=== PATIENT | female | born 1950 | race Caucasian/White ===

== ENCOUNTER 2021-01-10 10:20 | Inpatient (IN) | payer MEDICARE ==
[~2021-01-10] VITALS: Ht 160.2 cm; Wt 65.0 kg
[2021-01-10] MEDS ORDERED: DEXA6TAB PO (11:20)
[2021-01-10] MEDS ORDERED: ATOR40TA70 PO (11:20)
[2021-01-10] MEDS ORDERED: MELATONIN 3 MG TABLET PO PRN (12:15)
[2021-01-10] MEDS ORDERED: DOCUSATE SODIUM 100 MG (COLACE) CAP PO PRN (12:15)
[2021-01-10] MEDS ORDERED: BISACODYL 10 MG SUPP (DULCOLAX) PR PRN (12:15)
[2021-01-10] MEDS ORDERED: LACTULOSE SYRUP 10GM/15ML (ENULOSE) 30ML UDC PO PRN (12:15)
[2021-01-10] MEDS ORDERED: FLEET ENEMA ADULT 1 EA BTL PR PRN (12:15)
[2021-01-10] MEDS ORDERED: CALCIUM CARBONATE 500 MG (TUMS) TAB.CHEW PO PRN (12:15)
[2021-01-10] MEDS ORDERED: diphenhydrAMINE 25 MG TAB (BENADRYL) PO PRN (12:15)
[2021-01-10] MEDS ORDERED: guaiFENesin/CODEINE (ROBITUSSIN AC) 10ML UDC PO PRN (12:15)
[2021-01-10] MEDS ORDERED: ALPRAZolam 0.25 MG (XANAX) TAB PO PRN (12:15)
[2021-01-10] MEDS ORDERED: LOPERAMIDE 2 MG (IMODIUM) TABLET PO PRN (12:15)
[2021-01-10] MEDS ORDERED: ONDANSETRON 4 MG (ZOFRAN) ORAL DISSOLVE TAB PO PRN (12:15)
[2021-01-10 12:50] VITALS: BP 114/62
--- NOTE | 2021-01-10 13:45 | Occupational Therapy Eval ---
OT Evaluation-General/PLF Medical Diagnosis Admission Date Jan 10, 2021 Medical Diagnosis: Post COVID PNA Onset Date: Dec 30, 2020 Therapy Diagnosis Therapy Diagnosis: debility, decreased ADL status, weakness Referral Physician: Lois Referral Reason: Evaluation/Treatment Medical History Additional Medical History dysrhythmia, HTN, heart disease Current History Diagnosed with COVID-19 12/30/20. Recent falls after diagnosis with subarachnoid bleed. Transferred to [facility] 01/10/21 for continued medication management and skilled therapies. Social History Home: Single Level Current Living Status: Spouse Entry Into Home: Ramp ADL-Prior Level of Function SCALE: Activities may be completed with or without assistive devices. 2-Dpxjjazwss-rqescyu completes the activity by him/herself with no assistance from a helper. 5-Set-up or Clean-up Assistance-helper sets up or cleans up; patient completes activity. [place] assists only prior to or following the activity. 4-Supervision or Touching Assistance-helper provides verbal cues and/or touching/steadying and/or contact guard assistance as patient completes activity. Assistance may be provided throughout the activity or intermittently. 3-Partial/Moderate Assistance-helper does LESS THAN HALF the effort. [place] lifts, holds or supports trunk or limbs, but provides less than half the effort. 2-Substantial/Maximal Assistance-helper does MORE THAN HALF the effort. [place] lifts or holds trunk or limbs and provides more than half the effort. 8-Kkbmalbjk-fxcbdh does ALL the effort. Patient does none of the effort to complete the activity. Or, the assistance of 2 or more helpers is required for the patient to complete the activity. If activity was not attempted, code reason: 7-Patient Refused. 9-Not Applicable-not attempted and the patient did not perform the activity before the current illness, exacerbation or injury. 10-Not Attempted due to Environmental Limitations-(lack of equipment, weather restraints, etc.). 88-Not Attempted due to Medical Conditions or Safety Concerns. ADL PLOF Comments Pt IND with I/ADLs at PLOF and functional mobility, no AD/AE Self Care: Independent Functional Cognition: Independent DME/Equipment: Tub/Shower Drive Self: Yes OT Current Status Subjective Pt arrived on unit via w/c van transport. Pt agreeable to OT tx but states very fatigued requesting to rest. Mental Status/Objective Patient Orientation: Person, Place, Situation Attachments: Oxygen (5L) Current Glasses/Contacts: Yes Upper Extremity ROM decreased, BUE shoulder flexion to approx 115 degrees. Upper Extremity Sensation WFL, pt denies tingling/numbness Upper Extremity Strength grossly 3/5 BUES ADL-Treatment Eating (QC): 7 Oral Hygiene (QC): 7 Shower/Bathe Self (QC): 7 Upper Body Dressing (QC): 7 Lower Body Dressing (QC): 7 On/Off Footwear (QC): 7 Toileting Hygiene (QC): 7 Other Treatments [id number]: Pt arrived via w/c van transport. Pt transferred from transport chair to /, Min A sit to stand, then CGA transfer to w/. Pt taken to her room. OT educated pt on purpose and benefit of OT, she verbalized understanding. Pt provided information about home set up and PLOF, and participated in UE screen. Pt requests to go to bed as she is super fatigued. O2 saturation in low 90%'s at rest on 5L. Sit to stand from w/, min A, then CGA transfer to EOB, skilled verbal cues for UE placement with transfers. Pt sat on EOB, transferred supine with CGA. Pt's O2 saturation at 85% on 5L, after a couple minutes remained at 85%. Pt instructed to complete pursed lip breathing but she indicated difficulty. OT turned O2 to 6L, pt recovered to 92% within 15 seconds. OT turned O2 back to 5L, pt remained in low 90%'s. Post tx, pt laying in bed, call light in reach and all needs met. OT will attempt tx again later. [id number]: OT/PT cotreat due to skill of 2 clinicians required which a rehab rn could not perform in order to coordinate UE/LEs, decrease fall risk, and due to pt's limitations in strength, activity tolerance and mobility. OT focused on UE placement, cues for sequencing and safety, PT focused on LE placement, transfers, mobility, dynamic standing balance. Pt with PT at start of tx at EOB. Pt used FWW to perform functional mobility towards door of her room, pt fatigued quickly requesting to sit and rest. O2 saturation at 87% on 6L on portable O2 tank. Pt propelled w/c to ARU common area, performed functional transfers in/out of car simulation, and performed functional mobility again with FWW, pt fatigued quickly again, requesting to rest after a short distance. Pt taken into therapy gym. In order to increase activity tolerance, and dynamic standing balance, pt stood and hit balloon back and forth with OT as PT assisted with balance, pt completed x3 trials total, once using BUE, one trial using RUE only, and one trial LUE only. Please refer to PT note for QC scores associated with mobility and transfers and distance performed. Post tx, pt in w/c with PT for continued tx. Education OT Patient Education: Correct positioning, Energy conservation, Exercise program, Modified ADL techniques, Progress toward Goal/Update tx plan, Purpose of tx/functional activities, Rehab process Teaching Recipient: Patient Teaching Methods: Discussion Response to Teaching: Verbalize Understanding OT Short Term Goals Short Term Goals Time Frame: Jan 24, 2021 Shower/bathe self: 4 Lower body dressin Putting on/taking off footwear: 4 OT Head Of Visual Merchandising Goals Assisted Goals Time Frame: Feb 09, 2021 Eating (QC): 6 Oral Hygiene (QC): 6 Toileting Hygiene (QC): 6 Shower/Bathe Self (QC): 6 Upper Body Dressing (QC): 6 Lower Body Dressing (QC): 6 On/Off Footwear (QC): 6 1=Demonstrate adherence to instructed precautions during ADL tasks. 2=Patient will verbalize/demonstrate understanding of assistive devices/mod ifications for ADL. 3=Patient will improve strength/tolerance for activity to enable patient to perform ADL's. OT Education/Plan Problem List/Assessment Assessment: Decreased Activ Tolerance, Decreased UE Strength, Impaired Bed Mobility, Impaired Coordination, Impaired Funct Balance, Impaired I ADL's, Impaired Self-Care Skills, Restricted Funct UE ROM Discharge Recommendations Plan/Recommendations: Continue POC Equpiment Recommendations-D/C: Extended Bath Bench Treatment Plan/Plan of Care Patient would benefit from OT for education, treatment and training to promote independence in ADL's, mobility, safety and/or upper extremity function for ADL's. Plan of Care: ADL Retraining, Functional Mobility, Group Exercise/Act as Ind, UE Funct Exercise/Act Treatment Duration: Feb 09, 2021 Frequency: Modified Program (IRF) Estimated Hrs Per Day: 1 hour per day Rehab Potential: Fair Due to a COVID-19 viral infection, the patient has deficits that warrant inpatient Acute Rehab. The patient will clearly benefit from intensive PT and OT, however, due to patient's observed endurance and therapy considerations, she may not be able to tolerate the full 3 hours of scheduled therapy. Therefore, she will be scheduled for as much therapy as she can tolerate with intentional rest breaks, shortened sessions, including providing therapy across 6 to 7 days. As the patient tolerates, the intensity, frequency, and duration of her therapy program will be increased. Time/GCodes Start Time: 13:05 ([id number]) Stop Time: 15:30 ([id number]) Total Time Billed (hr/min): 65 Billed Treatment Time 6382-2128 OT tx 1, EVM (10'), FA (15') 0410-3037 OT/PT cotreat 1, FA 3 (40') KRYS PERALTA OT Jan 10, 2021 13:45
--- NOTE | 2021-01-10 14:22 | PM&R Post Admission Assessment ---
PM&R Date of Visit: Jan 10, 2021 Time of Visit: 18:00 History of Present Illness Chief complaint: COVID-19 disability with subarachnoid hemorrhage conservative management per neurosurgery History of present illness: This is a 70-year-old white female who had just moved from [place] to the area to be closer to her daughter who lives in [place] who became symptomatic with illness diagnosed with COVID-19 and had a near syncopal episode at home on 12/30/2020 admitted due to COVID-19 pneumonia diagnosis and subarachnoid hemorrhage noted on imaging scan. Neurosurgery evaluated her and found her to be stable and no evidence of surgery required. Antiplatelet and anticoagulation will be held for the full 3 weeks. Pulmonology will be consulted. D-dimer was needed to be elevated. Chest x-ray reviewed. Patient is very weak and will require slow therapy schedule. She desats with any exertion. She has been for 53 years. 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 She did have significant problem with hypotension so home blood pressure medications will be held. Discharge summary from [facility]: Discharge Diagnoses and Relevant Hospital Course: Active Hospital Problems Diagnosis 2019 novel coronavirus disease (COVID-19) Acute respiratory failure with hypoxia Hypokalemia Metabolic acidosis, normal anion gap (NAG) SAH (subarachnoid hemorrhage) Resolved Hospital Problems No resolved problems to display. Delmy Urbina a 70 y.o.femalewho was admitted to [facility] on 01/07/2021nd found to have a principle diagnosis of severe COVID 19 pneumonia and acute hypoxic respiratory failure. The patient was initially admitted for complaint of dizziness and weakness with near-syncopal episodes. She had been diagnosed with COVID 19 On 12/30/20 and was isolating at home with her who also had COVID. CT head revealed a small subarachnoid hemorrhage in the sulcus of the right frontal lobe without mass- effect or midline shift. Neurosurgery saw the patient and recommended conservative management without intervention and to avoid antiplatelet agents for 3 weeks. On arrival, she had a small oxygen requirement of 2 L in order to maintain saturations in the low 90s. She was started on dexamethasone and remdesivir. Blood pressures were found to be low and some of her home antihypertensives were held. Orthostatic hypotension was treated with IV fluid boluses with improvement of the orthostatic blood pressure but the patient remained dizzy on standing. Physical therapy recommended rehab for her and ultimately she agreed to go to rehab after long discussion between her and her daughter. Her antih ypertensives were stopped at discharge due to her low blood pressures and orthostasis. START taking these medications dexAMETHasone6 mg Tablet Commonly known as: DECADRON Take 1 Tablet (6 mg) by mouth daily for 7 days. Signed by: Dr. Bret Suarez, DO Quantity: 7 Tablet Refills: 0 CONTINUE taking these medications w [id number] mg tablet Commonly known as: LIPITOR Take 40 mg by mouth daily. Refills: 0 STOP taking these medications mg Tablet, Chewable Commonly known as: ROBIN CHEWABLE [id number] mg tablet Commonly known as: APRESOLINE [id number] mg tablet Commonly known as: LEVAQUIN oabvzweifs00 mg Tablet, Rapid Dissolve Commonly known as: CLARITIN RediTabs japbhlzo537 mg tablet Commonly known as: COZAAR metoprolol oulzuami84 mg tablet Commonly known as: LOPRESSOR Past Cvmmuwp-Gzdajk-Olwzvm Hx Past Med/Social Hx: Reviewed Nursing Past Med/Soc Hx, Reviewed and Corrections made Patient Social History Marrital Status: Employed/Student: retired Alcohol Use: Denies Use Smoking Status: Never a Smoker Past Medical History Cardiac: High Cholesterol, Hypertension Neurological: 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) Self Care: Independent Functional Cognition: Independent Drive Self: Yes PM&R Allergy/Meds/Data Review Allergies Coded Allergies: No Known Drug Allergies (Unverified , 01/10/21) Home Medications Scheduled Atorvastatin Calcium (Atorvastatin Calcium), 40 MG PO DAILY, (Reported) Dexamethasone (Dexamethasone), 6 MG PO DAILY, (Reported) Current Medications Current Medications Reviewed Review of Systems Constitutional: see HPI, dizziness, malaise, weakness EENTM: no symptoms reported Respiratory: dyspnea on exertion Cardiovascular: no symptoms reported Gastrointestinal: no symptoms reported Musculoskeletal: no symptoms reported Skin: no symptoms reported Psychiatric/Neurological: Depressed All Other Systems Reviewed Negative Unless Noted: Yes Physical Exam Physical Exam Vital Signs Vital Signs - First Documented 01/10/21 12:50 Temp 38.7 Pulse 86 Resp 20 B/P (MAP) 114/62 (79) Pulse Ox 91 O2 Delivery Nasal Cannula O2 Flow Rate 3.00 Capillary Refill : Height, Weight, BMI Height: '" Weight: lbs. oz. kg; 25.32 BMI Method: General Appearance: No Apparent Distress, WD/WN, Chronically ill, Other (Fatigued) Eyes: Bilateral Eye Normal Inspection, Bilateral Eye PERRL HEENT: PERRL/EOMI, Normal ENT Inspection, Pharynx Normal Neck: Full Range of Motion, Normal Inspection, Non Tender, Supple, Carotid Bruit Respiratory: Chest Non Tender, Lungs Clear, No Accessory Muscle Use, No Respiratory Distress, Decreased Breath Sounds Cardiovascular: Regular Rate, Rhythm, No Edema, No Gallop, No JVD, No Murmur, Normal Peripheral Pulses Gastrointestinal: Normal Bowel Sounds, No Organomegaly, No Pulsatile Mass, Non Tender, Soft Back: Normal Inspection, No CVA Tenderness, No Vertebral Tenderness Extremity: Normal Capillary Refill, Normal Inspection, Normal Range of Motion, Non Tender, No Calf Tenderness, No Pedal Edema Neurologic/Psychiatric: Alert, Oriented x3, 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-XII Norm as Tested, Abnormal Gait, Depressed Affect, Motor Weakness (Generalized weakness 3/5 all extremities) Skin: Normal Color, Warm/Dry Lymphatic: No Adenopathy PM&R Medical Assessment & Plan REHAB/MEDICAL ASSESSMENT AND PLAN: REHAB IMPAIRMENT GROUP: COVID-19 pneumonia with subarachnoid hemorrhage ETIOLOGIC DIAGNOSIS: COVID-19 pneumonia with subarachnoid hemorrhage The comorbidities that impact the patients function and/or functional outcome by: Severe COVID-19 compromise with desaturation, subarachnoid hemorrhage causing overall generalized weakness REHAB PLAN: The patient is being admitted to our comprehensive inpatient rehabilitation facility and can tolerate the intensity of service consisting of at least: 180 minutes of therapy a day, 5 out of 7 days a week Rehab treatment will consist of: PT and OT will focus on increasing ambulatory skills with the use of assistive devices in addition to increasing independence in ADLs in order to return back home with The patient/family has a good understanding of our discharge process and will benefit from an interdisciplinary inpatient rehabilitation program. The patient has potential to make improvement and is in need of at least two of the following multidisciplinary therapies including but not limited to physical, occupational, speech, and prosthetics and orthotics. Additionally the patient will need services from respiratory, nutritional services, wound care, psychology, etc. (Customize this to each patient). Given the patients complex condition and risk of further medical complications, rehabilitation services cannot be safely or effectively provided at a lower level of care such as a assisted facility. BARRIERS TO DISCHARGE: Severe weakness and desaturation with activity ESTIMATED LOS: 14 days DISPOSITION: Home RELEVANT CHANGES SINCE PREADMISSION SCREENING: I have compared the patients medical and functional status at the time of the preadmission screening and there are: No changes PROGNOSIS: Good REHABILITATION GOALS: 1. PT and OT will focus on increasing ambulatory skills with the use of assistive devices in addition to increasing independence in ADLs in order to return back home with All the above goals were reviewed with the patient and he/she is in agreement. By signing this document, I acknowledge that I have personally performed a full physical examination on this patient within 24 hours of admission to this inpatient rehabilitation facility and have determined the patient to be able to tolerate the above course of treatment at an intensive level for a reasonable period of time. I will be completing a detailed individualized Plan of Care for this patient by day #4 of the patients stay based upon the Preadmission Screen, the Post-Admission Evaluation, and the therapy evaluations. Admission Dx/Comorbidities: (1) Post-COVID syndrome ICD Codes: B94.8 - Sequelae of other specified infectious and parasitic diseases (2) Subarachnoid hemorrhage ICD Codes: I60.9 - Nontraumatic subarachnoid hemorrhage, unspecified (3) Hypoxemia ICD Codes: R09.02 - Hypoxemia (4) Hypercapnia ICD Codes: R06.89 - Other abnormalities of breathing (5) Elevated d-dimer ICD Codes: R79.89 - Other specified abnormal findings of blood chemistry (6) Hypertension ICD Codes: I10 - Essential (primary) hypertension (7) Orthostasis ICD Codes: I95.1 - Orthostatic hypotension (8) Hypercholesterolemia ICD Codes: E78.00 - Pure hypercholesterolemia, unspecified Assessment/Plan Assessment and Plan Assess & Plan/Chief Complaint Assessment: Post Covid syndrome Subarachnoid hemorrhage Hypoxemia requiring supplemental oxygen Orthostasis History of hypertension outpatient Hyperlipidemia Hypercapnia on ABG Plan: Aggressive rehab Oxygen supplementation Pulmonary consult Hold antiplatelets anticoagulation for full 3 weeks due to subarachnoid hemorrhage per neurosurgery recommendations can restart 01/21/2021 SARITHA APODACA DO Jan 10, 2021 14:22
--- NOTE | 2021-01-10 14:41 | Diagnostic Imaging Report ---
Indication: Dyspnea Frontal chest obtained at 0228 p.m. There is no prior study for comparison. Heart is mildly enlarged. There is no pneumothorax or pleural fluid. There is extensive infiltrate throughout the right midlung, suspicious for pneumonia. Left lung is clear. IMPRESSION: Cardiomegaly. Extensive right-sided infiltrates suspicious for pneumonia. Dictated by: Dictated on workstation # [id number]
[2021-01-10 14:46] LABS: BASOPHILS % (AUTO) 0 % (0-10); EOSINOPHILS % (AUTO) 0 % (0-10); HEMATOCRIT 37 % (35-52); HEMOGLOBIN 12.3 g/dL (11.5-16.0); LYMPHOCYTES # (AUTO) 0.5 10^3/uL (1.0-4.0); LYMPHOCYTES % (AUTO) 8 % (12-44); MEAN CORPUSCULAR HEMOGLOBIN 30 pg (25-34); MEAN CORPUSCULAR HGB CONC 34 g/dL (32-36); MEAN CORPUSCULAR VOLUME 88 fL (80-99); MEAN PLATELET VOLUME 10.5 fL (9.0-12.2); MONOCYTES # (AUTO) 0.4 10^3/uL (0.0-1.0); MONOCYTES % (AUTO) 6 % (0-12); NEUTROPHILS # (AUTO) 5.5 10^3/uL (1.8-7.8); NEUTROPHILS % (AUTO) 84 % (42-75); PLATELET COUNT 189 10^3/uL (130-400); WHITE BLOOD COUNT 6.6 10^3/uL (4.3-11.0)
[2021-01-10 15:09] LABS: ALBUMIN 3.2 GM/DL (3.2-4.5); BILIRUBIN,TOTAL 0.9 MG/DL (0.1-1.0); CALCIUM 8.4 MG/DL (8.5-10.1); CREATININE SERUM 0.79 MG/DL (0.60-1.30); POTASSIUM 3.7 MMOL/L (3.6-5.0); TOTAL PROTEIN 6.1 GM/DL (6.4-8.2)
--- NOTE | 2021-01-10 15:43 | Physical Therapy Evaluation ---
PT Evaluation-General Medical Diagnosis Admission Date Jan 10, 2021 at 13:05 Medical Diagnosis: Post COVID PNA Onset Date: Dec 30, 2020 Therapy Diagnosis Therapy Diagnosis: impaired mobility, strength, endurance Precautions Precautions/Isolations: Fall Prevention, Standard Precautions Referral Physician: Nazia Abreu DO Reason for Referral: Evaluation/Treatment Medical History Pertinent Medical History: HTN Additional Medical History Diagnosed with COVID-19 12/30/20. Recent falls after diagnosis with subarachnoid bleed. Transferred to [facility] 01/10/21 for continued medication management and skilled therapies. Reviewed History: Yes Social History Home: Single Level Current Living Status: Spouse Entry Into Home: Ramp Prior Prior Level of Function SCALE: Activities may be completed with or without assistive devices. 5-Wbmmdhatiq-gpdcvmu completes the activity by him/herself with no assistance from a helper. 5-Set-up or Clean-up Assistance-helper sets up or cleans up; patient completes activity. [place] assists only prior to or following the activity. 4-Supervision or Touching Assistance-helper provides verbal cues and/or touching/steadying and/or contact guard assistance as patient completes activity. Assistance may be provided throughout the activity or intermittently. 3-Partial/Moderate Assistance-helper does LESS THAN HALF the effort. [place] lifts, holds or supports trunk or limbs, but provides less than half the effort. 2-Substantial/Maximal Assistance-helper does MORE THAN HALF the effort. [place] lifts or holds trunk or limbs and provides more than half the effort. 6-Tzhbtoyky-wokuux does ALL the effort. Patient does none of the effort to complete the activity. Or, the assistance of 2 or more helpers is required for the patient to complete the activity. If activity was not attempted, code reason: 7-Patient Refused. 9-Not Applicable-not attempted and the patient did not perform the activity before the current illness, exacerbation or injury. 10-Not Attempted due to Environmental Limitations-(lack of equipment, weather restraints, etc.). 88-Not Attempted due to Medical Conditions or Safety Concerns. Bed Mobility: 6 Transfers (B,C,W/C): 6 Gait: 6 Stairs: 6 Indoor Mobility (Ambulation): Independent Stairs: Independent PT Evaluation-Current Subjective Patient in bed pre tx, agrees to PT, has no complaints of pain but states she is very tired. Pt/Family Goals to be independent at home Objective Patient Orientation: Person, Place, Situation ROM/Strength ROM Lower Extremities WNL Strength Lower Extremities LLE (hip flexion 4/5, knee flexion 4-/5, knee extension 4/5, dorsiflexion 3-/5), RLE (hip flexion 4/5, knee flexion 4-/5, knee extension 4/5, dorsiflexion 5/5) Sensory Hearing: Functional Sensation Right Lower Extremit: Intact Sensation Left Lower Extremity: Intact Transfers Roll Left & Right (QC): 6 Sit to Lying (QC): 6 Lying to Sitting/Side of Bed(Q: 6 Sit to Stand (QC): 4 Chair/Aiu-uv-Cldmf Xfer(QC): 4 Toilet Transfer (QC): 4 Car Transfer (QC): 4 Patient performs bed mobility and supine <-> sit with independence, sit <-> stand and transfers with CGA, car transfer CGA. Occasional cues for safety and hand placement. Gait Does the Patient Walk?: Yes Mode of Locomotion: Walk Anticipated Mode of Locomotion: Walk Walk 10 feet (QC): 4 Walk 50 ft with 2 Turns(QC): 88 Walk 150 ft (QC): 88 Walking 10ft/uneven surface-QC: 88 Distance: 10'x2 Gait Assistive Device: FWW Comments/Gait Description Patient can ambulate 10' with a rolling walker with CGA. She ambulates very slowly, steps are only a few inches at a time. Wheelchair Training Does the Pt Use a Wheelchair?: Yes Distance: 50' Wheel 50 ft with 2 turns (QC): 3 Wheel 150 ft (QC): 88 Type of Wheelchair: Manual Stairs 1 Step (curb) (QC): 88 4 Steps (QC): 88 12 Steps (QC): 88 Balance Sitting Static: Normal Sitting Dynamic: Normal Standing Static: Good Standing Dynamic: Good Picking up an Object (QC): 88 Treatment PT performed bed mobility and transfers, ambulation, WC mobility, standing and positioning during balloon balance activity, OT performed balloon balance activity, UE positioning and safety during activity. Assessment/Needs Patient in bed post tx with nurse call, phone, tray, all needs met. Patient has impaired mobility, strength, endurance. Patient's O2 drops to about 87% with activity and on 5L of O2. Rehab Potential: Fair PT Short Term Goals Short Term Goals Time Frame: Jan 17, 2021 Roll Left & Right: 6 Sit to lyin Lying to sitting on side of be: 6 Sit to stand: 4 Chair/zlq-pp-nnmyj transfer: 4 Walk 10 feet: 4 Walk 50 feet with two turns: 4 PT Intermediate Goals Ed Transporter Goals PT Ed Transporter Goals Time Frame: Jan 31, 2021 Roll Left & Right (QC): 6 Sit to Lying (QC): 6 Lying-Sitting on Side/Bed(QC): 6 Sit to Stand (QC): 6 Chair/Bvl-hc-Xjfcd Xfer(QC): 6 Toilet Transfer (QC): 6 Car Transfer (QC): 6 Does the Patient Walk: Yes Walk 10 feet (QC): 5 Walk 50ft with 2 Turns (QC): 5 Walk 150 ft (QC): 5 Walking 10ft on Uneven Surface: 5 1 Step (curb) (QC): 4 4 Steps (QC): 4 12 Steps (QC): 88 Picking up an Object (QC): 4 Wheel 50 feet with 2 turns (QC: 9 Wheel 150 feet: 9 PT Plan Problem List Problem List: Activity Tolerance, Functional Strength, Safety, Balance, Gait, Transfer, Bed Mobility, ROM Treatment/Plan Treatment Plan: Continue Plan of Care Treatment Plan: Bed Mobility, Education, Functional Activity Jo Ann, Functional Strength, Group Therapy, Gait, Safety, Therapeutic Exercise, Transfers Treatment Duration: Jan 31, 2021 Frequency: Modified Program (IRF) Estimated Hrs Per Day: 1 hour per day Patient and/or Family Agrees t: Yes Due to a COVID-19 viral infection, the patient has deficits that warrant inpatient Acute Rehab. The patient will clearly benefit from intensive PT and OT, however, due to patient's observed endurance and therapy considerations, she may not be able to tolerate the full 3 hours of scheduled therapy. Therefore, she will be scheduled for as much therapy as she can tolerate with intentional rest breaks, shortened sessions, including providing therapy across 6 to 7 days. As the patient tolerates, the intensity, frequency, and duration of her therapy program will be increased. Safety Risks/Education Patient Education: Gait Training, Transfer Techniques, Correct Positioning, Safety Issues Teaching Recipient: Patient Teaching Methods: Demonstration, Discussion Response to Teaching: Reinforcement Needed Discharge Recommendations Plan Patient will perform bed mobility and transfer training, balance and endurance training, functional strengthening, stair training, gait training, and education, to improve functional mobility and independence at home. Therapy Discharge Recommendati: Home & Family, Post Acute PT Time/GCodes Time In: 1440 Time Out: 1540 Total Billed Treatment Time: 60 Total Billed Treatment 1 visit EVM 10' FA 50' PT eval from [id number], co-treat from [id number], PT from [id number] NARAYAN ORDOÑEZ PT Jan 10, 2021 15:43
[2021-01-10 17:23] LABS: ABG BASE EXCESS 0.9 MMOL/L (-2.5-2.5); ABG OXYGEN SATURATION 87 % (94-100); ABG PCO2 31 MMHG (35-45); ABG PO2 53 MMHG (79-93); ABG TCO2 24.8 MMOL/L (21.0-31.0)
[2021-01-10 17:26] LABS: ALLENS TEST POS; INSPIRED O2 5L; PATIENT TEMP 98.1; VENTILATOR NO
[2021-01-10] MEDS: polyethylene glycoL POWDER 17 GM (MIRALAX) PACK PO SCH (19:31)
[2021-01-10 20:03] VITALS: BP 128/74
[2021-01-10] MEDS: DOCUSATE SODIUM 100 MG (COLACE) CAP PO SCH (20:38)
[2021-01-10] MEDS: SENNA W/DOCUSATE (SENOKOT S) TABLET PO SCH (20:38)
[2021-01-11 05:59] LABS: BASOPHILS % (AUTO) 0 % (0-10); EOSINOPHILS % (AUTO) 0 % (0-10); HEMATOCRIT 33 % (35-52); LYMPHOCYTES # (AUTO) 0.9 10^3/uL (1.0-4.0); LYMPHOCYTES % (AUTO) 17 % (12-44); MEAN CORPUSCULAR HEMOGLOBIN 29 pg (25-34); MEAN CORPUSCULAR HGB CONC 33 g/dL (32-36); MEAN CORPUSCULAR VOLUME 88 fL (80-99); MEAN PLATELET VOLUME 10.9 fL (9.0-12.2); MONOCYTES # (AUTO) 0.4 10^3/uL (0.0-1.0); MONOCYTES % (AUTO) 7 % (0-12); NEUTROPHILS # (AUTO) 3.7 10^3/uL (1.8-7.8); NEUTROPHILS % (AUTO) 74 % (42-75); PLATELET COUNT 183 10^3/uL (130-400)
[2021-01-11 06:06] LABS: POTASSIUM 3.7 MMOL/L (3.6-5.0)
[2021-01-11 06:07] LABS: CALCIUM 8.2 MG/DL (8.5-10.1)
[2021-01-11 06:08] LABS: TOTAL PROTEIN 5.7 GM/DL (6.4-8.2)
[2021-01-11 06:10] LABS: BILIRUBIN,TOTAL 0.8 MG/DL (0.1-1.0)
[2021-01-11 06:12] LABS: CREATININE SERUM 0.71 MG/DL (0.60-1.30)
[2021-01-11 07:58] VITALS: BP 149/71
[2021-01-11] MEDS ORDERED: dexAMETHasone 6 MG TAB (DECADRON) PO SCH (09:00)
[2021-01-11] MEDS ORDERED: APIXABAN 5 MG (ELIQUIS) TABLET PO SCH (09:00)
--- NOTE | 2021-01-11 09:02 | Physical Therapy Daily Note ---
PT Daily Note-Current Subjective Pt laying Supine in bed upon arrival. Pt agrees to PT. Pain Location: No Pain Reported Mental Status Patient Orientation: Person, Place, Time, Situation Attachments: Oxygen (5L) Transfers SCALE: Activities may be completed with or without assistive devices. 9-Frshtumrmj-prkincw completes the activity by him/herself with no assistance from a helper. 5-Set-up or Clean-up Assistance-helper sets up or cleans up; patient completes activity. [place] assists only prior to or following the activity. 4-Supervision or Touching Assistance-helper provides verbal cues and/or touching/steadying and/or contact guard assistance as patient completes activity. Assistance may be provided throughout the activity or intermittently. 3-Partial/Moderate Assistance-helper does LESS THAN HALF the effort. [place] lifts, holds or supports trunk or limbs, but provides less than half the effort. 2-Substantial/Maximal Assistance-helper does MORE THAN HALF the effort. [place] lifts or holds trunk or limbs and provides more than half the effort. 8-Vcubpebqz-wgason does ALL the effort. Patient does none of the effort to complete the activity. Or, the assistance of 2 or more helpers is required for the patient to complete the activity. If activity was not attempted, code reason: 7-Patient Refused. 9-Not Applicable-not attempted and the patient did not perform the activity before the current illness, exacerbation or injury. 10-Not Attempted due to Environmental Limitations-(lack of equipment, weather restraints, etc.). 88-Not Attempted due to Medical Conditions or Safety Concerns. Sit to Stand (QC): 5 Toilet Transfer (QC): 5 Weight Bearing Full Weight Bearing Full Weight Bearing Gait Training Does the Patient Walk?: Yes Distance: 15' Walk 10 feet (QC): 4 Gait Persons Needed: 1 Gait Assistive Device: FWW Treatments TF Supine to EOB at A then SPT to BSC. Pt amb. to BR to wash hands and takes RB. Pt asks to brush teeth, stands to do so then RB at [facility]. Pt reports feeling dizzy/lightheaded and rests in [facility] until feeling better for TF. O2 monitored, fluctuated a lot (started at 87%, increased to 95%, dropped in 70s then back up in 90s then down to 49% before increasing to 94%. Pt SPT to EOB then lays. All needs met, call light in hand at end of tx. Assessment Current Status: Poor Progress Pt fatigues very easily. Pt is able to complete tasks with less difficulty although fatigues quickly. PT Short Term Goals Short Term Goals Time Frame: Jan 17, 2021 Roll Left & Right: 6 Sit to lyin Lying to sitting on side of be: 6 Sit to stand: 4 Chair/bhq-wh-arfvf transfer: 4 Walk 10 feet: 4 Walk 50 feet with two turns: 4 PT Skilled Nursing Goals Structural Steel Worker Goals PT Structural Steel Worker Goals Time Frame: Jan 31, 2021 Roll Left & Right (QC): 6 Sit to Lying (QC): 6 Lying-Sitting on Side/Bed(QC): 6 Sit to Stand (QC): 6 Chair/Wrk-qg-Qpgbh Xfer(QC): 6 Toilet Transfer (QC): 6 Car Transfer (QC): 6 Does the Patient Walk: Yes Walk 10 feet (QC): 5 Walk 50ft with 2 Turns (QC): 5 Walk 150 ft (QC): 5 Walking 10ft on Uneven Surface: 5 1 Step (curb) (QC): 4 4 Steps (QC): 4 12 Steps (QC): 88 Picking up an Object (QC): 4 Wheel 50 feet with 2 turns (QC: 9 Wheel 150 feet: 9 PT Plan Problem List Problem List: Activity Tolerance, Functional Strength Treatment/Plan Treatment Plan: Continue Plan of Care Treatment Plan: Bed Mobility, Education, Functional Activity Jo Ann, Functional Strength, Group Therapy, Gait, Safety, Therapeutic Exercise, Transfers Treatment Duration: Jan 31, 2021 Frequency: Modified Program (IRF) Estimated Hrs Per Day: 1 hour per day Patient and/or Family Agrees t: Yes Safety Risks/Education Patient Education: Gait Training, Correct Positioning Teaching Recipient: Patient Teaching Methods: Discussion Response to Teaching: Verbalize Understanding Time/GCodes Time In: 800 Time Out: 900 Total Billed Treatment Time: 60 Total Billed Treatment 1, FA x2 (25m), GT (15m) & EX (20m) MEG WAITE PUMP INSTALLER Jan 11, 2021 09:02
[2021-01-11] MEDS: polyethylene glycoL POWDER 17 GM (MIRALAX) PACK PO SCH (09:26)
[2021-01-11] MEDS: SENNA W/DOCUSATE (SENOKOT S) TABLET PO SCH (09:26)
[2021-01-11] MEDS: DOCUSATE SODIUM 100 MG (COLACE) CAP PO SCH (09:26)
--- NOTE | 2021-01-11 10:43 | Pulmonary Consultation ---
History of Present Illness History of Present Illness Date Seen by Provider: Jan 11, 2021 Time Seen by Provider: 10:00 Date of Admission Patient acknowledged, consented, and participated in this virtual visit which was conducted using real time audio/video. Thank you for asking us to see this patient for weakness, respiratory insufficiency and distress following Covid pna diagnosed 12/30/20 and complicated by small SAH.. HPC: Recent events: [place]. PMH: HL HTN SH: smoking history: never FH: Non-contributory. ROS: as in HPI. PE: VSS O2 sat 88% on 5LPM NC. HEENT: No obvious masses, adenopathy or JVD. Chest: clear to auscultation but quite diminished via electronic stethoscope. Occasional cough. CV: RRR S1 S2 No murmur or added sounds. Abd: Non-tender. Bowel sounds Y. : Unremarkable. Shepherd N. Uses commode. STUDENT COUNSELLOR/psychiatric: Alert and oriented, grossly intact. No obvious focal findings. Extremities: No edema. Capillary refill < 3 seconds. Skin: unremarkable. Results: Elevated . Decreased Hb 11, Alb 3.0. ABG 01/10: 7.5/31/53 on 3 LPM. CXR 01/10 w extensive R sided infiltrates. No previous Xrays available for comparison. A/P: Respiratory insufficiency/distress: Cont O2 via NC and may increase to 6 or 7 LPM. Available chart/ vitals / labs / images reviewed. Video assessment done using teleICU camera, rest of exam as per RN. Monitor for increasing oxygenation needs and/or need for ICU transfer. Critical Care: critically ill patient. Eliquis and BP meds held. Discussed with RN and Dr. Lois SIMS. Asked RN to reach out to eICU if any questions or concerns later. Time spent with patient/coordination of care with other health professionals (mins): 43 History of Present Illness See free text Allergies and Home Medications Allergies Coded Allergies: No Known Drug Allergies (Unverified , 01/10/21) Home Medications Atorvastatin Calcium 40 Mg Tablet, 40 MG PO DAILY, (Reported) Dexamethasone 6 Mg Tablet, 6 MG PO DAILY, (Reported) DISCHARGE ORDERS SAY TO GIVE DAILY FOR 7 DAYS Past Medical/Social/Family Hx Patient Social History Marrital Status: Employed/Student: retired Tobacco Use?: No Smoking Status: Never a Smoker Alcohol Use?: No Pt stated abuse/neglect: No Immunizations Up To Date Influenza Vaccine Up-to-Date: No; Not Current Current Status Advance Directives: No Communicates: Verbally Primary Language: Tanzanian Preferred Spoken Language: Tanzanian Is interpretation needed?: No Implanted or Applied Medical D: None Review of Systems Constitutional: see HPI (see free text), chills Skin: lumps All Other Systems Reviewed Negative Unless Noted: Yes Sepsis Event Evaluation Height, Weight, BMI Height: '" Weight: lbs. oz. kg; 25.32 BMI Method: Exam Exam Patient acknowledged, consented, and participated in this virtual visit which was conducted using real time audio/video Vital Signs Date Time Temp Pulse Resp B/P (MAP) Pulse Ox O2 Delivery O2 Flow Rate FiO2 01/11/21 09:23 90 Nasal Cannula 5.00 01/11/21 07:58 36.2 59 28 149/71 (97) 91 Nasal Cannula 5.00 01/10/21 20:30 90 Nasal Cannula 5.00 01/10/21 20:03 37.9 75 16 128/74 (92) 90 Nasal Cannula 5.00 01/10/21 15:16 Nasal Cannula 5.00 01/10/21 12:50 38.7 86 20 114/62 (79) 91 Nasal Cannula 3.00 Height & Weight Height: '" Weight: lbs. oz. kg; 25.32 BMI Method: General Appearance: No Apparent Distress, WD/WN, Chronically ill, Other (Fatigued) HEENT: PERRL/EOMI, Normal ENT Inspection, Pharynx Normal Neck: Full Range of Motion, Normal Inspection, Non Tender, Supple, Carotid Bruit Respiratory: Chest Non Tender, Lungs Clear, No Accessory Muscle Use, No Respiratory Distress, Decreased Breath Sounds Cardiovascular: Regular Rate, Rhythm, No Edema, No Gallop, No JVD, No Murmur, Normal Peripheral Pulses Peripheral Pulses: 1+ Dorsalis Pedis (R) (see free text), 1+ Left Dors-Pedis (L) Extremity: Normal Capillary Refill, Normal Inspection, Normal Range of Motion, Non Tender, No Calf Tenderness, No Pedal Edema Neurologic/Psychiatric: Alert, Oriented x3, dry cleaner helper II-XII Norm as Tested, Abnormal Gait, Depressed Affect, Motor Weakness (Generalized weakness 3/5 all extremities) Skin: Normal Color, Warm/Dry Lymphatic: No Adenopathy Results Lab Laboratory Tests 01/10/21 14:37 01/11/21 05:40 Assessment/Plan Assessment/Plan See free text Time spent on discussion(mins): 10 RAFA CHAN MD Jan 11, 2021 10:43
--- NOTE | 2021-01-11 11:55 | Discharge Summary ---
Diagnosis/Chief Complaint Date of Admission Jan 10, 2021 at 13:05 Date of Discharge Discharge Diagnosis Acute on chronic hypoxic respiratory failure from COVID-19 01/09/2021 Acute decompensation requiring ICU transfer Elevated D-dimer Discharge Summary Discharge Physical Examination Allergies: Coded Allergies: No Known Drug Allergies (Unverified , 01/10/21) Vitals & I&Os Vital Signs Date Time Temp Pulse Resp B/P (MAP) Pulse Ox O2 Delivery O2 Flow Rate FiO2 01/11/21 09:23 90 Nasal Cannula 5.00 01/11/21 07:58 36.2 59 28 149/71 (97) General Appearance: Other (Dyspneic and fatigued) Respiratory: Other (Diminished breath sounds) Hospital Course Was the Problem List Reviewed?: Yes Hospital course: Patient had a brief hospital course she was admitted from [facility] after diagnosed with COVID-19 pneumonia on 12/30/2020 after she was seen for a fall at home suffered a laceration on her left side of her forehead. She is found to have a subarachnoid hemorrhage. Neurosurgery evaluated her did not have a surgical requirement. All anticoagulation antiplatelet agents will be held until 01/21/2021. She had significant decompensation during exertion with therapy with elevated D-dimer and significant hypoxemia with hypercapnia she was found to be in need of ICU care so she is transferred up there after pulmonary consult agreed with the plan. Labs (last 24 hrs) Laboratory Tests 01/10/21 14:37: White Blood Count 6.6, Red Blood Count 4.13, Hemoglobin 12.3, Hematocrit 37, Mean Corpuscular Volume 88, Mean Corpuscular Hemoglobin 30, Mean Corpuscular Hemoglobin Concent 34, Red Cell Distribution Width 14.2, Platelet Count 189, Mean Platelet Volume 10.5, Immature Granulocyte % (Auto) 1, Neutrophils (%) (Auto) 84H, Lymphocytes (%) (Auto) 8L, Monocytes (%) (Auto) 6, Eosinophils (%) (Auto) 0, Basophils (%) (Auto) 0, Neutrophils # (Auto) 5.5, Lymphocytes # (Auto) 0.5L, Monocytes # (Auto) 0.4, Eosinophils # (Auto) 0.0, Basophils # (Auto) 0.0, Immature Granulocyte # (Auto) 0.1, D-Dimer 8.29H, Sodium Level 141, Potassium Level 3.7, Chloride Level 106, Carbon Dioxide Level 23, Anion Gap 12, Blood Urea Nitrogen 16, Creatinine 0.79, Estimat Glomerular Filtration Rate 72, BUN/Creatinine Ratio 20, Glucose Level 109H, Calcium Level 8.4L, Corrected Calcium 9.0, Total Bilirubin 0.9, Aspartate Amino Transf (AST/SGOT) 54H, Alanine Aminotransferase (ALT/SGPT) 50, Alkaline Phosphatase 55, Total Protein 6.1L, Albumin 3.2, Procalcitonin 0.03 01/10/21 17:10: Blood Gas Puncture Site LFT RAD, Blood Gas Patient Temperature 98.1, Arterial Blood pH 7.50H, Arterial Blood Partial Pressure CO2 31L, Arterial Blood Partial Pressure O2 53L, Arterial Blood HCO3 24, Arterial Blood Total CO2 24.8, Arterial Blood Oxygen Saturation 87L, Arterial Blood Base Excess 0.9, Dino Test POS, Bl ood Gas Ventilator Setting NO, Blood Gas Inspired Oxygen 5L 01/11/21 05:40: White Blood Count 5.0, Red Blood Count 3.76L, Hemoglobin 11.0L, Hematocrit 33L, Mean Corpuscular Volume 88, Mean Corpuscular Hemoglobin 29, Mean Corpuscular Hemoglobin Concent 33, Red Cell Distribution Width 14.2, Platelet Count 183, Mean Platelet Volume 10.9, Immature Granulocyte % (Auto) 1, Neutrophils (%) (Auto) 74, Lymphocytes (%) (Auto) 17, Monocytes (%) (Auto) 7, Eosinophils (%) (Auto) 0, Basophils (%) (Auto) 0, Neutrophils # (Auto) 3.7, Lymphocytes # (Auto) 0.9L, Monocytes # (Auto) 0.4, Eosinophils # (Auto) 0.0, Basophils # (Auto) 0.0, Immature Granulocyte # (Auto) 0.1, Sodium Level 140, Potassium Level 3.7, Chloride Level 108H, Carbon Dioxide Level 23, Anion Gap 9, Blood Urea Nitrogen 16, Creatinine 0.71, Estimat Glomerular Filtration Rate 81, BUN/Creatinine Ratio 23, Glucose Level 140H, Calcium Level 8.2L, Corrected Calcium 9.0, Total Bilirubin 0.8, Aspartate Amino Transf (AST/SGOT) 42H, Alanine Aminotransferase (ALT/SGPT) 41, Alkaline Phosphatase 53, Total Protein 5.7L, Albumin 3.0L Pending Labs Laboratory Tests 01/10/21 14:37: White Blood Count 6.6, Red Blood Count 4.13, Hemoglobin 12.3, Hematocrit 37, Mean Corpuscular Volume 88, Mean Corpuscular Hemoglobin 30, Mean Corpuscular Hemoglobin Concent 34, Red Cell Distribution Width 14.2, Platelet Count 189, Mean Platelet Volume 10.5, Immature Granulocyte % (Auto) 1, Neutrophils (%) (Auto) 84, Lymphocytes (%) (Auto) 8, Monocytes (%) (Auto) 6, Eosinophils (%) (Auto) 0, Basophils (%) (Auto) 0, Neutrophils # (Auto) 5.5, Lymphocytes # (Auto) 0.5, Monocytes # (Auto) 0.4, Eosinophils # (Auto) 0.0, Basophils # (Auto) 0.0, Immature Granulocyte # (Auto) 0.1, D-Dimer 8.29, Sodium Level 141, Potassium Level 3.7, Chloride Level 106, Carbon Dioxide Level 23, Anion Gap 12, Blood Urea Nitrogen 16, Creatinine 0.79, Estimat Glomerular Filtration Rate 72, B UN/Creatinine Ratio 20, Glucose Level 109, Calcium Level 8.4, Corrected Calcium 9.0, Total Bilirubin 0.9, Aspartate Amino Transf (AST/SGOT) 54, Alanine Aminotransferase (ALT/SGPT) 50, Alkaline Phosphatase 55, Total Protein 6.1, Albumin 3.2, Procalcitonin 0.03 01/10/21 17:10: Blood Gas Puncture Site LFT RAD, Blood Gas Patient Temperature 98.1, Arterial Blood pH 7.50, Arterial Blood Partial Pressure CO2 31, Arterial Blood Partial Pressure O2 53, Arterial Blood HCO3 24, Arterial Blood Total CO2 24.8, Arterial Blood Oxygen Saturation 87, Arterial Blood Base Excess 0.9, Dino Test POS, Blood Gas Ventilator Setting NO, Blood Gas Inspired Oxygen 5L 01/11/21 05:40: White Blood Count 5.0, Red Blood Count 3.76, Hemoglobin 11.0, Hematocrit 33, Mean Corpuscular Volume 88, Mean Corpuscular Hemoglobin 29, Mean Corpuscular Hemoglobin Concent 33, Red Cell Distribution Width 14.2, Platelet Count 183, Mean Platelet Volume 10.9, Immature Granulocyte % (Auto) 1, Neutrophils (%) (Auto) 74, Lymphocytes (%) (Auto) 17, Monocytes (%) (Auto) 7, Eosinophils (%) (Auto) 0, Basophils (%) (Auto) 0, Neutrophils # (Auto) 3.7, Lymphocytes # (Auto) 0.9, Monocytes # (Auto) 0.4, Eosinophils # (Auto) 0.0, Basophils # (Auto) 0.0, Immature Granulocyte # (Auto) 0.1, Sodium Level 140, Potassium Level 3.7, Chloride Level 108, Carbon Dioxide Level 23, Anion Gap 9, Blood Urea Nitrogen 16, Creatinine 0.71, Estimat Glomerular Filtration Rate 81, BUN/Creatinine Ratio 23, Glucose Level 140, Calcium Level 8.2, Corrected Calcium 9.0, Total Bilirubin 0.8, Aspartate Amino Transf (AST/SGOT) 42, Alanine Aminotransferase (ALT/SGPT) 41, Alkaline Phosphatase 53, Total Protein 5.7, Albumin 3.0 Discharge Home Medications: Active Scripts Active Reported Atorvastatin Calcium 40 Mg Tablet 40 Mg PO DAILY Dexamethasone 6 Mg Tablet 6 Mg PO DAILY 7 Days DISCHARGE ORDERS SAY TO GIVE DAILY FOR 7 DAYS Instructions to patient/family Please see electronic discharge instructions given to patient. Diagnosis/Problems Diagnosis/Problems (1) Post-COVID syndrome (2) Subarachnoid hemorrhage (3) Hypoxemia (4) Hypercapnia (5) Elevated d-dimer (6) Hypertension (7) Orthostasis (8) Hypercholesterolemia SARITHA APODACA DO Jan 11, 2021 11:55
--- NOTE | 2021-01-12 09:14 | Therapy Team Discharge Summary ---
Therapy Discharge Summary Discharge Recommendations Date of Discharge Jan 11, 2021 at 11:40 Occupational Therapy Pt admitted to ARU with post COVID PNA and debility. At PLOF, pt was independent with all ADLs and functional mobility without AD/AE. Pt transferred to ICU day after arrival due to increased medical complexity. No QC scores were obtained due to pt's short stay. She did not meet any goals due to short stay and only being seen for initial evaluation. Discharge from OT. Decreased Activ Tolerance, Decreased UE Strength, Impaired Bed Mobility, Impaired Coordination, Impaired Funct Balance, Impaired I ADL's, Impaired Self- Care Skills, Restricted Funct UE ROM PT Correction Goals Correction Goals PT Correction Goals Time Frame: Jan 31, 2021 Roll Left to Right (QC): 6 Sit to Lying (QC): 6 Lying-Sitting on Side/Bed(QC): 6 Sit to Stand (QC): 6 Chair/Xpg-wp-Coppl Xfer(QC): 6 Car Transfer (QC): 6 Does the Patient Walk: Yes Walk 10 feet (QC): 5 Walk 10ft-Uneven Surface(QC): 5 Walk 50ft with 2 Turns (QC): 5 Walk 150 ft (QC): 5 Wheel 50 feet with 2 turns (QC: 9 1 Step (curb) (QC): 4 4 Steps (QC): 4 12 Steps (QC): 88 Picking up an Object (QC): 4 OT Field Machinist Goals Field Machinist Goals Time Frame: Feb 09, 2021 Eating (QC): 6 (not met) Oral Hygiene (QC): 6 (not met) Shower/Bathe Self (QC): 6 (not met) Upper Body Dressing (QC): 6 (not met) Lower Body Dressing (QC): 6 (not met) On/Off Footwear (QC): 6 (not met) Toileting Hygiene (QC): 6 (not met) Toilet/Commode Transfer (QC): 6 (not met) 1=Demonstrate adherence to instructed precautions during ADL tasks. 2=Patient will verbalize/demonstrate understanding of assistive devices/modifications for ADL. 3=Patient will improve strength/tolerance for activity to enable patient to perform ADL's. KRYS PERALTA OT Jan 12, 2021 09:14
--- NOTE | 2021-01-15 15:37 | Therapy Team Discharge Summary ---
Therapy Discharge Summary Discharge Recommendations Date of Discharge Jan 11, 2021 at 11:40 Physical Therapy Patient came to rehab with Post COVID PNA. Upon evaluation patient performed bed mobility and supine <-> sit with independence, sit <-> stand and transfers with CGA, car transfer CGA, ambulated 10' with a rolling walker with CGA, and propelled a manual WC 50' with min/mod assist. Patient has been performing bed mobility and transfer training, balance and endurance training, gait training, and education. Patient was only on rehab for a couple of days before having to go to ICU due to medical issues. No last measurements were obtained. Patient will be discharged from PT at this time. Occupational Therapy Decreased Activ Tolerance, Decreased UE Strength, Impaired Bed Mobility, Impaired Coordination, Impaired Funct Balance, Impaired I ADL's, Impaired Self- Care Skills, Restricted Funct UE ROM PT After School Caregiver Goals After School Caregiver Goals PT Senior Living Goals Time Frame: Jan 31, 2021 Roll Left to Right (QC): 6 Sit to Lying (QC): 6 Lying-Sitting on Side/Bed(QC): 6 Sit to Stand (QC): 6 Chair/[id number] Xfer(QC): 6 Car Transfer (QC): 6 Does the Patient Walk: Yes Walk 10 feet (QC): 5 Walk 10ft-Uneven Surface(QC): 5 Walk 50ft with 2 Turns (QC): 5 Walk 150 ft (QC): 5 Wheel 50 feet with 2 turns (QC: 9 1 Step (curb) (QC): 4 4 Steps (QC): 4 12 Steps (QC): 88 Picking up an Object (QC): 4 OT Senior Living Goals After School Caregiver Goals Time Frame: Feb 09, 2021 Eating (QC): 6 (not met) Oral Hygiene (QC): 6 (not met) Shower/Bathe Self (QC): 6 (not met) Upper Body Dressing (QC): 6 (not met) Lower Body Dressing (QC): 6 (not met) On/Off Footwear (QC): 6 (not met) Toileting Hygiene (QC): 6 (not met) Toilet/Commode Transfer (QC): 6 (not met) 1=Demonstrate adherence to instructed precautions during ADL tasks. 2=Patient will verbalize/demonstrate understanding of assistive devices/modifications for ADL. 3=Patient will improve strength/tolerance for activity to enable patient to perform ADL's. NARAYAN ORDOÑEZ PT Jan 15, 2021 15:37
== END 2021-01-11 11:40 | disposition home or self-care (01) | DRG 56 ==
PROVIDERS: ADMIT Internal Medicine; ATTEND Internal Medicine
DX: I69.098 Other sequelae following nontraumatic subarachnoid hemorrhage (principal); J96.21 Acute and chronic respiratory failure with hypoxia; J96.22 Acute and chronic respiratory failure with hypercapnia; R53.1 Weakness; B94.8 Sequelae of other specified infectious and parasitic diseases; Z87.01 Personal history of pneumonia (recurrent); Z99.81 Dependence on supplemental oxygen; E78.00 Pure hypercholesterolemia, unspecified; E78.5 Hyperlipidemia, unspecified; I10 Essential (primary) hypertension; I95.1 Orthostatic hypotension
CPT/HCPCS: 36415; 36600; 71045; 80053; 82805; 84145; 85025; 85379

== ENCOUNTER 2021-01-11 11:22 | Inpatient (IN) | payer MEDICARE ==
[~2021-01-11] VITALS: Ht 160 cm; Wt 67.4 kg
[~2021-01-11 11:22] MED LIST: ATOR40TA70 PO; DEXA6TAB PO
[2021-01-11] MEDS ORDERED: HOLD METFORMIN - RECEIVED CONTRAST 20 ML VIAL IV SCH (12:00)
[2021-01-11] MEDS ORDERED: NS 100 ML (IVPB) BAG IV ONE (12:00)
[2021-01-11] MEDS ORDERED: IOHEXOL 350 MG/ML 100 ML (OMNIPAQUE 350) VIAL IV ONE (12:00)
[2021-01-11] MEDS ORDERED: CATHETER FLUSH 10 ML SYR IV PRN (12:00)
--- NOTE | 2021-01-11 12:10 | History & Physical ---
FRAN SINGLETON MED STUDENT 01/11/21 1210: History of Present Illness History of Present Illness Reason for visit/HPI Delmy Chavez is a 70 year old female who was transferred to the ICU today after becoming increasingly hypoxic in the rehab unit with increasing oxygen requirements. PMH is significant for HTN, HLP, and recent COVID-19 PNA. She was recently admitted to [facility] in [place], [place] with a diagnosis of severe Covid-19 PNA with acute hypoxic respiratory failure. She had initially been diagnosed on 12-30-20. Immediately after diagnosis she had been isolating at her home along with her who tested positive for covid-19 as well. At home she became increasingly dizzy and lighheaded with multiple near syncopal episodes and a syncopal episode. A CT head was done at [facility] which showed a small subarachnoid hemorrhage in the sulcus of the right frontal lobe without mass effect or midline shift. Neurosurgery evaluated the patient and recommended conservative management only. She can resume anticoagulation on 01-21-21 per neurosurgery. While at [facility] she had orthostatic hypotension and she received several fluid boluses and her home antihypertensives were held, this resulted in improvement of her symptoms. Ultimately it was decided to discontinue her home antihypertensives on discharge due to continued ort hostasis. She presented to [facility] rehab unit on 01-10-21 for inpatient rehab. Late yesterday she began having increasing oxygen requirements requiring as much as 10L/min at one point. EICU was consulted and due to her worsening respiratory status and desaturations with repositioning she was transferred to ICU for further care. Due to hypoxemia on ABG, elevated d dimer, and increased work of breathing, a CTA chest will be obtained along with venous doppler of BLE. We will repeat her d dimer, cbc, chem panel, abg, procalcitonin, and get a lactic. She has been transitioned to vapotherm at 30L and 90% and tolerating that well thus far. Consult cardiology for near syncope and orthostasis. EKG, echo, BNP will be ordered as well. Currently she denies fevers, chills, headache, blurry vision, nausea, vomiting, leg pain/swelling, and abdominal pain. She reports having midsternal chest pain that is sharp and non-radiating that worsens with deep breathing. She denies hemoptysis. She reports mild SOB that worsens with exertion. She also endorses some orthopnea. Date of Admission Jan 11, 2021 at 11:30 Date Seen by a Provider: Jan 11, 2021 Time Seen by a Provider: 12:04 I consulted on this patient on 01/11/21 Attending Physician Nazia Apodaca DO Admitting Physician Consult Allergies and Home Medications Allergies Coded Allergies: No Known Drug Allergies (Unverified , 01/10/21) Patient Home Medication List Atorvastatin Calcium (Atorvastatin Calcium) 40 Mg Tablet, 40 MG PO DAILY, (Reported) Entered as Reported by: JAYLA HAWKINS on 01/10/21 112 Last Action: Reviewed Dexamethasone (Dexamethasone) 6 Mg Tablet, 6 MG PO DAILY, (Reported) Entered as Reported by: JAYLA HAWKINS on 01/10/211119 Last Action: Reviewed Past Pigddbc-Iydayw-Xcebfw Hx Patient Social History Marrital Status: Employed/Student: retired Tobacco Use?: No Smoking Status: Never a Smoker Smokeless Tobacco Frequency: Never a User Use of E-Cig and/or Vaping dev: No Use of E-Cig and/or Vaping Wilmer: Never a User Substance use?: No Alcohol Use?: Yes Alcohol type: Hard Liquor Alcohol Frequency: Once in a while Pt feels they are or have been: No Immunizations Up To Date Tetanus Booster (TDap): Unknown Hepatitis A: No Hepatitis B: No Seasonal Allergies Seasonal Allergies: No Current Status status: No status: No Advance Directives: No Communicates: Verbally Primary Language: Albanian Preferred Spoken Language: Albanian Is interpretation needed?: No Implanted or Applied Medical D: None Past Medical History Surgeries: Appendectomy, Hysterectomy (Total) Pneumonia (Post COVID PNA, Diagnosed 12-30-20) Currently Using CPAP: No Currently Using BIPAP: No High Cholesterol, Hypertension 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 Does not radiate. Sharp in quality. ); No edema, No Hx of Intervention, No palpitations; syncope (Reports several recent syncopal episodes prior to admission) Gastrointestinal: no symptoms reported; No abdominal pain, No constipation, No diarrhea, No dysphagia, No nausea, No vomiting Genitourinary: no symptoms reported; No dysuria, No frequency, No hematuria, No hesitancy : No Musculoskeletal: no symptoms reported; No back pain, No joint pain Skin: no symptoms reported; No change in color, No change in hair/nails, No dryness, No lesions, No rash Psychiatric/Neurological: No Symptoms Reported; Denies Anxiety, Denies Depressed, Denies Headache, Denies Numbness, Denies Paresthesia, Denies Seizure, Denies Tingling, Denies Tremors All Other Systems Reviewed Negative Unless Noted: Yes Physical Exam Vital Signs Vital Signs - First Documented 01/11/21 01/11/21 01/11/21 11:40 12:00 12:06 Pulse 70 Resp 67 B/P (MAP) 121/77 Pulse Ox 93 O2 Delivery Vapotherm Capillary Refill : Height, Weight, BMI Height: '" Weight: lbs. oz. kg; 24.41 BMI Method: General Appearance: Mild Distress Eyes: Bilateral Eye Normal Inspection, Bilateral Eye PERRL, Bilateral Eye EOMI HEENT: PERRL/EOMI, Pharynx Normal, Moist Mucous Membranes, Other (Left perioribital skin superficial laceration healing. Well approximated and scabbed over. No erythema or drainage. 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 -empiric abx -Mild airspace opacity in the peripheral left lung. 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 Recent SAH -conservative management per neurosurgery -may restart anticoagulation on 01-21-21 -continue to monitor neurologic status -notify physician for acute changes H/O recent syncopal episodes -cardiology consulted -EKG, Echo, BNP, Elevated D Dimer -d dimer 8.29 on 01-10 -repeat d dimer now -venous doppler bilat lower extremities -CTA chest today Orthostasis -IVF's -perform orthostatic vitals -fall precautions HTN -hold home antihypertensives given orthostasis HLP -resume home dose lipitor Admission Diagnosis Hypoxia Admission Status: Inpatient Order (span 2 midnights) Reason for Inpatient Admission: Hypoxia requiring oxygen NAZIA APODACA DO 01/12/21 1206: Allergies and Home Medications Allergies Coded Allergies: No Known Drug Allergies (Unverified , 01/10/21) Patient Home Medication List Home Medication List Reviewed: Yes Atorvastatin Calcium (Atorvastatin Calcium) 40 Mg Tablet, 40 MG PO DAILY, (Reported) Entered as Reported by: JAYLA HAWKINS on 01/10/21 112 Last Action: Reviewed Dexamethasone (Dexamethasone) 6 Mg Tablet, 6 MG PO DAILY, (Reported) Entered as Reported by: JAYLA HAWKINS on 01/10/210 Last Action: Reviewed Past Nkhaule-Gbndgn-Vmycyv Hx Patient Social History Marrital Status: Employed/Student: retired Smoking Status: Never a Smoker Smokeless Tobacco Frequency: Never a User Use of E-Cig and/or Vaping dev: No Use of E-Cig and/or Vaping Wilmer: Never a User Substance use?: No Pt feels they are or have been: No Past Medical History Surgeries: Appendectomy, Hysterectomy (Total) Currently Using CPAP: No Currently Using BIPAP: No High Cholesterol, Hypertension Stroke (SAH 12/30/20) Review of Systems Constitutional: see HPI EENTM: no symptoms reported Respiratory: no symptoms reported, dyspnea on exertion, short of breath Gastrointestinal: no symptoms reported Musculoskeletal: no symptoms reported Skin: no symptoms reported Psychiatric/Neurological: No Symptoms Reported All Other Systems Reviewed Negative Unless Noted: Yes Physical Exam General Appearance: WD/WN, Anxious, Chronically ill, Mild Distress Eyes: Bilateral Eye Normal Inspection, Bilateral Eye PERRL, Bilateral Eye EOMI HEENT: PERRL/EOMI, Normal ENT Inspection, Pharynx Normal Neck: Full Range of Motion, Normal Inspection, Non Tender, Supple, Carotid Bruit Respiratory: Chest Non Tender, Lungs Clear, Normal Breath Sounds, No Respiratory Distress, Accessory Muscle Use, Crackles, Decreased Breath Sounds, Wheezing Cardiovascular: Regular Rate, Rhythm, No Edema, No Gallop, No JVD, No Murmur, Normal Peripheral Pulses, Tachycardia Gastrointestinal: Normal Bowel Sounds, No Organomegaly, No Pulsatile Mass, Non Tender, Soft Back: Normal Inspection, No CVA Tenderness, No Vertebral Tenderness Extremity: Normal Capillary Refill, Normal Inspection, Normal Range of Motion, Non Tender, No Calf Tenderness, No Pedal Edema Neurologic/Psychiatric: Alert, Oriented x3, No Motor/Sensory Deficits, Normal Mood/Affect, Motor Weakness (Generalized weakness ) Skin: Normal Color, Warm/Dry Lymphatic: No Adenopathy Assessment/Plan Assessment and Plan Assessment: Acute on chronic hypoxic respiratory failure due to COVID-19 pneumonia 12/30/2020 Acute pulmonary embolism Acute DVT Subarachnoid hemorrhage no anticoagulation or antiplatelet agents allowed to start until 01/21/2021 per neurosurgery at [facility] Hypertension Hyperlipidemia History of orthostasis Severe debility Plan: Maintain ICU Pulmonary critical care appreciated IVC filter placement with Dr. POTTER Admission Diagnosis Admission Status: Inpatient Order (span 2 midnights) Reason for Inpatient Admission: Respiratory failure Supervisory-Addendum Brief Verification & Attestation Participated in pt care: history, MDM, physical Personally performed: exam, history, MDM, supervision of care Care discussed with: Medical Student Procedures: n/a Results interpretation: Verified all documentation Verification and Attestation of Medical Student E/M Service A medical student performed and documented this service in my presence. I reviewed and verified all information documented by the medical student and made modifications to such information, when appropriate. I personally performed the physical exam and medical decision making. Nazia Apodaca, Jan 12, 2021,12:06 FRAN SINGLETON MED STUDENT Jan 11, 2021 12:10 NAZIA APODACA DO Jan 12, 2021 12:06
--- NOTE | 2021-01-11 12:37 | Diagnostic Imaging Report ---
HISTORY: Covid pneumonia. COMPARISON: 01/10/2021 TECHNIQUE: Frontal view of the chest. FINDINGS: There is dense airspace consolidation along the peripheral right lung which has increased since the prior exam. Mild airspace opacity is seen in the peripheral left lung upper lobe. The cardiac silhouette is mildly prominent but stable in size. There is aortic atherosclerosis. No pleural effusion or pneumothorax is seen. There is a chronic right rotator cuff injury. IMPRESSION: 1. Dense consolidation throughout the lateral half of the right lung, increased since the prior exam. 2. Mild airspace opacity in the peripheral left lung. Dictated by: Dictated on workstation # [id number]
[2021-01-11 12:53] LABS: ABG BASE EXCESS 1.3 MMOL/L (-2.5-2.5); ABG OXYGEN SATURATION 99 % (94-100); ABG PCO2 33 MMHG (35-45); ABG PH 7.48 (7.37-7.43); ABG PO2 128 MMHG (79-93); ABG TCO2 25.5 MMOL/L (21.0-31.0)
[2021-01-11 12:55] LABS: INSPIRED O2 90% 35L
--- NOTE | 2021-01-11 13:03 | Consultation-Cardiology ---
HPI-Cardiology Cardiology Consultation Date of Consultation 01/11/21 Date of Admission Time Seen by Provider: 12:58 Indication: Acute respiratory failure HPI 70-year-old lady with history of hypertension, hyperlipidemia, suffered from COVID-19 pneumonia, had multiple syncopal episodes and she was hospitalized at [facility]. Recovered from Covid, continue to have underlying shortness of breath and she was transferred for physical therapy. Today patient was noted to have worsening shortness of breath requiring higher amount of oxygen, had orthostatic dizziness and lightheadedness and near syncope, no full syncope was reported today. Patient was transferred to the ICU and she was started on Vapotherm. Home Medications & Allergies Allergies: Coded Allergies: No Known Drug Allergies (Unverified , 01/10/21) Home Medication List Reviewed: Yes KMZ-Mzngkb-Mvlkqn Hx Patient Social History Marital Status: Employed/Student: retired Smoking Status: Never a Smoker Have you traveled recently?: No Alcohol Use?: Yes Past Medical History Discussed below Family Medical History Family Medical Hx Noncontributory Review of Systems-General Review of Systems Constitutional: see HPI; No chills, No diaphoresis; dizziness; No fever; malaise, weakness EENTM: see HPI; No hearing loss, No blurred vision, No double vision, No eye pain Respiratory: see HPI; No cough; dyspnea on exertion; No hemoptysis; orthopnea; No phlegm; short of breath; No stridor, No wheezing Cardiovascular: see HPI, chest pain (Substernal chest pain present x 4-5 days, worse with deep breathing. Does not radiate. Sharp in quality. ); No edema, No Hx of Intervention, No palpitations; syncope (Reports several recent syncopal episodes prior to admission) Gastrointestinal: no symptoms reported, see HPI; No abdominal pain, No constipation, No diarrhea, No dysphagia, No nausea, No vomiting Genitourinary: no symptoms reported, see HPI; No dysuria, No frequency, No hematuria, No hesitancy : No Musculoskeletal: no symptoms reported, see HPI; No back pain, No joint pain Skin: no symptoms reported, see HPI; No change in color, No change in hair/nails, No dryness, No lesions, No rash Psychiatric/Neurological: No Symptoms Reported; Denies Anxiety, Denies Depressed, Denies Headache, Denies Numbness, Denies Paresthesia, Denies Seizure, Denies Tingling, Denies Tremors All Other Systems Reviewed Negative Unless Noted: Yes Reviewed Test Results Reviewed Test Results Lab Laboratory Tests Test 01/11/21 12:46 Range/Units Blood Gas Puncture Site RT RAD Blood Gas Patient Temperature 37.0 Arterial Blood pH 7.48 H 7.37-7.43 Arterial Blood Partial Pressure CO2 33 L 35-45 MMHG Arterial Blood Partial Pressure O2 128 H 79-93 MMHG Arterial Blood HCO3 25 23-27 MMOL/L Arterial Blood Total CO2 25.5 21.0-31.0 MMOL/L Arterial Blood Oxygen Saturation 99 94-100 % Arterial Blood Base Excess 1.3 -2.5-2.5 MMOL/L Dino Test NA Blood Gas Ventilator Setting NA Blood Gas Inspired Oxygen 90% 35L Physical Exam Physical Exam Vital Signs Vital Signs - First Documented 01/11/21 01/11/21 01/11/21 11:40 12:00 12:06 Pulse 70 Resp 67 B/P (MAP) 121/77 Pulse Ox 93 O2 Delivery Vapotherm Capillary Refill : Height, Weight, BMI Height: '" Weight: lbs. oz. kg; 24.41 BMI Method: General Appearance: Mild Distress Eyes: Bilateral Eye Normal Inspection, Bilateral Eye PERRL, Bilateral Eye EOMI HEENT: PERRL/EOMI, Pharynx Normal, Moist Mucous Membranes, Other (Left perioribital skin superficial laceration healing. Well approximated and scabbed over. No erythema or drainage. ) Neck: Full Range of Motion, Non Tender, Supple Respiratory: No Accessory Muscle Use, No Respiratory Distress, Crackles, Decreased Breath Sounds; No Rhonci, No Stridor; Wheezing Cardiovascular: Regular Rate, Rhythm, No Edema, No Murmur, Normal Peripheral Pulses Gastrointestinal: Normal Bowel Sounds, Non Tender, Soft; No Distended, No Guarding, No Rebound, No Tenderness Rectal: Deferred Back: Normal Inspection, No CVA Tenderness, No Vertebral Tenderness Extremity: Normal Capillary Refill, Non Tender, No Calf Tenderness, No Pedal Edema Neurologic/Psychiatric: Alert, Oriented x3, md do resident urgent care II-XII Norm as Tested Skin: Warm/Dry, Ecchymosis (Left perioribtial/cheek area bruised from recent fall) Lymphatic: No Adenopathy A/P-Cardiology Admission Diagnosis Acute respiratory failure COVID-19 pneumonia Near-syncope Hyperlipidemia Assessment/Plan Acute respiratory failure, post COVID-19 pneumonia, recovered from COVID-19 still having worsening shortness of breath requiring increasing oxygen, she was transferred to ICU and started on Vapotherm. Managed by critical care team. Orthostatic hypotension, multiple near syncopal episode, had to reported syncope, subarachnoid hemorrhage secondary to head trauma from syncope. Monitor blood pressure, starting IV fluid. Subarachnoid hemorrhage, unable to tolerate any type of anticoagulation at this point. Continue with conservative management History of hyperlipidemia, maintained on statin as an outpatient CHARISSE LOWRY MD Jan 11, 2021 13:03
[2021-01-11 13:11] LABS: BASOPHILS % (AUTO) 0 % (0-10); EOSINOPHILS % (AUTO) 0 % (0-10); HEMATOCRIT 35 % (35-52); HEMOGLOBIN 11.9 g/dL (11.5-16.0); LYMPHOCYTES # (AUTO) 0.6 10^3/uL (1.0-4.0); LYMPHOCYTES % (AUTO) 8 % (12-44); MEAN CORPUSCULAR HEMOGLOBIN 30 pg (25-34); MEAN CORPUSCULAR HGB CONC 34 g/dL (32-36); MEAN CORPUSCULAR VOLUME 87 fL (80-99); MEAN PLATELET VOLUME 10.8 fL (9.0-12.2); MONOCYTES # (AUTO) 0.4 10^3/uL (0.0-1.0); MONOCYTES % (AUTO) 5 % (0-12); NEUTROPHILS # (AUTO) 6.5 10^3/uL (1.8-7.8); NEUTROPHILS % (AUTO) 87 % (42-75); PLATELET COUNT 182 10^3/uL (130-400); WHITE BLOOD COUNT 7.5 10^3/uL (4.3-11.0)
[2021-01-11 13:27] LABS: LYMPHOCYTES % (MANUAL) 5 %; MONOCYTES % (MANUAL) 6 %; NEUTROPHILS % (MANUAL) 89 %
[2021-01-11 13:28] LABS: BURR CELLS MODERATE
--- NOTE | 2021-01-11 13:28 | Progress Note ---
FRAN SINGLETON MED STUDENT 01/11/21 1328: Focused Exam Lactate Level 01/11/21 13:00: Lactic Acid Level 1.26 Lactic Acid Level Laboratory Tests Test 01/11/21 13:00 Lactic Acid Level 1.26 MMOL/L (0.50-2.00) Objective Exam Last Set of Vital Signs Vital Signs Date Time Temp Pulse Resp B/P (MAP) Pulse Ox O2 Delivery O2 Flow Rate FiO2 01/11/21 12:06 93 Vapotherm 01/11/21 12:00 67 67 121/77 Capillary Refill : Results Lab Laboratory Tests 01/11/21 12:46: Blood Gas Puncture Site RT RAD, Blood Gas Patient Temperature 37.0, Arterial Blood pH 7.48H, Arterial Blood Partial Pressure CO2 33L, Arterial Blood Partial Pressure O2 128H, Arterial Blood HCO3 25, Arterial Blood Total CO2 25.5, Arterial Blood Oxygen Saturation 99, Arterial Blood Base Excess 1.3, Dino Test NA, Blood Gas Ventilator Setting NA, Blood Gas Inspired Oxygen 90% 35L 01/11/21 12:55: White Blood Count 7.5, Red Blood Count 4.01, Hemoglobin 11.9, Hematocrit 35, Mean Corpuscular Volume 87, Mean Corpuscular Hemoglobin 30, Mean Corpuscular Hemoglobin Concent 34, Red Cell Distribution Width 13.9, Platelet Count 182, Mean Platelet Volume 10.8, Immature Granulocyte % (Auto) 1, Neutrophils (%) (Auto) 87H, Lymphocytes (%) (Auto) 8L, Monocytes (%) (Auto) 5, Eosinophils (%) (Auto) 0, Basophils (%) (Auto) 0, Neutrophils # (Auto) 6.5, Lymphocytes # (Auto) 0.6L, Monocytes # (Auto) 0.4, Eosinophils # (Auto) 0.0, Basophils # (Auto) 0.0, Immature Granulocyte # (Auto) 0.1, Neutrophils % (Manual) 89, Lymphocytes % (Manual) 5, Monocytes % (Manual) 6, Aníbal Cells MODERATE 01/11/21 13:00: Lactic Acid Level 1.26 Clinical Quality Measures Admission Status Admission Dx Acute hypoxic respiratory failure -vapotherm, wean as tolerated -titrate to keep sat's >90% -MAT protocol -IS Q2hr WA -stat abg now -blood cultures x 2 -stat CBC, CMP, BNP, procal, lactic acid Pneumonia -01-11 Cxray Dense consolidation throughout the lateral half of the right lung, increased since the prior exam. -empiric abx -Mild airspace opacity in the peripheral left lung. 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 Recent SAH -conservative management per neurosurgery -may restart anticoagulation on 01-21-21 -continue to monitor neurologic status -notify physician for acute changes H/O recent syncopal episodes -cardiology consulted -EKG, Echo, BNP, Elevated D Dimer -d dimer 8.29 on 01-10 -repeat d dimer now -venous doppler bilat lower extremities -CTA chest today Orthostasis -IVF's -perform orthostatic vitals -fall precautions HTN -hold home antihypertensives given orthostasis HLP -resume home dose lipitor NAZIA APODACA DO 01/12/21 1212: Subjective Date Seen by a Provider: Jan 11, 2021 Time Seen by a Provider: 12:00 Subjective/Events-last exam Patient is tired IVC filter placement today by Dr Carpenter No pain 5L/min O2 currently PE on CT angiogram DVT LE Decrease IVF to prevent overload Review of Systems General: Fatigue, Malaise Pulmonary: Dyspnea Objective Exam General: Alert, Oriented X3, Cooperative, No Acute Distress Lungs: Clear to Auscultation, Normal Air Movement, Other (diminished) Heart: Regular Rate Psych/Mental Status: Mental Status NL, Mood NL Assessment/Plan Assessment/Plan Assess & Plan/Chief Complaint Assessment: Acute on chronic hypoxic respiratory failure due to COVID-19 pneumonia 12/30/2020 Acute pulmonary embolism Acute DVT Subarachnoid hemorrhage no anticoagulation or antiplatelet agents allowed to start until 01/21/2021 per neurosurgery at [facility] Hypertension Hyperlipidemia History of orthostasis Severe debility Plan: Maintain ICU Pulmonary critical care appreciated IVC filter placement with Dr. CARPENTER 01/12/21: IVC filter placement since no OAC allowed until 01/21/21 Supervisory-Addendum Brief Verification & Attestation Participated in pt care: history, MDM, physical Personally performed: exam, history, MDM, supervision of care Care discussed with: Medical Student Procedures: n/a Results interpretation: Verified all documentation Verification and Attestation of Medical Student E/M Service A medical student performed and documented this service in my presence. I reviewed and verified all information documented by the medical student and made modifications to such information, when appropriate. I personally performed the physical exam and medical decision making. Nazia Apodaca, Jan 12, 2021,13:53 FRAN SINGLETON MED STUDENT Jan 11, 2021 13:28 NAZIA APODACA DO Jan 12, 2021 12:12
[2021-01-11 13:31] LABS: ALBUMIN 3.2 GM/DL (3.2-4.5); BILIRUBIN,TOTAL 1.2 MG/DL (0.1-1.0); CALCIUM 8.8 MG/DL (8.5-10.1); CREATININE SERUM 0.76 MG/DL (0.60-1.30); POTASSIUM 3.6 MMOL/L (3.6-5.0); TOTAL PROTEIN 6.1 GM/DL (6.4-8.2)
--- NOTE | 2021-01-11 13:55 | Diagnostic Imaging Report ---
EXAMINATION: CT angiography of the chest. TECHNIQUE: Contrast enhanced thin section helical images were obtained through the chest with intravenous contrast timed for the optimal opacification of the arterial structures per CTA protocol. Post-processing, reconstructions and interpretation of angiographic images of the vessels was performed. 3D MIP reconstructions were performed and reviewed. All CT scans use one or more of the following dose optimizing techniques: automated exposure control, MA and/or KvP adjustment based on a patient size and exam type, or iterative reconstruction. HISTORY: Short of breath, COVID 19 COMPARISON: None available. FINDINGS: There is pulmonary embolism in the apicoposterior segment left upper lobe in the anterior basilar segment of the right lower lobe. There are moderate areas of groundglass consolidation both lungs consistent with history of COVID 19 pneumonia. No pleural effusion. No pneumothorax. No suspicious nodules. There is no axillary or supraclavicular lymphadenopathy. There is no mediastinal lymphadenopathy. There is a moderate hiatal hernia. Heart size is normal. There are mild coronary artery calcifications. No pericardial effusion. Aorta is normal in caliber. Limited views of the upper abdomen are unremarkable. There are no suspicious osseus lesions. IMPRESSION: 1. Segmental pulmonary emboli in the left upper lobe and right lower lobe. 2. Mild consolidations both lungs consistent with COVID 19 pneumonia. Called to [place] at 1:52 p.m. by cvb. Dictated by: Dictated on workstation # [id number]
--- NOTE | 2021-01-11 14:23 | Tele-ICU Progress Note ---
Progress Note Patient is on 75% 30 L O2 . AAO . rr20 , hemodynamically stable CT reviewed - PE segmental As per RN - prelim results for LE US + for DVT Acute resp failure - PE in addition to R>L infiltrates ( post COVID ) - cont o2 support THromboembolic dz - with DVT and PE , post covid - off AC due to recent SAH- ( vs hemorragic CVA ? ) will need neuro Sx opinion - needs IVC filter -- with no central embolism and hemodynamic stability- no indications for thrombectomy Discussed with Dr Abreu, who will contact IR in regrds of US interpretation and IVC filter , and will try to obtain neuro sx opinion Discussed with RN to reach out if any questions or concerns Focused Exam Lactate Level 01/11/21 13:00: Lactic Acid Level 1.26 Height, Weight, BMI Height: '" Weight: lbs. oz. kg; 24.41 BMI Method: Lactic Acid Level Laboratory Tests Test 01/11/21 13:00 Lactic Acid Level 1.26 MMOL/L (0.50-2.00) DONNA MCCRACKEN MD Jan 11, 2021 14:23
[2021-01-11 14:31] LABS: ABG BASE EXCESS 0.6 MMOL/L (-2.5-2.5); ABG OXYGEN SATURATION 94 % (94-100); ABG PCO2 31 MMHG (35-45); ABG PH 7.49 (7.37-7.43); ABG PO2 66 MMHG (79-93); ABG TCO2 24.9 MMOL/L (21.0-31.0)
[2021-01-11 14:32] LABS: ALLENS TEST YES-POS; INSPIRED O2 30L/75%; PATIENT TEMP 36.2; VENTILATOR NO
--- NOTE | 2021-01-11 14:35 | Diagnostic Imaging Report ---
PROCEDURE: US Venous Lower Ext Fredrick. TECHNIQUE: Multiple real-time grayscale images were obtained over the lower extremities in various projections, bilaterally. Additional duplex Doppler and color Doppler images were also obtained. INDICATION: Elevated D-dimer. FINDINGS: Examination shows normal augmentation, compression, and color Doppler flow in the superficial femoral and popliteal veins bilaterally. The peroneal vein and posterior tibial vein in the right calf show occlusion. The peroneal vein in the left calf shows some occlusion. IMPRESSION: There is bilateral calf thrombosis. No deep venous thrombosis is seen proximal to this. Dictated by: Dictated on workstation # [id number]
[2021-01-11 16:02] VITALS: BP 121/77
[2021-01-11] MEDS ORDERED: RT-ALBUTEROL SULF 2.5 MG/3 ML PRE-MIX VIAL INH PRN (16:15)
--- NOTE | 2021-01-11 17:03 | Progress Note-Pre Operative ---
Pre-Operative Progress Note H&P Reviewed The H&P was reviewed, patient examined and no changes noted. Date Seen by Provider: Jan 11, 2021 Time Seen by Provider: 17:00 Date H&P Reviewed: Jan 11, 2021 Time H&P Reviewed: 17:00 Pre-Operative Diagnosis: PE, DVT with recent subarachnoid hemorrhage PATRICK POTTER MD Jan 11, 2021 17:03
--- NOTE | 2021-01-11 17:35 | CONSULTATION REPORT ---
DATE OF SERVICE: 01/11/2021 ADMITTING PHYSICIAN: Dr. Abreu. HISTORY OF PRESENT ILLNESS: The patient is a 70-year-old female, who was transferred to the ICU from inpatient rehabilitation due to increasing hypoxia. The patient has a past medical history of hypertension and hyperlipidemia as well as a history of COVID-19. At home, when she contracted COVID, she became increasingly dizzy and had a syncopal episode and fell. This initial fall was around what she states is 12/30/2020. She did undergo CT scan of the head, which did show a small subarachnoid hemorrhage in the sulcus of the right frontal lobe without any midline shift. Neurosurgery was consulted and the recommendation was to proceed with conservative management. As she was requiring increased oxygen in shortness of breath, a CT scan was performed, which did show a pulmonary embolism. At this time, she is at high risk of developing further thromboembolic events due to her immobility and also due to her recent subarachnoid hemorrhage. She does have a contraindication to anticoagulation and the option to place an inferior vena cava filter to prevent a catastrophic event was given to the patient and the patient is full understanding of this and would like to proceed with placement of IVC filter. PAST MEDICAL HISTORY: Hypertension, hypercholesterolemia, and history of COVID-19. PAST SURGICAL HISTORY: Total hysterectomy. ALLERGIES: No known drug allergies. MEDICATIONS: Atorvastatin 40 mg daily and dexamethasone 6 mg daily. SOCIAL HISTORY: Negative smoke, mild social alcohol. FAMILY HISTORY: Son, myocardial infarction, age 39. REVIEW OF SYSTEMS: Well-nourished female currently in no acute distress. She is experiencing some shortness of breath at rest as well as upon exertion. No chest pain, palpitations or diaphoresis. No cough or sputum production. No hemoptysis. No nausea or vomiting, no diarrhea or constipation. No fever, chills, no recent inadvertent weight loss. All other review of systems negative. PHYSICAL EXAMINATION: VITAL SIGNS: Blood pressure 150/86, pulse 61, respirations 25, pulse ox 94% on 30 liters Vapotherm. CHEST: Few scattered rales bilaterally. HEART: Regular and no murmurs. EXTREMITIES: No lower extremity edema, negative Homans sign. HEENT: No scleral icterus. NECK: No cervical lymphadenopathy. ABDOMEN: Soft, nontender, and nondistended. SKIN: Warm, dry. LABORATORY DATA: WBC 7.5, hemoglobin 11.9, hematocrit 35, platelets 182, BUN 16, and creatinine 0.76. CTA of the chest did show segmental pulmonary emboli of the left upper lobe and right lower lobe. Bilateral lower extremity venous Doppler studies were also performed, which did show DVTs of bilateral calves; however, nothing proximal to this. ASSESSMENT AND PLAN: A 70-year-old female with bilateral calf deep vein thrombosis as well as symptomatic pulmonary embolism. She also had a recent subarachnoid hemorrhage and does have a contraindication to anticoagulation. She was offered a venogram as well as placement of inferior vena cava filter, which would theoretically decrease the risk of a catastrophic pulmonary embolism and she is in full understanding of the risks and benefits of the procedure and would like to proceed with placement of the IVC filter, which we will schedule. Job ID: [id number] DocumentID: [id number] Dictated Date: 01/11/2021 16:58:35 Guide Foreign Tour Date: 01/11/2021 17:34:20 Dictated By: PATRICK POTTER MD MTDD
--- NOTE | 2021-01-11 17:39 | Progress Note ---
MAME PEARL 01/11/21 1739: Progress Note Delmy Chavez is a 70F who was admitted to Inpatient Rehab at [facility] from [facility] [place] 01/10 for debility secondary to COVID pneumonia and Post COVID Syndrome. She reported COVID test positivity 12/30. She was admitted to OSH 01/07/2021 for hypoxic failure and recent onset syncope. CT of the head demonstrated SAH for which Neurosurgery was consulted. Per Neurosurgery, no intervention was indicated, and all anti-platelet and anti-coagulation were to be held until 01/21/2021. Her COVID 19 pneumonia was managed with decadron. She never required NIV nor intubation. She was also treated for orthostatic hypotension via IVF bolus. She was discharged 01/10 to [facility]. Upon admission, patient reported significant weakness. She continued to require 5L NC. On 01/11, patient was noted to desat to the 40's when standing or walking. Patient reported feeling nauseas and dizzy during this time. She subsequently required 10L NC. Given significant increase in oxygen demand, patient was subsequently transferred to ICU 01/11. Given high risk for DVT in the setting increased hypoxic failure, BLE US and CT chest was ordered. Additionally, full sepsis work up was ordered. Given acute history of syncope and orthostatic hypotension, cardiology was consulted. Cardiac enzymes, echo and ekg were ordered. SARITHA APODACA DO 01/12/21 1215: Supervisory-Addendum Brief Verification & Attestation Participated in pt care: history, MDM, physical Personally performed: exam, history, MDM, supervision of care Care discussed with: Medical Student Procedures: n/a Results interpretation: Verified all documentation Verification and Attestation of Medical Student E/M Service A medical student performed and documented this service in my presence. I reviewed and verified all information documented by the medical student and made modifications to such information, when appropriate. I personally performed the physical exam and medical decision making. Saritha Apodaca Jan 12, 2021,12:15 MAME PEARL Jan 11, 2021 17:39 SARITHA APODACA DO Jan 12, 2021 12:15
[2021-01-11] MEDS: RT-ALBUTEROL/IPRATROPIUM 3 ML (DUONEB) VIAL INH SCH ×2 (18:37→22:18)
[2021-01-11] MEDS: NS IV 1000 ML 1,000 ML IV SCH ×2 (19:30→21:17)
[2021-01-11 21:06] LABS: BILIRUBIN,URINE NEGATIVE (NEGATIVE); CLARITY,URINE CLEAR; COLOR,URINE YELLOW; GLUCOSE, URINE (UA) TRACE (NEGATIVE); KETONES,URINE NEGATIVE (NEGATIVE); LEUKOCYTE ESTERASE ,URINE NEGATIVE (NEGATIVE); NITRITE,URINE NEGATIVE (NEGATIVE); PH,URINE 7.5 (5-9); PROTEIN,URINE NEGATIVE (NEGATIVE)
[2021-01-11 21:17] LABS: BACTERIA,URINE TRACE /HPF; SQUAMOUS EPITHELIAL CELL,UR 0-2 /HPF
[2021-01-12] MEDS: RT-ALBUTEROL/IPRATROPIUM 3 ML (DUONEB) VIAL INH SCH ×5 (02:13→20:41)
[2021-01-12] MEDS: NS IV 1000 ML 1,000 ML IV SCH ×2 (04:01→13:24)
[2021-01-12 05:29] LABS: BASOPHILS % (AUTO) 0 % (0-10); EOSINOPHILS % (AUTO) 0 % (0-10); HEMATOCRIT 34 % (35-52); LYMPHOCYTES # (AUTO) 0.6 10^3/uL (1.0-4.0); LYMPHOCYTES % (AUTO) 10 % (12-44); MEAN CORPUSCULAR HEMOGLOBIN 29 pg (25-34); MEAN CORPUSCULAR HGB CONC 33 g/dL (32-36); MEAN CORPUSCULAR VOLUME 88 fL (80-99); MEAN PLATELET VOLUME 10.5 fL (9.0-12.2); MONOCYTES # (AUTO) 0.5 10^3/uL (0.0-1.0); MONOCYTES % (AUTO) 9 % (0-12); NEUTROPHILS # (AUTO) 4.6 10^3/uL (1.8-7.8); NEUTROPHILS % (AUTO) 80 % (42-75); PLATELET COUNT 165 10^3/uL (130-400); WHITE BLOOD COUNT 5.8 10^3/uL (4.3-11.0)
[2021-01-12 05:42] LABS: ALBUMIN 2.7 GM/DL (3.2-4.5); POTASSIUM 3.6 MMOL/L (3.6-5.0)
[2021-01-12 05:44] LABS: CALCIUM 7.8 MG/DL (8.5-10.1)
[2021-01-12 05:45] LABS: TOTAL PROTEIN 5.3 GM/DL (6.4-8.2)
[2021-01-12 05:47] LABS: BILIRUBIN,TOTAL 0.7 MG/DL (0.1-1.0)
[2021-01-12 05:48] LABS: CREATININE SERUM 0.69 MG/DL (0.60-1.30)
--- NOTE | 2021-01-12 08:23 | Progress Note ---
FRAN SINGLETON MED STUDENT 01/12/21 0823: Subjective Date Seen by a Provider: Jan 12, 2021 Time Seen by a Provider: 07:20 Subjective/Events-last exam Patient awake, alert and oriented x 4. Denies chest pain, SOB, fevers, hemoptysis, headache, nausea, vomiting, and palpitations. Reports sleeping failry well. NPO pending IVC filter placement today by Dr. Carpenter. Sat's 91% on 5L NC. Review of Systems General: No Chills, No Night Sweats, No Fatigue, No Malaise HEENT: No Head Aches, No Visual Changes Pulmonary: No Dyspnea; Cough Cardiovascular: No: Chest Pain, Palpitations Gastrointestinal: No: Nausea, Vomiting Genitourinary: No Dysuria, No Frequency; Other (gaitan) Musculoskeletal: No: neck pain, back pain Neurological: No: Weakness, Numbness, Change in speech, Confusion Focused Exam Lactate Level 01/11/21 13:00: Lactic Acid Level 1.26 Objective Exam Last Set of Vital Signs Vital Signs Date Time Temp Pulse Resp B/P (MAP) Pulse Ox O2 Delivery O2 Flow Rate FiO2 01/12/21 08:00 36.2 01/12/21 07:00 65 01/12/21 06:46 High Flow N/C 5.00 96 01/12/21 06:00 26 172/82 93 Capillary Refill : Less Than 3 Seconds I&O Intake and Output 01/12/21 00:00 Intake Total 340 ml Output Total 950 ml Balance -610 ml Intake Oral 340 ml Output Urine Total 950 ml Daily Weight Change No General: Alert, Oriented X3, Cooperative, No Acute Distress HEENT: Atraumatic, PERRLA, EOMI, Mucous Memb Moist/[place] Lungs: Clear to Auscultation Heart: Regular Rate, No Murmurs Abdomen: Normal Bowel Sounds, Soft, No Tenderness Extremities: No Clubbing, No Cyanosis, No Edema, Normal Pulses Skin: No Rashes, No Breakdown, No Significant Lesion Neuro: Normal Speech, Sensation Intact, Cranial Nerves 3-12 NL Psych/Mental Status: Mental Status NL, Mood NL Results Lab Laboratory Tests 01/11/21 12:46: Blood Gas Puncture Site RT RAD, Blood Gas Patient Temperature 37.0, Arterial Blood pH 7.48H, Arterial Blood Partial Pressure CO2 33L, Arterial Blood Partial Pressure O2 128H, Arterial Blood HCO3 25, Arterial Blood Total CO2 25.5, Arterial Blood Oxygen Saturation 99, Arterial Blood Base Excess 1.3, Dino Test NA, Blood Gas Ventilator Setting NA, Blood Gas Inspired Oxygen 90% 35L 01/11/21 12:55: White Blood Count 7.5, Red Blood Count 4.01, Hemoglobin 11.9, Hematocrit 35, Mean Corpuscular Volume 87, Mean Corpuscular Hemoglobin 30, Mean Corpuscular Hemoglobin Concent 34, Red Cell Distribution Width 13.9, Platelet Count 182, Mean Platelet Volume 10.8, Immature Granulocyte % (Auto) 1, Neutrophils (%) (Auto) 87H, Lymphocytes (%) (Auto) 8L, Monocytes (%) (Auto) 5, Eosinophils (%) (Auto) 0, Basophils (%) (Auto) 0, Neutrophils # (Auto) 6.5, Lymphocytes # (Auto) 0.6L, Monocytes # (Auto) 0.4, Eosinophils # (Auto) 0.0, Basophils # (Auto) 0.0, Immature Granulocyte # (Auto) 0.1, Neutrophils % (Manual) 89, Lymphocytes % (Manual) 5, Monocytes % (Manual) 6, [place] Cells MODERATE, D-Dimer >= 20.00H, Sodium Level 141, Potassium Level 3.6, Chloride Level 106, Carbon Dioxide Level 25, Anion Gap 10, Blood Urea Nitrogen 16, Creatinine 0.76, Estimat Glomerular Filtration Rate 75, BUN/Creatinine Ratio 21, Glucose Level 136H, Calcium Level 8.8, Corrected Calcium 9.4, Total Bilirubin 1.2H, Aspartate Amino Transf (AST/SGOT) 46H, Alanine Aminotransferase (ALT/SGPT) 41, Alkaline Phosphatase 57, Troponin I 0.066H, B-Type Natriuretic Peptide 122.7H, Total Protein 6.1L, Albumin 3.2, Procalcitonin 0.07 01/11/21 13:00: Lactic Acid Level 1.26 01/11/21 14:20: Blood Gas Puncture Site LT BRACH, Blood Gas Patient Temperature 36.2, Arterial Blood pH 7.49H, Arterial Blood Partial Pressure CO2 31L, Arterial Blood Partial Pressure O2 66L, Arterial Blood HCO3 24, Arterial Blood Total CO2 24.9, Arterial Blood Oxygen Saturation 94, Arterial Blood Base Excess 0.6, Dino Test YES-POS, Blood Gas Ventilator Setting NO, Blood Gas Inspired Oxygen 30L/75% 01/11/21 21:00: Urine Color YELLOW, Urine Clarity CLEAR, Urine pH 7.5, Urine Specific [place] 1.010L, Urine Protein NEGATIVE, Urine Glucose (UA) TRACEH, Urine Ketones NEGATIVE, Urine Nitrite NEGATIVE, Urine Bilirubin NEGATIVE, Urine Urobilinogen 1.0, Urine Leukocyte Esterase NEGATIVE, Urine RBC (Auto) NEGATIVE, Urine RBC NONE, Urine WBC NONE, Urine Squamous Epithelial Cells 0-2, Urine Crystals NONE, Urine Bacteria TRACE, Urine Casts NONE, Urine Mucus NEGATIVE, Urine Culture Indicated NO 01/12/21 05:05: White Blood Count 5.8, Red Blood Count 3.81, Hemoglobin 11.0L, Hematocrit 34L, Mean Corpuscular Volume 88, Mean Corpuscular Hemoglobin 29, Mean Corpuscular Hemoglobin Concent 33, Red Cell Distribution Width 13.9, Platelet Count 165, Mean Platelet Volume 10.5, Immature Granulocyte % (Auto) 1, Neutrophils (%) (Auto) 80H, Lymphocytes (%) (Auto) 10L, Monocytes (%) (Auto) 9, Eosinophils (%) (Auto) 0, Basophils (%) (Auto) 0, Neutrophils # (Auto) 4.6, Lymphocytes # (Auto) 0.6L, Monocytes # (Auto) 0.5, Eosinophils # (Auto) 0.0, Basophils # (Auto) 0.0, Immature Granulocyte # (Auto) 0.1, Sodium Level 140, Potassium Level 3.6, Chloride Level 110H, Carbon Dioxide Level 21, Anion Gap 9, Blood Urea Nitrogen 16, Creatinine 0.69, Estimat Glomerular Filtration Rate 84, BUN/Creatinine Ratio 23, Glucose Level 202H, Calcium Level 7.8L, Corrected Calcium 8.8, Total Bili hoffman 0.7, Aspartate Amino Transf (AST/SGOT) 33, Alanine Aminotransferase (ALT/SGPT) 36, Alkaline Phosphatase 52, Total Protein 5.3L, Albumin 2.7L Assessment/Plan Assessment/Plan Assess & Plan/Chief Complaint Acute hypoxic respiratory failure -NC 02 5l/min currently -titrate to keep sat's >90% -MAT protocol -IS Q2hr WA Pulmonary embolism -9-16 d dimer >20 -Segmental pulmonary emboli in the left upper lobe and right lower lobe. Mild consolidations both lungs consistent with COVID 19 pneumonia. -There is bilateral calf thrombosis. No deep venous thrombosis is seen proximal to this. -IVC filter placement via Dr. Carpenter planned for today -cannot go on anticoagulation until 01-21-21 Anemia -hgb 11.0, stable small drop -continue to monitor 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 Recent SAH -conservative management per neurosurgery -may restart anticoagulation on 01-21-21 -continue to monitor neurologic status -notify physician for acute changes H/O recent syncopal episodes -cardiology consulted Orthostasis -IVF's -continue to monitor BP's HTN -hold home antihypertensives given orthostasis HLP -resume home dose lipitor Clinical Quality Measures Admission Status Admission Dx Acute hypoxic respiratory failure -vapotherm, wean as tolerated -titrate to keep sat's >90% -MAT protocol -IS Q2hr WA -stat abg now -blood cultures x 2 -stat CBC, CMP, BNP, procal, lactic acid Pneumonia -01-11 Cxray Dense consolidation throughout the lateral half of the right lung, increased since the prior exam. -empiric abx -Mild airspace opacity in the peripheral left lung. 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 Recent SAH -conservative management per neurosurgery -may restart anticoagulation on 01-21-21 -continue to monitor neurologic status -notify physician for acute changes H/O recent syncopal episodes -cardiology consulted -EKG, Echo, BNP, Elevated D Dimer -d dimer 8.29 on 01-10 -repeat d dimer now -venous doppler bilat lower extremities -CTA chest today Orthostasis -IVF's -perform orthostatic vitals -fall precautions HTN -hold home antihypertensives given orthostasis HLP -resume home dose lipitor BEBETO KAPLAN MD 01/12/21 1434: Assessment/Plan Assessment/Plan Assess & Plan/Chief Complaint To get IVC filter due to previous Hx of SAH, Supervisory-Addendum Brief Verification & Attestation Participated in pt care: history, physical Personally performed: exam, history Care discussed with: Medical Student Procedures: n/a Results interpretation: Verified all documentation Findings discussed with medical student and RN NAZIA APODACA DO 01/13/21 0621: Subjective Subjective/Events-last exam Filter will be placed soon Patient complains of fatigue Monitor closely I was called last night with decreased oxygen levels eICU consult Review of Systems General: Fatigue Pulmonary: Dyspnea Objective Exam General: Alert, Oriented X3, Cooperative, No Acute Distress Lungs: Clear to Auscultation, Other (Diminished) Psych/Mental Status: Mental Status NL Assessment/Plan Assessment/Plan Assess & Plan/Chief Complaint Filter placed Monitor oxygen levels Supervisory-Addendum Brief Verification & Attestation Participated in pt care: history, MDM, physical Personally performed: exam, history, MDM, supervision of care Care discussed with: Medical Student Procedures: n/a Results interpretation: Verified all documentation Verification and Attestation of Medical Student E/M Service A medical student performed and documented this service in my presence. I reviewed and verified all information documented by the medical student and made modifications to such information, when appropriate. I personally performed the physical exam and medical decision making. Nazia Apodaca, Jan 13, 2021,06:21 FRAN SINGLETON MED STUDENT Jan 12, 2021 08:23 BEBETO KAPLAN MD Jan 12, 2021 14:34 NAZIA APODACA DO Jan 13, 2021 06:21
[2021-01-12 11:26] VITALS: BP 121/57
[2021-01-12] MEDS ORDERED: LIDOCAINE/EPI 1%-1:100,000 (XYLOCAINE) 20ML ONE (11:31)
[2021-01-12] MEDS ORDERED: HEParin (CENTRAL IV FLUSH) 500 UNIT/5 ML SYR ONE (11:31)
[2021-01-12] MEDS ORDERED: PROPOFOL INJECTION 50 ML IV ONE (11:42)
[2021-01-12] MEDS ORDERED: ceFAZolin INJECTION 1,000 MG ONE (11:50)
[2021-01-12] MEDS ORDERED: LACTATED RINGERS 1,000 ML IV PRN (12:00)
[2021-01-12] MEDS ORDERED: ceFAZolin INJECTION 1,000 MG in WATER (STERILE) FOR INJECTION 10 ML IV ONE (12:00)
[2021-01-12 12:24] VITALS: BP 116/69
--- NOTE | 2021-01-12 12:24 | Progress Note-Post Operative ---
Post-Operative Progess Note Surgeon (s)/Roving Sizer (s) Surgeon PATRICK POTTER MD Roving Sizer: none Pre-Operative Diagnosis PE, DVT with recent subarachnoid hemorrhage Post-Operative Diagnosis same Procedure & Operative Findings Date of Procedure 01/12/21 Procedure Performed/Findings venogram and IVC filter placement under flouroscopy. Anesthesia Type mac Estimated Blood Loss Estimated blood loss (mL): minimal Specimens/Packing Specimens Removed none PATRICK POTTER MD Jan 12, 2021 12:24
--- NOTE | 2021-01-12 12:29 | Anesthesia-General Post-Op ---
MAC Patient Condition Mental Status/LOC: Same as Preop Cardiovascular: Satisfactory Nausea/Vomiting: Absent Respiratory: Satisfactory Pain: Controlled Complications: Absent Post Op Complications Complications None Follow Up Care/Instructions Patient Instructions None needed. Anesthesiology Discharge Order Discharge Order Patient is doing well, no complaints, stable vital signs, no apparent adverse anesthesia problems. No complications reported per nursing. MEDARDO RODRIGES CRNA Jan 12, 2021 12:29
[2021-01-12 12:30] VITALS: BP 127/64
[2021-01-12] MEDS ORDERED: morphine INJ 10 MG/ML 1ML (SYR OR VIAL) IVP ONE (12:30)
[2021-01-12 12:40] VITALS: BP 134/64
--- NOTE | 2021-01-12 12:45 | Diagnostic Imaging Report ---
Indication: Fluoroscopic guidance. History of shortness of air. Comparison: None Total fluoroscopy time: 92 seconds Total number fluoroscopic images obtained: 1 Findings: Single intraoperative image intensifier view of the abdomen was obtained. Metallic Marium's are noted projecting over the left hemiabdomen. Indwelling IVC filter is also present. Please note, interpreting radiologist was not present during the procedure. Impression: 1. Fluoroscopic and provided intraoperatively as above. Dictated by: Dictated on workstation # [id number]
[2021-01-12 12:50] VITALS: BP 139/69
--- NOTE | 2021-01-12 14:29 | Cardiology Progress Note ---
Subjective Date Seen by Provider: Jan 12, 2021 Time Seen by Provider: 14:27 Subjective/Events-last exam Patient was seen at bedside, laying down comfortably, recovering from IVC filter placement. Breathing better Review of Systems General: No Chills, No Night Sweats; Fatigue, Malaise; No Appetite, No Other HEENT: No Head Aches, No Visual Changes, No Eye Pain, No Ear Pain, No Dysphasia, No Sinus Congestion, No Post Nasal Drip, No Sore Throat, No Other Pulmonary: Dyspnea; No Cough, No Pleuritic Chest Pain, No Other Cardiovascular: No: Chest Pain, Palpitations, Orthopnea, Paroxysmal Noc. Dyspnea, Edema, Lt Headedness, Other Focused Exam Lactate Level 01/11/21 13:00: Lactic Acid Level 1.26 Objective-Cardiology Exam Last Set of Vital Signs Vital Signs 01/12/21 01/12/21 01/12/21 01/12/21 11:26 12:50 13:30 13:45 Temp 36.4 Pulse 80 Resp 12 B/P (MAP) 155/77 Pulse Ox 93 O2 Delivery OxyMask O2 Flow Rate 6.00 FiO2 45 I&O Intake and Output 01/12/21 00:00 Intake Total 340 ml Output Total 950 ml Balance -610 ml Intake Oral 340 ml Output Urine Total 950 ml Daily Weight Change No General: Alert, Oriented X3, Cooperative, No Acute Distress HEENT: Atraumatic, PERRLA, EOMI, Mucous Memb Moist/[place] Lungs: Clear to Auscultation, Normal Air Movement, Other (diminished) Heart: Regular Rate Abdomen: Normal Bowel Sounds, Soft, No Tenderness Extremities: No Clubbing, No Cyanosis, Normal Pulses Skin: No Rashes, No Breakdown, No Significant Lesion Neuro: Normal Speech, Sensation Intact, Cranial Nerves 3-12 NL Psych/Mental Status: Mental Status NL, Mood NL Results Lab Laboratory Tests 01/12/21 05:05 A/P-Cardiology Admission Diagnosis Acute respiratory failure COVID-19 pneumonia Near-syncope Hyperlipidemia Assessment/Plan Status post acute respiratory failure, better at this time. COVID-19 pneumonia, patient recovered but still having underlying shortness of breath requiring oxygen. DVT, pulmonary embolism, had subarachnoid hemorrhage, cannot tolerate aggressive anticoagulation, underwent IVC filter placement. Orthostatic hypotension, multiple near syncopal episode, had to reported syncope, subarachnoid hemorrhage secondary to head trauma from syncope. Monitor blood pressure, starting IV fluid. Subarachnoid hemorrhage, unable to tolerate any type of anticoagulation at this point. Continue with conservative management History of hyperlipidemia, maintained on statin as an outpatient CHARISSE LOWRY MD Jan 12, 2021 14:29
--- NOTE | 2021-01-12 15:37 | OPERATIVE REPORT ---
DATE OF SERVICE: 01/12/2021 ATTENDING PRIMARY CARE PHYSICIAN: Dr. Abreu. PREOPERATIVE DIAGNOSES: Bilateral deep vein thrombosis, pulmonary embolism with recent subarachnoid hemorrhage. POSTOPERATIVE DIAGNOSES: Bilateral deep vein thrombosis, pulmonary embolism with recent subarachnoid hemorrhage. PROCEDURE: Venogram and placement of inferior vena cava filter under fluoroscopy. SURGEON: Patrick Potter MD ANESTHESIA: Monitored anesthesia care with local. ESTIMATED BLOOD LOSS: Minimal. FINDINGS: Takeoff of the renal veins at L1. A filter was placed in between L2 and L3. DISPOSITION: The patient tolerated the procedure well. INDICATIONS: The patient is a 70-year-old female who was transferred to the ICU from inpatient rehabilitation due to increasing hypoxia. The patient does have past medical history including hypertension, hyperlipidemia as well as history of COVID-19. At home, she became increasingly dizzy and on 12/30/2020, she states that she fell. She did undergo CT scan of the head, which did show a small subarachnoid hemorrhage of the sulcus of the right frontal lobe without any midline shift. Neurosurgery was consulted and the recommendation was to proceed with conservative management. She was requiring increased oxygen and a CT scan was performed, which did show pulmonary emboli. Bilateral DVTs of the calf region were also identified under duplex ultrasonography. The patient does have a contraindication to anticoagulation and the option for inferior vena caval filter placement was given and the patient is in full understanding of the risks and benefits of the procedure and would like to proceed with the placement of the filter. DESCRIPTION OF PROCEDURE: The patient was brought to the operating room, laid supine on the table. After adequate IV pain and sedative medications and monitored anesthesia care, the groin was prepped and draped in standard surgical fashion. We first proceeded with localization of the left inguinal region. Left femoral vein was cannulated; however, the guidewire could not be advanced under fluoroscopy and we decided to move to the right side. The area was anesthetized and the right femoral vein was cannulated withdrawing of venous blood and the guidewire was then inserted under fluoroscopy. A skin incision was made using 11 blade and the dilator and sheath were then introduced under fluoroscopy. We then proceeded with a venogram and 30 mL of Omnipaque were injected and the inferior vena cava diameter was approximately 13 mm and the takeoff of the renal veins at approximately the L1 level. The TrapEase vena caval filter was then placed under direct visualization in between L1 and L2. The sheath was then removed with visualization of good hemostasis and this was then covered with a Band-Aid. The patient tolerated the procedure well. The patient may resume previous activities as well as other therapies. Job ID: [id number] DocumentID: [id number] Dictated Date: 01/12/2021 12:23:33 Development Mechanic Date: 01/12/2021 15:36:31 Dictated By: PATRICK POTTER MD
--- NOTE | 2021-01-12 20:33 | Diagnostic Imaging Report ---
INDICATION: Hypoxia. EXAMINATION: AP view of the chest was obtained. COMPARISON: Study of one day earlier. FINDINGS: There is continued predominantly peripheral infiltrate in the right lung. Overall heart size is at the upper limits of normal. There is no pneumothorax or definite pleural fluid. IMPRESSION: Peripheral infiltrates in the right lung has not significantly changed compared to previous study. Dictated by: Dictated on workstation # [id number]
[2021-01-12 20:46] LABS: ABG BASE EXCESS 0.1 MMOL/L (-2.5-2.5); ABG OXYGEN SATURATION 95 % (94-100); ABG PCO2 27 MMHG (35-45); ABG PH 7.53 (7.37-7.43); ABG PO2 143 MMHG (79-93); ABG TCO2 23.4 MMOL/L (21.0-31.0); ALLENS TEST YES-POS; INSPIRED O2 NOT INDICATED; VENTILATOR NO
--- NOTE | 2021-01-12 21:36 | Progress Note ---
Subjective Date Seen by a Provider: Jan 12, 2021 Time Seen by a Provider: 10:00 Subjective/Events-last exam Patient reports fatigue Filter will be placed Monitor closely Patient denies any pain Check meds and labs Can start anticoagulation or antiplatelets until 01/21/2021 Review of Systems General: Fatigue Pulmonary: Dyspnea Focused Exam Lactate Level 01/11/21 13:00: Lactic Acid Level 1.26 Objective Exam Last Set of Vital Signs Vital Signs Date Time Temp Pulse Resp B/P (MAP) Pulse Ox O2 Delivery O2 Flow Rate FiO2 01/12/21 21:13 96 High Flow N/C 8.00 01/12/21 20:41 95 01/12/21 20:00 36.9 01/12/21 19:00 01/12/21 18:00 60 22 Capillary Refill : Less Than 3 Seconds I&O Intake and Output 01/12/21 00:00 Intake Total 340 ml Output Total 950 ml Balance -610 ml Intake Oral 340 ml Output Urine Total 950 ml Daily Weight Change No General: Alert, Oriented X3, Cooperative, No Acute Distress Lungs: Clear to Auscultation, Normal Air Movement, Other (Diminished) Psych/Mental Status: Mental Status NL, Mood NL Results Lab Laboratory Tests 01/12/21 05:05: White Blood Count 5.8, Red Blood Count 3.81, Hemoglobin 11.0L, Hematocrit 34L, Mean Corpuscular Volume 88, Mean Corpuscular Hemoglobin 29, Mean Corpuscular Hemoglobin Concent 33, Red Cell Distribution Width 13.9, Platelet Count 165, Mean Platelet Volume 10.5, Immature Granulocyte % (Auto) 1, Neutrophils (%) (Auto) 80H, Lymphocytes (%) (Auto) 10L, Monocytes (%) (Auto) 9, Eosinophils (%) (Auto) 0, Basophils (%) (Auto) 0, Neutrophils # (Auto) 4.6, Lymphocytes # (Auto) 0.6L, Monocytes # (Auto) 0.5, Eosinophils # (Auto) 0.0, Basophils # (Auto) 0.0, Immature Granulocyte # (Auto) 0.1, Sodium Level 140, Potassium Level 3.6, Chloride Level 110H, Carbon Dioxide Level 21, Anion Gap 9, Blood Urea Nitrogen 16, Creatinine 0.69, Estimat Glomerular Filtration Rate 84, BUN/Creatinine Ratio 23, Glucose Level 202H, Calcium Level 7.8L, Corrected Calcium 8.8, Total Bilirubin 0.7, Aspartate Amino Transf (AST/SGOT) 33, Alanine Aminotransferase (ALT/SGPT) 36, Alkaline Phosphatase 52, Total Protein 5.3L, Albumin 2.7L 01/12/21 20:29: Blood Gas Puncture Site LEFT RADIAL, Blood Gas Patient Temperature 37.0, Arterial Blood pH 7.53H, Arterial Blood Partial Pressure CO2 27L, Arterial Blood Partial Pressure O2 143H, Arterial Blood HCO3 23, Arterial Blood Total CO2 23.4, Arterial Blood Oxygen Saturation 95, Arterial Blood Base Excess 0.1, Dino Test YES-POS, Blood Gas Ventilator Setting NO, Blood Gas Inspired Oxygen NOT INDICATED Microbiology 01/11/21 Blood Culture - Preliminary, Resulted No growth Assessment/Plan Assessment/Plan Assess & Plan/Chief Complaint Assessment: Acute on chronic hypoxic respiratory failure due to COVID-19 pneumonia 12/30/2020 Acute pulmonary embolism Acute DVT Subarachnoid hemorrhage no anticoagulation or antiplatelet agents allowed to start until 01/21/2021 per neurosurgery at [facility] Hypertension Hyperlipidemia History of orthostasis Severe debility Plan: Maintain ICU Pulmonary critical care appreciated IVC filter placement with Dr. POTTER 01/12/21: IVC filter placement since no OAC allowed until 01/21/21 01/13/2021: Patient having variation of oxygenation Will remain in ICU Clinical Quality Measures Admission Status Admission Dx Assessment: Acute on chronic hypoxic respiratory failure due to COVID-19 pneumonia 12/30/2020 Acute pulmonary embolism Acute DVT Subarachnoid hemorrhage no anticoagulation or antiplatelet agents allowed to start until 01/21/2021 per neurosurgery at [facility] Hypertension Hyperlipidemia History of orthostasis Severe debility Plan: Maintain ICU Pulmonary critical care appreciated IVC filter placement with HEIDI CampoverdeI Jan 12, 2021 21:36
[2021-01-13] MEDS: NS IV 1000 ML 1,000 ML IV SCH ×2 (01:24→18:48)
[2021-01-13] MEDS: RT-ALBUTEROL/IPRATROPIUM 3 ML (DUONEB) VIAL INH SCH ×4 (02:30→20:56)
--- NOTE | 2021-01-13 06:50 | Diagnostic Imaging Report ---
INDICATION: Pneumonia, follow-up. Hypoxia. TECHNIQUE: Single view chest 6:34 AM. CORRELATION STUDY: 01/12/2021 FINDINGS: Mediastinal structures appearing generally stable. Bilateral pulmonary opacities, right greater than left, are again demonstrated. Overall findings stable to perhaps minimally improved. IMPRESSION: 1. Bilateral pulmonary opacities generally stable to perhaps minimally improved, right greater than left. Dictated by: Dictated on workstation # [id number]
[2021-01-13 07:57] LABS: BASOPHILS % (AUTO) 0 % (0-10); EOSINOPHILS % (AUTO) 0 % (0-10); HEMATOCRIT 35 % (35-52); HEMOGLOBIN 11.5 g/dL (11.5-16.0); LYMPHOCYTES # (AUTO) 0.7 10^3/uL (1.0-4.0); LYMPHOCYTES % (AUTO) 11 % (12-44); MEAN CORPUSCULAR HEMOGLOBIN 30 pg (25-34); MEAN CORPUSCULAR HGB CONC 33 g/dL (32-36); MEAN CORPUSCULAR VOLUME 90 fL (80-99); MEAN PLATELET VOLUME 10.3 fL (9.0-12.2); MONOCYTES # (AUTO) 0.4 10^3/uL (0.0-1.0); MONOCYTES % (AUTO) 6 % (0-12); NEUTROPHILS # (AUTO) 5.4 10^3/uL (1.8-7.8); NEUTROPHILS % (AUTO) 81 % (42-75); PLATELET COUNT 206 10^3/uL (130-400); WHITE BLOOD COUNT 6.6 10^3/uL (4.3-11.0)
[2021-01-13 08:12] LABS: POTASSIUM 3.4 MMOL/L (3.6-5.0)
[2021-01-13 08:13] LABS: CALCIUM 8.3 MG/DL (8.5-10.1)
[2021-01-13 08:14] LABS: TOTAL PROTEIN 5.9 GM/DL (6.4-8.2)
[2021-01-13 08:16] LABS: BILIRUBIN,TOTAL 0.8 MG/DL (0.1-1.0)
[2021-01-13 08:18] LABS: CREATININE SERUM 0.69 MG/DL (0.60-1.30)
--- NOTE | 2021-01-13 08:37 | Tele-ICU Progress Note ---
Progress Note video rounds completed 70 y/o with post covid PNA complications including SAH and DVT/PE Has IVC filter in place. Overall doing well Alll viatls normal LABS: essentially normal CXR today Mediastinal structures appearing generally stable. Bilateral pulmonary opacities, right greater than left, are again demonstrated. Overall findings stable to perhaps minimally improved. IMPRESSION: 1. Bilateral pulmonary opacities generally stable to perhaps minimally improved, right greater than left. PLan; hold anticoagulants with SAH IVC filter in place PNA stable On decadron Focused Exam Lactate Level 01/11/21 13:00: Lactic Acid Level 1.26 Height, Weight, BMI Height: '" Weight: lbs. oz. kg; 24.41 BMI Method: Laboratory Tests 01/13/21 07:44 BEBETO CARDENAS MD Jan 13, 2021 08:37
--- NOTE | 2021-01-13 08:45 | Cardiology Progress Note ---
Subjective Date Seen by Provider: Jan 13, 2021 Time Seen by Provider: 08:44 Subjective/Events-last exam Patient was seen at bedside, sitting comfortably, on 6 L nasal cannula. No chest pain Review of Systems General: No Chills, No Night Sweats, No Fatigue, No Malaise, No Appetite, No Other HEENT: No Head Aches, No Visual Changes, No Eye Pain, No Ear Pain, No Dyspha sharmila, No Sinus Congestion, No Post Nasal Drip, No Sore Throat, No Other Pulmonary: Dyspnea; No Cough, No Pleuritic Chest Pain, No Other Cardiovascular: No: Chest Pain, Palpitations, Orthopnea, Paroxysmal Noc. Dyspnea, Edema, Lt Headedness, Other Focused Exam Lactate Level 01/11/21 13:00: Lactic Acid Level 1.26 Objective-Cardiology Exam Last Set of Vital Signs Vital Signs 01/13/21 01/13/21 01/13/21 01/13/21 01/13/21 06:00 07:00 07:19 08:00 08:31 Temp 35.4 Pulse 45 Resp 15 B/P (MAP) 183/100 Pulse Ox 96 O2 Delivery High Flow N/C O2 Flow Rate 7.00 FiO2 93 I&O Intake and Output 01/13/21 00:00 Intake Total 3380 ml Output Total 2100 ml Balance 1280 ml Intake Oral 470 ml IV Total 2910 ml Output Urine Total 2100 ml General: Alert, Oriented X3, Cooperative, No Acute Distress HEENT: Atraumatic, PERRLA, EOMI, Mucous Memb Moist/[place]ck Lungs: Clear to Auscultation, Other (Diminished) Heart: Regular Rate, Normal S1, Normal S2 Abdomen: Normal Bowel Sounds, Soft, No Tenderness Extremities: No Clubbing, No Cyanosis, Normal Pulses Skin: No Rashes, No Breakdown, No Significant Lesion Neuro: Normal Speech, Sensation Intact, Cranial Nerves 3-12 NL Psych/Mental Status: Mental Status NL Results Lab Laboratory Tests 01/13/21 07:44 A/P-Cardiology Admission Diagnosis Acute respiratory failure COVID-19 pneumonia Near-syncope Hyperlipidemia Assessment/Plan Status post acute respiratory failure, back to 6 L nasal cannula, feeling better. COVID-19 pneumonia, patient recovered but still having underlying shortness of breath requiring oxygen. DVT, pulmonary embolism, had subarachnoid hemorrhage, cannot tolerate aggressive anticoagulation, underwent IVC filter placement. Orthostatic hypotension, multiple near syncopal episode, had to reported syn cope, subarachnoid hemorrhage secondary to head trauma from syncope. Monitor blood pressure Subarachnoid hemorrhage, unable to tolerate any type of anticoagulation at this point. Continue with conservative management History of hyperlipidemia, maintained on statin as an outpatient CHARISSE LOWRY MD Jan 13, 2021 08:45
--- NOTE | 2021-01-13 09:52 | Progress Note ---
Subjective Date Seen by a Provider: Jan 13, 2021 Time Seen by a Provider: 12:00 Subjective/Events-last exam Patient doing pretty well Fatigue Check meds and labs No bleeding problems Sore from IVC filter placement Desaturation occurs with any movement Shepherd catheter still in place Bowels are moving she just not eating Review of Systems General: Fatigue Pulmonary: Dyspnea Focused Exam Lactate Level 01/11/21 13:00: Lactic Acid Level 1.26 Objective Exam Last Set of Vital Signs Vital Signs Date Time Temp Pulse Resp B/P (MAP) Pulse Ox O2 Delivery O2 Flow Rate FiO2 01/13/21 09:00 84 111/68 92 High Flow N/C 7.00 01/13/21 08:31 35.4 01/13/21 08:00 21 01/13/21 07:19 93 Capillary Refill : Less Than 3 Seconds I&O Intake and Output0 01/13/21 00:00 Intake Total 3380 ml Output Total 2100 ml Balance 1280 ml Intake Oral 470 ml IV Total 2910 ml Output Urine Total 2100 ml General: Alert, Oriented X3, Cooperative, No Acute Distress Lungs: Clear to Auscultation, Normal Air Movement Psych/Mental Status: Mental Status NL, Mood NL Results Lab Laboratory Tests 01/12/21 20:29: Blood Gas Puncture Site LEFT RADIAL, Blood Gas Patient Temperature 37.0, Arterial Blood pH 7.53H, Arterial Blood Partial Pressure CO2 27L, Arterial Blood Partial Pressure O2 143H, Arterial Blood HCO3 23, Arterial Blood Total CO2 23.4, Arterial Blood Oxygen Saturation 95, Arterial Blood Base Excess 0.1, Dino Test YES-POS, Blood Gas Ventilator Setting NO, Blood Gas Inspired Oxygen NOT INDICATED 01/13/21 07:44: White Blood Count 6.6, Red Blood Count 3.86, Hemoglobin 11.5, Hematocrit 35, Mean Corpuscular Volume 90, Mean Corpuscular Hemoglobin 30, Mean Corpuscular Hemoglobin Concent 33, Red Cell Distribution Width 14.3, Platelet Count 206, Mean Platelet Volume 10.3, Immature Granulocyte % (Auto) 2, Neutrophils (%) (Auto) 81H, Lymphocytes (%) (Auto) 11L, Monocytes (%) (Auto) 6, Eosinophils (%) (Auto) 0, Basophils (%) (Auto) 0, Neutrophils # (Auto) 5.4, Lymphocytes # (Auto) 0.7L, Monocytes # (Auto) 0.4, Eosinophils # (Auto) 0.0, Basophils # (Auto) 0.0, Immature Granulocyte # (Auto) 0.1, Sodium Level 143, Potassium Level 3.4L, Chloride Level 110H, Carbon Dioxide Level 21, Anion Gap 12, Blood Urea Nitrogen 17, Creatinine 0.69, Estimat Glomerular Filtration Rate 84, BUN/Creatinine Ratio 25, Glucose Level 142H, Calcium Level 8.3L, Corrected Calcium 9.1, Total Bilirubin 0.8, Aspartate Amino Transf (AST/SGOT) 30, Alanine Aminotransferase (ALT/SGPT) 36, Alkaline Phosphatase 60, Total Protein 5.9L, Albumin 3.0L Microbiology 01/11/21 Blood Culture - Preliminary, Resulted No growth Assessment/Plan Assessment/Plan Assess & Plan/Chief Complaint Assessment: COVID-19 pneumonia Acute hypoxic respiratory failure Pulmonary embolism requiring filter placement postop day #[address] POTTER Subarachnoid bleed due to fall no anticoagulation or antiplatelets can be used until 01/21/2021 Hypertension Orthostatic syncope Plan: Supportive care High flow oxygen IVC filter management Clinical Quality Measures Admission Status Admission Dx Assessment: Acute on chronic hypoxic respiratory failure due to COVID-19 pneumonia 12/30/2020 Acute pulmonary embolism Acute DVT Subarachnoid hemorrhage no anticoagulation or antiplatelet agents allowed to start until 01/21/2021 per neurosurgery at [facility] Hypertension Hyperlipidemia History of orthostasis Severe debility Plan: Maintain ICU Pulmonary critical care appreciated IVC filter placement with SARITHA Campoverde DO Jan 13, 2021 09:52
[2021-01-13] MEDS ORDERED: KCL 10 MEQ TAB (MICRO K) PO ONE (10:00)
[2021-01-14] MEDS: RT-ALBUTEROL/IPRATROPIUM 3 ML (DUONEB) VIAL INH SCH ×4 (02:07→20:37)
[2021-01-14 06:21] LABS: BASOPHILS % (AUTO) 0 % (0-10); EOSINOPHILS % (AUTO) 0 % (0-10); HEMATOCRIT 33 % (35-52); HEMOGLOBIN 10.8 g/dL (11.5-16.0); LYMPHOCYTES # (AUTO) 0.8 10^3/uL (1.0-4.0); LYMPHOCYTES % (AUTO) 10 % (12-44); MEAN CORPUSCULAR HEMOGLOBIN 29 pg (25-34); MEAN CORPUSCULAR HGB CONC 33 g/dL (32-36); MEAN CORPUSCULAR VOLUME 90 fL (80-99); MONOCYTES # (AUTO) 0.6 10^3/uL (0.0-1.0); MONOCYTES % (AUTO) 8 % (0-12); NEUTROPHILS # (AUTO) 5.9 10^3/uL (1.8-7.8); NEUTROPHILS % (AUTO) 77 % (42-75); PLATELET COUNT 183 10^3/uL (130-400); WHITE BLOOD COUNT 7.7 10^3/uL (4.3-11.0)
[2021-01-14 06:29] LABS: ALBUMIN 2.9 GM/DL (3.2-4.5)
[2021-01-14 06:30] LABS: POTASSIUM 3.6 MMOL/L (3.6-5.0)
[2021-01-14 06:32] LABS: TOTAL PROTEIN 5.6 GM/DL (6.4-8.2)
[2021-01-14 06:34] LABS: BILIRUBIN,TOTAL 0.7 MG/DL (0.1-1.0)
[2021-01-14 06:35] LABS: PHOSPHORUS 2.7 MG/DL (2.3-4.7)
[2021-01-14 06:36] LABS: CREATININE SERUM 0.72 MG/DL (0.60-1.30)
[2021-01-14 06:39] LABS: MAGNESIUM 2.3 MG/DL (1.6-2.4)
[2021-01-14] MEDS: KCL 10 MEQ TAB (MICRO K) PO SCH (06:50)
--- NOTE | 2021-01-14 10:00 | Cardiology Progress Note ---
Subjective Date Seen by Provider: Jan 14, 2021 Time Seen by Provider: 09:59 Subjective/Events-last exam Patient was seen at bedside, laying down comfortably, on high flow oxygen. Having some tightness in her chest Review of Systems General: No Chills, No Night Sweats; Fatigue; No Malaise, No Appetite, No Other HEENT: No Head Aches, No Visual Changes, No Eye Pain, No Ear Pain, No Dysphasia, No Sinus Congestion, No Post Nasal Drip, No Sore Throat, No Other Pulmonary: Dyspnea; No Cough, No Pleuritic Chest Pain, No Other Cardiovascular: No: Chest Pain, Palpitations, Orthopnea, Paroxysmal Noc. Dyspnea, Edema, Lt Headedness, Other Focused Exam Lactate Level 01/11/21 13:00: Lactic Acid Level 1.26 Objective-Cardiology Exam Last Set of Vital Signs Vital Signs 01/14/21 01/14/21 01/14/21 01/14/21 08:24 09:00 09:13 09:47 Temp 36.0 Pulse 80 Resp 18 B/P (MAP) 111/69 Pulse Ox 95 O2 Delivery High Flow N/C O2 Flow Rate 14.00 FiO2 94 I&O Intake and Output 01/14/21 00:00 Intake Total 2120 ml Output Total 2675 ml Balance -555 ml Intake Oral 2120 ml Output Urine Total 2675 ml General: Alert, Oriented X3, Cooperative, No Acute Distress HEENT: Atraumatic, PERRLA, EOMI, Mucous Memb Moist/[place] Neck: Supple, No JVD Lungs: Clear to Auscultation, Normal Air Movement Heart: Regular Rate, Normal S1, Normal S2 Abdomen: Normal Bowel Sounds, Soft, No Tenderness Extremities: No Clubbing, No Cyanosis, Normal Pulses Skin: No Rashes, No Breakdown, No Significant Lesion Neuro: Normal Speech, Sensation Intact, Cranial Nerves 3-12 NL Psych/Mental Status: Mental Status NL, Mood NL Results Lab Laboratory Tests 01/14/21 06:05 A/P-Cardiology Admission Diagnosis Acute respiratory failure COVID-19 pneumonia Near-syncope Hyperlipidemia Assessment/Plan Status post acute respiratory failure, still on high flow oxygen requiring 10 L nasal cannula, feeling somewhat better, managed by primary care team COVID-19 pneumonia, patient recovered but still having underlying shortness of breath requiring oxygen. DVT, pulmonary embolism, had subarachnoid hemorrhage, cannot tolerate aggressive anticoagulation, underwent IVC filter placement. Orthostatic hypotension, multiple near syncopal episode, had to reported sy ncope, subarachnoid hemorrhage secondary to head trauma from syncope. Monitor blood pressure Subarachnoid hemorrhage, unable to tolerate any type of anticoagulation at this point. Continue with conservative management History of hyperlipidemia, maintained on statin as an outpatient CHARISSE LOWRY MD Jan 14, 2021 10:00
--- NOTE | 2021-01-14 10:06 | Tele-ICU Progress Note ---
Progress Note video rounds completed 70 y/o with post covid SAH and DVT/PE still hypoxic and receiving 14L up from 7 Otherwise sitting in chair eating breakfast. No labs this am yet. Continue O2 and PT No new issues today Focused Exam Lactate Level 01/11/21 13:00: Lactic Acid Level 1.26 Height, Weight, BMI Height: '" Weight: lbs. oz. kg; 24.41 BMI Method: BEBETO CARDENAS MD Jan 14, 2021 10:06
--- NOTE | 2021-01-14 12:57 | Progress Note ---
Subjective Date Seen by a Provider: Jan 14, 2021 Time Seen by a Provider: 12:45 Subjective/Events-last exam Patient doing better Requiring Vapotherm after exertion Still with Shepherd catheter due to hypoxia Check meds and labs IVC filter maintained Very weak Review of Systems General: Fatigue, Malaise Pulmonary: Dyspnea Focused Exam Lactate Level 01/11/21 13:00: Lactic Acid Level 1.26 Objective Exam Last Set of Vital Signs Vital Signs Date Time Temp Pulse Resp B/P (MAP) Pulse Ox O2 Delivery O2 Flow Rate FiO2 01/14/21 12:22 79 Vapotherm 30.00 75.00 01/14/21 12:00 64 19 01/14/21 11:00 152/84 01/14/21 09:13 94 01/14/21 08:24 36.0 Capillary Refill : Less Than 3 Seconds I&O Intake and Output 01/14/21 00:00 Intake Total 2120 ml Output Total 2675 ml Balance -555 ml Intake Oral 2120 ml Output Urine Total 2675 ml General: Alert, Oriented X3, Cooperative, No Acute Distress Lungs: Clear to Auscultation, Normal Air Movement Heart: Regular Rate Psych/Mental Status: Mental Status NL, Mood NL Results Lab Laboratory Tests 01/14/21 06:05: White Blood Count 7.7, Red Blood Count 3.67L, Hemoglobin 10.8L, Hematocrit 33L, Mean Corpuscular Volume 90, Mean Corpuscular Hemoglobin 29, Mean Corpuscular Hemoglobin Concent 33, Red Cell Distribution Width 14.3, Platelet Count 183, Mean Platelet Volume 10.0, Immature Granulocyte % (Auto) 5, Neutrophils (%) (Auto) 77H, Lymphocytes (%) (Auto) 10L, Monocytes (%) (Auto) 8, Eosinophils (%) (Auto) 0, Basophils (%) (Auto) 0, Neutrophils # (Auto) 5.9, Lymphocytes # (Auto) 0.8L, Monocytes # (Auto) 0.6, Eosinophils # (Auto) 0.0, Basophils # (Auto) 0.0, Immature Granulocyte # (Auto) 0.4H, Sodium Level 141, Potassium Level 3.6, Chloride Level 112H, Carbon Dioxide Level 19L, Anion Gap 10, Blood Urea Nitrogen 17, Creatinine 0.72, Estimat Glomerular Filtration Rate 80, BUN/Creatinine Ratio 24, Glucose Level 139H, Calcium Level 8.0L, Corrected Calcium 8.9, Phosphorus Level 2.7, Magnesium Level 2.3, Total Bilirubin 0.7, Aspartate Amino Transf (AST/SGOT) 25, Alanine Aminotransferase (ALT/SGPT) 35, Alkaline Phosphatase 56, Total Protein 5.6L, Albumin 2.9L Microbiology 01/11/21 Blood Culture - Preliminary, Resulted No growth Assessment/Plan Assessment/Plan Assess & Plan/Chief Complaint Assessment: COVID-19 pneumonia Acute hypoxic respiratory failure Pulmonary embolism requiring filter placement postop day #[address] POTTER Subarachnoid bleed due to fall no anticoagulation or antiplatelets can be used until 01/21/2021 Hypertension Orthostatic syncope Plan: Supportive care High flow oxygen IVC filter management 01/14/2021: Vapotherm for exertion Wean oxygen Clinical Quality Measures Admission Status Admission Dx Assessment: Acute on chronic hypoxic respiratory failure due to COVID-19 pneumonia 12/30/2020 Acute pulmonary embolism Acute DVT Subarachnoid hemorrhage no anticoagulation or antiplatelet agents allowed to start until 01/21/2021 per neurosurgery at [facility] Hypertension Hyperlipidemia History of orthostasis Severe debility Plan: Maintain ICU Pulmonary critical care appreciated IVC filter placement with SARITHA Campoverde DO Jan 14, 2021 12:57
[2021-01-14] MEDS: NS IV 1000 ML 1,000 ML IV SCH ×2 (17:26→18:37)
[2021-01-15] MEDS: RT-ALBUTEROL/IPRATROPIUM 3 ML (DUONEB) VIAL INH SCH ×2 (02:07→06:57)
[2021-01-15] MEDS: KCL 10 MEQ TAB (MICRO K) PO SCH (05:34)
[2021-01-15 05:35] LABS: BASOPHILS % (AUTO) 0 % (0-10); EOSINOPHILS % (AUTO) 0 % (0-10)
[2021-01-15 05:37] LABS: HEMATOCRIT 33 % (35-52); HEMOGLOBIN 10.7 g/dL (11.5-16.0); LYMPHOCYTES # (AUTO) 0.7 10^3/uL (1.0-4.0); LYMPHOCYTES % (AUTO) 9 % (12-44); MEAN CORPUSCULAR HEMOGLOBIN 30 pg (25-34); MEAN CORPUSCULAR HGB CONC 32 g/dL (32-36); MEAN CORPUSCULAR VOLUME 92 fL (80-99); MEAN PLATELET VOLUME 10.6 fL (9.0-12.2); MONOCYTES # (AUTO) 0.5 10^3/uL (0.0-1.0); MONOCYTES % (AUTO) 7 % (0-12); NEUTROPHILS # (AUTO) 5.9 10^3/uL (1.8-7.8); NEUTROPHILS % (AUTO) 80 % (42-75); PLATELET COUNT 131 10^3/uL (130-400); WHITE BLOOD COUNT 7.4 10^3/uL (4.3-11.0)
[2021-01-15 05:56] LABS: POTASSIUM 3.5 MMOL/L (3.6-5.0)
[2021-01-15 05:57] LABS: CALCIUM 8.2 MG/DL (8.5-10.1)
[2021-01-15 05:59] LABS: TOTAL PROTEIN 5.8 GM/DL (6.4-8.2)
[2021-01-15 06:00] LABS: BILIRUBIN,TOTAL 0.7 MG/DL (0.1-1.0)
[2021-01-15 06:02] LABS: CREATININE SERUM 0.74 MG/DL (0.60-1.30); PHOSPHORUS 3.1 MG/DL (2.3-4.7)
--- NOTE | 2021-01-15 06:58 | Progress Note ---
Subjective Date Seen by a Provider: Jan 15, 2021 Time Seen by a Provider: 11:00 Subjective/Events-last exam Pt doing okay Vapotherm at 25/65 Tachycardia of 130s earlier today Lactic acid of 2.93, unknown reason, there is no sepsis Procalcitonin is 0.02, no evidence of infection Urinary output decreased yesterday too Review of Systems General: Fatigue Pulmonary: Dyspnea Objective Exam Last Set of Vital Signs Vital Signs Date Time Temp Pulse Resp B/P (MAP) Pulse Ox O2 Delivery O2 Flow Rate FiO2 01/15/21 06:00 106 23 111/72 97 Vapotherm 25.00 65.00 01/15/21 04:29 65 01/15/21 04:00 36.6 Capillary Refill : Less Than 3 Seconds I&O Intake and Output 01/15/21 00:00 Intake Total 1870 ml Output Total 1120 ml Balance 750 ml Intake Oral 1870 ml Output Urine Total 1120 ml General: Alert, Oriented X3, Cooperative, No Acute Distress Lungs: Clear to Auscultation, Normal Air Movement Heart: Regular Rate Psych/Mental Status: Mental Status NL Results Lab Laboratory Tests 01/15/21 04:42: White Blood Count 7.4, Red Blood Count 3.61L, Hemoglobin 10.7L, Hematocrit 33L, Mean Corpuscular Volume 92, Mean Corpuscular Hemoglobin 30, Mean Corpuscular Hemoglobin Concent 32, Red Cell Distribution Width 14.5, Platelet Count 131, Mean Platelet Volume 10.6, Immature Granulocyte % (Auto) 4, Neutrophils (%) (Auto) 80H, Lymphocytes (%) (Auto) 9L, Monocytes (%) (Auto) 7, Eosinophils (%) (Auto) 0, Basophils (%) (Auto) 0, Neutrophils # (Auto) 5.9, Lymphocytes # (Auto) 0.7L, Monocytes # (Auto) 0.5, Eosinophils # (Auto) 0.0, Basophils # (Auto) 0.0, Immature Granulocyte # (Auto) 0.3H, Percent Immature Platelet Fraction 5.0, S odium Level 140, Potassium Level 3.5L, Chloride Level 111H, Carbon Dioxide Level 14L, Anion Gap 15H, Blood Urea Nitrogen 18, Creatinine 0.74, Estimat Glomerular Filtration Rate 77, BUN/Creatinine Ratio 24, Glucose Level 172H, Calcium Level 8.2L, Corrected Calcium 9.0, Phosphorus Level 3.1, Magnesium Level 2.0, Total Bilirubin 0.7, Aspartate Amino Transf (AST/SGOT) 23, Alanine Aminotransferase (ALT/SGPT) 34, Alkaline Phosphatase 56, Total Protein 5.8L, Albumin 3.0L 01/15/21 04:50: Microbiology 01/11/21 Blood Culture - Preliminary, Resulted No growth Assessment/Plan Assessment/Plan Assess & Plan/Chief Complaint Assessment: COVID-19 pneumonia Acute hypoxic respiratory failure Pulmonary embolism requiring filter placement postop day #[address] POTTER Subarachnoid bleed due to fall no anticoagulation or antiplatelets can be used until 01/21/2021 Hypertension Orthostatic syncope Plan: Supportive care High flow oxygen IVC filter management 01/14/2021: Vapotherm for exertion Wean oxygen 01/15/2021: Supportive care Gentle IV fluids Clinical Quality Measures Admission Status Admission Dx Assessment: Acute on chronic hypoxic respiratory failure due to COVID-19 pneumonia 12/30/2020 Acute pulmonary embolism Acute DVT Subarachnoid hemorrhage no anticoagulation or antiplatelet agents allowed to start until 01/21/2021 per neurosurgery at [facility] Hypertension Hyperlipidemia History of orthostasis Severe debility Plan: Maintain ICU Pulmonary critical care appreciated IVC filter placement with SARITHA Campoverde DO Jan 15, 2021 06:58
--- NOTE | 2021-01-15 07:31 | Diagnostic Imaging Report ---
INDICATION: Pneumonia. COMPARISON: 01/13/2021. FINDINGS: Single view of the chest demonstrates continued bilateral pulmonary infiltrates with volume loss in the right hemithorax. The heart is prominent without pulmonary edema. There is no pneumothorax. Osseous structures are stable. IMPRESSION: Unchanged aeration lungs. Dictated by: Dictated on workstation # [id number]
--- NOTE | 2021-01-15 08:52 | Cardiology Progress Note ---
Subjective Date Seen by Provider: Jan 15, 2021 Time Seen by Provider: 08:50 Subjective/Events-last exam Patient is sitting in a chair, tachycardic, on Vapotherm again. Review of Systems General: No Chills, No Night Sweats; Fatigue, Malaise; No Appetite, No Other HEENT: No Head Aches, No Visual Changes, No Eye Pain, No Ear Pain, No Dysphasia, No Sinus Congestion, No Post Nasal Drip, No Sore Throat, No Other Pulmonary: Dyspnea; No Cough, No Pleuritic Chest Pain, No Other Cardiovascular: No: Chest Pain, Palpitations, Orthopnea, Paroxysmal Noc. Dyspnea, Edema, Lt Headedness, Other Focused Exam Lactate Level 01/15/21 07:10: Lactic Acid Level 2.93*H Lactic Acid Level Laboratory Tests Test 01/15/21 07:10 Lactic Acid Level 2.93 MMOL/L (0.50-2.00) *H Objective-Cardiology Exam Last Set of Vital Signs Vital Signs 01/15/21 01/15/21 01/15/21 06:00 06:58 08:12 Temp 36.2 Pulse 106 Resp 23 B/P (MAP) 111/72 Pulse Ox 95 O2 Delivery Vapotherm O2 Flow Rate 25.00 FiO2 65 I&O Intake and Output 01/15/21 00:00 Intake Total 1870 ml Output Total 1120 ml Balance 750 ml Intake Oral 1870 ml Output Urine Total 1120 ml General: Alert, Oriented X3, Cooperative, No Acute Distress HEENT: Atraumatic, PERRLA, EOMI, Mucous Memb Moist/[place] Neck: Supple, No JVD Lungs: Clear to Auscultation, Normal Air Movement Heart: Normal S1, Normal S2, Other (Tachycardia) Abdomen: Normal Bowel Sounds, Soft, No Tenderness Extremities: No Clubbing, No Cyanosis, Normal Pulses Skin: No Rashes, No Breakdown, No Significant Lesion Neuro: Normal Speech, Sensation Intact, Cranial Nerves 3-12 NL Psych/Mental Status: Mental Status NL, Mood NL Results Lab Laboratory Tests 01/15/21 04:42 A/P-Cardiology Admission Diagnosis Acute respiratory failure COVID-19 pneumonia Near-syncope Hyperlipidemia Assessment/Plan Acute respiratory failure, was on Vapotherm, progressed to nasal cannula 10 L n ow is back on Vapotherm high flow oxygen. Sinus tachycardia and hypotension probably secondary to pulmonary embolism and severe hypoxemia. Unable to tolerate aggressive anticoagulation due to subara chnoid hemorrhage, I recommend discussing with the neurologist to evaluate the timing that we can start anticoagulation COVID-19 pneumonia, patient recovered but still having underlying shortness of breath requiring oxygen. DVT, pulmonary embolism, had subarachnoid hemorrhage, cannot tolerate aggressive anticoagulation, underwent IVC filter placement. Orthostatic hypotension, multiple near syncopal episode, had to reported syncope, subarachnoid hemorrhage secondary to head trauma from syncope. Monitor blood pressure Subarachnoid hemorrhage, unable to tolerate any type of anticoagulation at this point. Continue with conservative management History of hyperlipidemia, maintained on statin as an outpatient CHARISSE LOWRY MD Jan 15, 2021 08:51
--- NOTE | 2021-01-15 10:48 | Pulmonary Progress Note ---
FRAN SINGLETON MED STUDENT 01/15/21 1048: Subjective Date Seen by a Provider: Jan 15, 2021 Time Seen by a Provider: 07:00 Subjective/Events-last exam Patient awake in room alert and oriented x 4. Denies chest pain, SOB, nausea, headache, fevers, chills, palpitations, and abdominal pain. States slept fairly well overnight. Tolerating po intake well. Denies urinary or bowel complaints, though has gaitan catheter. Tachycardic per bedside monitor at 133 currently. Review of Systems General: No Chills, No Night Sweats HEENT: No Head Aches, No Visual Changes Pulmonary: No Dyspnea, No Cough Cardiovascular: No: Chest Pain, Palpitations, Edema Gastrointestinal: No: Nausea, Vomiting, Abdominal Pain Genitourinary: No Dysuria, No Frequency; Other (gaitan) Musculoskeletal: No: neck pain, back pain Neurological: No: Weakness, Numbness Sepsis Event Evaluation Height, Weight, BMI Height: '" Weight: lbs. oz. kg; 24.41 BMI Method: Focused Exam Lactate Level 01/15/21 07:10: Lactic Acid Level 2.93*H Lactic Acid Level Laboratory Tests Test 01/15/21 07:10 Lactic Acid Level 2.93 MMOL/L (0.50-2.00) *H Exam Exam Patient acknowledged, consented, and participated in this virtual visit which was conducted using real time audio/video Vital Signs Date Time Temp Pulse Resp B/P (MAP) Pulse Ox O2 Delivery O2 Flow Rate FiO2 01/15/21 08:12 36.2 01/15/21 08:00 95 Vapotherm 25.00 65 01/15/21 06:58 95 Vapotherm 25.00 65 01/15/21 06:38 103 01/15/21 06:00 106 23 111/72 97 Vapotherm 25.00 65.00 01/15/21 05:00 112 20 104/69 96 Vapotherm 25.00 65.00 01/15/21 04:29 91 Vapotherm 25.00 65 01/15/21 04:00 36.6 Vapotherm 25.00 65.00 01/15/21 04:00 105 23 113/69 98 Vapotherm 25.00 65.00 01/15/21 03:00 105 97/63 96 Vapotherm 25.00 65.00 01/15/21 02:07 90 Vapotherm 25.00 65 01/15/21 02:00 80 20 119/76 90 Vapotherm 25.00 65.00 01/15/21 01:00 80 21 122/76 96 Vapotherm 25.00 65.00 01/15/21 01:00 80 01/15/21 00:00 73 20 126/71 96 Vapotherm 25.00 65.00 01/14/21 23:22 92 Vapotherm 25.00 65 01/14/21 23:17 36.4 Vapotherm 25.00 65.00 01/14/21 23:00 83 26 120/77 Vapotherm 25.00 65.00 01/14/21 22:00 94 20 107/71 92 Vapotherm 25.00 65.00 01/14/21 21:00 75 17 115/75 92 Vapotherm 25.00 65.00 01/14/21 20:37 93 Vapotherm 25.00 65 01/14/21 20:09 90 Vapotherm 25.00 65 01/14/21 20:00 71 17 115/77 94 Vapotherm 25.00 65.00 01/14/21 19:52 36.0 01/14/21 19:00 66 19 144/86 98 Vapotherm 25.00 65.00 01/14/21 19:00 66 01/14/21 18:36 Vapotherm 25.00 65.00 01/14/21 18:00 67 21 142/82 97 Vapotherm 30.00 75.00 01/14/21 17:00 70 22 132/76 94 Vapotherm 30.00 75.00 01/14/21 16:00 93 Vapotherm 30.00 75 01/14/21 16:00 36.6 01/14/21 16:00 91 20 132/84 93 Vapotherm 30.00 75.00 01/14/21 15:05 95 Vapotherm 30.00 75 01/14/21 15:00 77 12 147/99 94 Vapotherm 30.00 75.00 01/14/21 14:00 56 16 151/93 97 Vapotherm 30.00 75.00 01/14/21 13:00 71 27 121/86 97 Vapotherm 30.00 75.00 01/14/21 12:59 62 01/14/21 12:22 79 Vapotherm 30.00 75.00 01/14/21 12:00 35.8 01/14/21 12:00 97 Vapotherm 30.00 75 01/14/21 12:00 64 19 97 High Flow N/C 14.00 01/14/21 11:00 67 20 152/84 96 High Flow N/C 14.00 I & O 01/15/21 07:00 Intake Total 1880 ml Output Total 1075 ml Balance 805 ml Height & Weight Height: '" Weight: lbs. oz. kg; 24.41 BMI Method: General Appearance: WD/WN, Chronically ill, Mild Distress HEENT: PERRL/EOMI, Moist Mucous Membranes Neck: Full Range of Motion, Normal Inspection, Non Tender, Supple Respiratory: Chest Non Tender, Lungs Clear, Normal Breath Sounds, No Accessory Muscle Use, No Respiratory Distress Cardiovascular: No Edema, No Murmur, Normal Peripheral Pulses, Tachycardia Capillary Refill: Less Than 3 Seconds Peripheral Pulses: 2+ Dorsalis Pedis (R), 2+ Left Dors-Pedis (L), 2+ Radial Pulses (R), 2+ Radial Pulses (L) Gastrointestinal: normal bowel sounds, non tender, soft; No distended, No guarding, No rebound, No tenderness Extremity: Normal Capillary Refill, Normal Inspection, No Calf Tenderness, No Pedal Edema Neurologic/Psychiatric: Alert, Oriented x3, No Motor/Sensory Deficits, Normal Mood/Affect, Motor Weakness (Generalized weakness ) Skin: Normal Color, Warm/Dry Lymphatic: No Adenopathy Results Lab Laboratory Tests 01/14/21 06:05 01/15/21 04:42 Assessment/Plan Assessment/Plan Acute hypoxic respiratory failure -requiring vapotherm at 25L and 65% currently -titrate to keep sat's >90% -MAT protocol -IS Q2hr WA Pulmonary embolism -01-11 d dimer >20 -Segmental pulmonary emboli in the left upper lobe and right lower lobe. Mild consolidations both lungs consistent with COVID 19 pneumonia. -There is bilateral calf thrombosis. No deep venous thrombosis is seen proximal to this. 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 I reviewed all information documented by the medical student . Medical student performed patients physical exam . Medical decision making was done during tele-rounds with this medical student and a bedside RN . Please see my notes for details /clarification. FRAN SINGLETON MED STUDENT Jan 15, 2021 10:48 DONNA MCCRACKEN MD Jan 16, 2021 13:00
--- NOTE | 2021-01-15 13:11 | Tele-ICU Progress Note ---
Subjective Date Seen by a Provider: Jan 15, 2021 Time Seen by a Provider: 13:11 Sepsis Event Evaluation Height, Weight, BMI Height: '" Weight: lbs. oz. kg; 24.41 BMI Method: Focused Exam Lactate Level 01/15/21 07:10: Lactic Acid Level 2.93*H 01/15/21 11:30: Lactic Acid Level 5.32*H Lactic Acid Level Laboratory Tests Test 01/15/21 11:30 Lactic Acid Level 5.32 MMOL/L (0.50-2.00) *H Exam Exam Patient acknowledged, consented, and participated in this virtual visit which was conducted using real time audio/video Vital Signs Date Time Temp Pulse Resp B/P (MAP) Pulse Ox O2 Delivery O2 Flow Rate FiO2 01/15/21 12:22 91 01/15/21 12:00 104 20 120/78 100 Vapotherm 25.00 65.00 01/15/21 12:00 95 Vapotherm 25.00 65 01/15/21 11:00 113 27 119/75 99 Vapotherm 25.00 65.00 01/15/21 10:00 112 21 116/72 99 Vapotherm 25.00 65.00 01/15/21 09:00 122 28 101/71 98 Vapotherm 25.00 65.00 01/15/21 08:12 36.2 01/15/21 08:00 95 Vapotherm 25.00 65 01/15/21 08:00 130 19 100/65 95 Vapotherm 25.00 65.00 01/15/21 07:00 115 21 107/69 93 Vapotherm 25.00 65.00 01/15/21 06:58 95 Vapotherm 25.00 65 01/15/21 06:38 103 01/15/21 06:00 106 23 111/72 97 Vapotherm 25.00 65.00 01/15/21 05:00 112 20 104/69 96 Vapotherm 25.00 65.00 01/15/21 04:29 91 Vapotherm 25.00 65 01/15/21 04:00 36.6 Vapotherm 25.00 65.00 01/15/21 04:00 105 23 113/69 98 Vapotherm 25.00 65.00 01/15/21 03:00 105 97/63 96 Vapotherm 25.00 65.00 01/15/21 02:07 90 Vapotherm 25.00 65 01/15/21 02:00 80 20 119/76 90 Vapotherm 25.00 65.00 01/15/21 01:00 80 21 122/76 96 Vapotherm 25.00 65.00 01/15/21 01:00 80 01/15/21 00:00 73 20 126/71 96 Vapotherm 25.00 65.00 01/14/21 23:22 92 Vapotherm 25.00 65 01/14/21 23:17 36.4 Vapotherm 25.00 65.00 01/14/21 23:00 83 26 120/77 Vapotherm 25.00 65.00 01/14/21 22:00 94 20 107/71 92 Vapotherm 25.00 65.00 01/14/21 21:00 75 17 115/75 92 Vapotherm 25.00 65.00 01/14/21 20:37 93 Vapotherm 25.00 65 01/14/21 20:09 90 Vapotherm 25.00 65 01/14/21 20:00 71 17 115/77 94 Vapotherm 25.00 65.00 01/14/21 19:52 36.0 01/14/21 19:00 66 19 144/86 98 Vapotherm 25.00 65.00 01/14/21 19:00 66 01/14/21 18:36 Vapotherm 25.00 65.00 01/14/21 18:00 67 21 142/82 97 Vapotherm 30.00 75.00 01/14/21 17:00 70 22 132/76 94 Vapotherm 30.00 75.00 01/14/21 16:00 93 Vapotherm 30.00 75 01/14/21 16:00 36.6 01/14/21 16:00 91 20 132/84 93 Vapotherm 30.00 75.00 01/14/21 15:05 95 Vapotherm 30.00 75 01/14/21 15:00 77 12 147/99 94 Vapotherm 30.00 75.00 01/14/21 14:00 56 16 151/93 97 Vapotherm 30.00 75.00 I & O 01/15/21 07:00 Intake Total 1880 ml Output Total 1075 ml Balance 805 ml Height & Weight Height: '" Weight: lbs. oz. kg; 24.41 BMI Method: General Appearance: WD/WN, Chronically ill, Mild Distress HEENT: PERRL/EOMI, Moist Mucous Membranes Neck: Full Range of Motion, Normal Inspection, Non Tender, Supple Respiratory: Chest Non Tender, Lungs Clear, Normal Breath Sounds, No Accessory Muscle Use, No Respiratory Distress Cardiovascular: No Edema, No Murmur, Normal Peripheral Pulses, Tachycardia Capillary Refill: Less Than 3 Seconds Peripheral Pulses: 2+ Dorsalis Pedis (R), 2+ Left Dors-Pedis (L), 2+ Radial Pulses (R), 2+ Radial Pulses (L) Gastrointestinal: normal bowel sounds, non tender, soft; No distended, No guarding, No rebound, No tenderness Extremity: Normal Capillary Refill, Normal Inspection, No Calf Tenderness, No Pedal Edema Neurologic/Psychiatric: Alert, Oriented x3, No Motor/Sensory Deficits, Normal Mood/Affect, Motor Weakness (Generalized weakness ) Skin: Normal Color, Warm/Dry Lymphatic: No Adenopathy Results Lab Laboratory Tests 01/14/21 06:05 01/15/21 04:42 Assessment/Plan Assessment/Plan Available chart/ vitals / labs / Images reviewed Video assessment done using teleICU camera, rest of exam as per RN Discussed with RN , EXAM PER RN Events overnight : Afebrile I/O = pos 700 Drips: Pressors: , hemodynamically stable Consultants: Hospital course: A/P Acute resp failure , post recent COVID + PE - Vapotherm 25L 65 % - R>L infiltrates ( post COVID ) - cont o2 support Tromboembolic dz - bilat PE and cald thrombosis ( 01/11 - s/p IVC filter - off AC due to recent SAH - ECHO ef 55% , RVSP 20 Orthostatic hypotension, multiple near syncopal episode - as per cardiology Rising lactic levek - as per Rn exam no clinical suspicios for ischemic bowel or limb ischemia, no hypotension of offending medications , will discuss with Dr Abreu if any clinical suspicios for infection Lines : (Central Line Necessity Reviewed) Shepherd: OG: Nutrition: Analgesia: Anxiety/ delirium VTE Prophylaxis: Stress Ulcer Prophylaxis: Glycemic Control: Plans in collaboration with bedside consultants and IM MDs. Discussed with RN to reach out if any questions or concerns A total of 35 minutes of critical care time was devoted to this patient today, required to treat and/or prevent further deterioration of critical care cond ition ( as above) . DONNA MCCRACKEN MD Jan 15, 2021 13:11
[2021-01-15] MEDS ORDERED: ALBUMIN 25% 25 GM/100 ML 100 ML IV ONE (13:45)
[2021-01-15] MEDS ORDERED: RT-ALBUTEROL/IPRATROPIUM 3 ML (DUONEB) VIAL INH PRN (13:45)
[2021-01-15] MEDS ORDERED: ALBUMIN 25% 25 GM/100 ML 100 ML IV PRN (15:00)
[2021-01-15] MEDS: NS IV 1000 ML 1,000 ML IV SCH (16:05)
[2021-01-16 05:22] LABS: BASOPHILS % (AUTO) 0 % (0-10); EOSINOPHILS % (AUTO) 0 % (0-10); HEMATOCRIT 30 % (35-52); HEMOGLOBIN 9.9 g/dL (11.5-16.0); LYMPHOCYTES # (AUTO) 0.8 10^3/uL (1.0-4.0); LYMPHOCYTES % (AUTO) 10 % (12-44); MEAN CORPUSCULAR HEMOGLOBIN 29 pg (25-34); MEAN CORPUSCULAR HGB CONC 33 g/dL (32-36); MEAN CORPUSCULAR VOLUME 90 fL (80-99); MONOCYTES # (AUTO) 0.4 10^3/uL (0.0-1.0); MONOCYTES % (AUTO) 6 % (0-12); NEUTROPHILS # (AUTO) 6.2 10^3/uL (1.8-7.8); NEUTROPHILS % (AUTO) 79 % (42-75); PLATELET COUNT 120 10^3/uL (130-400); WHITE BLOOD COUNT 7.8 10^3/uL (4.3-11.0)
[2021-01-16 05:34] LABS: CALCIUM 8.3 MG/DL (8.5-10.1)
[2021-01-16 05:35] LABS: TOTAL PROTEIN 5.6 GM/DL (6.4-8.2)
[2021-01-16 05:37] LABS: BILIRUBIN,TOTAL 0.8 MG/DL (0.1-1.0)
[2021-01-16 05:38] LABS: PHOSPHORUS 2.9 MG/DL (2.3-4.7)
[2021-01-16 05:39] LABS: CREATININE SERUM 0.7 MG/DL (0.60-1.30)
[2021-01-16 05:42] LABS: MAGNESIUM 2.2 MG/DL (1.6-2.4)
[2021-01-16] MEDS: KCL 10 MEQ TAB (MICRO K) PO SCH (05:54)
--- NOTE | 2021-01-16 06:35 | Tele-ICU Progress Note ---
Subjective Date Seen by a Provider: Jan 16, 2021 Time Seen by a Provider: 06:33 Subjective/Events-last exam as she was doing early mobilization, she stood up felt weak to her knees; ddi not hit the head/ no signs of seizures/ regained coherence Sepsis Event Evaluation Height, Weight, BMI Height: '" Weight: lbs. oz. kg; 24.41 BMI Method: Focused Exam Lactate Level 01/15/21 18:32: Lactic Acid Level 3.97*H 01/15/21 20:59: Lactic Acid Level 2.52*H 01/16/21 04:52: Lactic Acid Level 1.60 Lactic Acid Level Laboratory Tests Test 01/16/21 04:52 Lactic Acid Level 1.60 MMOL/L (0.50-2.00) Exam Exam Patient acknowledged, consented, and participated in this virtual visit which was conducted using real time audio/video Vital Signs Date Time Temp Pulse Resp B/P (MAP) Pulse Ox O2 Delivery O2 Flow Rate FiO2 01/16/21 06:00 65 18 112/70 89 Vapotherm 35.00 65.00 01/16/21 05:54 71/46 Vapotherm 35.00 65.00 01/16/21 05:00 72 17 121/70 90 Vapotherm 25.00 55.00 01/16/21 04:00 94 Vapotherm 25.00 55 01/16/21 04:00 52 15 160/83 98 Vapotherm 25.00 55.00 01/16/21 03:25 36.7 Vapotherm 25.00 55.00 01/16/21 02:00 81 22 122/84 94 Vapotherm 25.00 55.00 01/16/21 01:52 97 Vapotherm 25.00 55 01/16/21 01:00 54 22 146/90 97 Vapotherm 25.00 55.00 01/16/21 01:00 54 01/16/21 00:00 64 20 134/80 96 Vapotherm 25.00 55.00 01/15/21 23:42 93 Vapotherm 25.00 55 01/15/21 23:14 36.4 Vapotherm 25.00 55.00 01/15/21 23:00 71 21 136/90 96 Vapotherm 25.00 55.00 01/15/21 22:00 63 17 148/92 99 Vapotherm 25.00 55.00 01/15/21 21:10 88 13 95 Vapotherm 25.00 55.00 01/15/21 21:07 97 Vapotherm 25.00 65 01/15/21 21:00 91 15 125/81 92 Vapotherm 25.00 65.00 01/15/21 20:09 36.2 01/15/21 20:00 36.4 Vapotherm 25.00 65.00 01/15/21 20:00 94 Vapotherm 25.00 65 01/15/21 19:00 76 01/15/21 19:00 76 20 135/80 99 Vapotherm 25.00 65.00 01/15/21 18:00 74 19 133/79 100 Vapotherm 25.00 65.00 01/15/21 17:00 92 22 125/72 100 Vapotherm 25.00 65.00 01/15/21 16:00 99 23 115/70 99 Vapotherm 25.00 65.00 01/15/21 15:29 95 Vapotherm 25.00 65 01/15/21 15:00 104 11 125/86 100 Vapotherm 25.00 65.00 01/15/21 14:00 99 27 115/79 100 Vapotherm 25.00 65.00 01/15/21 13:00 94 27 129/80 100 Vapotherm 25.00 65.00 01/15/21 12:22 91 01/15/21 12:00 104 20 120/78 100 Vapotherm 25.00 65.00 01/15/21 12:00 95 Vapotherm 25.00 65 01/15/21 11:00 113 27 119/75 99 Vapotherm 25.00 65.00 01/15/21 10:00 112 21 116/72 99 Vapotherm 25.00 65.00 01/15/21 09:00 122 28 101/71 98 Vapotherm 25.00 65.00 01/15/21 08:12 36.2 01/15/21 08:00 95 Vapotherm 25.00 65 01/15/21 08:00 130 19 100/65 95 Vapotherm 25.00 65.00 01/15/21 07:00 115 21 107/69 93 Vapotherm 25.00 65.00 01/15/21 06:58 95 Vapotherm 25.00 65 01/15/21 06:38 103 I & O 01/16/21 07:00 Intake Total 2470 ml Output Total 2700 ml Balance -230 ml Height & Weight Height: '" Weight: lbs. oz. kg; 24.41 BMI Method: General Appearance: WD/WN, Chronically ill, Mild Distress HEENT: PERRL/EOMI, Moist Mucous Membranes Neck: Full Range of Motion, Normal Inspection, Non Tender, Supple Respiratory: Chest Non Tender, Lungs Clear, Normal Breath Sounds, No Accessory Muscle Use, No Respiratory Distress Cardiovascular: No Edema, No Murmur, Normal Peripheral Pulses, Tachycardia Capillary Refill: Less Than 3 Seconds Peripheral Pulses: 2+ Dorsalis Pedis (R), 2+ Left Dors-Pedis (L), 2+ Radial Pulses (R), 2+ Radial Pulses (L) Gastrointestinal: normal bowel sounds, non tender, soft; No distended, No guarding, No rebound, No tenderness Extremity: Normal Capillary Refill, Normal Inspection, No Calf Tenderness, No Pedal Edema Neurologic/Psychiatric: Alert, Oriented x3, No Motor/Sensory Deficits, Normal Mood/Affect, Motor Weakness (Generalized weakness ) Skin: Normal Color, Warm/Dry Lymphatic: No Adenopathy Results Lab Laboratory Tests 01/15/21 04:42 01/16/21 04:52 Assessment/Plan Assessment/Plan Hypotension very probable related to orthostatics -250cc fluid challenge -doubt seizure or cva/ continue to observe PANDA OROZCO MD Jan 16, 2021 06:35
[2021-01-16] MEDS ORDERED: NORMAL SALINE 250 ML ONE (06:37)
[2021-01-16] MEDS ORDERED: NS (IVPB) 250 ML IV ONE (06:45)
--- NOTE | 2021-01-16 08:25 | Pulmonary Progress Note ---
FRAN SINGLETON MED STUDENT 01/16/21 0825: Subjective Date Seen by a Provider: Jan 16, 2021 Time Seen by a Provider: 07:10 Subjective/Events-last exam Patient awake in room sitting in chair. Reports becoming dizzy this am and described a near syncopal episode when transferred from bed to chair. Reported feeling lightheaded for a few minutes and then it resolved. Denied palpitations, fluttering, and chest pain during episode. Denies other questions or complaints at this time. Review of Systems General: No Chills, No Night Sweats HEENT: No Head Aches, No Visual Changes Pulmonary: No Dyspnea, No Cough Cardiovascular: No: Chest Pain, Palpitations, Edema Gastrointestinal: No: Nausea, Vomiting Genitourinary: No Dysuria, No Frequency, No Hematuria; Other (gaitan) Musculoskeletal: No: neck pain, back pain Neurological: No: Weakness, Numbness, Change in speech, Confusion Sepsis Event Evaluation Height, Weight, BMI Height: '" Weight: lbs. oz. kg; 24.41 BMI Method: Focused Exam Lactate Level 01/15/21 18:32: Lactic Acid Level 3.97*H 01/15/21 20:59: Lactic Acid Level 2.52*H 01/16/21 04:52: Lactic Acid Level 1.60 Lactic Acid Level Laboratory Tests Test 01/16/21 04:52 Lactic Acid Level 1.60 MMOL/L (0.50-2.00) Exam Exam Patient acknowledged, consented, and participated in this virtual visit which was conducted using real time audio/video Vital Signs Date Time Temp Pulse Resp B/P (MAP) Pulse Ox O2 Delivery O2 Flow Rate FiO2 01/16/21 06:00 65 18 112/70 89 Vapotherm 35.00 65.00 01/16/21 05:54 71/46 Vapotherm 35.00 65.00 01/16/21 05:00 72 17 121/70 90 Vapotherm 25.00 55.00 01/16/21 04:00 94 Vapotherm 25.00 55 01/16/21 04:00 52 15 160/83 98 Vapotherm 25.00 55.00 01/16/21 03:25 36.7 Vapotherm 25.00 55.00 01/16/21 02:00 81 22 122/84 94 Vapotherm 25.00 55.00 01/16/21 01:52 97 Vapotherm 25.00 55 01/16/21 01:00 54 22 146/90 97 Vapotherm 25.00 55.00 01/16/21 01:00 54 01/16/21 00:00 64 20 134/80 96 Vapotherm 25.00 55.00 01/15/21 23:42 93 Vapotherm 25.00 55 01/15/21 23:14 36.4 Vapotherm 25.00 55.00 01/15/21 23:00 71 21 136/90 96 Vapotherm 25.00 55.00 01/15/21 22:00 63 17 148/92 99 Vapotherm 25.00 55.00 01/15/21 21:10 88 13 95 Vapotherm 25.00 55.00 01/15/21 21:07 97 Vapotherm 25.00 65 01/15/21 21:00 91 15 125/81 92 Vapotherm 25.00 65.00 01/15/21 20:09 36.2 01/15/21 20:00 36.4 Vapotherm 25.00 65.00 01/15/21 20:00 94 Vapotherm 25.00 65 01/15/21 19:00 76 01/15/21 19:00 76 20 135/80 99 Vapotherm 25.00 65.00 01/15/21 18:00 74 19 133/79 100 Vapotherm 25.00 65.00 01/15/21 17:00 92 22 125/72 100 Vapotherm 25.00 65.00 01/15/21 16:00 99 23 115/70 99 Vapotherm 25.00 65.00 01/15/21 15:29 95 Vapotherm 25.00 65 01/15/21 15:00 104 11 125/86 100 Vapotherm 25.00 65.00 01/15/21 14:00 99 27 115/79 100 Vapotherm 25.00 65.00 01/15/21 13:00 94 27 129/80 100 Vapotherm 25.00 65.00 01/15/21 12:22 91 01/15/21 12:00 104 20 120/78 100 Vapotherm 25.00 65.00 01/15/21 12:00 95 Vapotherm 25.00 65 01/15/21 11:00 113 27 119/75 99 Vapotherm 25.00 65.00 01/15/21 10:00 112 21 116/72 99 Vapotherm 25.00 65.00 01/15/21 09:00 122 28 101/71 98 Vapotherm 25.00 65.00 I & O 01/16/21 07:00 Intake Total 2470 ml Output Total 2700 ml Balance -230 ml Height & Weight Height: '" Weight: lbs. oz. kg; 24.41 BMI Method: General Appearance: No Apparent Distress, WD/WN, Chronically ill HEENT: PERRL/EOMI, Moist Mucous Membranes Neck: Full Range of Motion, Normal Inspection, Non Tender, Supple Respiratory: Chest Non Tender, No Accessory Muscle Use, No Respiratory Distress, Crackles (fine crackles worse right base than left); No Rhonci, No Stridor, No Wheezing Cardiovascular: Regular Rate, Rhythm, No Edema, No Murmur, Normal Peripheral Pulses Capillary Refill: Less Than 3 Seconds Peripheral Pulses: 2+ Dorsalis Pedis (R), 2+ Left Dors-Pedis (L), 2+ Radial Pu lses (R), 2+ Radial Pulses (L) Gastrointestinal: normal bowel sounds, non tender, soft; No distended, No guarding, No rebound, No tenderness Extremity: Normal Capillary Refill, Normal Inspection, No Calf Tenderness, No Pedal Edema Neurologic/Psychiatric: Alert, Oriented x3, No Motor/Sensory Deficits, Normal Mood/Affect, Motor Weakness (Generalized weakness ) Skin: Normal Color, Warm/Dry Lymphatic: No Adenopathy Results Lab Laboratory Tests 01/15/21 04:42 01/16/21 04:52 Assessment/Plan Assessment/Plan Acute hypoxic respiratory failure -requiring vapotherm at 25L and 55% -titrate to keep sat's >90% -MAT protocol -IS Q2hr WA -repeat cxray tomorrow Pulmonary embolism -01-11 d dimer >20 -Segmental pulmonary emboli in the left upper lobe and right lower lobe. Mild consolidations both lungs consistent with COVID 19 pneumonia. -There is bilateral calf thrombosis. No deep venous thrombosis is seen proximal to this. 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 I reviewed all information documented by the medical student . Medical student performed patients physical exam . Medical decision making was done during tele-rounds with this medical student and a bedside RN . Please see my notes for details /clarification. FRAN SINGLETON MED STUDENT Jan 16, 2021 08:25 DONNA MCCRACKEN MD Jan 16, 2021 12:59
--- NOTE | 2021-01-16 10:15 | Tele-ICU Progress Note ---
Subjective Date Seen by a Provider: Jan 16, 2021 Time Seen by a Provider: 10:15 Sepsis Event Evaluation Height, Weight, BMI Height: '" Weight: lbs. oz. kg; 24.41 BMI Method: Focused Exam Lactate Level 01/15/21 18:32: Lactic Acid Level 3.97*H 01/15/21 20:59: Lactic Acid Level 2.52*H 01/16/21 04:52: Lactic Acid Level 1.60 Exam Exam Patient acknowledged, consented, and participated in this virtual visit which was conducted using real time audio/video Vital Signs Date Time Temp Pulse Resp B/P (MAP) Pulse Ox O2 Delivery O2 Flow Rate FiO2 01/16/21 08:00 36.2 01/16/21 07:15 63 01/16/21 06:00 65 18 112/70 89 Vapotherm 35.00 65.00 01/16/21 05:54 71/46 Vapotherm 35.00 65.00 01/16/21 05:00 72 17 121/70 90 Vapotherm 25.00 55.00 01/16/21 04:00 94 Vapotherm 25.00 55 01/16/21 04:00 52 15 160/83 98 Vapotherm 25.00 55.00 01/16/21 03:25 36.7 Vapotherm 25.00 55.00 01/16/21 02:00 81 22 122/84 94 Vapotherm 25.00 55.00 01/16/21 01:52 97 Vapotherm 25.00 55 01/16/21 01:00 54 22 146/90 97 Vapotherm 25.00 55.00 01/16/21 01:00 54 01/16/21 00:00 64 20 134/80 96 Vapotherm 25.00 55.00 01/15/21 23:42 93 Vapotherm 25.00 55 01/15/21 23:14 36.4 Vapotherm 25.00 55.00 01/15/21 23:00 71 21 136/90 96 Vapotherm 25.00 55.00 01/15/21 22:00 63 17 148/92 99 Vapotherm 25.00 55.00 01/15/21 21:10 88 13 95 Vapotherm 25.00 55.00 01/15/21 21:07 97 Vapotherm 25.00 65 01/15/21 21:00 91 15 125/81 92 Vapotherm 25.00 65.00 01/15/21 20:09 36.2 01/15/21 20:00 36.4 Vapotherm 25.00 65.00 01/15/21 20:00 94 Vapotherm 25.00 65 01/15/21 19:00 76 01/15/21 19:00 76 20 135/80 99 Vapotherm 25.00 65.00 01/15/21 18:00 74 19 133/79 100 Vapotherm 25.00 65.00 01/15/21 17:00 92 22 125/72 100 Vapotherm 25.00 65.00 01/15/21 16:00 99 23 115/70 99 Vapotherm 25.00 65.00 01/15/21 15:29 95 Vapotherm 25.00 65 01/15/21 15:00 104 11 125/86 100 Vapotherm 25.00 65.00 01/15/21 14:00 99 27 115/79 100 Vapotherm 25.00 65.00 01/15/21 13:00 94 27 129/80 100 Vapotherm 25.00 65.00 01/15/21 12:22 91 01/15/21 12:00 104 20 120/78 100 Vapotherm 25.00 65.00 01/15/21 12:00 95 Vapotherm 25.00 65 01/15/21 11:00 113 27 119/75 99 Vapotherm 25.00 65.00 I & O 01/16/21 07:00 Intake Total 2470 ml Output Total 2700 ml Balance -230 ml Height & Weight Height: '" Weight: lbs. oz. kg; 24.41 BMI Method: General Appearance: No Apparent Distress, WD/WN, Chronically ill HEENT: PERRL/EOMI, Moist Mucous Membranes Neck: Full Range of Motion, Normal Inspection, Non Tender, Supple Respiratory: Chest Non Tender, No Accessory Muscle Use, No Respiratory Di stress, Crackles (fine crackles worse right base than left); No Rhonci, No Stridor, No Wheezing Cardiovascular: Regular Rate, Rhythm, No Edema, No Murmur, Normal Peripheral Pulses Capillary Refill: Less Than 3 Seconds Peripheral Pulses: 2+ Dorsalis Pedis (R), 2+ Left Dors-Pedis (L), 2+ Radial Pulses (R), 2+ Radial Pulses (L) Gastrointestinal: normal bowel sounds, non tender, soft; No distended, No guarding, No rebound, No tenderness Extremity: Normal Capillary Refill, Normal Inspection, No Calf Tenderness, No Pedal Edema Neurologic/Psychiatric: Alert, Oriented x3, No Motor/Sensory Deficits, Normal Mood/Affect, Motor Weakness (Generalized weakness ) Skin: Normal Color, Warm/Dry Lymphatic: No Adenopathy Results Lab Laboratory Tests 01/15/21 04:42 01/16/21 04:52 Assessment/Plan Assessment/Plan Available chart/ vitals / labs / Images reviewed Video assessment done using teleICU camera, rest of exam as per RN Discussed with RN , EXAM PER RN Events overnight : as she was doing early mobilization, she stood up felt weak to her knees; ddi not hit the head/ no signs of seizures/ regained coherence Afebrile I/O = even Drips: Pressors: , hemodynamically stable Consultants: chyna Hospital course: 01/11- bilat PE 01/15 - Vapotherm 25L 65 % 01/15 - as she was doing early mobilization, she stood up felt weak to her knees; ddi not hit the head/ no signs of seizures/ regained coherence, Hypotension very probable related to orthostatics 01/16- Vapotherm 35L 65 % A/P Acute resp failure , post recent COVID + PE - Vapotherm 35L 65 % - R>L infiltrates ( post COVID ) - doing IS - cont o2 support , repeat cxr AM , stop IVF Tromboembolic dz - bilat PE and calf thrombosis ( 01/11 - s/p IVC filter - off AC due to recent SAH - ECHO ef 55% , RVSP 20 Orthostatic hypotension, multiple near syncopal episode - as per cardiology Elevated lactic level to 5 on 01/15 -- as per Rn and Dr Abreu- - no clinical suspicios for infection ( PCT neg ) , exam no clinical suspicios for ischemic bowel or limb ischemia, no hypotension of offending medications - only reasonable scoause is lactic acidosis due to adrenergic-induced glyc olysis and lipolysis- changed nebs to prn and given one dose of colloids - has ortosttic hypotension - might benefit from very gentle fluid resuscitation , complicated with increase need for Fio2 Lines : (Central Line Necessity Reviewed) Shepherd: + OG: Nutrition: PO - well Analgesia: Anxiety/ delirium VTE Prophylaxis: contraindicated Stress Ulcer Prophylaxis: Glycemic Control: Plans in collaboration with bedside consultants and IM MDs. Discussed with RN to reach out if any questions or concerns A total of 35 minutes of critical care time was devoted to this patient today, required to treat and/or prevent further deterioration of critical care condition ( as above) . DONNA MCCRACKEN MD Jan 16, 2021 10:15
--- NOTE | 2021-01-16 10:35 | Progress Note ---
Subjective Date Seen by a Provider: Jan 16, 2021 Time Seen by a Provider: 11:00 Subjective/Events-last exam Pt still on Vapotherm Really slow recovery Desats very quickly Checked meds and labs No falls Bowels not moving still- will offer laxatives Later in the afternoon she was able to be weaned down to 2 L nasal cannula so this is helpful Review of Systems General: Fatigue Pulmonary: Dyspnea Focused Exam Lactate Level 01/15/21 18:32: Lactic Acid Level 3.97*H 01/15/21 20:59: Lactic Acid Level 2.52*H 01/16/21 04:52: Lactic Acid Level 1.60 Objective Exam Last Set of Vital Signs Vital Signs Date Time Temp Pulse Resp B/P (MAP) Pulse Ox O2 Delivery O2 Flow Rate FiO2 01/16/21 08:00 36.2 01/16/21 07:15 63 01/16/21 06:00 18 112/70 89 Vapotherm 35.00 65.00 01/16/21 04:00 55 Capillary Refill : Less Than 3 Seconds I&O Intake and Output 01/16/21 00:00 Intake Total 2310 ml Output Total 2225 ml Balance 85 ml Intake Oral 2310 ml Output Urine Total 2225 ml General: Alert, Oriented X3, Cooperative, No Acute Distress Lungs: Other (Diminished all ibrahim) Heart: Regular Rate Psych/Mental Status: Mental Status NL Results Lab Laboratory Tests 01/15/21 11:30: Lactic Acid Level 5.32*H 01/15/21 13:41: Lactic Acid Level 4.13*H 01/15/21 16:34: Lactic Acid Level 5.36*H 01/15/21 18:32: Lactic Acid Level 3.97*H 01/15/21 20:59: Lactic Acid Level 2.52*H 01/16/21 04:52: Lactic Acid Level 1.60, White Blood Count 7.8, Red Blood Count 3.37L, Hemoglobin 9.9L, Hematocrit 30L, Mean Corpuscular Volume 90, Mean Corpuscular Hemoglobin 29, Mean Corpuscular Hemoglobin Concent 33, Red Cell Distribution Width 14.7H, Platelet Count 120L, Mean Platelet Volume 10.0, Immature Granulocyte % (Auto) 5, Neutrophils (%) (Auto) 79H, Lymphocytes (%) (Auto) 10L, Monocytes (%) (Auto) 6, Eosinophils (%) (Auto) 0, Basophils (%) (Auto) 0, Neutrophils # (Auto) 6.2, Lymphocytes # (Auto) 0.8L, Monocytes # (Auto) 0.4, Eosinophils # (Auto) 0.0, Basophils # (Auto) 0.0, Immature Granulocyte # (Auto) 0.4H, Sodium Level 140, Potassium Level 4.0, Chloride Level 111H, Carbon Dioxide Level 19L, Anion Gap 10, Blood Urea Nitrogen 13, Creatinine 0.70, Estimat Glomerular Filtration Rate 82, BUN/Creatinine Ratio 19, Glucose Level 122H, Calcium Level 8.3L, Corrected Calcium 9.1, Phosphorus Level 2.9, Magnesium Level 2.2, Total Bilirubin 0.8, Aspartate Amino Transf (AST/SGOT) 17, Alanine Aminotransferase (ALT/SGPT) 31, Alkaline Phosphatase 54, Total Protein 5.6L, Albumin 3.0L, Procalcitonin 0.02 Microbiology 01/11/21 Blood Culture - Preliminary, Resulted No growth Assessment/Plan Assessment/Plan Assess & Plan/Chief Complaint Assessment: COVID-19 pneumonia Acute hypoxic respiratory failure Pulmonary embolism requiring filter placement postop day #[address] POTTER Subarachnoid bleed due to fall no anticoagulation or antiplatelets can be used until 01/21/2021 Hypertension Orthostatic syncope Plan: Supportive care High flow oxygen IVC filter management 01/14/2021: Vapotherm for exertion Wean oxygen 01/15/2021: Supportive care Gentle IV fluids 01/16/2021: Supportive care PT and OT Clinical Quality Measures Admission Status Admission Dx Assessment: Acute on chronic hypoxic respiratory failure due to COVID-19 pneumonia 12/30/2020 Acute pulmonary embolism Acute DVT Subarachnoid hemorrhage no anticoagulation or antiplatelet agents allowed to start until 01/21/2021 per neurosurgery at [facility] Hypertension Hyperlipidemia History of orthostasis Severe debility Plan: Maintain ICU Pulmonary critical care appreciated IVC filter placement with SARITHA Campoverde DO Jan 16, 2021 10:35
--- NOTE | 2021-01-16 12:19 | Cardiology Progress Note ---
Subjective Date Seen by Provider: Jan 16, 2021 Time Seen by Provider: 12:17 Subjective/Events-last exam Patient is feeling better, no new complaint, no cp Review of Systems General: No Chills, No Night Sweats, No Fatigue, No Malaise, No Appetite, No Other HEENT: No Head Aches, No Visual Changes, No Ear Pain, No Dysphasia, No Sinus Congestion, No Post Nasal Drip, No Sore Throat, No Other Pulmonary: Dyspnea; No Cough, No Pleuritic Chest Pain, No Other Cardiovascular: No: Chest Pain, Palpitations, Orthopnea, Paroxysmal Noc. Dyspnea, Edema, Lt Headedness, Other Focused Exam Lactate Level 01/15/21 18:32: Lactic Acid Level 3.97*H 01/15/21 20:59: Lactic Acid Level 2.52*H 01/16/21 04:52: Lactic Acid Level 1.60 Objective-Cardiology Exam Last Set of Vital Signs Vital Signs 01/16/21 01/16/21 08:00 10:00 Temp 36.2 Pulse 73 Resp 18 B/P (MAP) 116/66 Pulse Ox 97 O2 Delivery Vapotherm O2 Flow Rate 35.00 65.00 FiO2 55 I&O Intake and Output 01/16/21 00:00 Intake Total 2310 ml Output Total 2225 ml Balance 85 ml Intake Oral 2310 ml Output Urine Total 2225 ml General: Alert, Oriented X3, Cooperative, No Acute Distress HEENT: Atraumatic, PERRLA, EOMI, Mucous Memb Moist/[employer] Neck: Supple, No JVD Lungs: Clear to Auscultation, Normal Air Movement Heart: Regular Rate, Normal S1, Normal S2 Abdomen: Normal Bowel Sounds, Soft, No Tenderness Extremities: No Clubbing, No Cyanosis, Normal Pulses Skin: No Rashes, No Breakdown, No Significant Lesion Neuro: Normal Speech, Sensation Intact, Cranial Nerves 3-12 NL Psych/Mental Status: Mental Status NL Results Lab Laboratory Tests 01/16/21 04:52 A/P-Cardiology Admission Diagnosis Acute respiratory failure COVID-19 pneumonia Near-syncope Hyperlipidemia Assessment/Plan Acute respiratory failure, was on Vapotherm, progressed to nasal cannula 10 L now is back on Vapotherm high flow oxygen. Sinus tachycardia and hypotension probably secondary to pulmonary embolism and severe hypoxemia. Unable to tolerate aggressive anticoagulation due to subarachnoid hemorrhage, I recommend discussing with the neurologist to evaluate the timing that we can start anticoagulation COVID-19 pneumonia, patient recovered but still having underlying shortness of breath requiring oxygen. DVT, pulmonary embolism, had subarachnoid hemorrhage, cannot tolerate aggressive anticoagulation, underwent IVC filter placement. Orthostatic hypotension, multiple near syncopal episode, had to reported syncope, subarachnoid hemorrhage secondary to head trauma from syncope. Monitor blood pressure Subarachnoid hemorrhage, unable to tolerate any type of anticoagulation at this point. Continue with conservative management History of hyperlipidemia, maintained on statin as an outpatient CHARISSE LOWRY MD Jan 16, 2021 12:19
[2021-01-16] MEDS: NS IV 1000 ML 1,000 ML IV SCH (17:16)
[2021-01-16] MEDS ORDERED: amLODIPine 5 MG (NORVASC) TAB PO ONE (18:30)
[2021-01-16] MEDS ORDERED: FUROSEMIDE 40 MG/4 ML INJ (LASIX) IVP ONE (18:30)
[2021-01-17 04:48] LABS: BASOPHILS % (AUTO) 0 % (0-10); EOSINOPHILS % (AUTO) 0 % (0-10)
[2021-01-17 04:50] LABS: HEMATOCRIT 30 % (35-52); HEMOGLOBIN 9.7 g/dL (11.5-16.0); LYMPHOCYTES # (AUTO) 0.9 10^3/uL (1.0-4.0); LYMPHOCYTES % (AUTO) 10 % (12-44); MEAN CORPUSCULAR HEMOGLOBIN 30 pg (25-34); MEAN CORPUSCULAR HGB CONC 32 g/dL (32-36); MEAN CORPUSCULAR VOLUME 92 fL (80-99); MEAN PLATELET VOLUME 10.4 fL (9.0-12.2); MONOCYTES # (AUTO) 0.6 10^3/uL (0.0-1.0); MONOCYTES % (AUTO) 6 % (0-12); NEUTROPHILS # (AUTO) 7.1 10^3/uL (1.8-7.8); NEUTROPHILS % (AUTO) 80 % (42-75); PLATELET COUNT 122 10^3/uL (130-400)
[2021-01-17 05:06] LABS: ALBUMIN 3.3 GM/DL (3.2-4.5)
[2021-01-17 05:08] LABS: CALCIUM 8.8 MG/DL (8.5-10.1)
[2021-01-17 05:09] LABS: TOTAL PROTEIN 5.8 GM/DL (6.4-8.2)
[2021-01-17 05:11] LABS: BILIRUBIN,TOTAL 0.9 MG/DL (0.1-1.0)
[2021-01-17 05:12] LABS: PHOSPHORUS 2.9 MG/DL (2.3-4.7)
[2021-01-17 05:13] LABS: CREATININE SERUM 0.71 MG/DL (0.60-1.30)
[2021-01-17 05:15] LABS: MAGNESIUM 2.1 MG/DL (1.6-2.4)
[2021-01-17] MEDS: KCL 10 MEQ TAB (MICRO K) PO SCH (06:32)
--- NOTE | 2021-01-17 07:36 | Diagnostic Imaging Report ---
Indication: Lower respiratory infection Portable chest 4:29 AM There are some patchy peripheral infiltrates in the mid and upper portions of both lungs. These appear to have improved slightly compared to 01/15/2021. There are no effusions or pneumothoraces. IMPRESSION: Shallow inspiration compared to prior exam. Infiltrates appear to have improved slightly. Dictated by: Dictated on workstation # [id number]
[2021-01-17] MEDS: amLODIPine 5 MG (NORVASC) TAB PO SCH (08:17)
--- NOTE | 2021-01-17 08:33 | Pulmonary Progress Note ---
FRAN SINGLETON MED STUDENT 01/17/21 0833: Subjective Date Seen by a Provider: Jan 17, 2021 Time Seen by a Provider: 06:55 Subjective/Events-last exam Patient awake in room. Vitals stable per bedside monitor. She denies complaints or concerns. Has transitioned off vapotherm to NC around 1800 last night. Currently on 4L/NC. Review of Systems General: No Chills, No Night Sweats HEENT: No Head Aches, No Visual Changes Pulmonary: No Dyspnea, No Cough Cardiovascular: No: Chest Pain, Palpitations Gastrointestinal: No: Nausea, Vomiting, Abdominal Pain, Diarrhea, Melena Genitourinary: No Dysuria, No Frequency; Other (gaitan) Musculoskeletal: No: neck pain, back pain Neurological: No: Weakness, Numbness, Change in speech, Confusion Sepsis Event Evaluation Height, Weight, BMI Height: '" Weight: lbs. oz. kg; 24.41 BMI Method: Focused Exam Lactate Level 01/15/21 18:32: Lactic Acid Level 3.97*H 01/15/21 20:59: Lactic Acid Level 2.52*H 01/16/21 04:52: Lactic Acid Level 1.60 Exam Exam Patient acknowledged, consented, and participated in this virtual visit which was conducted using real time audio/video Vital Signs Date Time Temp Pulse Resp B/P (MAP) Pulse Ox O2 Delivery O2 Flow Rate FiO2 01/17/21 07:04 92 Nasal Cannula 3.00 01/17/21 06:00 56 19 117/74 96 Nasal Cannula 2.00 01/17/21 05:00 62 19 124/77 95 Nasal Cannula 2.00 01/17/21 04:10 96 Nasal Cannula 6.00 01/17/21 04:00 51 17 132/79 99 Nasal Cannula 2.00 01/17/21 03:00 60 22 112/65 91 Nasal Cannula 2.00 01/17/21 02:00 59 17 117/64 94 Nasal Cannula 2.00 01/17/21 01:00 61 01/17/21 01:00 61 19 101/64 95 Nasal Cannula 2.00 01/17/21 00:00 61 23 108/64 96 Nasal Cannula 2.00 01/16/21 23:59 96 Nasal Cannula 2.00 01/16/21 23:00 63 22 112/66 92 Nasal Cannula 2.00 01/16/21 22:00 61 22 114/70 96 Nasal Cannula 2.00 01/16/21 21:00 65 19 102/67 95 Nasal Cannula 2.00 01/16/21 20:00 87 25 109/75 92 Nasal Cannula 2.00 01/16/21 20:00 93 Nasal Cannula 2.00 01/16/21 19:00 70 26 142/81 97 Nasal Cannula 2.00 01/16/21 19:00 70 01/16/21 18:00 70 23 173/98 97 Nasal Cannula 2.00 01/16/21 17:27 Nasal Cannula 3.00 01/16/21 17:00 62 8 169/90 97 Vapotherm 20.00 45.00 01/16/21 16:00 50 22 168/88 98 Vapotherm 20.00 45.00 01/16/21 16:00 36.3 01/16/21 16:00 97 Vapotherm 15.00 35 01/16/21 15:00 47 18 182/79 99 Vapotherm 20.00 45.00 01/16/21 14:00 52 17 162/94 99 Vapotherm 20.00 45.00 01/16/21 13:00 60 18 141/83 96 Vapotherm 20.00 45.00 01/16/21 12:00 94 Vapotherm 25.00 45 01/16/21 12:00 36.4 01/16/21 12:00 74 18 140/76 96 Vapotherm 20.00 45.00 01/16/21 11:00 72 18 135/85 95 Vapotherm 35.00 65.00 01/16/21 10:00 73 18 116/66 97 Vapotherm 35.00 65.00 01/16/21 09:00 68 18 105/57 100 Vapotherm 35.00 65.00 I & O 01/17/21 07:00 Intake Total 1250 ml Output Total 4750 ml Balance -3500 ml Height & Weight Height: '" Weight: lbs. oz. kg; 24.41 BMI Method: General Appearance: No Apparent Distress, WD/WN, Chronically ill HEENT: PERRL/EOMI, Moist Mucous Membranes Neck: Full Range of Motion, Normal Inspection, Non Tender, Supple Respiratory: Chest Non Tender, No Accessory Muscle Use, No Respiratory Distress, Crackles (fine crackles worse right base than left); No Rhonci, No Stridor, No Wheezing Cardiovascular: Regular Rate, Rhythm, No Edema, No Murmur, Normal Peripheral Pulses Capillary Refill: Less Than 3 Seconds Peripheral Pulses: 2+ Dorsalis Pedis (R), 2+ Left Dors-Pedis (L), 2+ Radial Pulses (R), 2+ Radial Pulses (L) Gastrointestinal: normal bowel sounds, non tender, soft; No distended, No guarding, No rebound, No tenderness Extremity: Normal Capillary Refill, Normal Inspection, No Calf Tenderness, No Pedal Edema Neurologic/Psychiatric: Alert, Oriented x3, No Motor/Sensory Deficits, Normal Mood/Affect, Motor Weakness (Generalized weakness ) Skin: Normal Color, Warm/Dry Lymphatic: No Adenopathy Results Lab Laboratory Tests 01/16/21 04:52 01/17/21 04:25 Assessment/Plan Assessment/Plan Acute hypoxic respiratory failure -improving, now on NC at 4L from vapotherm yesterday -titrate to keep sat's >90% -MAT protocol -IS Q2hr chest xray: hallow inspiration compared to prior exam. Infiltrates appear to have improved slightly. Pulmonary embolism -01-11 d dimer >20 -Segmental pulmonary emboli in the left upper lobe and right lower lobe. Mild consolidations both lungs consistent with COVID 19 pneumonia. -There is bilateral calf thrombosis. No deep venous thrombosis is seen proximal to this. 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 May keep for now due to limited mobility Patient to transfer to medical floor today and rehab possibly tomorrow BEBETO KAPLAN MD 01/17/21 1711: Subjective Subjective/Events-last exam oxygenation improving Assessment/Plan Assessment/Plan Critical Care: Critically Ill Patient Time spent with patient (mins): 20 Supervisory-Addendum Brief Verification & Attestation Participated in pt care: history, physical Personally performed: history Care discussed with: Medical Student Procedures: n/a Procedure type: I&D [facility] [address] [address] Progress Note - Med Stdnt CC Patient Name: Daxa Moreno Unit Number: [id number] Date of : 01/02/1949 Patient Status: Admitted Inpatient Attending Doctor: Nazia Abreu DO TONY WAGNER MED STUDENT 01/17/21 1111: Subjective Subjective Date Seen by a Provider: Jan 17, 2021 Time Seen by a Provider: 07:25 Subjective/Events-last exam Daxa is switching between Bipap and vapotherm. She is currently on vapotherm at 40L and 100% FiO2. The patient and family have had multiple changes of heart on code status and the patient would like to be full code at this time. She s tates her mouth is dry and she wants to go home. Sepsis Event - Inpatient/Obs Sepsis Event Evaluation Height, Weight, BMI Height: 5'2.00" Weight: 268lbs. 8.0oz. 121.294556qz; 43.00 BMI Method:Stated Focused Exam Focused Exam Exam-Pulmonary/CC Exam Exam Patient acknowledged, consented, and participated in this virtual visit which was conducted using real time audio/video Vital Signs Date Time Temp Pulse Resp B/P (MAP) Pulse Ox O2 Delivery O2 Flow Rate FiO2 01/17/21 10:43 90 Vapotherm 40.00 100 01/17/21 10:39 90 Vapotherm 40.00 100 01/17/21 08:58 35.7 Vapotherm 40.00 100.00 01/17/21 08:00 91 Vapotherm 40.00 100 01/17/21 07:20 57 20 95 70.00 01/17/21 07:00 71 01/17/21 06:44 95 NIV Bilevel 70.00 01/17/21 06:00 55 20 139/62 95 NIV Bilevel 75.00 01/17/21 05:00 84 18 144/67 92 NIV Bilevel 75.00 01/17/21 04:15 36.1 01/17/21 04:00 102 38 156/102 95 NIV Bilevel 75.00 01/17/21 04:00 94 NIV Bilevel 75 01/17/21 03:00 67 14 135/69 92 NIV Bilevel 75.00 01/17/21 02:57 71 20 92 75.00 01/17/21 02:00 55 20 132/60 91 NIV Bilevel 75.00 01/17/21 01:00 80 33 170/88 95 NIV Bilevel 75.00 01/17/21 01:00 80 01/17/21 00:13 93 NIV Bilevel 75 01/17/21 00:00 65 20 149/77 93 NIV Bilevel 75.00 01/16/21 23:53 36.4 01/16/21 23:00 67 25 197/89 96 NIV Bilevel 75.00 01/16/21 22:26 80 30 94 75.00 01/16/21 22:09 94 NIV Bilevel 75.00 01/16/21 22:00 111 47 186/86 89 NIV Bilevel 80.00 01/16/21 21:00 71 21 120/77 90 NIV Bilevel 80.00 01/16/21 20:40 36.0 94 NIV Bilevel 80.00 01/16/21 20:30 112 01/16/21 20:00 92 Vapotherm 40.00 100 01/16/21 20:00 122 24 163/69 88 Vapotherm 40.00 100.00 01/16/21 19:00 123 34 165/72 90 Vapotherm 40.00 100.00 01/16/21 19:00 92 Vapotherm 40.00 100.00 01/16/21 19:00 123 01/16/21 18:57 90 Vapotherm 40.00 100 01/16/21 18:31 36.4 01/16/21 16:00 77 29 120/61 91 NIV Bilevel 70.00 01/16/21 16:00 89 Vapotherm 40.00 100 01/16/21 14:51 98 31 93 80.00 01/16/21 14:00 110 31 138/69 94 NIV Bilevel 70.00 01/16/21 13:00 105 31 170/78 89 NIV Bilevel 70.00 01/16/21 13:00 105 01/16/21 12:00 86 31 166/78 95 NIV Bilevel 70.00 01/16/21 12:00 89 Vapotherm 40.00 100 01/16/21 12:00 36.2 l I & O 01/17/21 07:00 Intake Total 3260 ml Output Total 2125 ml Balance 1135 ml Height & Weight Height: 5'2.00" Weight: 268lbs. 8.0oz. 121.962846sk; 43.00 BMI Method:Stated General Appearance: Anxious, Chronically ill, Obese, Other (on vapotherm) HEENT: PERRL/EOMI Neck: Normal Inspection, Non Tender, Supple Respiratory: No Accessory Muscle Use, No Respiratory Distress, Decreased Breath Sounds Cardiovascular: Regular Rate, Rhythm Capillary Refill: Less Than 3 Seconds Peripheral Pulses: 2+ Dorsalis Pedis (R), 2+ Left Dors-Pedis (L), 2+ Radial Pulses (R), 2+ Radial Pulses (L) Gastrointestinal: normal bowel sounds, non tender, soft; No distended, No guarding, No rebound, No tenderness Extremity: Normal Capillary Refill, Non Tender, Pedal Edema (trace) Neurologic/Psychiatric: Alert, Oriented x3 Skin: Normal Color, Warm/Dry, Pallor Lymphatic: No Adenopathy Results Lab Laboratory Tests 01/16/21 05:55 01/16/21 19:45 01/17/21 04:47 Assessment/Plan Assessment/Plan Assessment/Plan severe covid 19 dx 01/02/21, acute respiratory failure/ARDS -was on Bipap overnight, now on vapotherm 40LPM + 100% FiO2 -Zosyn was completed 12/12 -on Precedex for anxiety -Remdesivir stopped -given severe dz and time frame of > 2 weeks after Dx -no clinical benefit expected -Steroids IV - started 01/12 -Hypercoagulable state , DDIMER 3.8 on -> lovenox ppx dose , dimer repeated 01/16 - 3.0 ( no evidence of large PE on CT 01/12 ) Monitor for superimposed bact PNA -PCT low 01/16 , OFF abx COPD - chronic hypoxixa resp failure - on 2 L - cont br-dilators, steroids to cont same dose ( no sign obstruction on last PFT ) Diabetes Mellitus - ISS , close f/up on steroids -Adjusting Levemir to 10 BID. Insulin was held last night due to euglycemia. Borderline hyponatremia, 134 today from 133 yesterday -continue to monitor peripheral IVs in place. Gaitan in place supportive management prognosis guarded d/t severe underlying COPD Problem List Diagnosis/Problems Copy To: Copy Verification and Attestation Supervisory-Addendum Brief BEBETO KAPLAN MD 01/17/21 1709: Subjective Subjective Sepsis Event - Inpatient/Obs Sepsis Event Focused Exam Focused Exam Exam-Pulmonary/CC Exam Assessment/Plan Assessment/Plan Assessment/Plan continue present meds, high risk of intubation, given weight, COPD Critical Care: Critically Ill Patient Problem List Diagnosis/Problems Copy To: Copy Verification and Attestation Supervisory-Addendum Brief Verification & Attestation Participated in pt care: history Personally performed: history Care discussed with: Medical Student Procedures: n/a Results interpretation: Verified all [place] [address] [place] [address] Consultation - Med Stdnt CC Patient Name: Petra Walsh Unit Number: [id number] Date of : 05/19/1943 Patient Status: Admitted Inpatient Attending Doctor: Nazia Abreu DO TONY WAGNER MED STUDENT 01/17/21 1607: History of Present Illness History of Present Illness History of Present Illness Date Seen by Provider: Jan 17, 2021 Time Seen by Provider: 02:55 Date of Admission Petra Walsh is a 77 y.o. F with history of hypertension and hypothyroidism admitted to the ICU after she was found to be in atrial fibrillation with RVR while at a routine checkup today. The patient was seen in [place] ER and was found to be anemic as well with hgb in the 6's. She was transfused 1 unit PRBC en route. The patient denies all symptoms including headache, lightheadedness, recent trauma, chest pain, palpitations, SOB, nausea, diarrhea, abdominal pain, black stools, and bloody stools. She does report that she follows with a home service technician in [place] due to 3 years of exertional dyspnea, but reportedly had a stress test when this started and said she was unsure of the results of that. No recent change in severity of exertional dyspnea. Her last colonoscopy was 30 years ago. Allergies & Home Medications-C Allergies and Home Medications Allergies Coded Allergies: No Allergy Information Available (Unverified , 01/17/21) Home Medications Alendronate Sodium 70 Mg Tablet, 70 MG PO FRIDAY, (Reported) Amlodipine Besylate 5 Mg Tablet, 5 MG PO DAILY, (Reported) Levothyroxine Sodium 100 Mcg Tablet, 100 MCG PO DAILY, (Reported) Past Medical/Social/Family Hx Past Medical/Social/Family Hx Patient Social History Marrital Status: single (lives alone) Tobacco Use?: No Smoking Status: Never a Smoker Substance use?: No Alcohol Use?: No (quit "years ago") Pt stated abuse/neglect: No Immunizations Up To Date Influenza Vaccine Up-to-Date: No; Not Current First/Initial COVID19 Vaccinat: JUNE 2020 Second COVID19 Vaccination Dennis: JULY 2020 Current Status Advance Directives: No Communicates: Verbally Primary Language: [place] Islander Preferred Spoken Language: [place] Islander Is interpretation needed?: No Past Medical History HTN, hypothyroidism Family Medical History Family Hx: father had symptomatic bradycardia, mother had a "heart problem" in her 50's. Review of Systems Review of Systems Constitutional: No: Fever, Chills, Sweats, Weakness, Malaise, Other Eyes: No: Vision change ENT: No: Nose congestion, Throat pain Respiratory: SOB with excertion (3 year hx. unchanged past year); No: Shortness of breath Cardiovascular: No: Chest Pain, Palpitations Gastrointestinal: No: Nausea, Vomiting, Abdominal Pain, Diarrhea, Constipation, Melena Genitourinary: No Dysuria Skin: No: Rash, Bruising Neurological: No: Weakness, Numbness, Change in speech Sepsis Event - Inpatient/Obs Sepsis Event Evaluation Height, Weight, BMI Height: '" Weight: lbs. oz. kg; 32.32 BMI Method: Exam-Pulmonary/CC Exam Exam Patient acknowledged, consented, and participated in this virtual visit which was conducted using real time audio/video Height & Weight Height: '" Weight: lbs. oz. kg; 32.32 BMI Method: General Appearance: No Apparent Distress, WD/WN, Obese HEENT: PERRL/EOMI, Moist Mucous Membranes Neck: Full Range of Motion, Normal Inspection Respiratory: Chest Non Tender, Lungs Clear, Normal Breath Sounds, No Accessory Muscle Use, No Respiratory Distress Cardiovascular: No JVD, Normal Peripheral Pulses, Irregularly Irregular, Tachycardia Gastrointestinal: non tender, soft Extremity: Normal Capillary Refill, Normal Inspection, No Calf Tenderness Neurologic/Psychiatric: Alert, Oriented x3, No Motor/Sensory Deficits, Normal Mood/Affect Skin: Normal Color, Warm/Dry Results Lab Laboratory Tests 01/17/21 14:00 Assessment/Plan Assessment/Plan Assessment/Plan atrial fibrillaton with RVR -rate 115's-120's -BP normotensive 125/97. Patient asymptomatic -cardiology to manage. anemia -received PRBC transfusion -recheck HGB -admitting hospitalist has consulted surgery. No acute hx. Last colonoscopy 30 years prior. history of hypertension hypothyroidism -continue synthroid DVT prophylaxis -hold anticoagulation due to anemia. place SCDs. Problem List Diagnosis/Problems Copy To: Copy Verification and Attestation Supervisory-Addendum Brief BEBETO KAPLAN MD 01/17/21 1706: History of Present Illness History of Present Illness Allergies & Home Medications-C Allergies and Home Medications Allergies Coded Allergies: No Allergy Information Available (Unverified , 01/17/21) Home Medications Alendronate Sodium 70 Mg Tablet, 70 MG PO FRIDAY, (Reported) Amlodipine Besylate 5 Mg Tablet, 5 MG PO DAILY, (Reported) Levothyroxine Sodium 100 Mcg Tablet, 100 MCG PO DAILY, (Reported) Past Medical/Social/Family Hx Past Medical/Social/Family Hx Review of Systems Review of Systems Date Seen by Provider: Jan 17, 2021 Time Seen by Provider: 17:05 Sepsis Event - Inpatient/Obs Sepsis Event Exam-Pulmonary/CC Exam Exam General Appearance: No Apparent Distress Respiratory: Lungs Clear Cardiovascular: Irregularly Irregular Gastrointestinal: normal bowel sounds, non tender Extremity: Pedal Edema (trace leg edema) Assessment/Plan Assessment/Plan Assessment/Plan BP ok, patient awake, got 2nd unit of PRBC, will check Hb at 7 pm, continue Cardizem @ 5, V rate about 90 Critical Care: Critically Ill Patient Time spent with patient (mins): 20 Problem List Diagnosis/Problems Copy To: Copy Verification and Attestation Supervisory-Addendum Brief Verification & Attestation Participated in pt care: history Personally performed: exam, history Care discussed with: QA AUTOMATION DEVELOPER Procedures: n/a Results interpretation: Verified all documentation [facility] [address] [address] Progress Note - Med Stdnt PULM Patient Name: Joanna Conrad I Unit Number: [id number] Date of : 05/27/1986 Patient Status: Admitted Inpatient Attending Doctor: Edgardo Timmons MD ARELI,[facility] MED STUDENT 01/17/21 0849: Subjective Subjective Date Seen by a Provider: Jan 17, 2021 Time Seen by a Provider: 07:05 Subjective/Events-last exam Patient reports nausea and pain all over. She received a dose of benadryl overnight. Vitals are stable per bedside monitor. On RA. Voice is still quiet/raspy, no stridor. She is able to speak in full sentences. Review of Systems General: No Chills, No Night Sweats HEENT: No Head Aches, No Visual Changes Pulmonary: No Dyspnea; Cough Cardiovascular: No: Chest Pain, Palpitations, Orthopnea, Edema Gastrointestinal: Nausea; No: Vomiting, Diarrhea, Constipation Genitourinary: No Dysuria, No Frequency, No Incontinence Musculoskeletal: neck pain, back pain, leg pain, foot pain Neurological: No: Weakness, Numbness, Confusion Sepsis Event - Inpatient/Obs Sepsis Event Evaluation Height, Weight, BMI Height: 5'5.00" Weight: 209lbs. 0.0oz. 94.794661dv; 36.73 BMI Method:Stated Focused Exam Focused Exam Lactate Level 01/16/21 04:17: Lactic Acid Level 6.15*H 01/16/21 07:24: Lactic Acid Level 1.81 01/17/21 04:27: Lactic Acid Level 1.24 Time of Focused Exam: 06:30 Exam-Pulmonary/CC Exam Exam Patient acknowledged, consented, and participated in this virtual visit which was conducted using real time audio/video Vital Signs Date Time Temp Pulse Resp B/P (MAP) Pulse Ox O2 Delivery O2 Flow Rate FiO2 01/17/21 06:00 80 99 Room Air 01/17/21 05:00 92 94 Room Air 01/17/21 04:39 36.4 Room Air 01/17/21 04:25 84 132/92 100 Room Air 01/17/21 04:03 Room Air 01/17/21 04:00 101 21 98 Room Air 01/17/21 03:00 87 10 97 Room Air 01/17/21 02:40 36.2 Room Air 01/17/21 02:00 89 15 95 Room Air 01/17/21 01:00 94 16 115/83 96 Room Air 01/17/21 01:00 94 01/17/21 00:15 36.9 01/17/21 00:13 Room Air 01/17/21 00:00 99 18 144/116 99 Room Air 01/16/21 23:00 90 130/97 96 Room Air 01/16/21 22:00 98 9 142/103 90 Room Air 01/16/21 21:13 116 16 145/116 100 Room Air 01/16/21 20:27 Room Air 01/16/21 20:05 105 29 123/61 99 Room Air 01/16/21 19:00 37.1 Room Air 01/16/21 19:00 103 98 Room Air 01/16/21 19:00 103 01/16/21 18:00 110 21 98 Room Air 01/16/21 17:03 37.2 01/16/21 16:00 Room Air 01/16/21 15:00 112 39 140/95 97 Room Air 01/16/21 14:00 112 22 94 Room Air 01/16/21 13:00 126 01/16/21 13:00 129 21 95 Room Air 01/16/21 12:00 Room Air 01/16/21 12:00 114 9 128/86 95 Room Air 01/16/21 11:00 133 21 117/76 98 Room Air 01/16/21 10:00 123 21 117/76 98 Room Air 01/16/21 09:00 122 21 122/105 100 Room Air 01/16/21 08:58 130 I & O 01/17/21 06:59 Intake Total 4495 ml Balance 4495 ml Height & Weight Height: 5'5.00" Weight: 209lbs. 0.0oz. 94.721651ga; 36.73 BMI Method:Stated General Appearance: No Apparent Distress, WD/WN, Obese HEENT: PERRL/EOMI, Moist Mucous Membranes, Other (No pharyngeal exudates, min imal swelling of uvula. Tongue with thick yellow film. Poor oral hygiene. ) Neck: Supple, Other (No LAD. Tender to palpation throughout. RIJ CVC in place.) Respiratory: Chest Non Tender, Lungs Clear, Normal Breath Sounds, No Accessory Muscle Use, No Respiratory Distress Cardiovascular: Regular Rate, Rhythm (with a rate of 103 this morning), No Edema, Normal Peripheral Pulses Capillary Refill: Less Than 3 Seconds Peripheral Pulses: 2+ Dorsalis Pedis (R), 2+ Left Dors-Pedis (L), 2+ Radial Pulses (R), 2+ Radial Pulses (L) Gastrointestinal: normal bowel sounds, non tender, soft; No distended, No guarding, No rebound; tenderness (tender to palpation x 4 quadrants. ) Extremity: Normal Capillary Refill, No Calf Tenderness, No Pedal Edema Neurologic/Psychiatric: Alert, Oriented x3 Skin: Normal Color, Warm/Dry Lymphatic: No Adenopathy Results Lab Laboratory Tests 01/16/21 04:17 01/16/21 14:30 01/17/21 04:27 Assessment/Plan Assessment/Plan Assessment/Plan Severe sepsis -rocephin -unasyn -wbc down to 14.6 today -procal 0.08 today -s/p fluid resuscitation -not on pressors Pharyngitiswith soft tissue pharyngeal swelling by CT -strep, covid, mono negative -culture pending -unasyn started today -ENT consulted today -benadryl for hoarseness -tylenol and fentanyl for pain -s/p 3 doses decadron Urine drug screen positive for ETOH -level 36 -WA protocol, monitor for withdrawal Elevated LFT's -trending down -continue to monitor -hepatic steatosis per CT abd/pelvis Anemia -hgb 10.5, likely dilutional -continue to follow Seizure disorder -keppra Closed head injury -continue to monitor neuro status Elevated LFTs -continue to monitor H/O pancreatitis -lipase 15 on 01-16 H/O diverticulosis DVT ppx -lovenox GI ppx -protonix Gonorrhea and chlamydia pending. Hepatitis and HIV assays non reactive. Syphilis antibody reactive. RPR non reactive. RIJ CVC: 01/16 Gaitan: None Problem List Diagnosis/Problems Copy To: Copy Verification and Attestation Supervisory-Addendum Brief BEBETO KAPLAN MD 01/17/21 1657: Subjective Subjective Sepsis Event - Inpatient/Obs Sepsis Event Focused Exam Focused Exam Exam-Pulmonary/CC Exam Assessment/Plan Assessment/Plan Assessment/Plan not drooling, appears to be improving, will continue abx Critical Care: Critically Ill Patient Problem List Diagnosis/Problems Copy To: Copy Verification and Attestation Supervisory-Addendum Brief Verification & Attestation Participated in pt care: history Personally performed: history Care discussed with: Medical Student Procedures: n/a Results interpretation: Verified all documentation [facility] [address] [place] [address] Critical Care Consultation/H&P Patient Name: Tracy Leigh Unit Number: [id number] Date of : 07/24/1943 Patient Status: Admitted Inpatient Attending Doctor: Yue Chand MD History of Present Illness History of Present Illness History of Present Illness Date Seen by Provider: Jan 17, 2021 Time Seen by Provider: 16:47 Date of Admission 77 F with palpatations was in a fib with V rate 160, given 20 mg IV Cardizem, brought rate to 80's,on maintenance rate of 10 pt awake with no SOB, CP Hx of CABG about 1999, multiple stents no DM, Has HLD, PVD, CAD AAA repair TATYANA not on CPAP at home Allergies & Home Medications-C Allergies and Home Medications Allergies Coded Allergies: NKANo Known Allergies (Verified Allergy, Unknown, 08/19/06) Home Medications Amlodipine Besylate 5 Mg Tablet, 5 MG PO 1400, (Reported) LAST FILLED 07-13-2020 #90/90 DAY SUPPLY Apixaban 5 Mg Tablet, 5 MG PO BID, (Reported) Aspirin 81 Mg Tablet.dr, 81 MG PO DAILY, (Reported) Atorvastatin Calcium 20 Mg Tablet, 20 MG PO 1400, (Reported) Cholecalciferol (Vitamin D3) 25 Mcg Capsule, 25 MCG PO DAILY, (Reported) Lisinopril 20 Mg Tablet, 20 MG PO 1400, (Reported) Metoprolol Succinate 50 Mg Tab.er.24h, 50 MG PO 1400, (Reported) Minoxidil 10 Mg Tab, 10 MG PO BID, (Reported) [place]-3S/Dha/Epa/Fish Oil 1 Each Capsule, 1 EACH PO 1400, (Reported) Past Medical/Social/Family Hx Past Medical/Social/Family Hx Patient Social History Tobacco Use?: No Smoking Status: Former Smoker Smokeless Tobacco Frequency: Never a User Use of E-Cig and/or Vaping dev: No Substance use?: No Alcohol Use?: No Pt stated abuse/neglect: No Immunizations Up To Date Influenza Vaccine Up-to-Date: No; Not Current First/Initial COVID19 Vaccinat: UNVACCINATED Tetanus Booster (TDap): Unknown Hepatitis A: No Hepatitis B: No TB Skin Test: Negative Date of Pneumonia Vaccine: May 22, 2006 Current Status status: No status: No Advance Directives: No Communicates: Verbally Primary Language: [place] Preferred Spoken Language: [place] Is interpretation needed?: No Additional sensory deficits: N/A Implanted or Applied Medical D: Orthopedic hardware, Stents Review of Systems-Hospitalist Review of Systems Constitutional: see HPI EENTM: see HPI Respiratory: see HPI Cardiovascular: see HPI Gastrointestinal: see HPI Genitourinary: see HPI Musculoskeletal: see HPI Skin: see HPI Psychiatric/Neurological: See HPI Sepsis Event - Inpatient/Obs Sepsis Event Evaluation Height, Weight, BMI Height: 5'0.00" Weight: 140lbs. 0.0oz. [id number]; 25.35 BMI Method:Stated Exam-Pulmonary/CC Exam Exam Patient acknowledged, consented, and participated in this virtual visit which was conducted using real time audio/video Vital Signs Date Time Temp Pulse Resp B/P (MAP) Pulse Ox O2 Delivery O2 Flow Rate FiO2 01/17/21 15:42 98 Room Air 01/17/21 15:30 104 12 110/89 96 Room Air 01/17/21 15:15 123 31 146/105 95 Room Air 01/17/21 15:10 147 01/17/21 15:00 36.6 139/118 Room Air 01/17/21 14:45 119 18 149/106 97 Room Air 01/17/21 12:17 168 20 161/113 (129) 95 Room Air Height & Weight Height: 5'0.00" Weight: 140lbs. 0.0oz. 63.549810fi; 25.35 BMI Method:Stated General Appearance: No Apparent Distress, WD/WN, Other (WALKS IN ON HER OWN WITHOUT DIFFICULTY; SMILING, PLEASANT, TALKATIVE. 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 Physical findings are those described to me by RN and medical student Time spent with patient (mins): 25 Problem List Diagnosis/Problems Copy To: Copy BEBETO KAPLAN MD Jan 17, 2021 16:52 FRAN SINGLETON MED STUDENT Jan 17, 2021 08:49 BEBETO KAPLAN MD Jan 17, 2021 16:57 TONY WGANER MED STUDENT Jan 17, 2021 16:07 BEBETO KAPLAN MD Jan 17, 2021 17:06 TONY WAGNER MED STUDENT Jan 17, 2021 11:11 BEBETO KAPLAN MD Jan 17, 2021 17:09 FRAN SINGLETON MED STUDENT Jan 17, 2021 08:33 BEBETO KAPLAN MD Jan 17, 2021 17:11
--- NOTE | 2021-01-17 08:58 | Physical Therapy Evaluation ---
PT Evaluation-General Medical Diagnosis Admission Date Jan 11, 2021 at 11:30 Medical Diagnosis: acute hypoxic respiratory failure Onset Date: Jan 11, 2021 Therapy Diagnosis Therapy Diagnosis: impaired mobility, strength, endurance Precautions Precautions/Isolations: Standard Precautions Referral Physician: Nazia Abreu DO Reason for Referral: Evaluation/Treatment Medical History Pertinent Medical History: HTN Additional Medical History Diagnosed with COVID-19 12/30/20. Recent falls after diagnosis with subarachnoid bleed. Transferred to [facility] 01/10/21 for continued medication management and skilled therapies. Reviewed History: Yes Social History Home: Single Level Current Living Status: Spouse Entry Into Home: Ramp Prior Prior Level of Function SCALE: Activities may be completed with or without assistive devices. 2-Bqsmkjeutf-zyixicr completes the activity by him/herself with no assistance from a helper. 5-Set-up or Clean-up Assistance-helper sets up or cleans up; patient completes activity. [place] assists only prior to or following the activity. 4-Supervision or Touching Assistance-helper provides verbal cues and/or touching/steadying and/or contact guard assistance as patient completes activity. Assistance may be provided throughout the activity or intermittently. 3-Partial/Moderate Assistance-helper does LESS THAN HALF the effort. [place] li fts, holds or supports trunk or limbs, but provides less than half the effort. 2-Substantial/Maximal Assistance-helper does MORE THAN HALF the effort. [place] lifts or holds trunk or limbs and provides more than half the effort. 8-Phjkktlzg-trlymy does ALL the effort. Patient does none of the effort to complete the activity. Or, the assistance of 2 or more helpers is required for the patient to complete the activity. If activity was not attempted, code reason: 7-Patient Refused. 9-Not Applicable-not attempted and the patient did not perform the activity before the current illness, exacerbation or injury. 10-Not Attempted due to Environmental Limitations-(lack of equipment, weather restraints, etc.). 88-Not Attempted due to Medical Conditions or Safety Concerns. Bed Mobility: 6 Transfers (B,C,W/C): 6 Gait: 6 Stairs: 6 Indoor Mobility (Ambulation): Independent Stairs: Independent PT Evaluation-Current Subjective Patient in recliner pre tx, agrees to PT, has minor pain on her forehead. Pt/Family Goals to be independent at home Objective Patient Orientation: Person, Place, Situation Attachments: Oxygen, Shepherd Catheter ROM/Strength ROM Lower Extremities WNL Strength Lower Extremities LLE (hip flexion 4/5, knee flexion 4-/5, knee extension 4/5, dorsiflexion 3-/5), RLE (hip flexion 4/5, knee flexion 4-/5, knee extension 4/5, dorsiflexion 5/5) Sensory Hearing: Functional Sensation Right Lower Extremit: Intact Sensation Left Lower Extremity: Intact Transfers Sit to Stand (QC): 4 CGA, cues for hand placement Gait Does the Patient Walk?: Yes Mode of Locomotion: Walk Anticipated Mode of Locomotion: Walk Walk 10 feet (QC): 4 Distance: 10' Gait Assistive Device: FWW Comments/Gait Description CGA, patient ambulated 5' forward and then 5' back, very slow ambulation but no LOB Balance Sitting Static: Normal Sitting Dynamic: Normal Standing Static: Normal Standing Dynamic: Normal Treatment BLE seated exercises x20 (AP, LAQ) Assessment/Needs Patient in recliner post tx with nurse call, phone, tray, all needs met. Patient has impaired mobility, strength, endurance. Patient's O2 went to 89% with ambulation but came back up into the 90's within seconds of sitting down. Rehab Potential: Fair PT Bedspread Cutter Goals Bedspread Cutter Goals PT Mcfp Goals Time Frame: Jan 17, 2021 Roll Left & Right (QC): 6 Sit to Lying (QC): 6 Lying-Sitting on Side/Bed(QC): 6 Sit to Stand (QC): 5 Chair/Baz-vi-Fgsby Xfer(QC): 5 Walk 10 feet (QC): 5 Walk 50ft with 2 Turns (QC): 5 PT Plan Problem List Problem List: Activity Tolerance, Functional Strength, Safety, Balance, Gait, Transfer, Bed Mobility, ROM Treatment/Plan Treatment Plan: Continue Plan of Care Treatment Plan: Bed Mobility, Education, Functional Activity Jo Ann, Functional Strength, Gait, Safety, Therapeutic Exercise, Transfers Treatment Duration: Jan 24, 2021 Frequency: 6 times per week Estimated Hrs Per Day: .25 hour per day Patient and/or Family Agrees t: Yes Safety Risks/Education Patient Education: Gait Training, Transfer Techniques, Correct Positioning, Safety Issues Teaching Recipient: Patient Teaching Methods: Demonstration, Discussion Response to Teaching: Reinforcement Needed Discharge Recommendations Plan Patient will perform bed mobility and transfer training, balance and endurance training, functional strengthening, gait training, and education, to improve functional mobility and independence at home. Therapy Discharge Recommendati: Home & Family, Post Acute PT Time/GCodes Time In: 824 Time Out: 837 Total Billed Treatment Time: 13 Total Billed Treatment 1 visit ESTHER Alarcon' NARAYAN ORDOÑEZ PT Jan 17, 2021 08:58
--- NOTE | 2021-01-17 09:10 | Cardiology Progress Note ---
Subjective Date Seen by Provider: Jan 17, 2021 Time Seen by Provider: 09:09 Subjective/Events-last exam Patient was seen at bedside, sitting comfortably, feeling better, on nasal cannula at this time Review of Systems General: No Chills, No Night Sweats; Fatigue; No Malaise, No Appetite, No Other HEENT: No Head Aches, No Visual Changes, No Eye Pain, No Ear Pain, No Dysphasia, No Sinus Congestion, No Post Nasal Drip, No Sore Throat, No Other Pulmonary: Dyspnea; No Cough, No Pleuritic Chest Pain, No Other Cardiovascular: No: Chest Pain, Palpitations, Orthopnea, Paroxysmal Noc. Dyspnea, Edema, Lt Headedness, Other Focused Exam Lactate Level 01/15/21 18:32: Lactic Acid Level 3.97*H 01/15/21 20:59: Lactic Acid Level 2.52*H 01/16/21 04:52: Lactic Acid Level 1.60 Objective-Cardiology Exam Last Set of Vital Signs Vital Signs 01/16/21 01/17/21 01/17/21 16:00 06:00 07:04 Temp 36.3 Pulse 56 Resp 19 B/P (MAP) 117/74 Pulse Ox 92 O2 Delivery Nasal Cannula O2 Flow Rate 3.00 FiO2 35 I&O Intake and Output 01/17/21 00:00 Intake Total 1670 ml Output Total 5000 ml Balance -3330 ml Intake Oral 1670 ml Output Urine Total 5000 ml General: Alert, Oriented X3, Cooperative, No Acute Distress HEENT: Atraumatic, PERRLA, EOMI, Mucous Memb Moist/[place] Neck: Supple, No JVD Lungs: Other (Diminished all ibrahim) Heart: Regular Rate, Normal S1, Normal S2 Abdomen: Normal Bowel Sounds, Soft, No Tenderness Extremities: No Clubbing, No Cyanosis, Normal Pulses Skin: No Rashes, No Breakdown, No Significant Lesion Neuro: Normal Speech, Sensation Intact, Cranial Nerves 3-12 NL Psych/Mental Status: Mental Status NL Results Lab Laboratory Tests 01/17/21 04:25 A/P-Cardiology Admission Diagnosis Acute respiratory failure COVID-19 pneumonia Near-syncope Hyperlipidemia Assessment/Plan Acute respiratory failure, was on Vapotherm, better at this time, back to nasal cannula and tolerating it well. Sinus tachycardia and hypotension probably secondary to pulmonary embolism and severe hypoxemia. Unable to tolerate aggressive anticoagulation due to subarachnoid hemorrhage, I recommend discussing with the neurologist to evaluate the timing that we can start anticoagulation COVID-19 pneumonia, patient recovered but still having underlying shortness of breath requiring oxygen. DVT, pulmonary embolism, had subarachnoid hemorrhage, cannot tolerate aggressive anticoagulation, underwent IVC filter placement. Orthostatic hypotension, multiple near syncopal episode, had to reported syncope, subarachnoid hemorrhage secondary to head trauma from syncope. Monitor blood pressure Subarachnoid hemorrhage, unable to tolerate any type of anticoagulation at this point. Continue with conservative management History of hyperlipidemia, maintained on statin as an outpatient CHARISSE LOWRY MD Jan 17, 2021 09:10
--- NOTE | 2021-01-17 14:57 | Occupational Therapy Eval ---
OT Evaluation-General/PLF Medical Diagnosis Admission Date Jan 11, 2021 at 11:30 Medical Diagnosis: acute hypoxic respiratory failure Onset Date: Jan 11, 2021 Therapy Diagnosis Therapy Diagnosis: decreased ADL status Precautions Precautions/Isolations: Standard Precautions Referral Physician: Nazia Abreu DO Referral Reason: Evaluation/Treatment Medical History Pertinent Medical History: HTN Additional Medical History dysrhythmia, HTN, heart disease Current History diagnosed COVID+ 12/30/20, transferred to ARU 01/10, transferred to ICU 01/11 due to increased medical complexity. s/p veniogram placement of inferior vena cava filter 01/12 Social History Home: Single Level Current Living Status: Spouse Entry Into Home: Ramp ADL-Prior Level of Function SCALE: Activities may be completed with or without assistive devices. 2-Bftykfyura-qovomyo completes the activity by him/herself with no assistance from a helper. 5-Set-up or Clean-up Assistance-helper sets up or cleans up; patient completes activity. [place] assists only prior to or following the activity. 4-Supervision or Touching Assistance-helper provides verbal cues and/or touching/steadying and/or contact guard assistance as patient completes activity. Assistance may be provided throughout the activity or intermittently. 3-Partial/Moderate Assistance-helper does LESS THAN HALF the effort. [place] lifts, holds or supports trunk or limbs, but provides less than half the effort. 2-Substantial/Maximal Assistance-helper does MORE THAN HALF the effort. [place] lifts or holds trunk or limbs and provides more than half the effort. 3-Owqjsjqcj-cdgnol does ALL the effort. Patient does none of the effort to complete the activity. Or, the assistance of 2 or more helpers is required for the patient to complete the activity. If activity was not attempted, code reason: 7-Patient Refused. 9-Not Applicable-not attempted and the patient did not perform the activity before the current illness, exacerbation or injury. 10-Not Attempted due to Environmental Limitations-(lack of equipment, weather restraints, etc.). 88-Not Attempted due to Medical Conditions or Safety Concerns. ADL PLOF Comments Pt IND with ADLs and functional mobility at PLOF, no AD/AE Self Care: Independent Functional Cognition: Independent DME/Equipment: Tub/Shower OT Current Status Subjective Pt up in recliner eating lunch, agreeable to OT Tx. Mental Status/Objective Patient Orientation: Person, Place, Time, Situation Attachments: Shepherd Catheter, Oxygen, Telemetry Current Hand Dominance: Right Upper Extremity ROM WFL, BUE shoulder flexion to approx 130 degrees. Upper Extremity Coordination WFL Upper Extremity Strength grossly 3+/5 ADL-Treatment Eating (QC): 6 (IND with lunch) Toileting Hygiene (QC): 1 (catheter) Other Treatments Pt up in recliner, agreeable to OT evaluation and tx. Pt provided information about PLOF and home set up and participated in UE screen. In order to increase BUE Strength and activity tolerance, pt completed x10 reps each of the following BUE exercises: shoulder flexion, elbow flexion/extension, finger flexion/extension and wrist flexion/extension. Pt's O2 saturation remained above 90% throughout session. Post tx, pt up in recliner call light in reach and all needs met. Education OT Patient Education: Correct positioning, Energy conservation, Exercise program, Modified ADL techniques, Progress toward Goal/Update tx plan, Purpose of tx/functional activities, Rehab process Teaching Recipient: Patient Teaching Methods: Discussion Response to Teaching: Verbalize Understanding OT Retirement Goals Retirement Goals Time Frame: Jan 26, 2021 Eating (QC): 6 Oral Hygiene (QC): 6 Toileting Hygiene (QC): 6 Shower/Bathe Self (QC): 6 Upper Body Dressing (QC): 6 Lower Body Dressing (QC): 6 On/Off Footwear (QC): 6 Additional Goals: 1-Demonstrate ADL Tasks, 2-Verbalize Understanding, 3- ImproveStrength/Jo Ann 1=Demonstrate adherence to instructed precautions during ADL tasks. 2=Patient will verbalize/demonstrate understanding of assistive devices/modifications for ADL. 3=Patient will improve strength/tolerance for activity to enable patient to perform ADL's. OT Education/Plan Problem List/Assessment Assessment: Decreased Activ Tolerance, Decreased UE Strength, Impaired Funct Balance, Impaired I ADL's, Impaired Self-Care Skills Discharge Recommendations Plan/Recommendations: Continue POC Treatment Plan/Plan of Care Patient would benefit from OT for education, treatment and training to promote independence in ADL's, mobility, safety and/or upper extremity function for ADL's. Plan of Care: ADL Retraining, Functional Mobility, UE Funct Exercise/Act Treatment Duration: Jan 26, 2021 Frequency: 5 times per week Estimated Hrs Per Day: .25 hour per day Rehab Potential: Fair Time/GCodes Start Time: 13:55 Stop Time: 14:05 Total Time Billed (hr/min): 15 Billed Treatment Time 1, KRYS IBARRA OT Jan 17, 2021 14:57
[2021-01-18 04:45] LABS: NEUTROPHILS # (AUTO) 8.5 10^3/uL (1.8-7.8)
[2021-01-18 04:47] LABS: BASOPHILS % (AUTO) 0 % (0-10); EOSINOPHILS % (AUTO) 0 % (0-10); HEMATOCRIT 32 % (35-52); HEMOGLOBIN 10.5 g/dL (11.5-16.0); LYMPHOCYTES # (AUTO) 0.9 10^3/uL (1.0-4.0); LYMPHOCYTES % (AUTO) 9 % (12-44); MEAN CORPUSCULAR HEMOGLOBIN 30 pg (25-34); MEAN CORPUSCULAR HGB CONC 33 g/dL (32-36); MEAN CORPUSCULAR VOLUME 90 fL (80-99); MEAN PLATELET VOLUME 10.8 fL (9.0-12.2); MONOCYTES # (AUTO) 0.7 10^3/uL (0.0-1.0); MONOCYTES % (AUTO) 7 % (0-12); NEUTROPHILS % (AUTO) 81 % (42-75); PLATELET COUNT 133 10^3/uL (130-400); WHITE BLOOD COUNT 10.6 10^3/uL (4.3-11.0)
[2021-01-18 05:03] LABS: ALBUMIN 3.4 GM/DL (3.2-4.5); POTASSIUM 4.1 MMOL/L (3.6-5.0)
[2021-01-18 05:04] LABS: CALCIUM 8.9 MG/DL (8.5-10.1)
[2021-01-18 05:07] LABS: BILIRUBIN,TOTAL 0.8 MG/DL (0.1-1.0)
[2021-01-18 05:09] LABS: CREATININE SERUM 0.71 MG/DL (0.60-1.30)
--- NOTE | 2021-01-18 06:03 | Progress Note ---
Subjective Date Seen by a Provider: Jan 17, 2021 Time Seen by a Provider: 11:00 Subjective/Events-last exam Inadvertently missed note yesterday Pt has had a dramatic recovery On two liters of oxygen DC Shepherd catheter Orthostatic hypotension yesterday but now requiring Amlodapine of 5 mg DC Decadron Overall doing really well Will go to rehab tomorrow Review of Systems General: Fatigue, Malaise Focused Exam Lactate Level 01/15/21 18:32: Lactic Acid Level 3.97*H 01/15/21 20:59: Lactic Acid Level 2.52*H 01/16/21 04:52: Lactic Acid Level 1.60 Objective Exam Last Set of Vital Signs Vital Signs Date Time Temp Pulse Resp B/P (MAP) Pulse Ox O2 Delivery O2 Flow Rate FiO2 01/18/21 05:00 52 18 145/85 96 Nasal Cannula 1.00 01/17/21 16:10 36.0 01/16/21 16:00 35 Capillary Refill : Less Than 3 Seconds I&O Intake and Output 01/17/21 23:59 Intake Total 1925 ml Output Total 3650 ml Balance -1725 ml Intake Oral 1925 ml Output Urine Total 3650 ml General: Alert, Oriented X3, Cooperative, No Acute Distress Lungs: Clear to Auscultation, Normal Air Movement Heart: Regular Rate Psych/Mental Status: Mental Status NL, Mood NL (Flat) Results Lab Laboratory Tests 01/18/21 04:00: White Blood Count 10.6, Red Blood Count 3.56L, Hemoglobin 10.5L, Hematocrit 32L, Mean Corpuscular Volume 90, Mean Corpuscular Hemoglobin 30, Mean Corpuscular Hemoglobin Concent 33, Red Cell Distribution Width 14.6H, Platelet Count 133, Mean Platelet Volume 10.8, Immature Granulocyte % (Auto) 4, Neutrophils (%) (Auto) 81H, Lymphocytes (%) (Auto) 9L, Monocytes (%) (Auto) 7, Eosinophils (%) (Auto) 0, Basophils (%) (Auto) 0, Neutrophils # (Auto) 8.5H, Lymphocytes # (Auto) 0.9L, Monocytes # (Auto) 0.7, Eosinophils # (Auto) 0.0, Basophils # (Auto) 0.0, Immature Granulocyte # (Auto) 0.4H, Percent Immature Platelet Fraction 5.4, Sodium Level 140, Potassium Level 4.1, Chloride Level 106, Carbon Dioxide Level 22, Anion Gap 12, Blood Urea Nitrogen 15, Creatinine 0.71, Estimat Glomerular Filtration Rate 81, BUN/Creatinine Ratio 21, Glucose Level 115H, Calcium Level 8.9, Corrected Calcium 9.4, Total Bilirubin 0.8, Aspartate Amino Transf (AST/SGOT) 31, Alanine Aminotransferase (ALT/SGPT) 48, Alkaline Phosphatase 63, Total Protein 6.0L, Albumin 3.4 Microbiology 01/11/21 Blood Culture - Final, Complete No growth Assessment/Plan Assessment/Plan Assess & Plan/Chief Complaint Assessment: COVID-19 pneumonia Acute hypoxic respiratory failure Pulmonary embolism requiring filter placement postop day #[address] POTTER Subarachnoid bleed due to fall no anticoagulation or antiplatelets can be used until 01/21/2021 Hypertension Orthostatic syncope Plan: Supportive care High flow oxygen IVC filter management 01/14/2021: Vapotherm for exertion Wean oxygen 01/15/2021: Supportive care Gentle IV fluids 01/16/2021: Supportive care PT and OT 01/17/2021: Rehab tomorrow Clinical Quality Measures Admission Status Admission Dx Assessment: Acute on chronic hypoxic respiratory failure due to COVID-19 pneumonia 12/30/2020 Acute pulmonary embolism Acute DVT Subarachnoid hemorrhage no anticoagulation or antiplatelet agents allowed to start until 01/21/2021 per neurosurgery at [facility] Hypertension Hyperlipidemia History of orthostasis Severe debility Plan: Maintain ICU Pulmonary critical care appreciated IVC filter placement with SARITHA Campoverde DO Jan 18, 2021 06:03
[2021-01-18] MEDS: KCL 10 MEQ TAB (MICRO K) PO SCH (06:10)
[2021-01-18] MEDS ORDERED: POTA10TA6 PO (07:43)
[2021-01-18] MEDS ORDERED: AMLO-250 PO (07:43)
[2021-01-18] MEDS ORDERED: IPRA3AMP31 INH (07:43)
--- NOTE | 2021-01-18 07:43 | Discharge Summary ---
Diagnosis/Chief Complaint Date of Admission Jan 11, 2021 at 11:30 Date of Discharge Discharge Date: Jan 18, 2021 Discharge Diagnosis Assessment: COVID-19 pneumonia Acute hypoxic respiratory failure Pulmonary embolism requiring filter placement postop day #[address] POTTER Subarachnoid bleed due to fall no anticoagulation or antiplatelets can be used until 01/21/2021 Hypertension Orthostatic syncope Plan: Supportive care High flow oxygen IVC filter management 01/14/2021: Vapotherm for exertion Wean oxygen 01/15/2021: Supportive care Gentle IV fluids 01/16/2021: Supportive care PT and OT Discharge Summary Discharge Physical Examination Allergies: Coded Allergies: No Known Drug Allergies (Unverified , 01/10/21) Vitals & I&Os Vital Signs Date Time Temp Pulse Resp B/P (MAP) Pulse Ox O2 Delivery O2 Flow Rate FiO2 01/18/21 10:28 01/18/21 08:08 95 Nasal Cannula 1.00 01/18/21 08:02 36.4 01/18/21 06:00 73 17 01/16/21 16:00 35 General Appearance: Alert, Oriented X3, Cooperative Respiratory: Clear to Auscultation Cardiovascular: Regular Rate Psych/Mental Status: Mental Status NL Hospital Course Was the Problem List Reviewed?: Yes Patient had a standard hospital course after transferred from rehab to ICU due to acute respiratory failure. Patient was found to have pulmonary embolism with DVT and considering subarachnoid bleed and no anticoagulation or antiplatelets could be placed on treatment plan until 01/21/2021 per neurosurgery she had IVC filter placed by Dr. POTTER in an uncomplicated manner. She did very well and after length of time she was able to titrate down off Vapotherm and dramatically improve enough to go to inpatient rehab as planned. Labs (last 24 hrs) Laboratory Tests 01/11/21 12:46: Blood Gas Puncture Site RT RAD, Blood Gas Patient Temperature 37.0, Arterial Blo od pH 7.48H, Arterial Blood Partial Pressure CO2 33L, Arterial Blood Partial Pressure O2 128H, Arterial Blood HCO3 25, Arterial Blood Total CO2 25.5, Arterial Blood Oxygen Saturation 99, Arterial Blood Base Excess 1.3, Dino Test NA, Blood Gas Ventilator Setting NA, Blood Gas Inspired Oxygen 90% 35L 01/11/21 12:55: White Blood Count 7.5, Red Blood Count 4.01, Hemoglobin 11.9, Hematocrit 35, Mean Corpuscular Volume 87, Mean Corpuscular Hemoglobin 30, Mean Corpuscular Hemoglobin Concent 34, Red Cell Distribution Width 13.9, Platelet Count 182, Mean Platelet Volume 10.8, Immature Granulocyte % (Auto) 1, Neutrophils (%) (Auto) 87H, Lymphocytes (%) (Auto) 8L, Monocytes (%) (Auto) 5, Eosinophils (%) (Auto) 0, Basophils (%) (Auto) 0, Neutrophils # (Auto) 6.5, Lymphocytes # (Auto) 0.6L, Monocytes # (Auto) 0.4, Eosinophils # (Auto) 0.0, Basophils # (Auto) 0.0, Immature Granulocyte # (Auto) 0.1, Neutrophils % (Manual) 89, Lymphocytes % (Manual) 5, Monocytes % (Manual) 6, [place] Cells MODERATE, D-Dimer >= 20.00H, Sodium Level 141, Potassium Level 3.6, Chloride Level 106, Carbon Dioxide Level 25, Anion Gap 10, Blood Urea Nitrogen 16, Creatinine 0.76, Estimat Glomerular Filtration Rate 75, BUN/Creatinine Ratio 21, Glucose Level 136H, Calcium Level 8.8, Corrected Calcium 9.4, Total Bilirubin 1.2H, Aspartate Amino Transf (AST/SGOT) 46H, Alanine Aminotransferase (ALT/SGPT) 41, Alkaline Phosphatase 57, Troponin I 0.066H, B-Type Natriuretic Peptide 122.7H, Total Protein 6.1L, Albumin 3.2, Procalcitonin 0.07 01/11/21 13:00: Lactic Acid Level 1.26 01/11/21 14:20: Blood Gas Puncture Site LT BRACH, Blood Gas Patient Temperature 36.2, Arterial Blood pH 7.49H, Arterial Blood Partial Pressure CO2 31L, Arterial Blood Partial Pressure O2 66L, Arterial Blood HCO3 24, Arterial Blood Total CO2 24.9, Arterial Blood Oxygen Saturation 94, Arterial Blood Base Excess 0.6, Dino Test YES-POS, Blood Gas Ventilator Setting NO, Blood Gas Inspired Oxygen 30L/75% 01/11/21 21:00: Urine Color YELLOW, Urine Clarity CLEAR, Urine pH 7.5, Urine Specific Bruni 1.010L, Urine Protein NEGATIVE, Urine Glucose (UA) TRACEH, Urine Ketones NEGATIVE, Urine Nitrite NEGATIVE, Urine Bilirubin NEGATIVE, Urine Urobilinogen 1.0, Urine Leukocyte Esterase NEGATIVE, Urine RBC (Auto) NEGATIVE, Urine RBC NONE, Urine WBC NONE, Urine Squamous Epithelial Cells 0-2, Urine Crystals NONE, Urine Bacteria TRACE, Urine Casts NONE, Urine Mucus NEGATIVE, Urine Culture Indicated NO 01/12/21 05:05: White Blood Count 5.8, Red Blood Count 3.81, Hemoglobin 11.0L, Hematocrit 34L, Mean Corpuscular Volume 88, Mean Corpuscular Hemoglobin 29, Mean Corpuscular Hemoglobin Concent 33, Red Cell Distribution Width 13.9, Platelet Count 165, Mean Platelet Volume 10.5, Immature Granulocyte % (Auto) 1, Neutrophils (%) (Auto) 80H, Lymphocytes (%) (Auto) 10L, Monocytes (%) (Auto) 9, Eosinophils (%) (Auto) 0, Basophils (%) (Auto) 0, Neutrophils # (Auto) 4.6, Lymphocytes # (Auto) 0.6L, Monocytes # (Auto) 0.5, Eosinophils # (Auto) 0.0, Basophils # (Auto) 0.0, Immature Granulocyte # (Auto) 0.1, Sodium Level 140, Potassium Level 3.6, Chloride Level 110H, Carbon Dioxide Level 21, Anion Gap 9, Blood Urea Nitrogen 16, Creatinine 0.69, Estimat Glomerular Filtration Rate 84, BUN/Creatinine Ratio 23, Glucose Level 202H, Calcium Level 7.8L, Corrected Calcium 8.8, Total Bilirubin 0.7, Aspartate Amino Transf (AST/SGOT) 33, Alanine Aminotransferase (ALT/SGPT) 36, Alkaline Phosphatase 52, Total Protein 5.3L, Albumin 2.7L 01/12/21 20:29: Blood Gas Puncture Site LEFT RADIAL, Blood Gas Patient Temperature 37.0, Arterial Blood pH 7.53H, Arterial Blood Partial Pressure CO2 27L, Arterial Blood Partial Pressure O2 143H, Arterial Blood HCO3 23, Arterial Blood Total CO2 23.4, Arterial Blood Oxygen Saturation 95, Arterial Blood Base Excess 0.1, Dino Test YES-POS, Blood Gas Ventilator Setting NO, Blood Gas Inspired Oxygen NOT INDICATED 01/13/21 07:44: White Blood Count 6.6, Red Blood Count 3.86, Hemoglobin 11.5, Hematocrit 35, Mean Corpuscular Volume 90, Mean Corpuscular Hemoglobin 30, Mean Corpuscular Hemoglobin Concent 33, Red Cell Distribution Width 14.3, Platelet Count 206, Mean Platelet Volume 10.3, Immature Granulocyte % (Auto) 2, Neutrophils (%) (Auto) 81H, Lymphocytes (%) (Auto) 11L, Monocytes (%) (Auto) 6, Eosinophils (%) (Auto) 0, Basophils (%) (Auto) 0, Neutrophils # (Auto) 5.4, Lymphocytes # (Auto) 0.7L, Monocytes # (Auto) 0.4, Eosinophils # (Auto) 0.0, Basophils # (Auto) 0.0, Immature Granulocyte # (Auto) 0.1, Sodium Level 143, Potassium Level 3.4L, Chloride Level 110H, Carbon Dioxide Level 21, Anion Gap 12, Blood Urea Nitrogen 17, Creatinine 0.69, Estimat Glomerular Filtration Rate 84, BUN/Creatinine Ratio 25, Glucose Level 142H, Calcium Level 8.3L, Corrected Calcium 9.1, Total Bilirubin 0.8, Aspartate Amino Transf (AST/SGOT) 30, Alanine Aminotransferase (ALT/SGPT) 36, Alkaline Phosphatase 60, Total Protein 5.9L, Albumin 3.0L 01/14/21 06:05: White Blood Count 7.7, Red Blood Count 3.67L, Hemoglobin 10.8L, Hematocrit 33L, Mean Corpuscular Volume 90, Mean Corpuscular Hemoglobin 29, Mean Corpuscular Hemoglobin Concent 33, Red Cell Distribution Width 14.3, Platelet Count 183, Mean Platelet Volume 10.0, Immature Granulocyte % (Auto) 5, Neutrophils (%) (Auto) 77H, Lymphocytes (%) (Auto) 10L, Monocytes (%) (Auto) 8, Eosinophils (%) (Auto) 0, Basophils (%) (Auto) 0, Neutrophils # (Auto) 5.9, Lymphocytes # (Auto) 0.8L, Monocytes # (Auto) 0.6, Eosinophils # (Auto) 0.0, Basophils # (Auto) 0.0, Immature Granulocyte # (Auto) 0.4H, Sodium Level 141, Potassium Level 3.6, Chloride Level 112H, Carbon Dioxide Level 19L, Anion Gap 10, Blood Urea Nitrogen 17, Creatinine 0.72, Estimat Glomerular Filtration Rate 80, BUN/Creatinine Ratio 24, Glucose Level 139H, Calcium Level 8.0L, Corrected Calcium 8.9, Phosphorus Level 2.7, Magnesium Level 2.3, Total Bilirubin 0.7, Aspartate Amino Transf (AST/SGOT) 25, Alanine Aminotransferase (ALT/SGPT) 35, Alkaline Phosphatase 56, Total Protein 5.6L, Albumin 2.9L 01/15/21 04:42: White Blood Count 7.4, Red Blood Count 3.61L, Hemoglobin 10.7L, Hematocrit 33L, Mean Corpuscular Volume 92, Mean Corpuscular Hemoglobin 30, Mean Corpuscular Hemoglobin Concent 32, Red Cell Distribution Width 14.5, Platelet Count 131, Mean Platelet Volume 10.6, Immature Granulocyte % (Auto) 4, Neutrophils (%) (Auto) 80H, Lymphocytes (%) (Auto) 9L, Monocytes (%) (Auto) 7, Eosinophils (%) (Auto) 0, Basophils (%) (Auto) 0, Neutrophils # (Auto) 5.9, Lymphocytes # (Auto) 0.7L, Monocytes # (Auto) 0.5, Eosinophils # (Auto) 0.0, Basophils # (Auto) 0.0, Immature Granulocyte # (Auto) 0.3H, Sodium Level 140, Potassium Level 3.5L, Chloride Level 111H, Carbon Dioxide Level 14L, Anion Gap 15H, Blood Urea Nitrogen 18, Creatinine 0.74, Estimat Glomerular Filtration Rate 77, BUN/Creatinine Ratio 24, Glucose Level 172H, Calcium Level 8.2L, Corrected Calcium 9.0, Phosphorus Level 3.1, Magnesium Level 2.0, Total Bilirubin 0.7, Aspartate Amino Transf (AST/SGOT) 23, Alanine Aminotransferase (ALT/SGPT) 34, Alkaline Phosphatase 56, Total Protein 5.8L, Albumin 3.0L, Percent Immature Platelet Fraction 5.0 01/15/21 04:50: Procalcitonin 0.02 01/15/21 07:10: Lactic Acid Level 2.93*H 01/15/21 11:30: Lactic Acid Level 5.32*H 01/15/21 13:41: Lactic Acid Level 4.13*H 01/15/21 16:34: Lactic Acid Level 5.36*H 01/15/21 18:32: Lactic Acid Level 3.97*H 01/15/21 20:59: Lactic Acid Level 2.52*H 01/16/21 04:52: Lactic Acid Level 1.60, White Blood Count 7.8, Red Blood Count 3.37L, Hemoglobin 9.9L, Hematocrit 30L, Mean Corpuscular Volume 90, Mean Corpuscular Hemoglobin 29, Mean Corpuscular Hemoglobin Concent 33, Red Cell Distribution Width 14.7H, Platelet Count 120L, Mean Platelet Volume 10.0, Immature Granulocyte % (Auto) 5, Neutrophils (%) (Auto) 79H, Lymphocytes (%) (Auto) 10L, Monocytes (%) (Auto) 6, Eosinophils (%) (Auto) 0, Basophils (%) (Auto) 0, Neutrophils # (Auto) 6.2, Ly mphocytes # (Auto) 0.8L, Monocytes # (Auto) 0.4, Eosinophils # (Auto) 0.0, Basophils # (Auto) 0.0, Immature Granulocyte # (Auto) 0.4H, Sodium Level 140, Potassium Level 4.0, Chloride Level 111H, Carbon Dioxide Level 19L, Anion Gap 10, Blood Urea Nitrogen 13, Creatinine 0.70, Estimat Glomerular Filtration Rate 82, BUN/Creatinine Ratio 19, Glucose Level 122H, Calcium Level 8.3L, Corrected Calcium 9.1, Phosphorus Level 2.9, Magnesium Level 2.2, Total Bilirubin 0.8, Aspartate Amino Transf (AST/SGOT) 17, Alanine Aminotransferase (ALT/SGPT) 31, Alkaline Phosphatase 54, Total Protein 5.6L, Albumin 3.0L, Procalcitonin 0.02 01/17/21 04:25: White Blood Count 9.0, Red Blood Count 3.25L, Hemoglobin 9.7L, Hematocrit 30L, Mean Corpuscular Volume 92, Mean Corpuscular Hemoglobin 30, Mean Corpuscular Hemoglobin Concent 32, Red Cell Distribution Width 14.7H, Platelet Count 122L, Mean Platelet Volume 10.4, Immature Granulocyte % (Auto) 4, Neutrophils (%) (Auto) 80H, Lymphocytes (%) (Auto) 10L, Monocytes (%) (Auto) 6, Eosinophils (%) (Auto) 0, Basophils (%) (Auto) 0, Neutrophils # (Auto) 7.1, Lymphocytes # (Auto) 0.9L, Monocytes # (Auto) 0.6, Eosinophils # (Auto) 0.0, Basophils # (Auto) 0.0, Immature Granulocyte # (Auto) 0.4H, Sodium Level 139, Potassium Level 4.0, Chloride Level 109H, Carbon Dioxide Level 20L, Anion Gap 10, Blood Urea Nitrogen 17, Creatinine 0.71, Estimat Glomerular Filtration Rate 81, BUN/Creatinine Ratio 24, Glucose Level 118H, Calcium Level 8.8, Corrected Calcium 9.4, Phosphorus Level 2.9, Magnesium Level 2.1, Total Bilirubin 0.9, Aspartate Amino Transf (AST/SGOT) 26, Alanine Aminotransferase (ALT/SGPT) 38, Alkaline Phosphatase 57, Total Protein 5.8L, Albumin 3.3, Percent Immature Platelet Fraction 4.8 01/18/21 04:00: White Blood Count 10.6, Red Blood Count 3.56L, Hemoglobin 10.5L, Hematocrit 32L, Mean Corpuscular Volume 90, Mean Corpuscular Hemoglobin 30, Mean Corpuscular Hemoglobin Concent 33, Red Cell Distribution Width 14.6H, Platelet Count 133, Mean Platelet Volume 10.8, Immature Granulocyte % (Auto) 4, Neutrophils (%) (Auto) 81H, Lymphocytes (%) (Auto) 9L, Monocytes (%) (Auto) 7, Eosinophils (%) (Auto) 0, Basophils (%) (Auto) 0, Neutrophils # (Auto) 8.5H, Lymphocytes # (Auto) 0.9L, Monocytes # (Auto) 0.7, Eosinophils # (Auto) 0.0, Basophils # (Auto) 0.0, Immature Granulocyte # (Auto) 0.4H, Sodium Level 140, Potassium Level 4.1, Chloride Level 106, Carbon Dioxide Level 22, Anion Gap 12, Blood Urea Nitrogen 15, Creatinine 0.71, Estimat Glomerular Filtration Rate 81, BUN/Creatinine Ratio 21, Glucose Level 115H, Calcium Level 8.9, Corrected Calcium 9.4, Total Bilirubin 0.8, Aspartate Amino Transf (AST/SGOT) 31, Alanine Aminotransferase (ALT/SGPT) 48, Alkaline Phosphatase 63, Total Protein 6.0L, Albumin 3.4, Percent Immature Platelet Fraction 5.4 Microbiology 01/11/21 Blood Culture - Final, Complete No growth Pending Labs Microbiology Date/Time Source Procedure Growth Status 01/11/21 13:00 Peripheral Rt Ac Blood Culture - Final No growth Complete 01/11/21 12:55 Peripheral Lt Ac Blood Culture - Final No growth Complete Laboratory Tests 01/11/21 12:46: Blood Gas Puncture Site RT RAD, Blood Gas Patient Temperature 37.0, Arterial Blood pH 7.48, Arterial Blood Partial Pressure CO2 33, Arterial Blood Partial Pressure O2 128, Arterial Blood HCO3 25, Arterial Blood Total CO2 25.5, Arterial Blood Oxygen Saturation 99, Arterial Blood Base Excess 1.3, Dino Test NA, Blood Gas Ventilator Setting NA, Blood Gas Inspired Oxygen 90% 35L 01/11/21 12:55: White Blood Count 7.5, Red Blood Count 4.01, Hemoglobin 11.9, Hematocrit 35, Mean Corpuscular Volume 87, Mean Corpuscular Hemoglobin 30, Mean Corpuscular Hemoglobin Concent 34, Red Cell Distribution Width 13.9, Platelet Count 182, Mean Platelet Volume 10.8, Immature Granulocyte % (Auto) 1, Neutrophils (%) (Auto) 87, Lymphocytes (%) (Auto) 8, Monocytes (%) (Auto) 5, Eosinophils (%) (Auto) 0, Basophils (%) (Auto) 0, Neutrophils # (Auto) 6.5, Lymphocytes # (Auto) 0.6, Monocytes # (Auto) 0.4, Eosinophils # (Auto) 0.0, Basophils # (Auto) 0.0, Immature Granulocyte # (Auto) 0.1, Neutrophils % (Manual) 89, Lymphocytes % (Manual) 5, Monocytes % (Manual) 6, [place] Cells MODERATE, D-Dimer >= 20.00, Sodium Level 141, Potassium Level 3.6, Chloride Level 106, Carbon Dioxide Level 25, Anion Gap 10, Blood Urea Nitrogen 16, Creatinine 0.76, Estimat Glomerular Filtration Rate 75, BUN/Creatinine Ratio 21, Glucose Level 136, Calcium Level 8.8, Corrected Calcium 9.4, Total Bilirubin 1.2, Aspartate Amino Transf (AST/SGOT) 46, Alanine Aminotransferase (ALT/SGPT) 41, Alkaline Phosphatase 57, Troponin I 0.066, B-Type Natriuretic Peptide 122.7, Total Protein 6.1, Albumin 3.2, Procalcitonin 0.07 01/11/21 13:00: Lactic Acid Level 1.26 01/11/21 14:20: Blood Gas Puncture Site LT BRACH, Blood Gas Patient Temperature 36.2, Arterial Blood pH 7.49, Arterial Blood Partial Pressure CO2 31, Arterial Blood Partial Pressure O2 66, Arterial Blood HCO3 24, Arterial Blood Total CO2 24.9, Arterial Blood Oxygen Saturation 94, Arterial Blood Base Excess 0.6, Dino Test YES-POS, Blood Gas Ventilator Setting NO, Blood Gas Inspired Oxygen 30L/75% 01/11/21 21:00: Urine Color YELLOW, Urine Clarity CLEAR, Urine pH 7.5, Urine Specific Bruni 1.010, Urine Protein NEGATIVE, Urine Glucose (UA) TRACE, Urine Ketones NEGATIVE, Urine Nitrite NEGATIVE, Urine Bilirubin NEGATIVE, Urine Urobilinogen 1.0, Urine Leukocyte Esterase NEGATIVE, Urine RBC (Auto) NEGATIVE, Urine RBC NONE, Urine WBC NONE, Urine Squamous Epithelial Cells 0-2, Urine Crystals NONE, Urine Bacteria TRACE, Urine Casts NONE, Urine Mucus NEGATIVE, Urine Culture Indicated NO 01/12/21 05:05: White Blood Count 5.8, Red Blood Count 3.81, Hemoglobin 11.0, Hematocrit 34, Mean Corpuscular Volume 88, Mean Corpuscular Hemoglobin 29, Mean Corpuscular Hemoglobin Concent 33, Red Cell Distribution Width 13.9, Platelet Count 165, Mean Platelet Volume 10.5, Immature Granulocyte % (Auto) 1, Neutrophils (%) (Auto) 80, Lymphocytes (%) (Auto) 10, Monocytes (%) (Auto) 9, Eosinophils (%) (Auto) 0, Basophils (%) (Auto) 0, Neutrophils # (Auto) 4.6, Lymphocytes # (Auto) 0.6, Monocytes # (Auto) 0.5, Eosinophils # (Auto) 0.0, Basophils # (Auto) 0.0, Immature Granulocyte # (Auto) 0.1, Sodium Level 140, Potassium Level 3.6, Chl oride Level 110, Carbon Dioxide Level 21, Anion Gap 9, Blood Urea Nitrogen 16, Creatinine 0.69, Estimat Glomerular Filtration Rate 84, BUN/Creatinine Ratio 23, Glucose Level 202, Calcium Level 7.8, Corrected Calcium 8.8, Total Bilirubin 0.7, Aspartate Amino Transf (AST/SGOT) 33, Alanine Aminotransferase (ALT/SGPT) 36, Alkaline Phosphatase 52, Total Protein 5.3, Albumin 2.7 01/12/21 20:29: Blood Gas Puncture Site LEFT RADIAL, Blood Gas Patient Temperature 37.0, Arterial Blood pH 7.53, Arterial Blood Partial Pressure CO2 27, Arterial Blood Partial Pressure O2 143, Arterial Blood HCO3 23, Arterial Blood Total CO2 23.4, Arterial Blood Oxygen Saturation 95, Arterial Blood Base Excess 0.1, Dino Test YES-POS, Blood Gas Ventilator Setting NO, Blood Gas Inspired Oxygen NOT INDICATED 01/13/21 07:44: White Blood Count 6.6, Red Blood Count 3.86, Hemoglobin 11.5, Hematocrit 35, Mean Corpuscular Volume 90, Mean Corpuscular Hemoglobin 30, Mean Corpuscular Hemoglobin Concent 33, Red Cell Distribution Width 14.3, Platelet Count 206, Mean Platelet Volume 10.3, Immature Granulocyte % (Auto) 2, Neutrophils (%) ( Auto) 81, Lymphocytes (%) (Auto) 11, Monocytes (%) (Auto) 6, Eosinophils (%) (Auto) 0, Basophils (%) (Auto) 0, Neutrophils # (Auto) 5.4, Lymphocytes # (Auto) 0.7, Monocytes # (Auto) 0.4, Eosinophils # (Auto) 0.0, Basophils # (Auto) 0.0, Immature Granulocyte # (Auto) 0.1, Sodium Level 143, Potassium Level 3.4, Chloride Level 110, Carbon Dioxide Level 21, Anion Gap 12, Blood Urea Nitrogen 17, Creatinine 0.69, Estimat Glomerular Filtration Rate 84, BUN/Creatinine Ratio 25, Glucose Level 142, Calcium Level 8.3, Corrected Calcium 9.1, Total Bilirubin 0.8, Aspartate Amino Transf (AST/SGOT) 30, Alanine Aminotransferase (ALT/SGPT) 36, Alkaline Phosphatase 60, Total Protein 5.9, Albumin 3.0 01/14/21 06:05: White Blood Count 7.7, Red Blood Count 3.67, Hemoglobin 10.8, Hematocrit 33, Mean Corpuscular Volume 90, Mean Corpuscular Hemoglobin 29, Mean Corpuscular Hemoglobin Concent 33, Red Cell Distribution Width 14.3, Platelet Count 183, Mean Platelet Volume 10.0, Immature Granulocyte % (Auto) 5, Neutrophils (%) (Auto) 77, Lymphocytes (%) (Auto) 10, Monocytes (%) (Auto) 8, Eosinophils (%) (Auto) 0, Basophils (%) (Auto) 0, Neutrophils # (Auto) 5.9, Lymphocytes # (Auto) 0.8, Monocytes # (Auto) 0.6, Eosinophils # (Auto) 0.0, Basophils # (Auto) 0.0, Immature Granulocyte # (Auto) 0.4, Sodium Level 141, Potassium Level 3.6, Chloride Level 112, Carbon Dioxide Level 19, Anion Gap 10, Blood Urea Nitrogen 17, Creatinine 0.72, Estimat Glomerular Filtration Rate 80, BUN/Creatinine Ratio 24, Glucose Level 139, Calcium Level 8.0, Corrected Calcium 8.9, Phosphorus Level 2.7, Magnesium Level 2.3, Total Bilirubin 0.7, Aspartate Amino Transf (AST/SGOT) 25, Alanine Aminotransferase (ALT/SGPT) 35, Alkaline Phosphatase 56, Total Protein 5.6, Albumin 2.9 01/15/21 04:42: White Blood Count 7.4, Red Blood Count 3.61, Hemoglobin 10.7, Hematocrit 33, Mean Corpuscular Volume 92, Mean Corpuscular Hemoglobin 30, Mean Corpuscular Hemoglobin Concent 32, Red Cell Distribution Width 14.5, Platelet Count 131, Mean Platelet Volume 10.6, Immature Granulocyte % (Auto) 4, Neutrophils (%) (Auto) 80, Lymphocytes (%) (Auto) 9, Monocytes (%) (Auto) 7, Eosinophils (%) (Auto) 0, Basophils (%) (Auto) 0, Neutrophils # (Auto) 5.9, Lymphocytes # (Auto) 0.7, Monocytes # (Auto) 0.5, Eosinophils # (Auto) 0.0, Basophils # (Auto) 0.0, Immature Granulocyte # (Auto) 0.3, Sodium Level 140, Potassium Level 3.5, Chloride Level 111, Carbon Dioxide Level 14, Anion Gap 15, Blood Urea Nitrogen 18, Creatinine 0.74, Estimat Glomerular Filtration Rate 77, BUN/Creatinine Ratio 24, Glucose Level 172, Calcium Level 8.2, Corrected Calcium 9.0, Phosphorus Level 3.1, Magnesium Level 2.0, Total Bilirubin 0.7, Aspartate Amino Transf (AST/SGOT) 23, Alanine Aminotransferase (ALT/SGPT) 34, Alkaline Phosphatase 56, Total Protein 5.8, Albumin 3.0, Percent Immature Platelet Fraction 5.0 01/15/21 04:50: Procalcitonin 0.02 01/15/21 07:10: Lactic Acid Level 2.93 01/15/21 11:30: Lactic Acid Level 5.32 01/15/21 13:41: Lactic Acid Level 4.13 01/15/21 16:34: Lactic Acid Level 5.36 01/15/21 18:32: Lactic Acid Level 3.97 01/15/21 20:59: Lactic Acid Level 2.52 01/16/21 04:52: Lactic Acid Level 1.60, White Blood Count 7.8, Red Blood Count 3.37, Hemoglobin 9.9, Hematocrit 30, Mean Corpuscular Volume 90, Mean Corpuscular Hemoglobin 29, Mean Corpuscular Hemoglobin Concent 33, Red Cell Distribution Width 14.7, Platelet Count 120, Mean Platelet Volume 10.0, Immature Granulocyte % (Auto) 5, Neutrophils (%) (Auto) 79, Lymphocytes (%) (Auto) 10, Monocytes (%) (Auto) 6, Eosinophils (%) (Auto) 0, Basophils (%) (Auto) 0, Neutrophils # (Auto) 6.2, Lymphocytes # (Auto) 0.8, Monocytes # (Auto) 0.4, Eosinophils # (Auto) 0.0, Basophils # (Auto) 0.0, Immature Granulocyte # (Auto) 0.4, Sodium Level 140, Potassium Level 4.0, Chloride Level 111, Carbon Dioxide Level 19, Anion Gap 10, Blood Urea Nitrogen 13, Creatinine 0.70, Estimat Glomerular Filtration Rate 82, BUN/Creatinine Ratio 19, Glucose Level 122, Calcium Level 8.3, Corrected Calcium 9.1, Phosphorus Level 2.9, Magnesium Level 2.2, Total Bilirubin 0.8, Aspartate Amino Transf (AST/SGOT) 17, Alanine Aminotransferase (ALT/SGPT) 31, Alkaline Phosphatase 54, Total Protein 5.6, Albumin 3.0, Procalcitonin 0.02 01/17/21 04:25: White Blood Count 9.0, Red Blood Count 3.25, Hemoglobin 9.7, Hematocrit 30, Mean Corpuscular Volume 92, Mean Corpuscular Hemoglobin 30, Mean Corpuscular Hemoglobin Concent 32, Red Cell Distribution Width 14.7, Platelet Count 122, Mean Platelet Volume 10.4, Immature Granulocyte % (Auto) 4, Neutrophils (%) (Auto) 80, Lymphocytes (%) (Auto) 10, Monocytes (%) (Auto) 6, Eosinophils (%) (Auto) 0, Basophils (%) (Auto) 0, Neutrophils # (Auto) 7.1, Lymphocytes # (Auto) 0.9, Monocytes # (Auto) 0.6, Eosinophils # (Auto) 0.0, Basophils # (Auto) 0.0, Immature Granulocyte # (Auto) 0.4, Sodium Level 139, Potassium Level 4.0, Chloride Level 109, Carbon Dioxide Level 20, Anion Gap 10, Blood Urea Nitrogen 17, Creatinine 0.71, Estimat Glomerular Filtration Rate 81, BUN/Creatinine Ratio 24, Glucose Level 118, Calcium Level 8.8, Corrected Calcium 9.4, Phosphorus Level 2.9, Magnesium Level 2.1, Total Bilirubin 0.9, Aspartate Amino Transf (AST/SGOT) 26, Alanine Aminotransferase (ALT/SGPT) 38, Alkaline Phosphatase 57, Total Protein 5.8, Albumin 3.3, Percent Immature Platelet Fraction 4.8 01/18/21 04:00: White Blood Count 10.6, Red Blood Count 3.56, Hemoglobin 10.5, Hematocrit 32, Mean Corpuscular Volume 90, Mean Corpuscular Hemoglobin 30, Mean Corpuscular Hemoglobin Concent 33, Red Cell Distribution Width 14.6, Platelet Count 133, Mean Platelet Volume 10.8, Immature Granulocyte % (Auto) 4, Neutrophils (%) (Auto) 81, Lymphocytes (%) (Auto) 9, Monocytes (%) (Auto) 7, Eosinophils (%) (Auto) 0, Basophils (%) (Auto) 0, Neutrophils # (Auto) 8.5, Lymphocytes # (Auto) 0.9, Monocytes # (Auto) 0.7, Eosinophils # (Auto) 0.0, Basophils # (Auto) 0.0, Immature Granulocyte # (Auto) 0.4, Sodium Level 140, Potassium Level 4.1, Chloride Level 106, Carbon Dioxide Level 22, Anion Gap 12, Blood Urea Nitrogen 15, Creatinine 0.71, Estimat Glomerular Filtration Rate 81, BUN/Creatinine Ratio 21, Glucose Level 115, Calcium Level 8.9, Corrected Calcium 9.4, Total Bilirubin 0.8, Aspartate Amino Transf (AST/SGOT) 31, Alanine Aminotransferase (ALT/SGPT) 48, Alkaline Phosphatase 63, Total Protein 6.0, Albumin 3.4, Percent Immature Platelet Fraction 5.4 Discharge Home Medications: Active Scripts Active Klor-Con 10 (Potassium Chloride) 10 Meq Tablet.er 10 Meq PO DAILY@0700 30 Days Amlodipine Besylate 5 Mg Tablet 5 Mg PO DAILY 30 Days Iprat-Albut 0.5-3(2.5) mg/3 ml (Ipratropium/Albuterol Sulfate) 3 Ml Ampul.neb 3 Ml INH [id number] PRN 30 Days Instructions to patient/family Please see electronic discharge instructions given to patient. SARITHA APODACA DO Jan 18, 2021 07:43
[2021-01-18] MEDS: amLODIPine 5 MG (NORVASC) TAB PO SCH (08:03)
--- NOTE | 2021-01-18 08:13 | Cardiology Progress Note ---
Subjective Date Seen by Provider: Jan 18, 2021 Time Seen by Provider: 08:12 Subjective/Events-last exam Patient was seen at bedside, sitting comfortably, feeling better, on 2 L nasal cannula. Review of Systems General: No Chills, No Night Sweats, No Fatigue, No Malaise, No Appetite, No Other HEENT: No Head Aches, No Visual Changes, No Eye Pain, No Ear Pain, No Dysph kathy, No Sinus Congestion, No Post Nasal Drip, No Sore Throat, No Other Pulmonary: No Dyspnea, No Cough, No Pleuritic Chest Pain, No Other Cardiovascular: No: Chest Pain, Palpitations, Orthopnea, Paroxysmal Noc. Dyspnea, Edema, Lt Headedness, Other Focused Exam Lactate Level 01/15/21 18:32: Lactic Acid Level 3.97*H 01/15/21 20:59: Lactic Acid Level 2.52*H 01/16/21 04:52: Lactic Acid Level 1.60 Objective-Cardiology Exam Last Set of Vital Signs Vital Signs 01/16/21 01/18/21 01/18/21 01/18/21 16:00 06:00 08:02 08:08 Temp 36.4 Pulse 73 Resp 17 B/P (MAP) 127/79 Pulse Ox 95 O2 Delivery Nasal Cannula O2 Flow Rate 1.00 FiO2 35 I&O Intake and Output 01/18/21 00:00 Intake Total 1925 ml Output Total 3650 ml Balance -1725 ml Intake Oral 1925 ml Output Urine Total 3650 ml General: Alert, Oriented X3, Cooperative, No Acute Distress HEENT: Atraumatic, PERRLA, EOMI, Mucous Memb Moist/[place] Neck: Supple, No JVD Lungs: Clear to Auscultation, Normal Air Movement Heart: Regular Rate, Normal S1, Normal S2 Abdomen: Normal Bowel Sounds, Soft, No Tenderness Extremities: No Clubbing, No Cyanosis, Normal Pulses Skin: No Rashes, No Breakdown, No Significant Lesion Neuro: Normal Speech, Sensation Intact, Cranial Nerves 3-12 NL Psych/Mental Status: Mental Status NL, Mood NL (Flat) Results Lab Laboratory Tests 01/18/21 04:00 A/P-Cardiology Admission Diagnosis Acute respiratory failure COVID-19 pneumonia Near-syncope Hyperlipidemia Assessment/Plan Acute respiratory failure, was on Vapotherm, better at this time, back to nasal cannula and tolerating it well. Sinus tachycardia and hypotension probably secondary to pulmonary embolism and s evere hypoxemia. Unable to tolerate aggressive anticoagulation due to subarachnoid hemorrhage, I recommend discussing with the neurologist to evaluate the timing that we can start anticoagulation COVID-19 pneumonia, patient recovered but still having underlying shortness of breath requiring oxygen. DVT, pulmonary embolism, had subarachnoid hemorrhage, cannot tolerate aggressive anticoagulation, underwent IVC filter placement. Orthostatic hypotension, multiple near syncopal episode, had to reported syncope, subarachnoid hemorrhage secondary to head trauma from syncope. Monitor blood pressure Subarachnoid hemorrhage, unable to tolerate any type of anticoagulation at this point. Continue with conservative management History of hyperlipidemia, maintained on statin as an outpatient Okay for transfer to floor with telemetry CHARISSE LOWRY MD Jan 18, 2021 08:13
== END 2021-01-18 10:20 | DRG 175 ==
LOC: ICU 11:30
PROVIDERS: ADMIT Internal Medicine; ATTEND Internal Medicine
PROC: 06H03DZ Insertion of Intraluminal Device into Inferior Vena Cava, Percutaneous Approach (ICD-10-PCS; principal; 2021-01-12 11:46)
DX: I26.99 Other pulmonary embolism without acute cor pulmonale (principal); J96.21 Acute and chronic respiratory failure with hypoxia; I82.4Z3 Acute embolism and thrombosis of unspecified deep veins of distal lower extremity, bilateral; E87.2 Acidosis; I10 Essential (primary) hypertension; E78.5 Hyperlipidemia, unspecified; Z86.16 Personal history of COVID-19; Z87.01 Personal history of pneumonia (recurrent); E78.00 Pure hypercholesterolemia, unspecified; E87.6 Hypokalemia; D64.9 Anemia, unspecified; I95.1 Orthostatic hypotension
CPT/HCPCS: 36415; 36600; 71045; 71275; 76000; 80053; 81000; 82805; 83605; 83735; 83880; 84100; 84145; 84484; 85007; 85025; 85027; 85379; 87040; 93306; 93970; 94640

== ENCOUNTER 2021-01-18 10:20 | Inpatient (IN) | payer MEDICARE, OTHER ==
[~2021-01-18] VITALS: Ht 160 cm; Wt 67.1 kg
[~2021-01-18 10:20] MED LIST changes: +AMLO-250 PO; +IPRA3AMP31 INH; +POTA10TA6 PO
[2021-01-18] MEDS ORDERED: FLEET ENEMA ADULT 1 EA BTL PR PRN (10:30)
[2021-01-18] MEDS ORDERED: DOCUSATE SODIUM 100 MG (COLACE) CAP PO PRN (10:30)
[2021-01-18] MEDS ORDERED: CALCIUM CARBONATE 500 MG (TUMS) TAB.CHEW PO PRN (10:30)
[2021-01-18] MEDS ORDERED: ONDANSETRON 4 MG (ZOFRAN) ORAL DISSOLVE TAB PO PRN (10:30)
[2021-01-18] MEDS ORDERED: diphenhydrAMINE 25 MG TAB (BENADRYL) PO PRN (10:30)
[2021-01-18] MEDS ORDERED: guaiFENesin/CODEINE (ROBITUSSIN AC) 10ML UDC PO PRN (10:30)
[2021-01-18] MEDS ORDERED: ALPRAZolam 0.25 MG (XANAX) TAB PO PRN (10:30)
[2021-01-18] MEDS ORDERED: LOPERAMIDE 2 MG (IMODIUM) TABLET PO PRN (10:30)
[2021-01-18] MEDS ORDERED: BISACODYL 10 MG SUPP (DULCOLAX) PR PRN (10:30)
[2021-01-18] MEDS ORDERED: LACTULOSE SYRUP 10GM/15ML (ENULOSE) 30ML UDC PO PRN (10:30)
[2021-01-18] MEDS ORDERED: MELATONIN 3 MG TABLET PO PRN (10:30)
[2021-01-18] MEDS ORDERED: CATHETER FLUSH 10 ML SYR IV PRN (10:45)
[2021-01-18] MEDS ORDERED: RT-ALBUTEROL/IPRATROPIUM 3 ML (DUONEB) VIAL INH PRN (10:45)
--- NOTE | 2021-01-18 11:02 | Physical Therapy Evaluation ---
PT Evaluation-General Medical Diagnosis Admission Date Jan 18, 2021 at 10:20 Medical Diagnosis: Post COVID PNA Onset Date: Dec 30, 2020 Therapy Diagnosis Therapy Diagnosis: impaired mobility, strength, endurance Referral Physician: Nazia Abreu DO Reason for Referral: Evaluation/Treatment Medical History Pertinent Medical History: HTN Additional Medical History Diagnosed with COVID-19 12/30/20. Recent falls after diagnosis with subarachnoid bleed. Transferred to [facility] 01/10/21 for continued medication management and skilled therapies. Reviewed History: Yes Social History Home: Single Level Current Living Status: Spouse Entry Into Home: Ramp Prior Prior Level of Function SCALE: Activities may be completed with or without assistive devices. 3-Toezeljesj-ewrjdxa completes the activity by him/herself with no assistance from a helper. 5-Set-up or Clean-up Assistance-helper sets up or cleans up; patient completes activity. [place] assists only prior to or following the activity. 4-Supervision or Touching Assistance-helper provides verbal cues and/or touching/steadying and/or contact guard assistance as patient completes activity. Assistance may be provided throughout the activity or intermittently. 3-Partial/Moderate Assistance-helper does LESS THAN HALF the effort. [place] lifts, holds or supports trunk or limbs, but provides less than half the effort. 2-Substantial/Maximal Assistance-helper does MORE THAN HALF the effort. [place] lifts or holds trunk or limbs and provides more than half the effort. 6-Scwdukeoe-sofovj does ALL the effort. Patient does none of the effort to complete the activity. Or, the assistance of 2 or more helpers is required for the patient to complete the activity. If activity was not attempted, code reason: 7-Patient Refused. 9-Not Applicable-not attempted and the patient did not perform the activity before the current illness, exacerbation or injury. 10-Not Attempted due to Environmental Limitations-(lack of equipment, weather restraints, etc.). 88-Not Attempted due to Medical Conditions or Safety Concerns. Bed Mobility: 6 Transfers (B,C,W/C): 6 Gait: 6 Stairs: 6 Indoor Mobility (Ambulation): Independent Stairs: Independent PT Evaluation-Current Subjective Patient in bed pre tx, agrees to PT, has no complaints of pain other than occasional pain on her forehead. Pt/Family Goals to be independent at home. Objective Patient Orientation: Person, Place, Situation Attachments: Oxygen ROM/Strength ROM Lower Extremities WNL Strength Lower Extremities LLE (hip flexion 4/5, knee flexion 4-/5, knee extension 4/5, dorsiflexion 3-/5), RLE (hip flexion 4/5, knee flexion 4-/5, knee extension 4/5, dorsiflexion 5/5) Sensory Vision: Wears Glasses Hearing: Functional Sensation Right Lower Extremit: Intact Sensation Left Lower Extremity: Intact Transfers Roll Left & Right (QC): 6 Sit to Lying (QC): 4 Lying to Sitting/Side of Bed(Q: 4 Sit to Stand (QC): 4 Chair/Alk-fu-Abgkl Xfer(QC): 4 Toilet Transfer (QC): 4 Car Transfer (QC): 4 Patient performs bed mobility with independence, supine <-> sit SBA, sit <-> stand and transfers CGA, car transfer CGA. Patient needs frequent cues for hand placement and safety. Gait Does the Patient Walk?: Yes Mode of Locomotion: Walk Anticipated Mode of Locomotion: Walk Walk 10 feet (QC): 88 Walk 50 ft with 2 Turns(QC): 88 Walk 150 ft (QC): 88 Walking 10ft/uneven surface-QC: 88 Distance: 5'x3 Gait Assistive Device: FWW Comments/Gait Description Patient can ambulate 5' with a rolling walker with CGA, she tried ambulating 10' over an uneven surface but was not able to complete it. Patient ambulates extremely slowly, has poor foot clearance. Wheelchair Training Does the Pt Use a Wheelchair?: Yes Distance: 120'x2 Wheel 50 ft with 2 turns (QC): 1 Wheel 150 ft (QC): 1 Type of Wheelchair: Manual Stairs #of Steps: 1 1 Step (curb) (QC): 3 4 Steps (QC): 88 12 Steps (QC): 88 Walking Assistive Device: Walker Patient can go up and down 1 step using a rolling walker with min assist. She had a slight knee buckle when stepping down but not completely. Balance Sitting Static: Normal Sitting Dynamic: Normal Standing Static: Fair Standing Dynamic: Fair Picking up an Object (QC): 88 Treatment PT performed bed mobility and transfers, ambulation, stair training, standing and safety during dressing, OT performed dressing, UE positioning during activity Assessment/Needs Patient has impaired mobility, strength, endurance. Patient in recliner post tx with nurse call,phone, tray, all needs met. Patient needs CGA for transfers, her O2 drops to around mid 80's with activity and takes a significant amount of time to recover, patient needs frequent rest breaks, can do minimal activity due to drop in O2. Rehab Potential: Fair PT Short Term Goals Short Term Goals Time Frame: Jan 25, 2021 Roll Left & Right: 6 Sit to lyin Lying to sitting on side of be: 5 Sit to stand: 4 Chair/btj-he-nhprl transfer: 4 Walk 10 feet: 4 PT Vice President Media Relations Goals Senior Living Goals PT Vice President Media Relations Goals Time Frame: Feb 08, 2021 Roll Left & Right (QC): 6 Sit to Lying (QC): 6 Lying-Sitting on Side/Bed(QC): 6 Sit to Stand (QC): 5 Chair/Pla-jn-Uebxc Xfer(QC): 5 Toilet Transfer (QC): 5 Car Transfer (QC): 4 Does the Patient Walk: Yes Walk 10 feet (QC): 4 Walk 50ft with 2 Turns (QC): 4 Walk 150 ft (QC): 88 Walking 10ft on Uneven Surface: 4 1 Step (curb) (QC): 4 4 Steps (QC): 88 12 Steps (QC): 88 Picking up an Object (QC): 88 Wheel 50 feet with 2 turns (QC: 9 Wheel 150 feet: 9 PT Plan Problem List Problem List: Activity Tolerance, Functional Strength, Safety, Balance, Gait, Transfer, Bed Mobility, ROM Treatment/Plan Treatment Plan: Continue Plan of Care Treatment Plan: Bed Mobility, Education, Functional Activity Jo Ann, Functional Strength, Group Therapy, Gait, Safety, Therapeutic Exercise, Transfers Treatment Duration: Feb 08, 2021 Frequency: At least 5 of 7 days/Wk (IRF) Estimated Hrs Per Day: 1.5 hours per day Patient and/or Family Agrees t: Yes Due to a COVID-19 viral infection, the patient has deficits that warrant inpatient Acute Rehab. The patient will clearly benefit from intensive PT and OT, however, due to patient's observed endurance and therapy considerations, she may not be able to tolerate the full 3 hours of scheduled therapy. Therefore, she will be scheduled for as much therapy as she can tolerate with intentional rest breaks, shortened sessions, including providing therapy across 6 to 7 days. As the patient tolerates, the intensity, frequency, and duration of her therapy program will be increased. Safety Risks/Education Patient Education: Gait Training, Transfer Techniques, Steps, Correct Positioning, W/C Management, Safety Issues Teaching Recipient: Patient Teaching Methods: Demonstration, Discussion Response to Teaching: Reinforcement Needed Discharge Recommendations Plan Patient will perform bed mobility and transfer training, balance and endurance training, functional strengthening, stair training, gait training, and education, to improve functional mobility and independence at home. Therapy Discharge Recommendati: Scheduled Assistance, Home & Family, Post Acute PT Time/GCodes Time In: 1000 Time Out: 1110 Total Billed Treatment Time: 60 Total Billed Treatment 1 visit EVM 10' FA 50' PT eval from [id number], OT eval from [id number], co-treat from [id number] NARAYAN ORDOÑEZ PT Jan 18, 2021 11:02
--- NOTE | 2021-01-18 11:24 | Occupational Therapy Eval ---
OT Evaluation-General/PLF Medical Diagnosis Admission Date Jan 18, 2021 at 10:20 Medical Diagnosis: Post COVID PNA Onset Date: Dec 30, 2020 Therapy Diagnosis Therapy Diagnosis: decreased ADL status Referral Physician: Nazia Abreu DO Referral Reason: Evaluation/Treatment Medical History Pertinent Medical History: HTN Additional Medical History dysrhythmia, HTN, heart disease Current History diagnosed COVID+ 12/30/20, transferred to ARU 01/10, transferred to ICU 01/11 due to increased medical complexity. s/p veniogram placement of inferior vena cava filter 01/12. Pt transferred to ARU 01/18/21 for skilled therapies and continued medication management. Social History Home: Single Level Current Living Status: Spouse Entry Into Home: Ramp ADL-Prior Level of Function SCALE: Activities may be completed with or without assistive devices. 4-Bmsobgxjob-dfrfwgw completes the activity by him/herself with no assistance from a helper. 5-Set-up or Clean-up Assistance-helper sets up or cleans up; patient completes activity. [place] assists only prior to or following the activity. 4-Supervision or Touching Assistance-helper provides verbal cues and/or touching/steadying and/or contact guard assistance as patient completes activity. Assistance may be provided throughout the activity or intermittently. 3-Partial/Moderate Assistance-helper does LESS THAN HALF the effort. [place] lifts, holds or supports trunk or limbs, but provides less than half the effort. 2-Substantial/Maximal Assistance-helper does MORE THAN HALF the effort. [place] lifts or holds trunk or limbs and provides more than half the effort. 2-Etmppfazv-rywfap does ALL the effort. Patient does none of the effort to complete the activity. Or, the assistance of 2 or more helpers is required for the patient to complete the activity. If activity was not attempted, code reason: 7-Patient Refused. 9-Not Applicable-not attempted and the patient did not perform the activity before the current illness, exacerbation or injury. 10-Not Attempted due to Environmental Limitations-(lack of equipment, weather restraints, etc.). 88-Not Attempted due to Medical Conditions or Safety Concerns. ADL PLOF Comments IND with ADLs and functional mobility at PLOF, no AD/AE Self Care: Independent Functional Cognition: Independent DME/Equipment: Tub/Shower OT Current Status Subjective Pt agreeable to therapy treatment, denies pain. Mental Status/Objective Patient Orientation: Person, Place, Time, Situation Attachments: Oxygen (2L NC) Current Glasses/Contacts: Yes Hearing Aids: No Dentures/Partials: No Hand Dominance: Right Upper Extremity ROM BUE shoulder flexion to approx 130 degrees. Upper Extremity Coordination WFL Upper Extremity Sensation WFL, pt denies tingling/numbness Upper Extremity Strength grossly 3+/5 BUEs ADL-Treatment Eating (QC): 6 (Per pt report and clincial judgment.) Oral Hygiene (QC): 6 (seated at sink) Shower/Bathe Self (QC): 7 Upper Body Dressing (QC): 7 Lower Body Dressing (QC): 4 (CGA with donning underwear) On/Off Footwear (QC): 7 Toileting Hygiene (QC): 4 (CGA, pt able to manage hygiene and clothing.) Other Treatments OT evaluation complete. OT/PT cotreat due to skill of 2 clinicians required which a snow technician could not perform in order to coordinate UE/LEs, decrease fall risk, due to pt's drop in O2 saturation with minimal activity and due to pt's limitations in strength and activity tolerance. OT focused on UE placement, cues for sequencing and safety and ADLs, PT focused on LE placement gross overall movements, transfers and mobility. Pt completed functional transfers using FWW, in/out of simulated car, 1 step, uneven surface. Pt required frequent rest breaks, O2 saturation dropping into low-mid 80%'s between each task, taking a significant amount of time to recover. IND bed mobility, SBA supine to/from sit, CGA sit to/from stand, she needs frequent cues for hand placement and safety. Pt taken back to her room via w/c, donned LE clothing, and clean hospital gown. Pt indicates her daughter is going to bring clothes this evening, declined showering and dressing at this time. Pt agreeable to shower/dressing tasks tomorrow. Pt sat at sink to complete oral care (IND), hair brushing (min A), and face washing (IND). Pt used FWW to transfer to recliner. Post tx, pt seated in recliner, call light in reach and all needs met. Education OT Patient Education: Correct positioning, Energy conservation, Exercise program, Modified ADL techniques, Progress toward Goal/Update tx plan, Purpose of tx/functional activities, Rehab process, Safety issues, Transfer techniques Teaching Recipient: Patient Teaching Methods: Discussion Response to Teaching: Verbalize Understanding OT Short Term Goals Short Term Goals Time Frame: Jan 26, 2021 Shower/bathe self: 5 Upper body dressin Lower body dressin Putting on/taking off footwear: 5 OT Chcf Goals Chcf Goals Time Frame: Feb 09, 2021 Eating (QC): 6 Oral Hygiene (QC): 6 Toileting Hygiene (QC): 6 Shower/Bathe Self (QC): 6 Upper Body Dressing (QC): 6 Lower Body Dressing (QC): 6 On/Off Footwear (QC): 6 1=Demonstrate adherence to instructed precautions during ADL tasks. 2=Patient will verbalize/demonstrate understanding of assistive devices/modifications for ADL. 3=Patient will improve strength/tolerance for activity to enable patient to perform ADL's. OT Education/Plan Problem List/Assessment Assessment: Decreased Activ Tolerance, Decreased UE Strength, Impaired Funct Balance, Impaired I ADL's, Impaired Self-Care Skills Discharge Recommendations Plan/Recommendations: Continue POC Treatment Plan/Plan of Care Patient would benefit from OT for education, treatment and training to promote independence in ADL's, mobility, safety and/or upper extremity function for ADL's. Plan of Care: ADL Retraining, Functional Mobility, Group Exercise/Act as Ind, UE Funct Exercise/Act Treatment Duration: Feb 09, 2021 Frequency: Modified Program (IRF) Estimated Hrs Per Day: 1 hour per day Rehab Potential: Fair Due to a COVID-19 viral infection, the patient has deficits that warrant inpatient Acute Rehab. The patient will clearly benefit from intensive PT and OT, however, due to patient's observed endurance and therapy considerations, she may not be able to tolerate the full 3 hours of scheduled therapy. Therefore, she will be scheduled for as much therapy as she can tolerate with intentional rest breaks, shortened sessions, including providing therapy across 6 to 7 days. As the patient tolerates, the intensity, frequency, and duration of her therapy program will be increased. Time/GCodes Start Time: 10:10 Stop Time: 11:10 Total Time Billed (hr/min): 60 Billed Treatment Time OT eval [id number], OT/PT cotreat [id number] 1, EVM (10'), ADL 2 (35'), FA (15') KRYS PERALTA OT Jan 18, 2021 11:24
--- NOTE | 2021-01-18 12:44 | Tele-ICU Progress Note ---
Subjective Date Seen by a Provider: Jan 18, 2021 Time Seen by a Provider: 09:24 Sepsis Event Evaluation Height, Weight, BMI Height: '" Weight: lbs. oz. kg; 24.41 BMI Method: Exam Exam Patient acknowledged, consented, and participated in this virtual visit which was conducted using real time audio/video Height & Weight Height: '" Weight: lbs. oz. kg; 24.41 BMI Method: General Appearance: No Apparent Distress Assessment/Plan Assessment/Plan Available chart/ vitals / labs / Images reviewed Video assessment done using teleICU camera, rest of exam as per RN Discussed with RN , EXAM PER RN Events overnight : as she was doing early mobilization, she stood up felt weak to her knees; ddi not hit the head/ no signs of seizures/ regained coherence Afebrile I/O = neg 2 l Drips: Pressors: , hemodynamically stable Consultants: chyna Hospital course: 01/11- bilat PE 01/15 - Vapotherm 25L 65 % 01/15 - as she was doing early mobilization, she stood up felt weak to her knees; ddi not hit the head/ no signs of seizures/ regained coherence, Hypotension very probable related to orthostatics 01/16- Vapotherm 35L 65 % 9 01/18 - I L NC A/P Acute resp failure , post recent COVID + PE - Vapotherm OFF , NC 1 L - R>L infiltrates ( post COVID ) - doing IS 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 Discussed with RN to reach out if any questions or concerns A total of 20 minutes of critical care time was devoted to this patient today, required to treat and/or prevent further deterioration of critical care condition ( as above) . SHULZHENKO,DONNA V MD Jan 18, 2021 12:44
--- NOTE | 2021-01-18 12:52 | PM&R Post Admission Assessment ---
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 POTTER due to subarachnoid bleed upon presentation of COVID-19 pneumonia precluding antiplatelets and anticoagulation until 01/21/2021 per neurosurgery at [facility]. Patient ultimately had worsening hypoxia requiring Vapotherm and several days in the ICU with no activity due to exertional hypoxia but now she is dramatically improved she does have desaturation with activity but remains on 1-2 L of oxygen but requires increase oxygen supplementation when active. ICU hospital course: Patient had a standard hospital course after transferred from rehab to ICU due to acute respiratory failure. Patient was found to have pulmonary embolism with DVT and considering subarachnoid bleed and no anticoagulation or antiplatelets could be placed on treatment plan until 01/21/2021 per neurosurgery she had IVC filter placed by Dr. POTTER in an uncomplicated manner. She did very well and after length of time she was able to titrate down off Vapotherm and dramatically improve enough to go to inpatient rehab as planned. Previous rehab H&P: Chief complaint: COVID-19 disability with subarachnoid hemorrhage conservative management per neurosurgery History of present illness: This is a 70-year-old white female who had just moved from [place] to the area to be closer to her daughter who lives in [place] who became symptomatic with illness diagnosed with COVID-19 and had a near syncopal episode at home on 12/30/2020 admitted due to COVID-19 pneumonia diagnosis and subarachnoid hemorrhage noted on imaging scan. Neurosurgery evaluated her and found her to be stable and no evidence of surgery required. Antiplatelet and anticoagulation will be held for the full 3 weeks. Pulmonology will be consulted. D-dimer was needed to be elevated. Chest x-ray reviewed. Patient is very weak and will require slow therapy schedule. She desats with any exertion. She has been for 53 years. 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 She did have significant problem with hypotension so home bl ood pressure medications will be held. Discharge summary from [facility]: Discharge Diagnoses and Relevant Hospital Course: Active Hospital Problems Diagnosis 2019 novel coronavirus disease (COVID-19) Acute respiratory failure with hypoxia Hypokalemia Metabolic acidosis, normal anion gap (NAG) SAH (subarachnoid hemorrhage) Resolved Hospital Problems No resolved problems to display. Delmy Urbina a 70 y.o.femalewho was admitted to [facility] on 01/07/2021nd found to have a principle diagnosis of severe COVID 19 pneumonia and acute hypoxic respiratory failure. The patient was initially admitted for complaint of dizziness and weakness with near-syncopal episodes. She had been diagnosed with COVID 19 On 12/30/20 and was isolating at home with her who also had COVID. CT head revealed a small subarachnoid hemorrhage in the sulcus of the right frontal lobe without mass- effect or midline shift. Neurosurgery saw the patient and recommended conservative management without intervention and to avoid antiplatelet agents for 3 weeks. On arrival, she had a small oxygen requirement of 2 L in order to maintain saturations in the low 90s. She was started on dexamethasone and remdesivir. Blood pressures were found to be low and some of her home antihypertensives were held. Orthostatic hypotension was treated with IV fluid boluses with improvement of the orthostatic blood pressure but the patient remained dizzy on standing. Physical therapy recommended rehab for her and ultimately she agreed to go to rehab after long discussion between her and her daughter. Her antihypertensives were stopped at discharge due to her low blood pressures and orthostasis. START taking these medications dexAMETHasone6 mg Tablet Commonly known as: DECADRON Take 1 Tablet (6 mg) by mouth daily for 7 days. Signed by: Dr. Bret Suarez, DO Quantity: 7 Tablet Refills: 0 CONTINUE taking these medications bnpomoxxgkbj33 mg tablet Commonly known as: LIPITOR Take 40 mg by mouth daily. Refills: 0 STOP taking these medications wyqwsif41 mg Tablet, Chewable Commonly known as: ROBIN CHEWABLE [id number] mg tablet Commonly known as: APRESOLINE paonBBRNrqni586 mg tablet Commonly known as: LEVAQUIN yugdzvqwpb91 mg Tablet, Rapid Dissolve Commonly known as: CLARITIN RediTabs gycpegjn021 mg tablet Commonly known as: COZAAR metoprolol mg tablet Commonly known as: LOPRESSOR Overall life Past Kdqbplo-Ljajml-Yddhbi Hx Past Med/Social Hx: Reviewed Nursing Past Med/Soc Hx, Reviewed and Corrections made Patient Social History Marrital Status: Employed/Student: retired Alcohol Use: Denies Use Smoking Status: Never a Smoker Seasonal Allergies Seasonal Allergies: No Past Medical History Surgeries: Appendectomy, Hysterectomy Respiratory: Pneumonia COVID PNA 12/30/20 Currently Using CPAP: No Currently Using BIPAP: No Cardiac: High Cholesterol, Hypertension Neurological: Stroke Sexually Transmitted Disease: No HIV/AIDS: No Hysterectomy Loss of Vision: Denies Hearing Impairment: Denies History of Blood Disorders: No Adverse Reaction to Blood Gutierrez: No Prior Level of Function Bed Mobility: 6 Transfers: 6 Gait: 6 Stairs: 6 Indoor Mobility (Ambulation): Independent Stairs: Independent Self Care: Independent Functional Cognition: Independent Current Level of Fuctioning Roll Left to Right: 6 Sit to Lyin Lying to Sitting/Side of Bed: 4 Sit to Stand: 4 Chair/Gpn-qd-Djgil Xfer: 4 Car Transfer: 4 Does the Patient Walk: Yes Mode of Locomotion: Walk Anticipated Mode of Locomotion: Walk Walk 10 feet: 88 Walk 50 ft with 2 Turns: 88 Walk 150 ft: 88 Walking 10ft on uneven surface: 88 Gait Assistive Device: FWW Does the Pt Use a Wheelchair: Yes Wheelchair Distance: 120'x2 Wheel 50 ft with 2 turns: 1 Wheel 150 ft: 1 Type of Wheelchair: Manual #of Steps: 1 1 Step (curb): 3 4 Steps: 88 Walking Assistive Device: Walker 12 Steps: 88 Picking up an Object: 88 Eatin (Per pt report and clincial judgment.) Oral Hygiene: 6 (seated at sink) Shower/Bathe Self: 7 Upper Body Dressin Lower Body Dressin (CGA with donning underwear) On/Off Footwear: 7 Toileting Hygiene: 4 (CGA, pt able to manage hygiene and clothing.) PM&R Allergy/Meds/Data Review Allergies Coded Allergies: No Known Drug Allergies (Unverified , 01/10/21) Home Medications Scheduled Amlodipine Besylate (Amlodipine Besylate), 5 MG PO DAILY Potassium Chloride (Klor-Con 10), 10 MEQ PO DAILY@0700 Scheduled PRN Ipratropium/Albuterol Sulfate (Iprat-Albut 0.5-3(2.5) mg/3 ml), 3 ML INH [id number] PRN for WHEEZING Discontinued Medications Atorvastatin Calcium (Atorvastatin Calcium), 40 MG PO DAILY, (Reported) Dexamethasone (Dexamethasone), 6 MG PO DAILY, (Reported) Current Medications Current Medications Reviewed Review of Systems Constitutional: see HPI, malaise, weakness EENTM: no symptoms reported Respiratory: dyspnea on exertion, short of breath Cardiovascular: no symptoms reported Gastrointestinal: no symptoms reported Musculoskeletal: no symptoms reported Skin: no symptoms reported Psychiatric/Neurological: Anxiety, Depressed All Other Systems Reviewed Negative Unless Noted: Yes Physical Exam Physical Exam Vital Signs Capillary Refill : Height, Weight, BMI Height: '" Weight: lbs. oz. kg; 24.41 BMI Method: General Appearance: No Apparent Distress, Chronically ill Eyes: Bilateral Eye Normal Inspection, Bilateral Eye PERRL HEENT: PERRL/EOMI, Normal ENT Inspection, Pharynx Normal Neck: Full Range of Motion, Normal Inspection, Non Tender, Supple, Carotid Bruit Respiratory: Chest Non Tender, Lungs Clear, Normal Breath Sounds, No Accessory Muscle Use, No Respiratory Distress Cardiovascular: Regular Rate, Rhythm, No Edema, No Gallop, No JVD, No Murmur, Normal Peripheral Pulses Gastrointestinal: Normal Bowel Sounds, No Organomegaly, No Pulsatile Mass, Non Tender, Soft Back: Normal Inspection, No CVA Tenderness, No Vertebral Tenderness Extremity: Normal Capillary Refill, Normal Inspection, Normal Range of Motion, Non Tender, No Calf Tenderness, No Pedal Edema Neurologic/Psychiatric: Alert, Oriented x3, No Motor/Sensory Deficits, manufacturing inspector II- XII Norm as Tested, Depressed Affect, Motor Weakness (generalized all extremities 4/5) Skin: Normal Color, Warm/Dry Lymphatic: No Adenopathy PM&R Medical Assessment & Plan REHAB/MEDICAL ASSESSMENT AND PLAN: REHAB IMPAIRMENT GROUP: Post Covid syndrome with desaturation ETIOLOGIC DIAGNOSIS: Post Covid syndrome with desaturation The comorbidities that impact the patients function and/or functional outcome by: Significant desaturation with activity, COVID-19 syndrome, orthostatic hypotension REHAB PLAN: The patient is being admitted to our comprehensive inpatient rehabilitation facility and can tolerate the intensity of service consisting of at least: 180 minutes of therapy a day, 5 out of 7 days a week Rehab treatment will consist of: PT and OT will focus on regaining ambulatory function while supporting her with increase oxygen supplementation during that activity in order to recover and return back to independent living The patient/family has a good understanding of our discharge process and will benefit from an interdisciplinary inpatient rehabilitation program. The patient has potential to make improvement and is in need of at least two of the following multidisciplinary therapies including but not limited to physical, occupational, speech, and prosthetics and orthotics. Additionally the patient will need services from respiratory, nutritional services, wound care, psychology, etc. (Customize this to each patient). Given the patients complex condition and risk of further medical complications, rehabilitation services cannot be safely or effectively provided at a lower level of care such as a senior living facility. BARRIERS TO DISCHARGE: Desaturation with activity ESTIMATED LOS: 14 days DISPOSITION: Home RELEVANT CHANGES SINCE PREADMISSION SCREENING: I have compared the patients medical and functional status at the time of the preadmission screening and there are: No changes PROGNOSIS: Good REHABILITATION GOALS: 1. PT and OT will focus on regaining ambulatory function while supporting her with increase oxygen supplementation during that activity in order to recover and return back to independent living All the above goals were reviewed with the patient and he/she is in agreement. By signing this document, I acknowledge that I have personally performed a full physical examination on this patient within 24 hours of admission to this inpatient rehabilitation facility and have determined the patient to be able to tolerate the above course of treatment at an intensive level for a reasonable period of time. I will be completing a detailed individualized Plan of Care for this patient by day #4 of the patients stay based upon the Preadmission Screen, the Post-Admission Evaluation, and the therapy evaluations. Admission Dx/Comorbidities: (1) Post-COVID syndrome ICD Codes: B94.8 - Sequelae of other specified infectious and parasitic diseases (2) Pulmonary embolism ICD Codes: I26.99 - Other pulmonary embolism without acute cor pulmonale (3) DVT (deep venous thrombosis) ICD Codes: I82.409 - Acute embolism and thrombosis of unspecified deep veins of unspecified lower extremity (4) S/P IVC filter ICD Codes: Z95.828 - Presence of other vascular implants and grafts (5) Hypoxemia ICD Codes: R09.02 - Hypoxemia (6) Hypercapnia ICD Codes: R06.89 - Other abnormalities of breathing (7) Hypercholesterolemia ICD Codes: E78.00 - Pure hypercholesterolemia, unspecified (8) Hypertension ICD Codes: I10 - Essential (primary) hypertension (9) Orthostasis ICD Codes: I95.1 - Orthostatic hypotension (10) Subarachnoid hemorrhage ICD Codes: I60.9 - Nontraumatic subarachnoid hemorrhage, unspecified Assessment/Plan Assessment and Plan Assess & Plan/Chief Complaint Assessment: COVID-19 pneumonia Acute hypoxic respiratory failure Pulmonary embolism requiring filter placement by Dr. POTTER Subarachnoid bleed due to fall no anticoagulation or antiplatelets can be used until 01/21/2021 Hypertension Orthostatic syncope Plan: Supportive care Intensive rehab IVC filter management SARITHA APODACA DO Jan 18, 2021 12:52
[2021-01-18 20:00] VITALS: BP 108/63
[2021-01-18] MEDS: DOCUSATE SODIUM 100 MG (COLACE) CAP PO SCH (20:11)
[2021-01-18] MEDS: SENNA W/DOCUSATE (SENOKOT S) TABLET PO SCH (20:12)
[2021-01-18] MEDS: polyethylene glycoL POWDER 17 GM (MIRALAX) PACK PO SCH (20:12)
[2021-01-19] MEDS: KCL 10 MEQ TAB (MICRO K) PO SCH (06:02)
[2021-01-19 06:15] LABS: BASOPHILS % (AUTO) 0 % (0-10); EOSINOPHILS # (AUTO) 0.1 10^3/uL (0.0-0.3); EOSINOPHILS % (AUTO) 1 % (0-10)
[2021-01-19 06:17] LABS: HEMATOCRIT 31 % (35-52); HEMOGLOBIN 10.3 g/dL (11.5-16.0); LYMPHOCYTES # (AUTO) 1.2 10^3/uL (1.0-4.0); LYMPHOCYTES % (AUTO) 13 % (12-44); MEAN CORPUSCULAR HEMOGLOBIN 30 pg (25-34); MEAN CORPUSCULAR HGB CONC 33 g/dL (32-36); MEAN CORPUSCULAR VOLUME 90 fL (80-99); MEAN PLATELET VOLUME 10.2 fL (9.0-12.2); MONOCYTES # (AUTO) 0.6 10^3/uL (0.0-1.0); MONOCYTES % (AUTO) 7 % (0-12); NEUTROPHILS # (AUTO) 7.1 10^3/uL (1.8-7.8); NEUTROPHILS % (AUTO) 77 % (42-75); PLATELET COUNT 123 10^3/uL (130-400); WHITE BLOOD COUNT 9.3 10^3/uL (4.3-11.0)
[2021-01-19 06:36] LABS: ALBUMIN 3.1 GM/DL (3.2-4.5); POTASSIUM 3.8 MMOL/L (3.6-5.0)
[2021-01-19 06:38] LABS: CALCIUM 8.4 MG/DL (8.5-10.1)
[2021-01-19 06:39] LABS: TOTAL PROTEIN 5.6 GM/DL (6.4-8.2)
[2021-01-19 06:41] LABS: BILIRUBIN,TOTAL 0.7 MG/DL (0.1-1.0)
[2021-01-19 06:42] LABS: CREATININE SERUM 0.77 MG/DL (0.60-1.30)
--- NOTE | 2021-01-19 06:55 | PM&R Progress Note ---
Subjective HPI/CC On Admission Date Seen by Provider: Jan 19, 2021 Time Seen by Provider: 09:00 Subjective/Events-last exam 01/19/2021: Patient settling in well Maintain on 3 L 94% Bowels moved today Feels more energized Appears dramatically improved Review of Systems General: Fatigue, Malaise Pulmonary: Dyspnea Objective Exam Vital Signs Vital Signs Date Time Temp Pulse Resp B/P (MAP) Pulse Ox O2 Delivery O2 Flow Rate FiO2 01/19/21 21:49 94 Nasal Cannula 3.00 01/19/21 20:30 36.6 83 20 114/75 (88) Capillary Refill : General Appearance: No Apparent Distress, Chronically ill HEENT: PERRL/EOMI, Normal ENT Inspection, Pharynx Normal Neck: Full Range of Motion, Normal Inspection, Non Tender, Supple, Carotid Brui t Respiratory: Chest Non Tender, Lungs Clear, Normal Breath Sounds, No Accessory Muscle Use, No Respiratory Distress Cardiovascular: Regular Rate, Rhythm, No Edema, No Gallop, No JVD, No Murmur, Normal Peripheral Pulses Gastrointestinal: Normal Bowel Sounds, No Organomegaly, No Pulsatile Mass, Non Tender, Soft Back: Normal Inspection, No CVA Tenderness, No Vertebral Tenderness Extremity: Normal Capillary Refill, Normal Inspection, Normal Range of Motion, Non Tender, No Calf Tenderness, No Pedal Edema Neurologic/Psychiatric: Alert, Oriented x3, No Motor/Sensory Deficits, preload supervisor II- XII Norm as Tested, Depressed Affect, Motor Weakness (generalized all extremities 4/5) Skin: Normal Color, Warm/Dry Lymphatic: No Adenopathy Results/Procedures Lab Laboratory Tests 01/19/21 05:51 Patient resulted labs reviewed. FIM Transfers Therapy Code Descriptions/Definitions Functional Mozier Measure: 0=Not Assessed/NA 4=Minimal Assistance 1=Total Assistance 5=Supervision or Setup 2=Maximal Assistance 6=Modified Mozier 3=Moderate Assistance 7=Complete IndependenceSCALE: Activities may be completed with or without assistive devices. 9-Ooijnjygti-uuyzhzo completes the activity by him/herself with no assistance from a helper. 5-Set-up or Clean-up Assistance-helper sets up or cleans up; patient completes activity. [place] assists only prior to or following the activity. 4-Supervision or Touching Assistance-helper provides verbal cues and/or touching/steadying and/or contact guard assistance as patient completes activity. Assistance may be provided throughout the activity or intermittently. 3-Partial/Moderate Assistance-helper does LESS THAN HALF the effort. [place]keley lifts, holds or supports trunk or limbs, but provides less than half the effort. 2-Substantial/Maximal Assistance-helper does MORE THAN HALF the effort. [place] lifts or holds trunk or limbs and provides more than half the effort. 3-Pfwbntzwo-frtals does ALL the effort. Patient does none of the effort to complete the activity. Or, the assistance of 2 or more helpers is required for the patient to complete the activity. If activity was not attempted, code reason: 7-Patient Refused. 9-Not Applicable-not attempted and the patient did not perform the activity before the current illness, exacerbation or injury. 10-Not Attempted due to Environmental Limitations-(lack of equipment, weather restraints, etc.). 88-Not Attempted due to Medical Conditions or Safety Concerns. Roll Left to Right (QC): 6 Sit to Lying (QC): 4 Sit to Stand (QC): 4 Chair/Wwm-uj-Veioi Xfer(QC): 4 Car Transfer (QC): 4 Gait Training Does the Patient Walk?: Yes Walk 10 feet (QC): 88 Walk 50 ft with 2 Turns(QC): 88 Walk 150 ft (QC): 88 Walking 10ft/uneven surface-QC: 88 Gait Assistive Device: FWW Wheelchair Training Does the Pt Use a Wheelchair?: Yes Distance: 120'x2 Wheel 50 ft with 2 turns (QC): 1 Wheel 150 ft (QC): 1 Type of Wheelchair: Manual Stair Training #of Steps: 1 1 Step (curb) (QC): 3 4 Steps (QC): 88 12 Steps (QC): 88 Balance Picking up an Object (QC): 88 ADL-Treatment Eating (QC): 6 (Per pt report and clincial judgment.) Oral Hygiene (QC): 6 (seated at sink) Shower/Bathe Self (QC): 7 Upper Body Dressing (QC): 7 Lower Body Dressing (QC): 4 (CGA with donning underwear) On/Off Footwear (QC): 7 Toileting Hygiene (QC): 4 (CGA, pt able to manage hygiene and clothing.) Assessment/Plan Assessment and Plan Assess & Plan/Chief Complaint Assessment: COVID-19 pneumonia Acute hypoxic respiratory failure Pulmonary embolism requiring filter placement by Dr. POTTER Subarachnoid bleed due to fall no anticoagulation or antiplatelets can be used until 01/21/2021 Hypertension Orthostatic syncope Plan: Supportive care Intensive rehab IVC filter management 01/19/2021: Discussed anticoagulation with patient Continue aggressive therapy (1) Post-COVID syndrome (2) Pulmonary embolism (3) DVT (deep venous thrombosis) (4) S/P IVC filter (5) Hypoxemia (6) Hypercapnia (7) Hypercholesterolemia (8) Hypertension (9) Orthostasis (10) Subarachnoid hemorrhage SARITHA APODACA DO Jan 19, 2021 06:55
[2021-01-19 07:44] VITALS: BP 116/73
[2021-01-19] MEDS: DOCUSATE SODIUM 100 MG (COLACE) CAP PO SCH ×2 (07:52→20:30)
[2021-01-19] MEDS: SENNA W/DOCUSATE (SENOKOT S) TABLET PO SCH ×2 (07:52→20:30)
[2021-01-19] MEDS: polyethylene glycoL POWDER 17 GM (MIRALAX) PACK PO SCH ×2 (07:52→20:30)
[2021-01-19] MEDS: amLODIPine 5 MG (NORVASC) TAB PO SCH (07:52)
--- NOTE | 2021-01-19 09:07 | Tele-ICU Progress Note ---
Subjective Date Seen by a Provider: Jan 19, 2021 Time Seen by a Provider: 08:30 Subjective/Events-last exam Patient acknowledged, consented, and participated in this virtual visit which was conducted using real time audio/video. Thank you for asking us to see this patient for respiratory insufficiency and distress due to Covid pna complicated by DVT/B PEs and SAH. HPC: Recent events: working w therapies PMH: htn SH: smoking history N FH: Non-contributory ROS: limited by patient's clinical condition, but feels much better. PE: VSS O2 sat 94% on 3 LPM NC. HEENT: No obvious masses, adenopathy or JVD. Chest: clear to auscultation. Diminished BS R. CV: RRR S1 S2 No murmur or added sounds. Abd: Non-tender. Bowel sounds Y. : Unremarkable. Shepherd N. COLD ROLLER/psychiatric: Alert and oriented, grossly intact. No obvious focal findings. Extremities: Trace edema. Capillary refill < 3 seconds. Skin: unremarkable. Results: Decreased Hb 10.3, Platelets 1234, Albumin 3.1. CXR w improved B infiltrates. A/P: Respiratory insufficiency/distress: Improving. Cont PRN Duonebs. Wean O2 as spring. Available chart/ vitals / labs /images reviewed. Video assessment done using teleICU camera, rest of exam as per RN. Monitor for increasing oxygenation needs and/or need for ICU transfer. Critical Care: critically ill patient. Now recovering. Discussed with RN Annita. Asked RN to reach out to eICU if any questions or con cerns later. Time spent with patient/coordination of care with other health professionals (mins): 20 Sepsis Event Evaluation Height, Weight, BMI Height: '" Weight: lbs. oz. kg; 24.41 BMI Method: Exam Exam Patient acknowledged, consented, and participated in this virtual visit which was conducted using real time audio/video Vital Signs Date Time Temp Pulse Resp B/P (MAP) Pulse Ox O2 Delivery O2 Flow Rate FiO2 01/19/21 07:44 36.2 91 20 116/73 (87) 94 Nasal Cannula 3.00 01/18/21 20:13 91 Nasal Cannula 3.00 01/18/21 20:00 37.5 99 16 108/63 (78) 90 Nasal Cannula 2.00 Height & Weight Height: '" Weight: lbs. oz. kg; 24.41 BMI Method: General Appearance: No Apparent Distress, Chronically ill HEENT: PERRL/EOMI, Normal ENT Inspection, Pharynx Normal Neck: Full Range of Motion, Normal Inspection, Non Tender, Supple, Carotid Bruit Respiratory: Chest Non Tender, Lungs Clear, Normal Breath Sounds, No Accessory Muscle Use, No Respiratory Distress Cardiovascular: Regular Rate, Rhythm, No Edema, No Gallop, No JVD, No Murmur, Normal Peripheral Pulses Peripheral Pulses: 1+ Dorsalis Pedis (R), 1+ Left Dors-Pedis (L) (see free text) Extremity: Normal Capillary Refill, Normal Inspection, Normal Range of Motion, Non Tender, No Calf Tenderness, No Pedal Edema Neurologic/Psychiatric: Alert, Oriented x3, No Motor/Sensory Deficits, arabic linguist II- XII Norm as Tested, Depressed Affect, Motor Weakness (generalized all extremities 4/5) Skin: Normal Color, Warm/Dry Lymphatic: No Adenopathy Results Lab Laboratory Tests 01/19/21 05:51 Assessment/Plan Assessment/Plan See free text. Critical Care: Critically Ill Patient RAFA CHAN MD Jan 19, 2021 09:07
--- NOTE | 2021-01-19 09:44 | Occupational Ther Daily Note ---
OT Current Status-Daily Note Subjective Pt was seated in chair apon Ot arrival. Pt stated she wanted to take a shower. Mental Status/Objective Patient Orientation: Person, Place, Time, Situation Attachments: IV, Oxygen (3L) ADL-Treatment Therapy Code Descriptions/Definitions Functional [place] Measure: 0=Not Assessed/NA 4=Minimal Assistance 1=Total Assistance 5=Supervision or Setup 2=Maximal Assistance 6=Modified [place] 3=Moderate Assistance 7=Complete IndependenceSCALE: Activities may be completed with or without assistive devices. 5-Dxjtfidqvc-tbleiun completes the activity by him/herself with no assistance from a helper. 5-Set-up or Clean-up Assistance-helper sets up or cleans up; patient completes activity. [place] assists only prior to or following the activity. 4-Supervision or Touching Assistance-helper provides verbal cues and/or touching/steadying and/or contact guard assistance as patient completes activity. Assistance may be provided throughout the activity or intermittently. 3-Partial/Moderate Assistance-helper does LESS THAN HALF the effort. [place] lifts, holds or supports trunk or limbs, but provides less than half the effort. 2-Substantial/Maximal Assistance-helper does MORE THAN HALF the effort. [place] lifts or holds trunk or limbs and provides more than half the effort. 0-Fikvhjqjm-bhtxxj does ALL the effort. Patient does none of the effort to complete the activity. Or, the assistance of 2 or more helpers is required for the patient to complete the activity. If activity was not attempted, code reason: 7-Patient Refused. 9-Not Applicable-not attempted and the patient did not perform the activity before the current illness, exacerbation or injury. 10-Not Attempted due to Environmental Limitations-(lack of equipment, weather restraints, etc.). 88-Not Attempted due to Medical Conditions or Safety Concerns. Oral Hygiene (QC): 6 (IND seated) Shower/Bathe Self (QC): 3 (Min A when showering. Pt required assistance w/ bilateral feet. ) Upper Body Dressing (QC): 5 (Pt required set up w/ UBD. ) Lower Body Dressing (QC): 3 (Pt required Min A donning pants for LBD.) On/Off Footwear: 2 (Pt doffed gripper socks. Assist donning TEDhose and gripper socks) Other Treatment Pt utilitzed a FWW for functional mobility from chair to shower chair at [facility], for function and safety. Pt participated while seated in a shower activity, please see scores above. Pt utilized a FWW for functional mobility from shower chair to w/c at [facility], for function and safety. Pt participated while seated in w/c in donning/doffing clothing, please see scores above. Pt participated while seated in w/c at sink-side to perform oral care and grooming tasks independently. Pt utilized FWW from sit to stand from w/c, and from stand to sit in chair at [facility]. Pt was seated in chair, call light in reach, O2 connected to wall, and all needs met. Pt remained above 92% of O2 on 3L during tx session. Education OT Patient Education: Correct positioning, Energy conservation, Modified ADL techniques, Progress toward Goal/Update tx plan, Purpose of tx/functional activities, Safety issues, Transfer techniques Teaching Recipient: Patient Teaching Methods: Discussion Response to Teaching: Verbalize Understanding OT Short Term Goals Short Term Goals Time Frame: Jan 26, 2021 Shower/bathe self: 5 Upper body dressin Lower body dressin Putting on/taking off footwear: 5 OT Half-Way Goals Half-Way Goals Time Frame: Feb 09, 2021 Eating (QC): 6 Oral Hygiene (QC): 6 Toileting Hygiene (QC): 6 Shower/Bathe Self (QC): 6 Upper Body Dressing (QC): 6 Lower Body Dressing (QC): 6 On/Off Footwear (QC): 6 1=Demonstrate adherence to instructed precautions during ADL tasks. 2=Patient will verbalize/demonstrate understanding of assistive devices/modifications for ADL. 3=Patient will improve strength/tolerance for activity to enable patient to perform ADL's. OT Education/Plan Problem List/Assessment Assessment: Decreased Activ Tolerance, Decreased UE Strength, Impaired Coordination, Impaired Funct Balance, Impaired Self-Care Skills Discharge Recommendations Plan/Recommendations: Continue POC Treatment Plan/Plan of Care Patient would benefit from OT for education, treatment and training to promote independence in ADL's, mobility, safety and/or upper extremity function for ADL's. Plan of Care: ADL Retraining, Functional Mobility, Group Exercise/Act as Ind, UE Funct Exercise/Act Treatment Duration: Feb 09, 2021 Frequency: Modified Program (IRF) Estimated Hrs Per Day: 1 hour per day Rehab Potential: Fair Time/GCodes Start Time: 08:30 Stop Time: 09:30 Total Time Billed (hr/min): 60 Billed Treatment Time 1 visit, ADL 4 KRYS PERALTA OT Jan 19, 2021 09:44
--- NOTE | 2021-01-19 11:54 | Physical Therapy Daily Note ---
PT Daily Note-Current Subjective Pt in recliner upon arrival and agrees to tx. Pt states she is extremely fatigued from showering this morning, and feels like she can't do very much. Mental Status Patient Orientation: Person, Place, Situation Transfers SCALE: Activities may be completed with or without assistive devices. 4-Hovpxtabys-rpmuydm completes the activity by him/herself with no assistance from a helper. 5-Set-up or Clean-up Assistance-helper sets up or cleans up; patient completes activity. [place] assists only prior to or following the activity. 4-Supervision or Touching Assistance-helper provides verbal cues and/or touching/steadying and/or contact guard assistance as patient completes activity. Assistance may be provided throughout the activity or intermittently. 3-Partial/Moderate Assistance-helper does LESS THAN HALF the effort. [place] lifts, holds or supports trunk or limbs, but provides less than half the effort. 2-Substantial/Maximal Assistance-helper does MORE THAN HALF the effort. [place] lifts or holds trunk or limbs and provides more than half the effort. 6-Hfbyizkrv-lxeihl does ALL the effort. Patient does none of the effort to complete the activity. Or, the assistance of 2 or more helpers is required for the patient to complete the activity. If activity was not attempted, code reason: 7-Patient Refused. 9-Not Applicable-not attempted and the patient did not perform the activity before the current illness, exacerbation or injury. 10-Not Attempted due to Environmental Limitations-(lack of equipment, weather restraints, etc.). 88-Not Attempted due to Medical Conditions or Safety Concerns. Sit to Stand (QC): 4 Gait Training Does the Patient Walk?: Yes Distance: 16' x2 Walk 10 feet (QC): 4 Gait Persons Needed: 1 Gait Assistive Device: FWW Pt has slow, shuffling gait Exercises Supine Ex: Quad Set, Glut sets, Heel Slides, Straight leg raise, Hip abd/add Supine Reps: 10 Seated Therapy Exercises: Ankle pumps, Sit to stand, Long arc quads, Hip flexion Seated Reps: 10 Treatments Pt in recliner, sit to stand CGA and amb 16' w/ FWW and CGA. Pt amb to WC place by door of bedroom. Pt has seated RB, then amb back to recliner. Pt completes seated ex, pt completes 4 sit to stands then states she can't do any more. Pt has RB, followed by supine ex in recliner w/ leg rest up. Pt remains in recliner w/ all needs met, call light in hand. Assessment Current Status: Fair Progress Pt requires RB often throughout tx. O2 taken during RB, reading abov 90% each time. At end of tx, pt O2 at 98%. PT Short Term Goals Short Term Goals Time Frame: Jan 25, 2021 Roll Left & Right: 6 Sit to lyin Lying to sitting on side of be: 5 Sit to stand: 4 Chair/sdw-jh-gqsrs transfer: 4 Walk 10 feet: 4 PT Marketing Content Specialist Goals Jail Goals PT Marketing Content Specialist Goals Time Frame: Feb 08, 2021 Roll Left & Right (QC): 6 Sit to Lying (QC): 6 Lying-Sitting on Side/Bed(QC): 6 Sit to Stand (QC): 5 Chair/Bfb-qd-Hrcfl Xfer(QC): 5 Toilet Transfer (QC): 5 Car Transfer (QC): 4 Does the Patient Walk: Yes Walk 10 feet (QC): 4 Walk 50ft with 2 Turns (QC): 4 Walk 150 ft (QC): 88 Walking 10ft on Uneven Surface: 4 1 Step (curb) (QC): 4 4 Steps (QC): 88 12 Steps (QC): 88 Picking up an Object (QC): 88 Wheel 50 feet with 2 turns (QC: 9 Wheel 150 feet: 9 PT Plan Treatment/Plan Treatment Plan: Continue Plan of Care Treatment Plan: Bed Mobility, Education, Functional Activity Jo Ann, Functional Strength, Group Therapy, Gait, Safety, Therapeutic Exercise, Transfers Treatment Duration: Feb 08, 2021 Frequency: At least 5 of 7 days/Wk (IRF) Estimated Hrs Per Day: 1.5 hours per day Patient and/or Family Agrees t: Yes Time/GCodes Time In: 1100 Time Out: 1200 Total Billed Treatment Time: 60 Total Billed Treatment 1, GT x2, EX x2 YURIY BARRERA RADAR SYSTEMS ENGINEER Jan 19, 2021 11:54
--- NOTE | 2021-01-19 12:43 | Cardiology Progress Note ---
Subjective Date Seen by Provider: Jan 19, 2021 Time Seen by Provider: 12:41 Subjective/Events-last exam Patient was seen at bedside, sitting comfortably, no new complaint. Breathing better on 3 L nasal cannula Review of Systems General: No Chills, No Night Sweats; Fatigue; No Malaise, No Appetite, No Other HEENT: No Head Aches, No Visual Changes, No Eye Pain, No Ear Pain, No Dysphasia, No Sinus Congestion, No Post Nasal Drip, No Sore Throat, No Other Pulmonary: Dyspnea; No Cough, No Pleuritic Chest Pain, No Other Cardiovascular: No: Chest Pain, Palpitations, Orthopnea, Paroxysmal Noc. Dyspnea, Edema, Lt Headedness, Other Objective-Cardiology Exam Last Set of Vital Signs Vital Signs 01/19/21 01/19/21 07:44 09:42 Temp 36.2 Pulse 91 Resp 20 B/P (MAP) 116/73 (87) Pulse Ox 94 O2 Delivery Nasal Cannula O2 Flow Rate 3.00 General: Alert, Oriented X3, Cooperative HEENT: Atraumatic, PERRLA Neck: Supple, No JVD, No Thyromegaly Lungs: Clear to Auscultation, Normal Air Movement Heart: Regular Rate, Normal S1, Normal S2, No Murmurs Abdomen: Normal Bowel Sounds, Soft, No Tenderness, No Hepatosplenomegaly, No Masses Extremities: No Clubbing, No Cyanosis, No Edema, Normal Pulses, No Tenderness/Swelling Skin: No Rashes, No Breakdown, No Significant Lesion Neuro: Normal Gait, Normal Speech, Strength at 5/5 X4 Ext, Normal Tone, Se nsation Intact Psych/Mental Status: Mental Status NL, Mood NL Results Lab Laboratory Tests 01/19/21 05:51 A/P-Cardiology Admission Diagnosis Acute respiratory failure Pulmonary embolism Subarachnoid hemorrhage Hypertension Assessment/Plan Status post acute respiratory failure, was on Vapotherm, currently back to nasal cannula and doing well. Tolerating well. Back in acute rehab. Sinus tachycardia and hypotension probably secondary to pulmonary embolism and severe hypoxemia. Unable to tolerate aggressive anticoagulation due to subarachnoid hemorrhage, I recommend discussing with the neurologist to evaluate the timing that we can start anticoagulation COVID-19 pneumonia, patient recovered but still having underlying shortness of breath requiring oxygen. DVT, pulmonary embolism, had subarachnoid hemorrhage, cannot tolerate aggressive anticoagulation, underwent IVC filter placement. Orthostatic hypotension, multiple near syncopal episode, had to reported syncope, subarachnoid hemorrhage secondary to head trauma from syncope. Monitor blood pressure Subarachnoid hemorrhage, unable to tolerate any type of anticoagulation at this point. Continue with conservative management History of hyperlipidemia, maintained on statin as an outpatient CHARISSE LOWRY MD Jan 19, 2021 12:43
--- NOTE | 2021-01-19 14:11 | Occupational Ther Daily Note ---
OT Current Status-Daily Note Subjective Pt was seated in chair upon OT arrival. Pt stated she was tired, but would do some seated exercises with her arms. Mental Status/Objective Patient Orientation: Person, Place, Time, Situation Attachments: Oxygen 3L of O2 ADL-Treatment Therapy Code Descriptions/Definitions Functional [place] Measure: 0=Not Assessed/NA 4=Minimal Assistance 1=Total Assistance 5=Supervision or Setup 2=Maximal Assistance 6=Modified [place] 3=Moderate Assistance 7=Complete IndependenceSCALE: Activities may be completed with or without assistive devices. 0-Kkytqpwiqk-tkwiebq completes the activity by him/herself with no assistance from a helper. 5-Set-up or Clean-up Assistance-helper sets up or cleans up; patient completes activity. [place] assists only prior to or following the activity. 4-Supervision or Touching Assistance-helper provides verbal cues and/or touching/steadying and/or contact guard assistance as patient completes activity. Assistance may be provided throughout the activity or intermittently. 3-Partial/Moderate Assistance-helper does LESS THAN HALF the effort. [place] lifts, holds or supports trunk or limbs, but provides less than half the effort. 2-Substantial/Maximal Assistance-helper does MORE THAN HALF the effort. [place] lifts or holds trunk or limbs and provides more than half the effort. 4-Tgldjchkn-lyzbpy does ALL the effort. Patient does none of the effort to complete the activity. Or, the assistance of 2 or more helpers is required for the patient to complete the activity. If activity was not attempted, code reason: 7-Patient Refused. 9-Not Applicable-not attempted and the patient did not perform the activity before the current illness, exacerbation or injury. 10-Not Attempted due to Environmental Limitations-(lack of equipment, weather restraints, etc.). 88-Not Attempted due to Medical Conditions or Safety Concerns. Other Treatment Pt participated in Theraband medium resistance exercises while seated in chair at [facility] (moderate tactile cues for correct technique) to support strength and endurance in ADLs. Pt required skilled demonstration w/ paper handout for exercise program. Pt performed x10 reps each of: shd abd, shd external rotation, shd horizontal abd, elbow flexion, and elbow extension. Pt took rest breaks between each exercise. Post tx, pt was seated in chair, call light in reach, and all needs met. Education OT Patient Education: Correct positioning, Energy conservation, Exercise program, Home exercise program, Progress toward Goal/Update tx plan, Purpose of tx/functional activities, Safety issues Teaching Recipient: Patient Teaching Methods: Demonstration, Handout, Discussion Response to Teaching: Verbalize Understanding, Return Demonstration OT Short Term Goals Short Term Goals Time Frame: Jan 26, 2021 Shower/bathe self: 5 Upper body dressin Lower body dressin Putting on/taking off footwear: 5 OT Retirement Goals Industrial Green Systems Designer Goals Time Frame: Feb 09, 2021 Eating (QC): 6 Oral Hygiene (QC): 6 Toileting Hygiene (QC): 6 Shower/Bathe Self (QC): 6 Upper Body Dressing (QC): 6 Lower Body Dressing (QC): 6 On/Off Footwear (QC): 6 1=Demonstrate adherence to instructed precautions during ADL tasks. 2=Patient will verbalize/demonstrate understanding of assistive devices/modifications for ADL. 3=Patient will improve strength/tolerance for activity to enable patient to perform ADL's. OT Education/Plan Problem List/Assessment Assessment: Decreased Activ Tolerance, Decreased Safety Aware, Decreased UE Strength, Impaired Coordination, Impaired Self-Care Skills Discharge Recommendations Plan/Recommendations: Continue POC Treatment Plan/Plan of Care Patient would benefit from OT for education, treatment and training to promote independence in ADL's, mobility, safety and/or upper extremity function for ADL's. Plan of Care: ADL Retraining, Functional Mobility, Group Exercise/Act as Ind, UE Funct Exercise/Act Treatment Duration: Feb 09, 2021 Frequency: Modified Program (IRF) Estimated Hrs Per Day: 1 hour per day Rehab Potential: Fair Time/GCodes Start Time: 13:50 Stop Time: 14:05 Total Time Billed (hr/min): 15 Billed Treatment Time 1 visit, EX KRYS PERALTA OT Jan 19, 2021 14:11
[2021-01-19 20:30] VITALS: BP 114/75
[2021-01-20] MEDS: KCL 10 MEQ TAB (MICRO K) PO SCH (06:55)
[2021-01-20] MEDS: amLODIPine 5 MG (NORVASC) TAB PO SCH (07:25)
[2021-01-20] MEDS: SENNA W/DOCUSATE (SENOKOT S) TABLET PO SCH ×2 (07:45→21:00)
[2021-01-20] MEDS: DOCUSATE SODIUM 100 MG (COLACE) CAP PO SCH ×2 (07:45→21:00)
[2021-01-20] MEDS: polyethylene glycoL POWDER 17 GM (MIRALAX) PACK PO SCH ×2 (07:45→21:00)
[2021-01-20 07:47] VITALS: BP 104/82
--- NOTE | 2021-01-20 07:56 | PM&R Progress Note ---
Subjective HPI/CC On Admission Date Seen by Provider: Jan 20, 2021 Time Seen by Provider: 12:30 Subjective/Events-last exam 01/20/2021: Patient doing much better On 2 L of oxygen Walking around Much improved status 01/19/2021: Patient settling in well Maintain on 3 L 94% Bowels moved today Feels more energized Appears dramatically improved Review of Systems General: Fatigue Pulmonary: Dyspnea Objective Exam Vital Signs Vital Signs Date Time Temp Pulse Resp B/P (MAP) Pulse Ox O2 Delivery O2 Flow Rate FiO2 01/20/21 10:05 Nasal Cannula 2.00 01/20/21 10:02 99 01/20/21 07:47 36.6 82 18 104/82 (89) Capillary Refill : General Appearance: No Apparent Distress, Chronically ill HEENT: PERRL/EOMI, Normal ENT Inspection, Pharynx Normal Neck: Full Range of Motion, Normal Inspection, Non Tender, Supple, Carotid Bruit Respiratory: Chest Non Tender, Lungs Clear, Normal Breath Sounds, No Accessory Muscle Use, No Respiratory Distress Cardiovascular: Regular Rate, Rhythm, No Edema, No Gallop, No JVD, No Murmur, Normal Peripheral Pulses Gastrointestinal: Normal Bowel Sounds, No Organomegaly, No Pulsatile Mass, Non Tender, Soft Back: Normal Inspection, No CVA Tenderness, No Vertebral Tenderness Extremity: Normal Capillary Refill, Normal Inspection, Normal Range of Motion, Non Tender, No Calf Tenderness, No Pedal Edema Neurologic/Psychiatric: Alert, Oriented x3, No Motor/Sensory Deficits, pari mutuel clerk II- XII Norm as Tested, Depressed Affect, Motor Weakness (generalized all extremities 4/5) Skin: Normal Color, Warm/Dry Lymphatic: No Adenopathy Results/Procedures Lab Patient resulted labs reviewed. FIM Transfers Therapy Code Descriptions/Definitions Functional [place] Measure: 0=Not Assessed/NA 4=Minimal Assistance 1=Total Assistance 5=Supervision or Setup 2=Maximal Assistance 6=Modified [place] 3=Moderate Assistance 7=Complete IndependenceSCALE: Activities may be completed with or without assistive devices. 4-Gymootsurz-fpdfcyn completes the activity by him/herself with no assistance from a helper. 5-Set-up or Clean-up Assistance-helper sets up or cleans up; patient completes activity. [place] assists only prior to or following the activity. 4-Supervision or Touching Assistance-helper provides verbal cues and/or touching/steadying and/or contact guard assistance as patient completes activity . Assistance may be provided throughout the activity or intermittently. 3-Partial/Moderate Assistance-helper does LESS THAN HALF the effort. [place] lifts, holds or supports trunk or limbs, but provides less than half the effort. 2-Substantial/Maximal Assistance-helper does MORE THAN HALF the effort. [place] lifts or holds trunk or limbs and provides more than half the effort. 3-Pqhevuind-admwxu does ALL the effort. Patient does none of the effort to complete the activity. Or, the assistance of 2 or more helpers is required for the patient to complete the activity. If activity was not attempted, code reason: 7-Patient Refused. 9-Not Applicable-not attempted and the patient did not perform the activity before the current illness, exacerbation or injury. 10-Not Attempted due to Environmental Limitations-(lack of equipment, weather restraints, etc.). 88-Not Attempted due to Medical Conditions or Safety Concerns. Roll Left to Right (QC): 6 Sit to Lying (QC): 4 Sit to Stand (QC): 4 Chair/Vih-sa-Vmnug Xfer(QC): 4 Car Transfer (QC): 4 Gait Training Does the Patient Walk?: Yes Distance: 16' x2 Walk 10 feet (QC): 4 Walk 50 ft with 2 Turns(QC): 88 Walk 150 ft (QC): 88 Walking 10ft/uneven surface-QC: 88 Gait Persons Needed: 1 Gait Assistive Device: FWW Wheelchair Training Does the Pt Use a Wheelchair?: Yes Distance: 120'x2 Wheel 50 ft with 2 turns (QC): 1 Wheel 150 ft (QC): 1 Type of Wheelchair: Manual Stair Training #of Steps: 1 1 Step (curb) (QC): 3 4 Steps (QC): 88 12 Steps (QC): 88 Balance Picking up an Object (QC): 88 ADL-Treatment Eating (QC): 6 (Per pt report and clincial judgment.) Oral Hygiene (QC): 6 (IND seated) Shower/Bathe Self (QC): 3 (Min A when showering. Pt required assistance w/ bilateral feet. ) Upper Body Dressing (QC): 5 (Pt required set up w/ UBD. ) Lower Body Dressing (QC): 3 (Pt required Min A donning pants for LBD.) On/Off Footwear (QC): 2 (Pt doffed gripper socks. Assist donning TEDhose and gripper socks) Toileting Hygiene (QC): 4 (CGA, pt able to manage hygiene and clothing.) Assessment/Plan Assessment and Plan Assess & Plan/Chief Complaint Assessment: COVID-19 pneumonia Acute hypoxic respiratory failure Pulmonary embolism requiring filter placement by Dr. POTTER Subarachnoid bleed due to fall no anticoagulation or antiplatelets can be used u ntil 01/21/2021 Hypertension Orthostatic syncope Plan: Supportive care Intensive rehab IVC filter management 01/19/2021: Discussed anticoagulation with patient Continue aggressive therapy 01/20/2021: Aggressive therapy Maintain oxygen (1) Post-COVID syndrome (2) Pulmonary embolism (3) DVT (deep venous thrombosis) (4) S/P IVC filter (5) Hypoxemia (6) Hypercapnia (7) Hypercholesterolemia (8) Hypertension (9) Orthostasis (10) Subarachnoid hemorrhage Critical Care Critical Care: Critically Ill Patient SARITHA APODACA DO Jan 20, 2021 07:56
--- NOTE | 2021-01-20 07:59 | Individualized Plan of Care ---
Individualized Plan of Care Rehab Nursing IPOC Order Admission Date Jan 18, 2021 at 10:20 Current Orders Orders Admission Order(Inpt,Obs,Sdc) (01/18/21 10:17) Vital Signs: Per Unit Policy ( 08,16,00 (01/18/21 10:17) Pierre Roger (01/18/21 10:17) Sequential Compression Device .admit (01/18/21 10:17) Yardage Control Clerk-Inpt Rehab Con (01/18/21 10:17) Rehab Nursing Orders-Ipoc (01/18/21 10:17) Physical Therapy Rehab Orders (01/18/21 10:17) Occupational Therapy Rehab Ord (01/18/21 10:17) Speech Therapy Rehab Orders (01/18/21 10:17) Cbc With Automated Diff (01/19/21 06:00) Comprehensive Metabolic Panel (01/19/21 06:00) Precautions (Aru) (01/18/21 10:17) Rehab-Intensity Of Therapy (01/18/21 10:17) Initiate Admission Nursing Pro .admission (01/18/21 10:17) Alprazolam Tablet (Xanax Tablet) (01/18/21 10:30) Calcium Carbonate Chew Tablet (Antacid C (01/18/21 10:30) Diphenhydramine Tablet (Benadryl Tablet) (01/18/21 10:30) Docusate Sodium Capsule (Colace Capsule) (01/18/21 21:00) Docusate Sodium Capsule (Colace Capsule) (01/18/21 10:30) Bisacodyl Suppository (Dulcolax Supposit (01/18/21 10:30) Lactulose Oral Solution (Enulose Oral So (01/18/21 10:30) Na Phos/Na Biphos Enema (Fleet Enema Rishi (01/18/21 10:30) Guaifenesin/Codeine Syrup (Robitussin Ac (01/18/21 10:30) Loperamide Tablet (Imodium Tablet) (01/18/21 10:30) Melatonin Tablet (Melatonin Tablet) (01/18/21 10:30) Polyethylene Glycol Powder Pkt (Miralax (01/18/21 21:00) Ondansetron Oral Dissolve Tab (Zofran (01/18/21 10:30) Senna S Tablet (Senokot S Tablet) (01/18/21 21:00) Code/Resuscitation (01/18/21 10:33) General/Regular (01/18/21 Lunch) Albuterol/Ipra Inhalation Soln (Duoneb I (01/18/21 10:45) Potassium Chloride (Tablet) (Klor Con Ta (01/19/21 07:00) Sodium Chloride Flush (Catheter Flush Sy (01/18/21 10:45) Amlodipine Tablet (Norvasc Tablet) (01/19/21 09:00) Consult Cardiology (01/18/21 10:33) Svn Small Volume Nebulizer (01/18/21 10:33) Patient Visit (01/18/21 ) Pt Eval Moderate Complexity (01/18/21 ) Functional Activities, Ea 15 (01/18/21 ) Mat Initiate Protocol (01/18/21 16:09) Patient Visit (01/19/21 ) Gait Training, Ea 15 Min (01/19/21 ) Exercise Therap, Ea 15 Min (01/19/21 ) Rehab Nursing Orders: Ongoing Assess. of Function Status, Bladder Management, Bladder Scan, Bladder Training, Bowel Management, Bowel Training, Disease Management & Educaiton, DVT Prophylaxis, Fall Prevention, Fluid/Mary ctrolyte/Nutrition Mgmt, Infection Prevention, Medication Management & Education, Management of Risks & Complications, Nutrition Management, Pain Management, Patient/Family Support, Safety Management Intensity of Therapy to be met Patient to be seen: Min.3h per day/5 of 7d PT IPOC Problem List: Activity Tolerance, Functional Strength, Safety, Balance, Gait, Transfer, Bed Mobility, ROM Treatment Plan: Continue Plan of Care Bed Mobility, Education, Functional Activity Jo Ann, Functional Strength, Group Therapy, Gait, Safety, Therapeutic Exercise, Transfers Treatment Duration: Feb 08, 2021 Frequency: At least 5 of 7 days/Wk (IRF) Estimated Hrs Per Day: 1.5 hours per day OT IPOC Problems: Decreased Activ Tolerance, Decreased Safety Aware, Decreased UE Strength, Impaired Coordination, Impaired Self-Care Skills OT Treatment, Training and Edu: Yes Plan of Care: ADL Retraining, Functional Mobility, Group Exercise/Act as Ind, UE Funct Exercise/Act Treatment Duration: Feb 09, 2021 Frequency: Modified Program (IRF) Estimated Hrs Per Day: [address] [facility] Speech Therapy Treatment Plan: Modify Plan, See Comments Treatment Duration: Jan 19, 2021 Frequency: Modified Program (IRF) Estimated Hrs Per Day: Other Yardage Control Clerk/Case Mgmt Yardage Control Clerk/Case Managemen: Discharge Planning Dietitian/Oil Well Fishing Tool Operator Dietitian/Oil Well Fishing Tool Operator to monitor nutritional status and make changes and/or recommendations as needed and work with speech pathology on dietary upgrades as the occur. Physician IPOC Medical Issues being managed closely and that require the 24 hour availability of a physician: Patient with recent COVID and PE with DVT s/p IVC and recent SAH will need close monitoring for respiratory collapse. Medical Issues: Bowel/Bladder Function, DVT Prophylaxis, Falls Precautions, Fluid/Electrolyte/Nutrition Balance, Infection Protection, Pain Management Brief Synthesis of Preadmission Screen, Post-Admission Evaluation, and Therapy Evaluations: PT OT will focus on regaining stamina with desaturation during activity and will help with assistive devices in order to regain independent function. Medical Prognosis: Good Anticipated Length of Stay: 14 days SARITHA APODACA DO Jan 20, 2021 07:59
--- NOTE | 2021-01-20 12:30 | Physical Therapy Daily Note ---
PT Daily Note-Current Subjective Pt sitting in recliner upon arrival. Pt agrees to PT. Pain Location: No Pain Reported Mental Status Patient Orientation: Person, Place, Time, Situation Attachments: Oxygen (2L) Transfers SCALE: Activities may be completed with or without assistive devices. 9-Biibfqefrg-mgiacfl completes the activity by him/herself with no assistance from a helper. 5-Set-up or Clean-up Assistance-helper sets up or cleans up; patient completes activity. [place] assists only prior to or following the activity. 4-Supervision or Touching Assistance-helper provides verbal cues and/or touching/steadying and/or contact guard assistance as patient completes activity. Assistance may be provided throughout the activity or intermittently. 3-Partial/Moderate Assistance-helper does LESS THAN HALF the effort. [place] lifts, holds or supports trunk or limbs, but provides less than half the effort. 2-Substantial/Maximal Assistance-helper does MORE THAN HALF the effort. [place] lifts or holds trunk or limbs and provides more than half the effort. 0-Xtpubyboo-frfoyw does ALL the effort. Patient does none of the effort to complete the activity. Or, the assistance of 2 or more helpers is required for the patient to complete the activity. If activity was not attempted, code reason: 7-Patient Refused. 9-Not Applicable-not attempted and the patient did not perform the activity before the current illness, exacerbation or injury. 10-Not Attempted due to Environmental Limitations-(lack of equipment, weather restraints, etc.). 88-Not Attempted due to Medical Conditions or Safety Concerns. Sit to Stand (QC): 4 Weight Bearing Full Weight Bearing Full Weight Bearing Gait Training Does the Patient Walk?: Yes Distance: 15' Walk 10 feet (QC): 4 Gait Persons Needed: 1 Gait Assistive Device: FWW Pt fatigues easily. Exercises Seated Therapy Exercises: Ankle pumps, Long arc quads, Hip flexion, Glut set Seated Reps: 15 Treatments TF to standing and amb using FWW & on O2. Pt returns to recliner to rest. Pt completes Seated Ex after recovery. All needs met, call light in hand. Assessment Current Status: Fair Progress Pt fatigues easily, needing RB to recover. PT Short Term Goals Short Term Goals Time Frame: Jan 25, 2021 Roll Left & Right: 6 Sit to lyin Lying to sitting on side of be: 5 Sit to stand: 4 Chair/mri-zk-jhxkl transfer: 4 Walk 10 feet: 4 PT Cannon Crewmember Goals Correction Goals PT Cannon Crewmember Goals Time Frame: Feb 08, 2021 Roll Left & Right (QC): 6 Sit to Lying (QC): 6 Lying-Sitting on Side/Bed(QC): 6 Sit to Stand (QC): 5 Chair/Dhx-ew-Gvtwx Xfer(QC): 5 Toilet Transfer (QC): 5 Car Transfer (QC): 4 Does the Patient Walk: Yes Walk 10 feet (QC): 4 Walk 50ft with 2 Turns (QC): 4 Walk 150 ft (QC): 88 Walking 10ft on Uneven Surface: 4 1 Step (curb) (QC): 4 4 Steps (QC): 88 12 Steps (QC): 88 Picking up an Object (QC): 88 Wheel 50 feet with 2 turns (QC: 9 Wheel 150 feet: 9 PT Plan Problem List Problem List: Activity Tolerance, Functional Strength, Gait Treatment/Plan Treatment Plan: Continue Plan of Care Treatment Plan: Bed Mobility, Education, Functional Activity Jo Ann, Functional Strength, Group Therapy, Gait, Safety, Therapeutic Exercise, Transfers Treatment Duration: Feb 08, 2021 Frequency: At least 5 of 7 days/Wk (IRF) Estimated Hrs Per Day: 1.5 hours per day Patient and/or Family Agrees t: Yes Safety Risks/Education Patient Education: Gait Training, Transfer Techniques, Correct Positioning, Safety Issues Teaching Recipient: Patient Teaching Methods: Discussion Response to Teaching: Verbalize Understanding Time/GCodes Time In: 1125 Time Out: 1155 Total Billed Treatment Time: 30 Total Billed Treatment 1, EX (20m) & GT (10m) MEG WAITE SENIOR AGRICULTURAL ASSISTANT Jan 20, 2021 12:30
[2021-01-20 20:00] VITALS: BP 109/74
[2021-01-20 22:44] VITALS: BP 104/82
--- NOTE | 2021-01-21 06:48 | PM&R Progress Note ---
Subjective HPI/CC On Admission Date Seen by Provider: Jan 21, 2021 Time Seen by Provider: 13:30 Subjective/Events-last exam 01/21/2021: Patient much improved Still on 2 L of oxygen Still gets dyspneic with exertion Bowels moving 01/20/2021: Patient doing much better On 2 L of oxygen Walking around Much improved status 01/19/2021: Patient settling in well Maintain on 3 L 94% Bowels moved today Feels more energized Appears dramatically improved Review of Systems General: Fatigue Pulmonary: Dyspnea Objective Exam Vital Signs Vital Signs Date Time Temp Pulse Resp B/P (MAP) Pulse Ox O2 Delivery O2 Flow Rate FiO2 01/21/21 21:08 95 Nasal Cannula 2.00 01/21/21 20:00 37.4 107 18 120/82 (95) 01/20/21 22:44 28 Capillary Refill : General Appearance: No Apparent Distress, Chronically ill HEENT: PERRL/EOMI, Normal ENT Inspection, Pharynx Normal Neck: Full Range of Motion, Normal Inspection, Non Tender, Supple, Carotid Bruit Respiratory: Chest Non Tender, Lungs Clear, Normal Breath Sounds, No Accessory Muscle Use, No Respiratory Distress Cardiovascular: Regular Rate, Rhythm, No Edema, No Gallop, No JVD, No Murmur, Normal Peripheral Pulses Gastrointestinal: Normal Bowel Sounds, No Organomegaly, No Pulsatile Mass, Non Tender, Soft Back: Normal Inspection, No CVA Tenderness, No Vertebral Tenderness Extremity: Normal Capillary Refill, Normal Inspection, Normal Range of Motion, Non Tender, No Calf Tenderness, No Pedal Edema Neurologic/Psychiatric: Alert, Oriented x3, No Motor/Sensory Deficits, allergist II- XII Norm as Tested, Depressed Affect, Motor Weakness (generalized all extremities 4/5) Skin: Normal Color, Warm/Dry Lymphatic: No Adenopathy Results/Procedures Lab Patient resulted labs reviewed. FIM Transfers Therapy Code Descriptions/Definitions Functional [place] Measure: 0=Not Assessed/NA 4=Minimal Assistance 1=Total Assistance 5=Supervision or Setup 2=Maximal Assistance 6=Modified [place] 3=Moderate Assistance 7=Complete IndependenceSCALE: Activities may be completed with or without assistive devices. 1-Sqvwswnkjm-jzckcxm completes the activity by him/herself with no assistance from a helper. 5-Set-up or Clean-up Assistance-helper sets up or cleans up; patient completes activity. [place] assists only prior to or following the activity. 4-Supervision or Touching Assistance-helper provides verbal cues and/or touching/steadying and/or contact guard assistance as patient completes activity. Assistance may be provided throughout the activity or intermittently. 3-Partial/Moderate Assistance-helper does LESS THAN HALF the effort. [place] lifts, holds or supports trunk or limbs, but provides less than half the effort. 2-Substantial/Maximal Assistance-helper does MORE THAN HALF the effort. [place] lifts or holds trunk or limbs and provides more than half the effort. 0-Vzwxcmfsq-dxktqv does ALL the effort. Patient does none of the effort to complete the activity. Or, the assistance of 2 or more helpers is required for the patient to complete the activity. If activity was not attempted, code reason: 7-Patient Refused. 9-Not Applicable-not attempted and the patient did not perform the activity before the current illness, exacerbation or injury. 10-Not Attempted due to Environmental Limitations-(lack of equipment, weather restraints, etc.). 88-Not Attempted due to Medical Conditions or Safety Concerns. Roll Left to Right (QC): 6 Sit to Lying (QC): 4 Sit to Stand (QC): 4 Chair/Aid-xw-[place] Xfer(QC): 4 Car Transfer (QC): 4 Gait Training Does the Patient Walk?: Yes Distance: 15' Walk 10 feet (QC): 4 Walk 50 ft with 2 Turns(QC): 88 Walk 150 ft (QC): 88 Walking 10ft/uneven surface-QC: 88 Gait Persons Needed: 1 Gait Assistive Device: FWW Wheelchair Training Does the Pt Use a Wheelchair?: Yes Distance: 120'x2 Wheel 50 ft with 2 turns (QC): 1 Wheel 150 ft (QC): 1 Type of Wheelchair: Manual Stair Training #of Steps: 1 1 Step (curb) (QC): 3 4 Steps (QC): 88 12 Steps (QC): 88 Balance Picking up an Object (QC): 88 ADL-Treatment Eating (QC): 6 (Per pt report and clincial judgment.) Oral Hygiene (QC): 6 (IND seated) Shower/Bathe Self (QC): 3 (Min A when showering. Pt required assistance w/ bilateral feet. ) Upper Body Dressing (QC): 5 (Pt required set up w/ UBD. ) Lower Body Dressing (QC): 3 (Pt required Min A donning pants for LBD.) On/Off Footwear (QC): 2 (Pt doffed gripper socks. Assist donning TEDhose and gripper socks) Toileting Hygiene (QC): 4 (CGA, pt able to manage hygiene and clothing.) Assessment/Plan Assessment and Plan Assess & Plan/Chief Complaint Assessment: COVID-19 pneumonia Acute hypoxic respiratory failure Pulmonary embolism requiring filter placement by Dr. POTTER Subarachnoid bleed due to fall no anticoagulation or antiplatelets can be used until 01/21/2021 Hypertension Orthostatic syncope Plan: Supportive care Intensive rehab IVC filter management 01/19/2021: Discussed anticoagulation with patient Continue aggressive therapy 01/20/2021: Aggressive therapy Maintain oxygen 01/21/2021: Patient doing very well Dramatic improvement (1) Post-COVID syndrome (2) Pulmonary embolism (3) DVT (deep venous thrombosis) (4) S/P IVC filter (5) Hypoxemia (6) Hypercapnia (7) Hypercholesterolemia (8) Hypertension (9) Orthostasis (10) Subarachnoid hemorrhage Critical Care Critical Care: Critically Ill Patient SARITHA APODACA DO Jan 21, 2021 06:48
[2021-01-21] MEDS: KCL 10 MEQ TAB (MICRO K) PO SCH (06:51)
[2021-01-21 07:54] VITALS: BP 110/63
[2021-01-21] MEDS: amLODIPine 5 MG (NORVASC) TAB PO SCH (08:19)
[2021-01-21] MEDS: DOCUSATE SODIUM 100 MG (COLACE) CAP PO SCH ×3 (09:44→20:30)
[2021-01-21] MEDS: polyethylene glycoL POWDER 17 GM (MIRALAX) PACK PO SCH ×2 (09:45→20:30)
[2021-01-21] MEDS: SENNA W/DOCUSATE (SENOKOT S) TABLET PO SCH ×3 (09:45→20:30)
[2021-01-21 20:00] VITALS: BP 120/82
[2021-01-22 05:58] LABS: EOSINOPHILS # (AUTO) 0.1 10^3/uL (0.0-0.3); EOSINOPHILS % (AUTO) 1 % (0-10); HEMOGLOBIN 9.3 g/dL (11.5-16.0); LYMPHOCYTES % (AUTO) 11 % (12-44)
[2021-01-22 06:00] LABS: BASOPHILS % (AUTO) 0 % (0-10); HEMATOCRIT 29 % (35-52); MEAN CORPUSCULAR HEMOGLOBIN 29 pg (25-34); MEAN CORPUSCULAR HGB CONC 32 g/dL (32-36); MEAN CORPUSCULAR VOLUME 91 fL (80-99); MEAN PLATELET VOLUME 10.1 fL (9.0-12.2); MONOCYTES # (AUTO) 0.8 10^3/uL (0.0-1.0); MONOCYTES % (AUTO) 8 % (0-12); NEUTROPHILS # (AUTO) 7.3 10^3/uL (1.8-7.8); NEUTROPHILS % (AUTO) 79 % (42-75); PLATELET COUNT 116 10^3/uL (130-400); WHITE BLOOD COUNT 9.2 10^3/uL (4.3-11.0)
[2021-01-22 06:22] LABS: ALBUMIN 2.9 GM/DL (3.2-4.5); CALCIUM 8.5 MG/DL (8.5-10.1); CREATININE SERUM 0.74 MG/DL (0.60-1.30); TOTAL PROTEIN 5.6 GM/DL (6.4-8.2)
[2021-01-22] MEDS: KCL 10 MEQ TAB (MICRO K) PO SCH (06:39)
[2021-01-22 07:30] VITALS: BP 111/71
[2021-01-22] MEDS: SENNA W/DOCUSATE (SENOKOT S) TABLET PO SCH ×2 (08:10→20:57)
[2021-01-22] MEDS: amLODIPine 5 MG (NORVASC) TAB PO SCH (08:10)
[2021-01-22] MEDS: DOCUSATE SODIUM 100 MG (COLACE) CAP PO SCH ×2 (08:11→20:58)
[2021-01-22] MEDS: polyethylene glycoL POWDER 17 GM (MIRALAX) PACK PO SCH ×2 (08:11→20:57)
--- NOTE | 2021-01-22 08:44 | Diagnostic Imaging Report ---
EXAMINATION: CT head without contrast. TECHNIQUE: Multiple contiguous axial images were obtained through the brain without the use of intravenous contrast. All CT scans use one or more of the following dose optimizing techniques: automated exposure control, MA and/or KvP adjustment based on patient size and exam type or iterative reconstruction. HISTORY: Fall. Subarachnoid hemorrhage. Follow-up. COMPARISON: None available. FINDINGS: Small amount of subarachnoid hemorrhage is seen overlying the anterior right frontal lobe. No intraparenchymal hemorrhage is seen. No evidence of large acute territorial ischemia. The ventricles and cortical sulci are mildly prominent. The basilar cisterns are patent. Chronic microvascular disease is seen in the periventricular and subcortical white matter. The sellar and suprasellar regions have a normal appearance. The orbits are normal. Paranasal sinuses are normal. Mastoid air cells are clear. No soft tissue abnormality is seen. No osseus lesions or fractures are seen. IMPRESSION: 1. Small amount of subarachnoid hemorrhage overlying the anterior right frontal lobe. No associated mass effect. 2. No large acute territorial ischemia. 3. Generalized parenchymal volume loss with chronic microvascular disease. Dictated by: Dictated on workstation # [id number]
--- NOTE | 2021-01-22 08:54 | Cardiology Progress Note ---
Subjective Date Seen by Provider: Jan 22, 2021 Time Seen by Provider: 10:55 Subjective/Events-last exam Pt reports that she is doing well. Was not on any supplemental O2 when I saw her. States that she is not having SOB while sitting without the O2. Has a dry cough. No other concerns. Review of Systems General: No Chills, No Other (fever) HEENT: No Head Aches, No Visual Changes Pulmonary: No Dyspnea; Cough Cardiovascular: No: Chest Pain, Palpitations, Lt Headedness Gastrointestinal: Constipation; No: Nausea, Vomiting, Abdominal Pain, Diarrhea Musculoskeletal: No: neck pain, shoulder pain, arm pain, leg pain Neurological: No: Weakness, Numbness, Change in speech Objective-Cardiology Exam Last Set of Vital Signs Vital Signs 01/20/21 01/22/21 01/22/21 01/22/21 22:44 07:30 08:46 09:12 Temp 37.0 Pulse 91 Resp 18 B/P (MAP) 111/71 (84) Pulse Ox 92 O2 Delivery Room Air O2 Flow Rate 2.00 FiO2 28 General: Alert, Oriented X3, Cooperative HEENT: Atraumatic, EOMI Neck: Supple, No JVD Lungs: Clear to Auscultation, Normal Air Movement Heart: Regular Rate, Normal S1, Normal S2, No Murmurs Abdomen: Soft, No Tenderness Extremities: No Clubbing, No Cyanosis, Normal Pulses, Other (Pedal edema. No pitting) Skin: No Rashes, No Breakdown, No Significant Lesion Neuro: Normal Speech Psych/Mental Status: Mental Status NL, Mood NL Results Lab Laboratory Tests 01/22/21 05:47 A/P-Cardiology Admission Diagnosis Acute respiratory failure Pulmonary embolism Subarachnoid hemorrhage Hypertension Assessment/Plan Status post acute respiratory failure, was on Vapotherm, currently doing well, feeling better. No new complaint Sinus tachycardia and hypotension probably secondary to pulmonary embolism and severe hypoxemia. Unable to tolerate aggressive anticoagulation due to subarachnoid hemorrhage, Recommend discussing with the neurologist to evaluate the timing that we can start anticoagulation. Head CT done this morning. Waiting for results. COVID-19 pneumonia, patient recovered but was still having underlying shortness of breath requiring oxygen. DVT, pulmonary embolism, had subarachnoid hemorrhage, cannot tolerate aggressive anticoagulation, underwent IVC filter placement. Orthostatic hypotension, multiple near syncopal episode, had to reported syncope, subarachnoid hemorrhage secondary to head trauma from syncope. Monitor blood pressure Subarachnoid hemorrhage, unable to tolerate any type of anticoagulation at this point. Continue with conservative management. CT head done this morning. History of hyperlipidemia, maintained on statin as an outpatient Supervisory-Addendum Brief Verification & Attestation Participated in pt care: history, MDM, physical Personally performed: exam, history, MDM, supervision of care Care discussed with: Medical Student Procedures: n/a Results interpretation: Verified all documentation Verification and Attestation of Medical Student E/M Service A medical student performed and documented this service in my presence. I reviewed and verified all information documented by the medical student and made modifications to such information, when appropriate. I personally performed the physical exam and medical decision making. Charisse Mark, Jan 22, 2021,10:56 MARLINE AUGUST Jan 22, 2021 08:54 CHARISSE MARK MD Jan 22, 2021 10:56
--- NOTE | 2021-01-22 10:26 | Physical Therapy Daily Note ---
PT Daily Note-Current Subjective Patient in recliner pre tx, agrees to PT, has no complaints of pain, patient needs to use the commode, transfers with SBA, she is able to do her pants and clean without assist Appearance Patient in recliner post tx with nurse call, phone, tray, all needs met. Mental Status Patient Orientation: Person, Place, Situation Transfers SCALE: Activities may be completed with or without assistive devices. 2-Trewyjbrsg-vltsuxp completes the activity by him/herself with no assistance from a helper. 5-Set-up or Clean-up Assistance-helper sets up or cleans up; patient completes activity. [place] assists only prior to or following the activity. 4-Supervision or Touching Assistance-helper provides verbal cues and/or touching/steadying and/or contact guard assistance as patient completes activity. Assistance may be provided throughout the activity or intermittently. 3-Partial/Moderate Assistance-helper does LESS THAN HALF the effort. [place] lifts, holds or supports trunk or limbs, but provides less than half the effort. 2-Substantial/Maximal Assistance-helper does MORE THAN HALF the effort. [place] lifts or holds trunk or limbs and provides more than half the effort. 6-Emgrtemlb-ywbmwf does ALL the effort. Patient does none of the effort to complete the activity. Or, the assistance of 2 or more helpers is required for the patient to complete the activity. If activity was not attempted, code reason: 7-Patient Refused. 9-Not Applicable-not attempted and the patient did not perform the activity before the current illness, exacerbation or injury. 10-Not Attempted due to Environmental Limitations-(lack of equipment, weather restraints, etc.). 88-Not Attempted due to Medical Conditions or Safety Concerns. Sit to Stand (QC): 4 Chair/Fgj-xs-Fpkku Xfer(QC): 4 SBA Weight Bearing Full Weight Bearing Full Weight Bearing Gait Training Distance: 20'x3 Walk 10 feet (QC): 4 Gait Persons Needed: 1 Gait Assistive Device: FWW SBA, slow but steady ambulation, no O2, her O2 sat dropped to 88% after ambulation but came back up quickly with rest even with no supplemental O2 Wheelchair Training Does the Pt Use a Wheelchair?: Yes Wheel 50 ft with 2 turns (QC): 5 Type of Wheelchair: Manual 120'x2 Exercises NuStep Minutes: 15 NuStep Workload: 4 Treatments toileting, transfers, ambulation, functional strengthening Assessment Current Status: Fair Progress Patient is ready for an increase in PT time, will try an extra 15 min tomorrow. PT Short Term Goals Short Term Goals Time Frame: Jan 25, 2021 Roll Left & Right: 6 Sit to lyin Lying to sitting on side of be: 5 Sit to stand: 4 Chair/wul-dw-ogpiv transfer: 4 Walk 10 feet: 4 PT Credit Administration Officer Goals Credit Administration Officer Goals PT Credit Administration Officer Goals Time Frame: Feb 08, 2021 Roll Left & Right (QC): 6 Sit to Lying (QC): 6 Lying-Sitting on Side/Bed(QC): 6 Sit to Stand (QC): 5 Chair/Clo-im-Pxqjg Xfer(QC): 5 Toilet Transfer (QC): 5 Car Transfer (QC): 4 Does the Patient Walk: Yes Walk 10 feet (QC): 4 Walk 50ft with 2 Turns (QC): 4 Walk 150 ft (QC): 88 Walking 10ft on Uneven Surface: 4 1 Step (curb) (QC): 4 4 Steps (QC): 88 12 Steps (QC): 88 Picking up an Object (QC): 88 Wheel 50 feet with 2 turns (QC: 9 Wheel 150 feet: 9 PT Plan Problem List Problem List: Activity Tolerance, Functional Strength, Safety, Balance, Gait, Transfer, Bed Mobility, ROM Treatment/Plan Treatment Plan: Continue Plan of Care Treatment Plan: Bed Mobility, Education, Functional Activity Jo Ann, Functional Strength, Group Therapy, Gait, Safety, Therapeutic Exercise, Transfers Treatment Duration: Feb 08, 2021 Frequency: At least 5 of 7 days/Wk (IRF) Estimated Hrs Per Day: 1.5 hours per day Patient and/or Family Agrees t: Yes Safety Risks/Education Patient Education: Gait Training, Transfer Techniques, Correct Positioning, Safety Issues Teaching Recipient: Patient Teaching Methods: Demonstration, Discussion Response to Teaching: Reinforcement Needed Time/GCodes Time In: 929 Time Out: 1030 Total Billed Treatment Time: 60 Total Billed Treatment 1 visit EX 15' FA 45' NARAYAN ORDOÑEZ PT Jan 22, 2021 10:26
--- NOTE | 2021-01-22 12:11 | Occupational Ther Daily Note ---
OT Current Status-Daily Note Subjective Pt was seated in chair upon Ot arrival. Pt stated she did not want to do a shower today, prefers to take a shower in the AM. Pt stated she would participate in OT tx session in the therapy gym. Mental Status/Objective Patient Orientation: Person, Place, Time, Situation Attachments: IV ADL-Treatment Therapy Code Descriptions/Definitions Functional [place] Measure: 0=Not Assessed/NA 4=Minimal Assistance 1=Total Assistance 5=Supervision or Setup 2=Maximal Assistance 6=Modified [place] 3=Moderate Assistance 7=Complete IndependenceSCALE: Activities may be completed with or without assistive devices. 4-Kxmptkuqrs-laaoesw completes the activity by him/herself with no assistance from a helper. 5-Set-up or Clean-up Assistance-helper sets up or cleans up; patient completes activity. [place] assists only prior to or following the activity. 4-Supervision or Touching Assistance-helper provides verbal cues and/or touching/steadying and/or contact guard assistance as patient completes activity. Assistance may be provided throughout the activity or intermittently. 3-Partial/Moderate Assistance-helper does LESS THAN HALF the effort. [place] lift s, holds or supports trunk or limbs, but provides less than half the effort. 2-Substantial/Maximal Assistance-helper does MORE THAN HALF the effort. [place] lifts or holds trunk or limbs and provides more than half the effort. 4-Veorckqqh-cezlju does ALL the effort. Patient does none of the effort to complete the activity. Or, the assistance of 2 or more helpers is required for the patient to complete the activity. If activity was not attempted, code reason: 7-Patient Refused. 9-Not Applicable-not attempted and the patient did not perform the activity before the current illness, exacerbation or injury. 10-Not Attempted due to Environmental Limitations-(lack of equipment, weather restraints, etc.). 88-Not Attempted due to Medical Conditions or Safety Concerns. Other Treatment Pt transferred from chair to w/c utilizing a FWW at [facility]. Pt participated in functional mobility wheeling w/c from room to Therapy gym at [facility] to support strength and endurance for ADL function. Pt performed peg board activity with 1lb wrist weights BUEs,by applying 100 pegs to peg board with set up in 7 min. 30 sec, removing 100 pegs from peg board with set up in 2 min. 45 sec. Pt then participated in nut and bolt activity board applying 16/16 in 15 min at [facility] with set up, requiring 10 VC. 1lb wrist weights BUEs with task. OT tx session focused on increasing BUE strength, activity tolerance, increasing fine motor strength and coordination. Pt participated in functional mobility wheeling w/c from Therapy gym to room at [facility] to support strength and endurance for ADL function. Pt transferred from w/c to chair utilizing a FWW at [facility]. Post tx, Pt was seated in chair, call light in reach, and all needs met. Education OT Patient Education: Correct positioning, Energy conservation, Progress toward Goal/Update tx plan, Purpose of tx/functional activities, Safety issues Teaching Recipient: Patient Teaching Methods: Demonstration, Discussion Response to Teaching: Verbalize Understanding, Return Demonstration OT Short Term Goals Short Term Goals Time Frame: Jan 26, 2021 Shower/bathe self: 5 Upper body dressin Lower body dressin Putting on/taking off footwear: 5 OT Skilled Nursing Goals Skilled Nursing Goals Time Frame: Feb 09, 2021 Eating (QC): 6 Oral Hygiene (QC): 6 Toileting Hygiene (QC): 6 Shower/Bathe Self (QC): 6 Upper Body Dressing (QC): 6 Lower Body Dressing (QC): 6 On/Off Footwear (QC): 6 1=Demonstrate adherence to instructed precautions during ADL tasks. 2=Patient will verbalize/demonstrate understanding of assistive devices/modifications for ADL. 3=Patient will improve strength/tolerance for activity to enable patient to perform ADL's. OT Education/Plan Problem List/Assessment Assessment: Decreased Activ Tolerance, Decreased Safety Aware, Decreased UE Strength, Impaired Coordination, Impaired Self-Care Skills Discharge Recommendations Plan/Recommendations: Continue POC Treatment Plan/Plan of Care Patient would benefit from OT for education, treatment and training to promote independence in ADL's, mobility, safety and/or upper extremity function for ADL's. Plan of Care: ADL Retraining, Functional Mobility, Group Exercise/Act as Ind, UE Funct Exercise/Act Treatment Duration: Feb 09, 2021 Frequency: Modified Program (IRF) Estimated Hrs Per Day: 1 hour per day Rehab Potential: Fair Time/GCodes Start Time: 11:00 Stop Time: 12:00 Total Time Billed (hr/min): 60 Billed Treatment Time 1 visit, FA 4 KRYS PERALTA OT Jan 22, 2021 12:11
--- NOTE | 2021-01-22 13:32 | Occupational Ther Daily Note ---
OT Current Status-Daily Note Subjective Pt was seated in chair upon OT arrival. Pt stated she was ready to do tx session in her room. Mental Status/Objective Patient Orientation: Person, Place, Situation Attachments: IV ADL-Treatment Therapy Code Descriptions/Definitions Functional [place] Measure: 0=Not Assessed/NA 4=Minimal Assistance 1=Total Assistance 5=Supervision or Setup 2=Maximal Assistance 6=Modified [place] 3=Moderate Assistance 7=Complete IndependenceSCALE: Activities may be completed with or without assistive devices. 1-Lrmasmtvwh-ugfbalp completes the activity by him/herself with no assistance from a helper. 5-Set-up or Clean-up Assistance-helper sets up or cleans up; patient completes activity. [place] assists only prior to or following the activity. 4-Supervision or Touching Assistance-helper provides verbal cues and/or touching/steadying and/or contact guard assistance as patient completes activity. Assistance may be provided throughout the activity or intermittently. 3-Partial/Moderate Assistance-helper does LESS THAN HALF the effort. [place] lifts, holds or supports trunk or limbs, but provides less than half the effort. 2-Substantial/Maximal Assistance-helper does MORE THAN HALF the effort. [place] lifts or holds trunk or limbs and provides more than half the effort. 0-Rxzoiqktc-chgseg does ALL the effort. Patient does none of the effort to complete the activity. Or, the assistance of 2 or more helpers is required for the patient to complete the activity. If activity was not attempted, code reason: 7-Patient Refused. 9-Not Applicable-not attempted and the patient did not perform the activity before the current illness, exacerbation or injury. 10-Not Attempted due to Environmental Limitations-(lack of equipment, weather restraints, etc.). 88-Not Attempted due to Medical Conditions or Safety Concerns. Other Treatment Pt participated while seated in chair in card organizing activity w/ bedside table at [facility], requiring 6 VC. Pt first sorted cards by suit, then by sequence. Pt tx session focused on cognition, sequencing, activity tolerance, fine motor coordination/manipulation, and endurance. Then Pt participated in T-Putty activity, medium resistance, to support function in ADLs, pt removed beads from putty, no verbal cues required. Post tx, Pt was seated in chair, call light in reach, and all needs met. Education OT Patient Education: Energy conservation, Progress toward Goal/Update tx plan, Purpose of tx/functional activities, Safety issues Teaching Recipient: Patient Teaching Methods: Demonstration Response to Teaching: Return Demonstration OT Short Term Goals Short Term Goals Time Frame: Jan 26, 2021 Shower/bathe self: 5 Upper body dressin Lower body dressin Putting on/taking off footwear: 5 OT Long-Term Goals Long-Term Goals Time Frame: Feb 09, 2021 Eating (QC): 6 Oral Hygiene (QC): 6 Toileting Hygiene (QC): 6 Shower/Bathe Self (QC): 6 Upper Body Dressing (QC): 6 Lower Body Dressing (QC): 6 On/Off Footwear (QC): 6 1=Demonstrate adherence to instructed precautions during ADL tasks. 2=Patient will verbalize/demonstrate understanding of assistive devices/modifications for ADL. 3=Patient will improve strength/tolerance for activity to enable patient to perform ADL's. OT Education/Plan Problem List/Assessment Assessment: Decreased Activ Tolerance, Decreased UE Strength, Impaired Coordi nation, Impaired Self-Care Skills Discharge Recommendations Plan/Recommendations: Continue POC Treatment Plan/Plan of Care Patient would benefit from OT for education, treatment and training to promote independence in ADL's, mobility, safety and/or upper extremity function for ADL's. Plan of Care: ADL Retraining, Functional Mobility, Group Exercise/Act as Ind, UE Funct Exercise/Act Treatment Duration: Feb 09, 2021 Frequency: Modified Program (IRF) Estimated Hrs Per Day: 1 hour per day Rehab Potential: Fair Time/GCodes Start Time: 13:00 Stop Time: 13:30 Total Time Billed (hr/min): 30 Billed Treatment Time 1 visit, FA 2 KRYS PERALTA OT Jan 22, 2021 13:32
[2021-01-22 19:40] VITALS: BP 114/71
[2021-01-22] MEDS: ACETAMINOPHEN 325 MG TABLET PO PRN (20:55)
--- NOTE | 2021-01-22 21:05 | PM&R Progress Note ---
Subjective HPI/CC On Admission Date Seen by Provider: Jan 22, 2021 Time Seen by Provider: 09:15 Subjective/Events-last exam 01/22/2021: Patient dramatically improved Monitor closely Bowels moved today Now on room air Hemoglobin 9.3 CT scan reviewed and will discuss details tomorrow 01/21/2021: Patient much improved Still on 2 L of oxygen Still gets dyspneic with exertion Bowels moving 01/20/2021: Patient doing much better On 2 L of oxygen Walking around Much improved status 01/19/2021: Patient settling in well Maintain on 3 L 94% Bowels moved today Feels more energized Appears dramatically improved Review of Systems General: Fatigue, Malaise Objective Exam Vital Signs Vital Signs Date Time Temp Pulse Resp B/P (MAP) Pulse Ox O2 Delivery O2 Flow Rate FiO2 01/23/21 00:00 36.9 91 Room Air 01/22/21 19:40 107 16 114/71 (85) 01/22/21 08:46 2.00 01/20/21 22:44 28 Capillary Refill : General Appearance: No Apparent Distress, Chronically ill HEENT: PERRL/EOMI, Normal ENT Inspection, Pharynx Normal Neck: Full Range of Motion, Normal Inspection, Non Tender, Supple, Carotid Bruit Respiratory: Chest Non Tender, Lungs Clear, Normal Breath Sounds, No Accessory Muscle Use, No Respiratory Distress Cardiovascular: Regular Rate, Rhythm, No Edema, No Gallop, No JVD, No Murmur, Normal Peripheral Pulses Gastrointestinal: Normal Bowel Sounds, No Organomegaly, No Pulsatile Mass, Non Tender, Soft Back: Normal Inspection, No CVA Tenderness, No Vertebral Tenderness Extremity: Normal Capillary Refill, Normal Inspection, Normal Range of Motion, Non Tender, No Calf Tenderness, No Pedal Edema Neurologic/Psychiatric: Alert, Oriented x3, No Motor/Sensory Deficits, 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 FIM Transfers Therapy Code Descriptions/Definitions Functional [place] Measure: 0=Not Assessed/NA 4=Minimal Assistance 1=Total Assistance 5=Supervision or Setup 2=Maximal Assistance 6=Modified [place] 3=Moderate Assistance 7=Complete IndependenceSCALE: Activities may be completed with or without assistive devices. 3-Nfpqjvigrc-rhsopgu completes the activity by him/herself with no assistance from a helper. 5-Set-up or Clean-up Assistance-helper sets up or cleans up; patient completes activity. [place] assists only prior to or following the activity. 4-Supervision or Touching Assistance-helper provides verbal cues and/or touching/steadying and/or contact guard assistance as patient completes activity. Assistance may be provided throughout the activity or intermittently. 3-Partial/Moderate Assistance-helper does LESS THAN HALF the effort. [place] lifts, holds or supports trunk or limbs, but provides less than half the effort. 2-Substantial/Maximal Assistance-helper does MORE THAN HALF the effort. [place] lifts or holds trunk or limbs and provides more than half the effort. 3-Kqwajqilo-jkgeuv does ALL the effort. Patient does none of the effort to complete the activity. Or, the assistance of 2 or more helpers is required for the patient to complete the activity. If activity was not attempted, code reason: 7-Patient Refused. 9-Not Applicable-not attempted and the patient did not perform the activity before the current illness, exacerbation or injury. 10-Not Attempted due to Environmental Limitations-(lack of equipment, weather restraints, etc.). 88-Not Attempted due to Medical Conditions or Safety Concerns. Roll Left to Right (QC): 6 Sit to Lying (QC): 4 Sit to Stand (QC): 4 Chair/Gej-hi-Hlgne Xfer(QC): 4 Car Transfer (QC): 4 Gait Training Does the Patient Walk?: Yes Distance: 20'x3 Walk 10 feet (QC): 4 Walk 50 ft with 2 Turns(QC): 88 Walk 150 ft (QC): 88 Walking 10ft/uneven surface-QC: 88 Gait Persons Needed: 1 Gait Assistive Device: FWW Wheelchair Training Does the Pt Use a Wheelchair?: Yes Distance: 120'x2 Wheel 50 ft with 2 turns (QC): 5 Wheel 150 ft (QC): 1 Type of Wheelchair: Manual Stair Training #of Steps: 1 1 Step (curb) (QC): 3 4 Steps (QC): 88 12 Steps (QC): 88 Balance Picking up an Object (QC): 88 ADL-Treatment Eating (QC): 6 (Per pt report and clincial judgment.) Oral Hygiene (QC): 6 (IND seated) Shower/Bathe Self (QC): 3 (Min A when showering. Pt required assistance w/ bilateral feet. ) Upper Body Dressing (QC): 5 (Pt required set up w/ UBD. ) Lower Body Dressing (QC): 3 (Pt required Min A donning pants for LBD.) On/Off Footwear (QC): 2 (Pt doffed gripper socks. Assist donning TEDhose and gripper socks) Toileting Hygiene (QC): 4 (CGA, pt able to manage hygiene and clothing.) Assessment/Plan Assessment and Plan Assess & Plan/Chief Complaint Assessment: COVID-19 pneumonia Acute hypoxic respiratory failure Pulmonary embolism requiring filter placement by Dr. POTTER Subarachnoid bleed due to fall no anticoagulation or antiplatelets can be used until 01/21/2021 Hypertension Orthostatic syncope Plan: Supportive care Intensive rehab IVC filter management 01/19/2021: Discussed anticoagulation with patient Continue aggressive therapy 01/20/2021: Aggressive therapy Maintain oxygen 01/21/2021: Patient doing very well Dramatic improvement 01/22/2021: Supportive care CT scan reviewed (1) Post-COVID syndrome (2) Pulmonary embolism (3) DVT (deep venous thrombosis) (4) S/P IVC filter (5) Hypoxemia (6) Hypercapnia (7) Hypercholesterolemia (8) Hypertension (9) Orthostasis (10) Subarachnoid hemorrhage Critical Care Critical Care: Critically Ill Patient SARITHA APODACA DO Jan 22, 2021 21:05
[2021-01-23] MEDS: KCL 10 MEQ TAB (MICRO K) PO SCH (06:46)
--- NOTE | 2021-01-23 07:42 | Cardiology Progress Note ---
Subjective Date Seen by Provider: Jan 23, 2021 Time Seen by Provider: 08:51 Subjective/Events-last exam Pt has been off supplemental O2 since yesterday. Reports having no troubles breathing. Dry cough present. Denied any other concerns. Review of Systems General: No Chills; Fatigue; No Other (fever) HEENT: No Head Aches, No Visual Changes, No Eye Pain Pulmonary: No Dyspnea; Cough Cardiovascular: No: Chest Pain, Palpitations, Lt Headedness Gastrointestinal: No: Nausea, Vomiting, Abdominal Pain Genitourinary: No Dysuria, No Frequency Musculoskeletal: No: neck pain, back pain, leg pain, foot pain Neurological: No: Weakness, Numbness, Change in speech, Confusion Objective-Cardiology Exam Last Set of Vital Signs Vital Signs 01/20/21 01/22/21 01/23/21 01/23/21 22:44 08:46 07:52 08:29 Temp 37.0 Pulse 100 Resp 14 B/P (MAP) 104/59 (74) Pulse Ox 94 O2 Delivery Room Air O2 Flow Rate 2.00 FiO2 28 General: Alert, Oriented X3, Cooperative HEENT: Atraumatic, EOMI Neck: Supple, No JVD Lungs: Clear to Auscultation, Normal Air Movement Heart: Regular Rate, Normal S1, Normal S2, No Murmurs Abdomen: Soft, No Tenderness Extremities: No Clubbing, No Cyanosis, Normal Pulses, Other (Pedal edema. No pitting) Skin: No Rashes, No Breakdown, No Significant Lesion Neuro: Normal Speech Psych/Mental Status: Mental Status NL, Mood NL A/P-Cardiology Admission Diagnosis Acute respiratory failure Pulmonary embolism Subarachnoid hemorrhage Hypertension Assessment/Plan Status post acute respiratory failure, was on Vapotherm, no longer needing oxygen supplementation, currently doing well, feeling better. No new complaint Sinus tachycardia and hypotension probably secondary to pulmonary embolism and severe hypoxemia. Unable to tolerate aggressive anticoagulation due to subarachnoid hemorrhage, Recommend discussing with the neurologist to evaluate the timing that we can start anticoagulation. Head CT done yesterday. According to radiology showed small amount of subarachnoid hemorrhage overlying the anterior right frontal lobe. No associated mass effect. No large acute territorial ischemia. Generalized parenchymal volume loss with chronic microv ascular disease. COVID-19 pneumonia, patient recovered no longer requiring oxygen. DVT, pulmonary embolism, had subarachnoid hemorrhage, cannot tolerate aggressive anticoagulation, underwent IVC filter placement. Orthostatic hypotension, multiple near syncopal episode, had to reported syncope, subarachnoid hemorrhage secondary to head trauma from syncope. Monitor blood pressure Subarachnoid hemorrhage, unable to tolerate any type of anticoagulation at this point. Continue with conservative management. CT head done yesterday. History of hyperlipidemia, maintained on statin as an outpatient Supervisory-Addendum Brief Verification & Attestation Participated in pt care: history, MDM, physical Personally performed: exam, history, MDM, supervision of care Care discussed with: Medical Student Procedures: n/a Results interpretation: Verified all documentation Verification and Attestation of Medical Student E/M Service A medical student performed and documented this service in my presence. I reviewed and verified all information documented by the medical student and made modifications to such information, when appropriate. I personally performed the physical exam and medical decision making. Charisse Mark, Jan 23, 2021,08:52 MARLINE AUGUST Jan 23, 2021 07:42 CHARISSE MARK MD Jan 23, 2021 08:52
[2021-01-23 07:52] VITALS: BP 104/59
[2021-01-23] MEDS: polyethylene glycoL POWDER 17 GM (MIRALAX) PACK PO SCH ×2 (07:57→20:30)
[2021-01-23] MEDS: DOCUSATE SODIUM 100 MG (COLACE) CAP PO SCH ×2 (07:57→20:30)
[2021-01-23] MEDS: amLODIPine 5 MG (NORVASC) TAB PO SCH (07:57)
[2021-01-23] MEDS: SENNA W/DOCUSATE (SENOKOT S) TABLET PO SCH ×2 (07:57→20:30)
--- NOTE | 2021-01-23 08:59 | Occupational Ther Daily Note ---
OT Current Status-Daily Note Subjective Pt was seated in chair upon OT arrival. Pt stated she was ready for a shower. Mental Status/Objective Patient Orientation: Person, Place, Time, Situation ADL-Treatment Therapy Code Descriptions/Definitions Functional [place] Measure: 0=Not Assessed/NA 4=Minimal Assistance 1=Total Assistance 5=Supervision or Setup 2=Maximal Assistance 6=Modified [place] 3=Moderate Assistance 7=Complete IndependenceSCALE: Activities may be completed with or without assistive devices. 4-Eskuxlyopn-jzhfctt completes the activity by him/herself with no assistance from a helper. 5-Set-up or Clean-up Assistance-helper sets up or cleans up; patient completes activity. [place] assists only prior to or following the activity. 4-Supervision or Touching Assistance-helper provides verbal cues and/or touching/steadying and/or contact guard assistance as patient completes activity. Assistance may be provided throughout the activity or intermittently. 3-Partial/Moderate Assistance-helper does LESS THAN HALF the effort. [place] lifts, holds or supports trunk or limbs, but provides less than half the effort. 2-Substantial/Maximal Assistance-helper does MORE THAN HALF the effort. [place] lifts or holds trunk or limbs and provides more than half the effort. 5-Rnpfmmcvo-qpcaly does ALL the effort. Patient does none of the effort to complete the activity. Or, the assistance of 2 or more helpers is required for the patient to complete the activity. If activity was not attempted, code reason: 7-Patient Refused. 9-Not Applicable-not attempted and the patient did not perform the activity before the current illness, exacerbation or injury. 10-Not Attempted due to Environmental Limitations-(lack of equipment, weather restraints, etc.). 88-Not Attempted due to Medical Conditions or Safety Concerns. Oral Hygiene (QC): 4 (Pt stood w/ FWW sink-side for hygiene task at [facility].) Shower/Bathe Self (QC): 4 (Pt was able to wash all parts w/ set up at [facility]. ) Upper Body Dressing (QC): 5 (Pt was able to amada/doff UB w/set up ) Lower Body Dressing (QC): 4 (Pt was able to amada/doff LB, CGA. No AE required ) On/Off Footwear: 3 (Pt was able to amada/doff gripper socks. Pt was able to doff Pierre-Hose. Pt required assistance to amada Pierre-Hose. No AE with task.) Toileting Hygiene (QC): 4 (Pt was able to complete toileting task w/ CGA in sta nd for clothing management) Toilet Transfer (QC): 4 (Pt required CGA w/ FWW when using functional mobitly for task.) Other Treatment Pt utilized FWW for functional mobility from chiar to toilet at [facility]. Pt then to ileted, see QC's above. Pt. utilized FWW for functional mobility from toilet to shower seat at [facility]. Pt performed doffing/donning clothing, showering, and grooming tasks please see above for QC's. Pt then utilized w/c for UB strength by self propulsion from room to Therapy Gym, at [facility], no rest breaks, for skill and function. Pt participated in arm bike exercise at 20 watt resistance while seated in w/c for a total of 6 min 4 sec, requiring 4 rest breaks, to support endurance training for ADLs. Pt then utilized w/c for UB strength by self propulsion from Therapy Gym to room, at [facility], no rest breaks, for skill and function. Post tx session, Pt was seated in chair, call light in reach, and all needs met. Education OT Patient Education: Correct positioning, Energy conservation, Modified ADL techniques, Progress toward Goal/Update tx plan, Purpose of tx/functional activities Teaching Recipient: Patient Teaching Methods: Discussion Response to Teaching: Verbalize Understanding OT Short Term Goals Short Term Goals Time Frame: Jan 26, 2021 Shower/bathe self: 5 Upper body dressin Lower body dressin Putting on/taking off footwear: 5 OT Associate Professor Of Counseling Goals Associate Professor Of Counseling Goals Time Frame: Feb 09, 2021 Eating (QC): 6 Oral Hygiene (QC): 6 Toileting Hygiene (QC): 6 Shower/Bathe Self (QC): 6 Upper Body Dressing (QC): 6 Lower Body Dressing (QC): 6 On/Off Footwear (QC): 6 1=Demonstrate adherence to instructed precautions during ADL tasks. 2=Patient will verbalize/demonstrate understanding of assistive devices/modifications for ADL. 3=Patient will improve strength/tolerance for activity to enable patient to p erform ADL's. OT Education/Plan Problem List/Assessment Assessment: Decreased Activ Tolerance, Decreased UE Strength, Impaired Funct Balance, Impaired I ADL's, Impaired Self-Care Skills Discharge Recommendations Plan/Recommendations: Continue POC Treatment Plan/Plan of Care Patient would benefit from OT for education, treatment and training to promote independence in ADL's, mobility, safety and/or upper extremity function for ADL's. Plan of Care: ADL Retraining, Functional Mobility, Group Exercise/Act as Ind, U E Funct Exercise/Act Treatment Duration: Feb 09, 2021 Frequency: Modified Program (IRF) Estimated Hrs Per Day: 1 hour per day Rehab Potential: Fair Time/GCodes Start Time: 08:00 Stop Time: 09:00 Total Time Billed (hr/min): 60 Billed Treatment Time 1 visit, ADL 3 (45), EX (15) KRYS PERALTA OT Jan 23, 2021 08:59
--- NOTE | 2021-01-23 10:19 | PM&R Progress Note ---
Subjective HPI/CC On Admission Date Seen by Provider: Jan 23, 2021 Time Seen by Provider: 09:45 Subjective/Events-last exam 01/23/2021: Patient remains on room air Doing very well We will set discharge date during team conference tomorrow Subarachnoid hemorrhage noted on noncontrast CT and I feel since she has an IVC filter risk of starting anticoagulation outweighs the benefits at this current time 01/22/2021: Patient dramatically improved Monitor closely Bowels moved today Now on room air Hemoglobin 9.3 CT scan reviewed and will discuss details tomorrow 01/21/2021: Patient much improved Still on 2 L of oxygen Still gets dyspneic with exertion Bowels moving 01/20/2021: Patient doing much better On 2 L of oxygen Walking around Much improved status 01/19/2021: Patient settling in well Maintain on 3 L 94% Bowels moved today Feels more energized Appears dramatically improved Review of Systems General: Fatigue, Malaise Objective Exam Vital Signs Vital Signs Date Time Temp Pulse Resp B/P (MAP) Pulse Ox O2 Delivery O2 Flow Rate FiO2 01/23/21 23:33 37.2 94 Room Air 01/23/21 20:00 116 16 122/67 (85) 01/22/21 08:46 2.00 01/20/21 22:44 28 Capillary Refill : General Appearance: No Apparent Distress, Chronically ill HEENT: PERRL/EOMI, Normal ENT Inspection, Pharynx Normal Neck: Full Range of Motion, Normal Inspection, Non Tender, Supple, Carotid Bruit Respiratory: Chest Non Tender, Lungs Clear, Normal Breath Sounds, No Accessory Muscle Use, No Respiratory Distress Cardiovascular: Regular Rate, Rhythm, No Edema, No Gallop, No JVD, No Murmur, Normal Peripheral Pulses Gastrointestinal: Normal Bowel Sounds, No Organomegaly, No Pulsatile Mass, Non Tender, Soft Back: Normal Inspection, No CVA Tenderness, No Vertebral Tenderness Extremity: Normal Capillary Refill, Normal Inspection, Normal Range of Motion, Non Tender, No Calf Tenderness, No Pedal Edema Neurologic/Psychiatric: Alert, Oriented x3, No Motor/Sensory Deficits, floor sander II- XII Norm as Tested, Depressed Affect, Motor Weakness (generalized all ext remities 4/5) Skin: Normal Color, Warm/Dry Lymphatic: No Adenopathy Results/Procedures Lab Patient resulted labs reviewed. FIM Transfers Therapy Code Descriptions/Definitions Functional [place] Measure: 0=Not Assessed/NA 4=Minimal Assistance 1=Total Assistance 5=Supervision or Setup 2=Maximal Assistance 6=Modified [place] 3=Moderate Assistance 7=Complete IndependenceSCALE: Activities may be completed with or without assistive devices. 0-Kwszelrobj-jkljcig completes the activity by him/herself with no assistance from a helper. 5-Set-up or Clean-up Assistance-helper sets up or cleans up; patient completes activity. [place] assists only prior to or following the activity. 4-Supervision or Touching Assistance-helper provides verbal cues and/or touching/steadying and/or contact guard assistance as patient completes activity. Assistance may be provided throughout the activity or intermittently. 3-Partial/Moderate Assistance-helper does LESS THAN HALF the effort. [place] lifts, holds or supports trunk or limbs, but provides less than half the effort. 2-Substantial/Maximal Assistance-helper does MORE THAN HALF the effort. [place] lifts or holds trunk or limbs and provides more than half the effort. 0-Asgolwsdd-mkjkja does ALL the effort. Patient does none of the effort to complete the activity. Or, the assistance of 2 or more helpers is required for the patient to complete the activity. If activity was not attempted, code reason: 7-Patient Refused. 9-Not Applicable-not attempted and the patient did not perform the activity before the current illness, exacerbation or injury. 10-Not Attempted due to Environmental Limitations-(lack of equipment, weather restraints, etc.). 88-Not Attempted due to Medical Conditions or Safety Concerns. Roll Left to Right (QC): 6 Sit to Lying (QC): 4 Sit to Stand (QC): 4 Chair/Mjm-wv-Sncoo Xfer(QC): 4 Car Transfer (QC): 4 Gait Training Does the Patient Walk?: Yes Distance: 20'x3 Walk 10 feet (QC): 4 Walk 50 ft with 2 Turns(QC): 88 Walk 150 ft (QC): 88 Walking 10ft/uneven surface-QC: 88 Gait Persons Needed: 1 Gait Assistive Device: FWW Wheelchair Training Does the Pt Use a Wheelchair?: Yes Distance: 120'x2 Wheel 50 ft with 2 turns (QC): 5 Wheel 150 ft (QC): 1 Type of Wheelchair: Manual Stair Training #of Steps: 1 1 Step (curb) (QC): 3 4 Steps (QC): 88 12 Steps (QC): 88 Balance Picking up an Object (QC): 88 ADL-Treatment Eating (QC): 6 (Per pt report and clincial judgment.) Oral Hygiene (QC): 4 (Pt stood w/ FWW sink-side for hygiene task at CGA.) Shower/Bathe Self (QC): 5 (Pt was able to wash all parts w/ set up at SBA. ) Upper Body Dressing (QC): 5 (Pt was able to amada/doff UB w/set up at SBA.) Lower Body Dressing (QC): 5 (Pt was able to amada/doff LB w/ set up at SBA. ) On/Off Footwear (QC): 3 (Pt was able to amada/doff gripper socks. Pt was able to doff Pierre-Hose. Pt required assistance to amada Pierre-Hose at Min A.) Toileting Hygiene (QC): 5 (Pt was able to complete toileting task w/ therapist flushing toilet. ) Toilet Transfer (QC): 4 (Pt required CGA w/ FWW when using functional mobitly for task.) Assessment/Plan Assessment and Plan Assess & Plan/Chief Complaint Assessment: COVID-19 pneumonia Acute hypoxic respiratory failure Pulmonary embolism requiring filter placement by Dr. POTTER Subarachnoid bleed due to fall no anticoagulation or antiplatelets can be used until 01/21/2021 Hypertension Orthostatic syncope Plan: Supportive care Intensive rehab IVC filter management 01/19/2021: Discussed anticoagulation with patient Continue aggressive therapy 01/20/2021: Aggressive therapy Maintain oxygen 01/21/2021: Patient doing very well Dramatic improvement 01/22/2021: Supportive care CT scan reviewed 01/23/2021: No anticoagulation due to subarachnoid hemorrhage on repeat CT (1) Post-COVID syndrome (2) Pulmonary embolism (3) DVT (deep venous thrombosis) (4) S/P IVC filter (5) Hypoxemia (6) Hypercapnia (7) Hypercholesterolemia (8) Hypertension (9) Orthostasis (10) Subarachnoid hemorrhage Critical Care Critical Care: Critically Ill Patient SARITHA APODACA DO Jan 23, 2021 10:19
--- NOTE | 2021-01-23 10:24 | Physical Therapy Daily Note ---
PT Daily Note-Current Subjective Patient in recliner pre tx, agrees to PT, has no complaints of pain. Appearance Patient in recliner post tx with nurse call, phone, tray, all needs met. Mental Status Patient Orientation: Person, Place, Situation Transfers SCALE: Activities may be completed with or without assistive devices. 7-Lxdswsisco-axnczxm completes the activity by him/herself with no assistance from a helper. 5-Set-up or Clean-up Assistance-helper sets up or cleans up; patient completes activity. [place] assists only prior to or following the activity. 4-Supervision or Touching Assistance-helper provides verbal cues and/or maria grady/steadying and/or contact guard assistance as patient completes activity. Assistance may be provided throughout the activity or intermittently. 3-Partial/Moderate Assistance-helper does LESS THAN HALF the effort. [place] lifts, holds or supports trunk or limbs, but provides less than half the effort. 2-Substantial/Maximal Assistance-helper does MORE THAN HALF the effort. [place] lifts or holds trunk or limbs and provides more than half the effort. 6-Gtmueujkm-biftdm does ALL the effort. Patient does none of the effort to complete the activity. Or, the assistance of 2 or more helpers is required for the patient to complete the activity. If activity was not attempted, code reason: 7-Patient Refused. 9-Not Applicable-not attempted and the patient did not perform the activity before the current illness, exacerbation or injury. 10-Not Attempted due to Environmental Limitations-(lack of equipment, weather restraints, etc.). 88-Not Attempted due to Medical Conditions or Safety Concerns. Sit to Stand (QC): 4 Chair/Rgq-rr-Rpygi Xfer(QC): 4 SBA Weight Bearing Full Weight Bearing Full Weight Bearing Gait Training Distance: 120'x2 Walk 10 feet (QC): 4 Walk 50 ft with 2 Turns(QC): 4 Gait Persons Needed: 1 Gait Assistive Device: FWW SBA, slow but steady ambulation Stair Training Stair Training: Handrails/: 2 handrails #of Steps: 4 1 Step (curb) (QC): 4 4 Steps (QC): 4 Stairs: Pattern: Step to SBA Exercises Standing: Hip Abduction, Hamstring curls, Heel/toe raises, Marching, Mini squats Standing Reps: 15 LAQ alternating for 5 min NuStep Minutes: 15 NuStep Workload: 4 Treatments transfers, ambulation, functional strengthening Assessment Current Status: Fair Progress improving endurance PT Short Term Goals Short Term Goals Time Frame: Jan 25, 2021 Roll Left & Right: 6 Sit to lyin Lying to sitting on side of be: 5 Sit to stand: 4 Chair/yel-im-hwkvw transfer: 4 Walk 10 feet: 4 PT [place]rainer Goals Wood [place]rainer Goals PT [place] Goals Time Frame: Feb 08, 2021 Roll Left & Right (QC): 6 Sit to Lying (QC): 6 Lying-Sitting on Side/Bed(QC): 6 Sit to Stand (QC): 5 Chair/Nnu-zz-Mlejq Xfer(QC): 5 Toilet Transfer (QC): 5 Car Transfer (QC): 4 Does the Patient Walk: Yes Walk 10 feet (QC): 4 Walk 50ft with 2 Turns (QC): 4 Walk 150 ft (QC): 88 Walking 10ft on Uneven Surface: 4 1 Step (curb) (QC): 4 4 Steps (QC): 88 12 Steps (QC): 88 Picking up an Object (QC): 88 Wheel 50 feet with 2 turns (QC: 9 Wheel 150 feet: 9 PT Plan Problem List Problem List: Activity Tolerance, Functional Strength, Safety, Balance, Gait, Transfer, ROM Treatment/Plan Treatment Plan: Continue Plan of Care Treatment Plan: Bed Mobility, Education, Functional Activity Jo Ann, Functional Strength, Group Therapy, Gait, Safety, Therapeutic Exercise, Transfers Treatment Duration: Feb 08, 2021 Frequency: At least 5 of 7 days/Wk (IRF) Estimated Hrs Per Day: 1.5 hours per day Patient and/or Family Agrees t: Yes Safety Risks/Education Patient Education: Gait Training, Transfer Techniques, Correct Positioning, Safety Issues Teaching Recipient: Patient Teaching Methods: Demonstration, Discussion Response to Teaching: Reinforcement Needed Time/GCodes Time In: 0930 Time Out: 1030 Total Billed Treatment Time: 60 Total Billed Treatment 1 visit GT 15' EX 30' NARAYAN ORDOÑEZ PT Jan 23, 2021 10:24
--- NOTE | 2021-01-23 10:44 | Diagnostic Imaging Report ---
INDICATION: History of COVID pneumonia. COMPARISON: 01/17/2021. FINDINGS: Frontal and lateral radiographic views of the chest were obtained and again show scattered patchy and confluent infiltrate appearing opacities, right greater than left. Overall, aeration has not significantly changed when compared to prior exam. There is no large effusion or pneumothorax. Cardiac silhouette and pulmonary vasculature are within normal limits. Osseous structures show no gross acute abnormalities. Note is made of calcified aortic atherosclerosis. IMPRESSION: 1. Stable bilateral infiltrate, right greater than left. Dictated by: Dictated on workstation # [id number]
--- NOTE | 2021-01-23 11:43 | Physical Therapy Daily Note ---
PT Daily Note-Current Subjective Patient in recliner pre tx, agrees to PT, has no complaints of pain. Appearance Patient in recliner post tx with nurse call, phone, tray, all needs met. Mental Status Patient Orientation: Person, Place, Situation Transfers SCALE: Activities may be completed with or without assistive devices. 0-Ewqbvxjoua-kwpnpgm completes the activity by him/herself with no assistance from a helper. 5-Set-up or Clean-up Assistance-helper sets up or cleans up; patient completes activity. [place] assists only prior to or following the activity. 4-Supervision or Touching Assistance-helper provides verbal cues and/or maria grady/steadying and/or contact guard assistance as patient completes activity. Assistance may be provided throughout the activity or intermittently. 3-Partial/Moderate Assistance-helper does LESS THAN HALF the effort. [place] lifts, holds or supports trunk or limbs, but provides less than half the effort. 2-Substantial/Maximal Assistance-helper does MORE THAN HALF the effort. [place] lifts or holds trunk or limbs and provides more than half the effort. 7-Qjjletyka-gyodrk does ALL the effort. Patient does none of the effort to complete the activity. Or, the assistance of 2 or more helpers is required for the patient to complete the activity. If activity was not attempted, code reason: 7-Patient Refused. 9-Not Applicable-not attempted and the patient did not perform the activity before the current illness, exacerbation or injury. 10-Not Attempted due to Environmental Limitations-(lack of equipment, weather restraints, etc.). 88-Not Attempted due to Medical Conditions or Safety Concerns. Sit to Stand (QC): 4 Chair/Jsf-nk-Pmhsg Xfer(QC): 4 Weight Bearing Full Weight Bearing Full Weight Bearing Gait Training Distance: 120'x2 Walk 10 feet (QC): 4 Walk 50 ft with 2 Turns(QC): 4 Walking 10ft/uneven surface-QC: 4 Gait Persons Needed: 1 Gait Assistive Device: FWW SBA, slow but steady ambulation. Patient wanted to ambulate 10' over an uneven surface because she had a hard time doing it at admission, she does it with SBA. Treatments transfers, ambulation Assessment Current Status: Fair Progress improving strength and endurance PT Short Term Goals Short Term Goals Time Frame: Jan 25, 2021 Roll Left & Right: 6 Sit to lyin Lying to sitting on side of be: 5 Sit to stand: 4 Chair/unk-st-kwmjs transfer: 4 Walk 10 feet: 4 PT Group Home Goals Group Home Goals PT Group Home Goals Time Frame: Feb 08, 2021 Roll Left & Right (QC): 6 Sit to Lying (QC): 6 Lying-Sitting on Side/Bed(QC): 6 Sit to Stand (QC): 5 Chair/Igi-us-Wdjsz Xfer(QC): 5 Toilet Transfer (QC): 5 Car Transfer (QC): 4 Does the Patient Walk: Yes Walk 10 feet (QC): 4 Walk 50ft with 2 Turns (QC): 4 Walk 150 ft (QC): 88 Walking 10ft on Uneven Surface: 4 1 Step (curb) (QC): 4 4 Steps (QC): 88 12 Steps (QC): 88 Picking up an Object (QC): 88 Wheel 50 feet with 2 turns (QC: 9 Wheel 150 feet: 9 PT Plan Problem List Problem List: Activity Tolerance, Functional Strength, Safety, Balance, Gait, Transfer, Bed Mobility, ROM Treatment/Plan Treatment Plan: Continue Plan of Care Treatment Plan: Bed Mobility, Education, Functional Activity Jo Ann, Functional Strength, Group Therapy, Gait, Safety, Therapeutic Exercise, Transfers Treatment Duration: Feb 08, 2021 Frequency: At least 5 of 7 days/Wk (IRF) Estimated Hrs Per Day: 1.5 hours per day Patient and/or Family Agrees t: Yes Safety Risks/Education Patient Education: Gait Training, Transfer Techniques, Correct Positioning, Safety Issues Teaching Recipient: Patient Teaching Methods: Demonstration, Discussion Response to Teaching: Reinforcement Needed Time/GCodes Time In: 1130 Time Out: 1145 Total Billed Treatment Time: 15 Total Billed Treatment 1 visit GT 15' NARAYAN ORDOÑEZ PT Jan 23, 2021 11:43
--- NOTE | 2021-01-23 13:53 | Occupational Ther Daily Note ---
OT Current Status-Daily Note Subjective Pt was seated in chair upon OT arrival. Pt agreed to do therapy in room while seated. Mental Status/Objective Patient Orientation: Person, Place, Time, Situation ADL-Treatment Therapy Code Descriptions/Definitions Functional [place] Measure: 0=Not Assessed/NA 4=Minimal Assistance 1=Total Assistance 5=Supervision or Setup 2=Maximal Assistance 6=Modified [place] 3=Moderate Assistance 7=Complete IndependenceSCALE: Activities may be completed with or without assistive devices. 6-Qxzmwhiktl-mvkqwnc completes the activity by him/herself with no assistance from a helper. 5-Set-up or Clean-up Assistance-helper sets up or cleans up; patient completes activity. [place] assists only prior to or following the activity. 4-Supervision or Touching Assistance-helper provides verbal cues and/or t ouching/steadying and/or contact guard assistance as patient completes activity. Assistance may be provided throughout the activity or intermittently. 3-Partial/Moderate Assistance-helper does LESS THAN HALF the effort. [place] lifts, holds or supports trunk or limbs, but provides less than half the effort. 2-Substantial/Maximal Assistance-helper does MORE THAN HALF the effort. [place] lifts or holds trunk or limbs and provides more than half the effort. 2-Iwbakwhyd-kimthz does ALL the effort. Patient does none of the effort to complete the activity. Or, the assistance of 2 or more helpers is required for the patient to complete the activity. If activity was not attempted, code reason: 7-Patient Refused. 9-Not Applicable-not attempted and the patient did not perform the activity before the current illness, exacerbation or injury. 10-Not Attempted due to Environmental Limitations-(lack of equipment, weather restraints, etc.). 88-Not Attempted due to Medical Conditions or Safety Concerns. Other Treatment Pt participated while seated utilizing bed-side table in a peg ariane color coded matching activity to support cognition, coordination, and finger manipulation for ADLs. Pt required 5 VC, took 5 min and 58 sec to complete entire task effectively. Pt then utilitzed Thera-Putty (medium resistance), retrieving beads, to support fine motor coordination and activity tolerance. Pt removed all beads without cues. Post tx, pt was seated in chair, call light in reach, and all needs met. Education OT Patient Education: Correct positioning, Energy conservation, Progress toward Goal/Update tx plan, Purpose of tx/functional activities, Safety issues Teaching Recipient: Patient Teaching Methods: Demonstration, Discussion Response to Teaching: Verbalize Understanding, Return Demonstration OT Short Term Goals Short Term Goals Time Frame: Jan 26, 2021 Shower/bathe self: 5 Upper body dressin Lower body dressin Putting on/taking off footwear: 5 OT [place] Goals [place] Goals Time Frame: Feb 09, 2021 Eating (QC): 6 Oral Hygiene (QC): 6 Toileting Hygiene (QC): 6 Shower/Bathe Self (QC): 6 Upper Body Dressing (QC): 6 Lower Body Dressing (QC): 6 On/Off Footwear (QC): 6 1=Demonstrate adherence to instructed precautions during ADL tasks. 2=Patient will verbalize/demonstrate understanding of assistive devices/modifications for ADL. 3=Patient will improve strength/tolerance for activity to enable patient to perform ADL's. OT Education/Plan Problem List/Assessment Assessment: Decreased Activ Tolerance, Decreased UE Strength, Impaired Cognition, Impaired Coordination, Impaired Funct Balance, Impaired I ADL's, Impaired Self-Care Skills Discharge Recommendations Plan/Recommendations: Continue POC Treatment Plan/Plan of Care Patient would benefit from OT for education, treatment and training to promote independence in ADL's, mobility, safety and/or upper extremity function for ADL's. Plan of Care: ADL Retraining, Functional Mobility, Group Exercise/Act as Ind, U E Funct Exercise/Act Treatment Duration: Feb 09, 2021 Frequency: Modified Program (IRF) Estimated Hrs Per Day: 1 hour per day Rehab Potential: Fair Time/GCodes Start Time: 13:00 Stop Time: 13:15 Total Time Billed (hr/min): 15 Billed Treatment Time 1 Visit, KRYS OROZCO OT Jan 23, 2021 13:53
[2021-01-23 20:00] VITALS: BP 122/67
[2021-01-23] MEDS: ACETAMINOPHEN 325 MG TABLET PO PRN (20:29)
[2021-01-24] MEDS: KCL 10 MEQ TAB (MICRO K) PO SCH (06:31)
--- NOTE | 2021-01-24 07:47 | Cardiology Progress Note ---
Subjective Date Seen by Provider: Jan 24, 2021 Time Seen by Provider: 15:26 Subjective/Events-last exam Pt reports that she still has an occasional dry cough. Has been off of oxygen for 2 days. States that she is doing well without it. Denies having any other concerns. Review of Systems General: No Chills, No Other (fever) HEENT: No Head Aches, No Visual Changes, No Eye Pain Pulmonary: No Dyspnea; Cough Cardiovascular: No: Chest Pain, Palpitations, Lt Headedness Gastrointestinal: No: Nausea, Vomiting, Abdominal Pain Musculoskeletal: No: neck pain, shoulder pain, back pain, leg pain Neurological: No: Weakness, Numbness, Confusion Objective-Cardiology Exam Last Set of Vital Signs Vital Signs 01/20/21 01/22/21 01/24/21 01/24/21 22:44 08:46 08:00 09:00 Temp 37.0 Pulse 96 Resp 16 B/P (MAP) 116/68 (84) Pulse Ox 94 O2 Delivery Room Air O2 Flow Rate 2.00 FiO2 28 General: Alert, Oriented X3, Cooperative HEENT: Atraumatic, EOMI Neck: Supple, No JVD Lungs: Clear to Auscultation, Normal Air Movement Heart: Regular Rate, Normal S1, Normal S2, No Murmurs Abdomen: Soft, No Tenderness Extremities: No Clubbing, No Cyanosis, Normal Pulses Skin: No Rashes, No Breakdown, No Significant Lesion Neuro: Normal Speech Psych/Mental Status: Mental Status NL, Mood NL A/P-Cardiology Admission Diagnosis Acute respiratory failure Pulmonary embolism Subarachnoid hemorrhage Hypertension Assessment/Plan Status post acute respiratory failure, was on Vapotherm, no longer needing oxygen supplementation, currently doing well, feeling better. No new complaint. CXR done yesterday, according to radiology showed stable bilateral infiltrate, right greater than left Sinus tachycardia and hypotension probably secondary to pulmonary embolism and severe hypoxemia. Unable to tolerate aggressive anticoagulation due to subarachnoid hemorrhage, Recommend discussing with the neurologist to evaluate the timing that we can start anticoagulation. Head CT done 12/2720. According to radiology showed small amount of subarachnoid hemorrhage overlying the anterior right frontal lobe. No associated mass effect. No large acute territorial ischemia. Generalized parenchymal volume loss with chronic microvascular disease. COVID-19 pneumonia, patient recovered no longer requiring oxygen. DVT, pulmonary embolism, had subarachnoid hemorrhage, cannot tolerate aggressive anticoagulation, underwent IVC filter placement. Orthostatic hypotension, multiple near syncopal episode, had to reported syncope, subarachnoid hemorrhage secondary to head trauma from syncope. Monitor blood pressure Subarachnoid hemorrhage, unable to tolerate any type of anticoagulation at this point. Continue with conservative management. CT head done 01/22/21. History of hyperlipidemia, maintained on statin as an outpatient Supervisory-Addendum Brief Verification & Attestation Participated in pt care: history, MDM, physical Personally performed: exam, history, MDM, supervision of care Care discussed with: Medical Student Procedures: n/a Results interpretation: Verified all documentation Verification and Attestation of Medical Student E/M Service A medical student performed and documented this service in my presence. I reviewed and verified all information documented by the medical student and made modifications to such information, when appropriate. I personally performed the physical exam and medical decision making. Patient had sinus tachycardia, I will evaluate twelve-lead EKG and monitor tolerance of response Charisse Mark Jan 24, 2021,15:26 MARLINE AUGUST Jan 24, 2021 07:47 CHARISSE MARK MD Jan 24, 2021 15:27
[2021-01-24 08:00] VITALS: BP 116/68
[2021-01-24] MEDS: DOCUSATE SODIUM 100 MG (COLACE) CAP PO SCH ×2 (08:21→21:18)
[2021-01-24] MEDS: amLODIPine 5 MG (NORVASC) TAB PO SCH (08:21)
[2021-01-24] MEDS: SENNA W/DOCUSATE (SENOKOT S) TABLET PO SCH ×2 (08:21→21:19)
--- NOTE | 2021-01-24 08:56 | Occupational Ther Daily Note ---
OT Current Status-Daily Note Subjective Pt was seated in chair upon OT entry into room. Pt stated she needed to use the restroom, wanted laundry done, and ready for therapy. Mental Status/Objective Patient Orientation: Person, Place, Time, Situation ADL-Treatment Therapy Code Descriptions/Definitions Functional [place] Measure: 0=Not Assessed/NA 4=Minimal Assistance 1=Total Assistance 5=Supervision or Setup 2=Maximal Assistance 6=Modified [place] 3=Moderate Assistance 7=Complete IndependenceSCALE: Activities may be completed with or without assistive devices. 9-Bafxlpvczb-npjashy completes the activity by him/herself with no assistance from a helper. 5-Set-up or Clean-up Assistance-helper sets up or cleans up; patient completes activity. [place] assists only prior to or following the activity. 4-Supervision or Touching Assistance-helper provides verbal cues and/or touching/steadying and/or contact guard assistance as patient completes activity. Assistance may be provided throughout the activity or intermittently. 3-Partial/Moderate Assistance-helper does LESS THAN HALF the effort. [place] lifts, holds or supports trunk or limbs, but provides less than half the effort. 2-Substantial/Maximal Assistance-helper does MORE THAN HALF the effort. [place] lifts or holds trunk or limbs and provides more than half the effort. 7-Lbuhhdsep-tmedyp does ALL the effort. Patient does none of the effort to complete the activity. Or, the assistance of 2 or more helpers is required for the patient to complete the activity. If activity was not attempted, code reason: 7-Patient Refused. 9-Not Applicable-not attempted and the patient did not perform the activity before the current illness, exacerbation or injury. 10-Not Attempted due to Environmental Limitations-(lack of equipment, weather restraints, etc.). 88-Not Attempted due to Medical Conditions or Safety Concerns. Oral Hygiene (QC): 6 (IND) Upper Body Dressing (QC): 5 (set up assist) Lower Body Dressing (QC): 4 (Pt requried CGA when donning LB garments. ) On/Off Footwear: 3 (Pt was able to amada/doff gripper socks. Pt required assist to amada Pierre-hose.) Toileting Hygiene (QC): 6 (IND, able to manage clothing and hygiene) Toilet Transfer (QC): 6 (IND on/off toilet) Other Treatment Pt participated in functional mobility w/ FWW at [facility] from chair to toilet. Pt performed toileting and oral care sink-side w/ FWW, see above QC. Pt worked on functional mobility w/ w/c from bathroom to laundry room at [facility], cues required to lock breaks. Pt participated in dynamic standing balance by placing dirty laundry in Therapy washing machine at [facility]. Pt then went to therapy gym at [facility], min cues for washing settings due to pt being unfamiliar with our machine. Pt propelled w/c to therapy gym. Pt participated in arm bike exercise while seated in w/c to support strength and endurance for ADLs, w/ 20 watt resistance, requiring 3 rest breaks, for a total time of 11 minutes. Pt then self propelled w/c from therapy gym to room at [facility]. Pt transferred from w/c to chair utilizing FWW at [facility]. Post tx pt was seated in chair, call light in reach, and all needs met. Education OT Patient Education: Energy conservation, Progress toward Goal/Update tx plan, Purpose of tx/functional activities, Safety issues Teaching Recipient: Patient Teaching Methods: Discussion Response to Teaching: Verbalize Understanding OT Short Term Goals Short Term Goals Time Frame: Jan 26, 2021 Shower/bathe self: 5 Upper body dressin Lower body dressin Putting on/taking off footwear: 5 OT Assistant Manager Bilingual Goals Assistant Manager Bilingual Goals Time Frame: Feb 09, 2021 Eating (QC): 6 Oral Hygiene (QC): 6 Toileting Hygiene (QC): 6 Shower/Bathe Self (QC): 6 Upper Body Dressing (QC): 6 Lower Body Dressing (QC): 6 On/Off Footwear (QC): 6 1=Demonstrate adherence to instructed precautions during ADL tasks. 2=Patient will verbalize/demonstrate understanding of assistive devices/modifications for ADL. 3=Patient will improve strength/tolerance for activity to enable patient to perform ADL's. OT Education/Plan Problem List/Assessment Assessment: Decreased Activ Tolerance, Decreased UE Strength, Impaired Coordination, Impaired Funct Balance, Impaired I ADL's, Impaired Self-Care Skills Discharge Recommendations Plan/Recommendations: Continue POC Treatment Plan/Plan of Care Patient would benefit from OT for education, treatment and training to promote independence in ADL's, mobility, safety and/or upper extremity function for ADL's. Plan of Care: ADL Retraining, Functional Mobility, Group Exercise/Act as Ind, UE Funct Exercise/Act Treatment Duration: Feb 09, 2021 Frequency: Modified Program (IRF) Estimated Hrs Per Day: 1 hour per day Rehab Potential: Fair Time/GCodes Start Time: 08:00 Stop Time: 09:00 Total Time Billed (hr/min): 60 Billed Treatment Time 1 Visit, ADL 2 (35'), EX 2 (25') KRYS PERALTA OT Jan 24, 2021 08:56
--- NOTE | 2021-01-24 09:20 | PM&R Progress Note ---
Subjective HPI/CC On Admission Date Seen by Provider: Jan 24, 2021 Time Seen by Provider: 09:30 Subjective/Events-last exam 01/24/2021: Patient doing really well Bowels have not moved for a couple of days Low-grade fever continues and has a history of UTI will do in/out cath for urine specimen Discharge plan for Friday01/23/2021: Patient remains on room air Doing very well We will set discharge date during team conference tomorrow Subarachnoid hemorrhage noted on noncontrast CT and I feel since she has an IVC filter risk of starting anticoagulation outweighs the benefits at this current time 01/22/2021: Patient dramatically improved Monitor closely Bowels moved today Now on room air Hemoglobin 9.3 CT scan reviewed and will discuss details tomorrow 01/21/2021: Patient much improved Still on 2 L of oxygen Still gets dyspneic with exertion Bowels moving 01/20/2021: Patient doing much better On 2 L of oxygen Walking around Much improved status 01/19/2021: Patient settling in well Maintain on 3 L 94% Bowels moved today Feels more energized Appears dramatically improved Review of Systems General: Fatigue Objective Exam Vital Signs Vital Signs Date Time Temp Pulse Resp B/P (MAP) Pulse Ox O2 Delivery O2 Flow Rate FiO2 01/24/21 21:58 38.2 01/24/21 21:00 96 Room Air 01/24/21 20:00 105 20 103/57 (72) 01/22/21 08:46 2.00 01/20/21 22:44 28 Capillary Refill : General Appearance: No Apparent Distress, Chronically ill HEENT: PERRL/EOMI, Normal ENT Inspection, Pharynx Normal Neck: Full Range of Motion, Normal Inspection, Non Tender, Supple, Carotid Bruit Respiratory: Chest Non Tender, Lungs Clear, Normal Breath Sounds, No Accessory Muscle Use, No Respiratory Distress Cardiovascular: Regular Rate, Rhythm, No Edema, No Gallop, No JVD, No Murmur, Normal Peripheral Pulses Gastrointestinal: Normal Bowel Sounds, No Organomegaly, No Pulsatile Mass, Non Tender, Soft Back: Normal Inspection, No CVA Tenderness, No Vertebral Tenderness Extremity: Normal Capillary Refill, Normal Inspection, Normal Range of Motion, Non Tender, No Calf Tenderness, No Pedal Edema Neurologic/Psychiatric: Alert, Oriented x3, No Motor/Sensory Deficits, dopster II- XII Norm as Tested, Depressed Affect, Motor Weakness (generalized all extremities 4/5) Skin: Normal Color, Warm/Dry Lymphatic: No Adenopathy Results/Procedures Lab Patient resulted labs reviewed. FIM Transfers Therapy Code Descriptions/Definitions Functional [place] Measure: 0=Not Assessed/NA 4=Minimal Assistance 1=Total Assistance 5=Supervision or Setup 2=Maximal Assistance 6=Modified [place] 3=Moderate Assistance 7=Complete IndependenceSCALE: Activities may be completed with or without assistive devices. 3-Hmdtcfijbb-puqdzgq completes the activity by him/herself with no assistance from a helper. 5-Set-up or Clean-up Assistance-helper sets up or cleans up; patient completes activity. [place] assists only prior to or following the activity. 4-Supervision or Touching Assistance-helper provides verbal cues and/or touching/steadying and/or contact guard assistance as patient completes activity. Assistance may be provided throughout the activity or intermittently. 3-Partial/Moderate Assistance-helper does LESS THAN HALF the effort. [place] lifts, holds or supports trunk or limbs, but provides less than half the effort. 2-Substantial/Maximal Assistance-helper does MORE THAN HALF the effort. [place] lifts or holds trunk or limbs and provides more than half the effort. 5-Ruqieapwh-drnnwn does ALL the effort. Patient does none of the effort to complete the activity. Or, the assistance of 2 or more helpers is required for the patient to complete the activity. If activity was not attempted, code reason: 7-Patient Refused. 9-Not Applicable-not attempted and the patient did not perform the activity before the current illness, exacerbation or injury. 10-Not Attempted due to Environmental Limitations-(lack of equipment, weather restraints, etc.). 88-Not Attempted due to Medical Conditions or Safety Concerns. Roll Left to Right (QC): 6 Sit to Lying (QC): 4 Sit to Stand (QC): 4 Chair/Efi-yh-Jbpmi Xfer(QC): 4 Car Transfer (QC): 4 Gait Training Does the Patient Walk?: Yes Distance: 120'x2 Walk 10 feet (QC): 4 Walk 50 ft with 2 Turns(QC): 4 Walk 150 ft (QC): 88 Walking 10ft/uneven surface-QC: 4 Gait Persons Needed: 1 Gait Assistive Device: FWW Wheelchair Training Does the Pt Use a Wheelchair?: Yes Distance: 120'x2 Wheel 50 ft with 2 turns (QC): 5 Wheel 150 ft (QC): 1 Type of Wheelchair: Manual Stair Training Stair Training: Handrails/: 2 handrails #of Steps: 4 1 Step (curb) (QC): 4 4 Steps (QC): 4 12 Steps (QC): 88 Stairs: Pattern: Step to Balance Picking up an Object (QC): 88 ADL-Treatment Eating (QC): 6 (Per pt report and clincial judgment.) Oral Hygiene (QC): 4 (Pt stood sink-side w/ FWW at [facility] for task.) Shower/Bathe Self (QC): 4 (Pt was able to wash all parts w/ set up at [facility]. ) Upper Body Dressing (QC): 4 (Pt required SBA.) Lower Body Dressing (QC): 4 (Pt requried CGA when donning LB garments. ) On/Off Footwear (QC): 3 (Pt was able to amada/doff gripper socks. Pt required Mod A to amada Pierre-hose.) Toileting Hygiene (QC): 4 (Pt requried CGA when standing to amada/doff LB garments. ) Toilet Transfer (QC): 4 (Pt required CGA for safety during task.) Assessment/Plan Assessment and Plan Assess & Plan/Chief Complaint Assessment: COVID-19 pneumonia Acute hypoxic respiratory failure Pulmonary embolism requiring filter placement by Dr. POTTER Subarachnoid bleed due to fall no anticoagulation or antiplatelets can be used until 01/21/2021 Hypertension Orthostatic syncope UTI with low-grade fever started Omnicef 01/25/21 Plan: Supportive care Intensive rehab IVC filter management 01/19/2021: Discussed anticoagulation with patient Continue aggressive therapy 01/20/2021: Aggressive therapy Maintain oxygen 01/21/2021: Patient doing very well Dramatic improvement 01/22/2021: Supportive care CT scan reviewed 01/23/2021: No anticoagulation due to subarachnoid hemorrhage on repeat CT 01/24/2021: Antibiotic for UTI (1) Post-COVID syndrome (2) Pulmonary embolism (3) DVT (deep venous thrombosis) (4) S/P IVC filter (5) Hypoxemia (6) Hypercapnia (7) Hypercholesterolemia (8) Hypertension (9) Orthostasis (10) Subarachnoid hemorrhage Critical Care Critical Care: Critically Ill Patient SARITHA APODACA DO Jan 24, 2021 09:20
[2021-01-24] MEDS: polyethylene glycoL POWDER 17 GM (MIRALAX) PACK PO SCH ×2 (11:05→21:19)
--- NOTE | 2021-01-24 11:28 | Physical Therapy Daily Note ---
PT Daily Note-Current Subjective Patient in recliner pre tx, agrees to PT, has no complaints of pain. Patient states she is tired today. Appearance Patient in recliner post tx with nurse call, phone, tray, all needs met. Mental Status Patient Orientation: Person, Place, Situation, Normal For Age Transfers SCALE: Activities may be completed with or without assistive devices. 8-Engqgxgqtj-tzutxof completes the activity by him/herself with no assistance from a helper. 5-Set-up or Clean-up Assistance-helper sets up or cleans up; patient completes activity. [place] assists only prior to or following the activity. 4-Supervision or Touching Assistance-helper provides verbal cues and/or touching/steadying and/or contact guard assistance as patient completes activit y. Assistance may be provided throughout the activity or intermittently. 3-Partial/Moderate Assistance-helper does LESS THAN HALF the effort. [place] lifts, holds or supports trunk or limbs, but provides less than half the effort. 2-Substantial/Maximal Assistance-helper does MORE THAN HALF the effort. [place] lifts or holds trunk or limbs and provides more than half the effort. 0-Yqaduhqou-drmsmx does ALL the effort. Patient does none of the effort to complete the activity. Or, the assistance of 2 or more helpers is required for the patient to complete the activity. If activity was not attempted, code reason: 7-Patient Refused. 9-Not Applicable-not attempted and the patient did not perform the activity before the current illness, exacerbation or injury. 10-Not Attempted due to Environmental Limitations-(lack of equipment, weather restraints, etc.). 88-Not Attempted due to Medical Conditions or Safety Concerns. Sit to Stand (QC): 4 Chair/Zqz-mr-Zdiel Xfer(QC): 4 SBA Weight Bearing Full Weight Bearing Full Weight Bearing Gait Training Distance: 100'x2, 120' Walk 10 feet (QC): 4 Walk 50 ft with 2 Turns(QC): 4 Gait Persons Needed: 1 Gait Assistive Device: FWW SBA, slow but steady ambulation, attempted to ambulate 200' but she had to stop skilled nursing due to fatigue Exercises Supine Ex: Ankle pumps, Quad Set, Glut sets, Heel Slides, Short Arc Quads, Straight leg raise, Hip abd/add Supine Reps: 20 NuStep Minutes: 15 NuStep Workload: 5 Treatments transfers, ambulation, functional strengthening Assessment Current Status: Fair Progress Patient was tired today, couldn't increase distance of ambulation. PT Short Term Goals Short Term Goals Time Frame: Jan 25, 2021 Roll Left & Right: 6 Sit to lyin Lying to sitting on side of be: 5 Sit to stand: 4 Chair/tke-gp-pcfdj transfer: 4 Walk 10 feet: 4 PT Hoop Riveting Machine Operator Helper Goals Shelter Goals PT Hoop Riveting Machine Operator Helper Goals Time Frame: Feb 08, 2021 Roll Left & Right (QC): 6 Sit to Lying (QC): 6 Lying-Sitting on Side/Bed(QC): 6 Sit to Stand (QC): 5 Chair/Kag-am-Jxaxw Xfer(QC): 5 Toilet Transfer (QC): 5 Car Transfer (QC): 4 Does the Patient Walk: Yes Walk 10 feet (QC): 4 Walk 50ft with 2 Turns (QC): 4 Walk 150 ft (QC): 88 Walking 10ft on Uneven Surface: 4 1 Step (curb) (QC): 4 4 Steps (QC): 88 12 Steps (QC): 88 Picking up an Object (QC): 88 Wheel 50 feet with 2 turns (QC: 9 Wheel 150 feet: 9 PT Plan Problem List Problem List: Activity Tolerance, Functional Strength, Safety, Balance, Gait, Transfer, Bed Mobility, ROM Treatment/Plan Treatment Plan: Continue Plan of Care Treatment Plan: Bed Mobility, Education, Functional Activity Jo [place], Functional Strength, Group Therapy, Gait, Safety, Therapeutic Exercise, Transfers Treatment Duration: Feb 08, 2021 Frequency: At least 5 of 7 days/Wk (IRF) Estimated Hrs Per Day: 1.5 hours per day Patient and/or Family Agrees t: Yes Safety Risks/Education Patient Education: Gait Training, Transfer Techniques, Correct Positioning, Safety Issues Teaching Recipient: Patient Teaching Methods: Demonstration, Discussion Response to Teaching: Reinforcement Needed Time/GCodes Time In: 1030 Time Out: 1130 Total Billed Treatment Time: 60 Total Billed Treatment 1 visit EX 30' FA 30' NARAYAN ORDOÑEZ PT Jan 24, 2021 11:28
--- NOTE | 2021-01-24 13:39 | Occupational Ther Daily Note ---
OT Current Status-Daily Note Subjective Pt was seated in chair upon OT arrival. Pt stated she was ready for tx session. Pt stated she felt a little more tired today than usual. Mental Status/Objective Patient Orientation: Person, Place, Time, Situation ADL-Treatment Therapy Code Descriptions/Definitions Functional [place] Measure: 0=Not Assessed/NA 4=Minimal Assistance 1=Total Assistance 5=Supervision or Setup 2=Maximal Assistance 6=Modified [place] 3=Moderate Assistance 7=Complete IndependenceSCALE: Activities may be completed with or without assistive devices. 7-Kthmldslbd-upneikl completes the activity by him/herself with no assistance from a helper. 5-Set-up or Clean-up Assistance-helper sets up or cleans up; patient completes activity. [place] assists only prior to or following the activity. 4-Supervision or Touching Assistance-helper provides verbal cues and/or touching/steadying and/or contact guard assistance as patient completes activi ty. Assistance may be provided throughout the activity or intermittently. 3-Partial/Moderate Assistance-helper does LESS THAN HALF the effort. [place] lifts, holds or supports trunk or limbs, but provides less than half the effort. 2-Substantial/Maximal Assistance-helper does MORE THAN HALF the effort. [place] lifts or holds trunk or limbs and provides more than half the effort. 6-Ntiwdohwr-osazfi does ALL the effort. Patient does none of the effort to complete the activity. Or, the assistance of 2 or more helpers is required for the patient to complete the activity. If activity was not attempted, code reason: 7-Patient Refused. 9-Not Applicable-not attempted and the patient did not perform the activity before the current illness, exacerbation or injury. 10-Not Attempted due to Environmental Limitations-(lack of equipment, weather restraints, etc.). 88-Not Attempted due to Medical Conditions or Safety Concerns. Other Treatment Pt was seated in chair upon OT arrival. Pt participated in a functional activity while seated in chair of folding personal laundry to support IADL chore for function and skill, pt required set up. Pt performed functional mobility utilizing FWW from chair to closet. Pt participated in putting away folded l aundry in closet while standing w/ FWW to support dynamic standing balance for function, requiring set up. No LOB noted during task, pt able to poultry picking machine tender clothes out of the basket positioned on the floor. Pt then performed functional mobility from closet to chair w/ FWW. Post tx session, pt was seated in chair, call light within reach, and all needs met. Education OT Patient Education: Correct positioning, Energy conservation, Progress toward Goal/Update tx plan, Purpose of tx/functional activities, Safety issues Teaching Recipient: Patient Teaching Methods: Discussion Response to Teaching: Verbalize Understanding OT Short Term Goals Short Term Goals Time Frame: Jan 26, 2021 Shower/bathe self: 5 Upper body dressin Lower body dressin Putting on/taking off footwear: 5 OT Usp Goals Scaler Packer Goals Time Frame: Feb 09, 2021 Eating (QC): 6 Oral Hygiene (QC): 6 Toileting Hygiene (QC): 6 Shower/Bathe Self (QC): 6 Upper Body Dressing (QC): 6 Lower Body Dressing (QC): 6 On/Off Footwear (QC): 6 1=Demonstrate adherence to instructed precautions during ADL tasks. 2=Patient will verbalize/demonstrate understanding of assistive devices/modifications for ADL. 3=Patient will improve strength/tolerance for activity to enable patient to perform ADL's. OT Education/Plan Problem List/Assessment Assessment: Decreased Activ Tolerance, Decreased UE Strength, Impaired Funct Balance, Impaired I ADL's, Impaired Self-Care Skills Discharge Recommendations Plan/Recommendations: Continue POC Treatment Plan/Plan of Care Patient would benefit from OT for education, treatment and training to promote independence in ADL's, mobility, safety and/or upper extremity function for ADL's. Plan of Care: ADL Retraining, Functional Mobility, Group Exercise/Act as Ind, UE Funct Exercise/Act Treatment Duration: Feb 09, 2021 Frequency: Modified Program (IRF) Estimated Hrs Per Day: 1 hour per day Rehab Potential: Fair Time/GCodes Start Time: 13:00 Stop Time: 13:15 Total Time Billed (hr/min): 15 Billed Treatment Time 1 Visit, KRYS OROZCO OT Jan 24, 2021 13:39
--- NOTE | 2021-01-24 14:17 | Physical Therapy Daily Note ---
PT Daily Note-Current Subjective Patient in recliner pre tx, agrees to PT, has no complaints of pain. Appearance Patient in recliner post tx with nurse call, phone, tray, all needs met. Mental Status Patient Orientation: Person, Place, Situation Transfers SCALE: Activities may be completed with or without assistive devices. 6-Edgwtvpfuq-rvmidbq completes the activity by him/herself with no assistance from a helper. 5-Set-up or Clean-up Assistance-helper sets up or cleans up; patient completes activity. [place] assists only prior to or following the activity. 4-Supervision or Touching Assistance-helper provides verbal cues and/or maria grady/steadying and/or contact guard assistance as patient completes activity. Assistance may be provided throughout the activity or intermittently. 3-Partial/Moderate Assistance-helper does LESS THAN HALF the effort. [place] lifts, holds or supports trunk or limbs, but provides less than half the effort. 2-Substantial/Maximal Assistance-helper does MORE THAN HALF the effort. [place] lifts or holds trunk or limbs and provides more than half the effort. 2-Nekgmysce-zsldqy does ALL the effort. Patient does none of the effort to complete the activity. Or, the assistance of 2 or more helpers is required for the patient to complete the activity. If activity was not attempted, code reason: 7-Patient Refused. 9-Not Applicable-not attempted and the patient did not perform the activity before the current illness, exacerbation or injury. 10-Not Attempted due to Environmental Limitations-(lack of equipment, weather restraints, etc.). 88-Not Attempted due to Medical Conditions or Safety Concerns. Sit to Stand (QC): 4 Chair/Fxc-od-Xboel Xfer(QC): 4 SBA Weight Bearing Full Weight Bearing Full Weight Bearing Gait Training Distance: 100'x3 Walk 10 feet (QC): 4 Walk 50 ft with 2 Turns(QC): 4 Gait Persons Needed: 1 Gait Assistive Device: FWW SBA, slow but steady ambulation, rest break between bouts of ambulation due to fatigue Treatments transfers, ambulation Assessment Current Status: Fair Progress improving general mobility PT Short Term Goals Short Term Goals Time Frame: Jan 25, 2021 Roll Left & Right: 6 Sit to lyin Lying to sitting on side of be: 5 Sit to stand: 4 Chair/ajc-kz-kcwyr transfer: 4 Walk 10 feet: 4 PT Rehabilitation Caseworker Goals Chcf Goals PT Chcf Goals Time Frame: Feb 08, 2021 Roll Left & Right (QC): 6 Sit to Lying (QC): 6 Lying-Sitting on Side/Bed(QC): 6 Sit to Stand (QC): 5 Chair/[place] Xfer(QC): 5 Toilet Transfer (QC): 5 Car Transfer (QC): 4 Does the Patient Walk: Yes Walk 10 feet (QC): 4 Walk 50ft with 2 Turns (QC): 4 Walk 150 ft (QC): 88 Walking 10ft on Uneven Surface: 4 1 Step (curb) (QC): 4 4 Steps (QC): 88 12 Steps (QC): 88 Picking up an Object (QC): 88 Wheel 50 feet with 2 turns (QC: 9 Wheel 150 feet: 9 PT Plan Problem List Problem List: Activity Tolerance, Functional Strength, Safety, Balance, Gait, Transfer, Bed Mobility, ROM Treatment/Plan Treatment Plan: Continue Plan of Care Treatment Plan: Bed Mobility, Education, Functional Activity Jo Ann, Functional Strength, Group Therapy, Gait, Safety, Therapeutic Exercise, Transfers Treatment Duration: Feb 08, 2021 Frequency: At least 5 of 7 days/Wk (IRF) Estimated Hrs Per Day: 1.5 hours per day Patient and/or Family Agrees t: Yes Safety Risks/Education Patient Education: Gait Training, Transfer Techniques, Correct Positioning, Safety Issues Teaching Recipient: Patient Teaching Methods: Demonstration, Discussion Response to Teaching: Reinforcement Needed Time/GCodes Time In: 1400 Time Out: 1415 Total Billed Treatment Time: 15 Total Billed Treatment 1 visit GT 15' NARAYAN ORDOÑEZ PT Jan 24, 2021 14:17
[2021-01-24 16:56] LABS: BILIRUBIN,URINE NEGATIVE (NEGATIVE); CLARITY,URINE SL CLOUDY; COLOR,URINE YELLOW; GLUCOSE, URINE (UA) NEGATIVE (NEGATIVE); KETONES,URINE NEGATIVE (NEGATIVE); LEUKOCYTE ESTERASE ,URINE 3+ (NEGATIVE); NITRITE,URINE POSITIVE (NEGATIVE); PROTEIN,URINE NEGATIVE (NEGATIVE)
[2021-01-24 17:25] LABS: BACTERIA,URINE LARGE /HPF; RBC,URINE 0-2 /HPF; WBC,URINE 25-50 /HPF
[2021-01-24 20:00] VITALS: BP 103/57
[2021-01-24] MEDS: ACETAMINOPHEN 325 MG TABLET PO PRN (21:18)
[2021-01-25] MEDS: KCL 10 MEQ TAB (MICRO K) PO SCH (06:19)
[2021-01-25] MEDS: CEFDINIR 300 MG (OMNICEF) CAP PO SCH ×3 (06:19→20:56)
[2021-01-25] MEDS: DOCUSATE SODIUM 100 MG (COLACE) CAP PO SCH ×2 (07:39→21:00)
[2021-01-25] MEDS: SENNA W/DOCUSATE (SENOKOT S) TABLET PO SCH ×2 (07:39→21:00)
[2021-01-25] MEDS: amLODIPine 5 MG (NORVASC) TAB PO SCH (07:39)
--- NOTE | 2021-01-25 07:54 | Cardiology Progress Note ---
Subjective Date Seen by Provider: Jan 25, 2021 Time Seen by Provider: 08:41 Subjective/Events-last exam Pt reports that she is doing well. No issues breathing since oxygen was stopped. Reports that she did begin having some dysuria yesterday and a UA was done. Appetite is good. Denies having any other concerns. Review of Systems General: No Chills, No Other (fever) HEENT: No Head Aches, No Visual Changes, No Eye Pain Pulmonary: No Dyspnea, No Cough Cardiovascular: No: Chest Pain, Palpitations, Lt Headedness Gastrointestinal: Constipation; No: Nausea, Vomiting, Abdominal Pain Genitourinary: Dysuria; No Frequency Musculoskeletal: No: neck pain, arm pain, back pain, leg pain Neurological: No: Weakness, Numbness, Change in speech, Confusion Objective-Cardiology Exam Last Set of Vital Signs Vital Signs 01/20/21 01/22/21 01/24/21 01/24/21 22:44 08:46 20:00 21:00 Pulse 105 Resp 20 B/P (MAP) 103/57 (72) Pulse Ox 96 O2 Delivery Room Air O2 Flow Rate 2.00 FiO2 28 General: Alert, Oriented X3, Cooperative HEENT: Atraumatic, EOMI Neck: Supple, No JVD Lungs: Clear to Auscultation, Normal Air Movement Heart: Regular Rate, Normal S1, Normal S2, No Murmurs Abdomen: Soft, No Tenderness Extremities: No Clubbing, No Cyanosis, Normal Pulses, No Tenderness/Swelling Skin: No Rashes, No Breakdown, No Significant Lesion Neuro: Normal Speech Psych/Mental Status: Mental Status NL, Mood NL Results Lab Laboratory Tests Test 01/24/21 16:20 Range/Units Urine Color YELLOW Urine Clarity SL CLOUDY Urine pH 6.0 5-9 Urine Specific [place] <=1.005 1.016-1.022 Urine Protein NEGATIVE NEGATIVE Urine Glucose (UA) NEGATIVE NEGATIVE Urine Ketones NEGATIVE NEGATIVE Urine Nitrite POSITIVE H NEGATIVE Urine Bilirubin NEGATIVE NEGATIVE Urine Urobilinogen 0.2 < = 1.0 MG/DL Urine Leukocyte Esterase 3+ H NEGATIVE Urine RBC (Auto) TRACE-I NEGATIVE Urine RBC 0-2 /HPF Urine WBC 25-50 H /HPF Urine Squamous Epithelial Cells NONE /HPF Urine Crystals NONE /LPF Urine Bacteria LARGE H /HPF Urine Casts NONE /LPF Urine Mucus NEGATIVE /LPF Urine Culture Indicated YES A/P-Cardiology Admission Diagnosis Acute respiratory failure Pulmonary embolism Subarachnoid hemorrhage Hypertension Assessment/Plan Status post acute respiratory failure, was on Vapotherm, no longer needing oxygen supplementation, currently doing well, feeling better. No new complaint. CXR done yesterday, according to radiology showed stable bilateral infiltrate, right greater than left Sinus tachycardia and hypotension probably secondary to pulmonary embolism and severe hypoxemia. Unable to tolerate aggressive anticoagulation due to subarachnoid hemorrhage, Recommend discussing with the neurologist to evaluate the timing that we can start anticoagulation. Head CT done 12/2720. According to radiology showed small amount of subarachnoid hemorrhage overlying the anterior right frontal lobe. No associated mass effect. No large acute territorial ischemia. Generalized parenchymal volume loss with chronic microvascular disease. UTI, UA done yesterday that came back abnormal. Started on Omnicef. Managed by Dr. Regalado. COVID-19 pneumonia, patient recovered no longer requiring oxygen. DVT, pulmonary embolism, had subarachnoid hemorrhage, cannot tolerate aggressive anticoagulation, underwent IVC filter placement. Orthostatic hypotension, multiple near syncopal episode, had to reported syncope, subarachnoid hemorrhage secondary to head trauma from syncope. Monitor blood pressure Subarachnoid hemorrhage, unable to tolerate any type of anticoagulation at this point. Continue with conservative management. CT head done 01/22/21. History of hyperlipidemia, maintained on statin as an outpatient Supervisory-Addendum Brief Verification & Attestation Participated in pt care: history, MDM, physical Personally performed: exam, history, MDM, supervision of care Care discussed with: Medical Student Procedures: n/a Results interpretation: Verified all documentation Verification and Attestation of Medical Student E/M Service A medical student performed and documented this service in my presence. I reviewed and verified all information documented by the medical student and made modifications to such information, when appropriate. I personally performed the physical exam and medical decision making. Patient was seen at bedside, sitting comfortably, no new complaint Heart rate is better Started on treatment for UTI Continue to monitor heart rate and blood pressure Charisse Mark, Jan 25, 2021,08:42 MARLINE AUGUST Jan 25, 2021 07:54 CHARISSE MARK MD Jan 25, 2021 08:42
[2021-01-25 08:00] VITALS: BP 117/65
--- NOTE | 2021-01-25 09:16 | Occupational Ther Daily Note ---
OT Current Status-Daily Note Subjective Pt was seated in chair upon OT arrival. Pt stated she was ready for a shower. Mental Status/Objective Patient Orientation: Person, Place, Time, Situation ADL-Treatment Therapy Code Descriptions/Definitions Functional [place] Measure: 0=Not Assessed/NA 4=Minimal Assistance 1=Total Assistance 5=Supervision or Setup 2=Maximal Assistance 6=Modified [place] 3=Moderate Assistance 7=Complete IndependenceSCALE: Activities may be completed with or without assistive devices. 5-Bqpblmoave-nzoltqq completes the activity by him/herself with no assistance from a helper. 5-Set-up or Clean-up Assistance-helper sets up or cleans up; patient completes activity. [place] assists only prior to or following the activity. 4-Supervision or Touching Assistance-helper provides verbal cues and/or touching/steadying and/or contact guard assistance as patient completes activity. Assistance may be provided throughout the activity or intermittently. 3-Partial/Moderate Assistance-helper does LESS THAN HALF the effort. [place] lifts, holds or supports trunk or limbs, but provides less than half the effort. 2-Substantial/Maximal Assistance-helper does MORE THAN HALF the effort. [place] lifts or holds trunk or limbs and provides more than half the effort. 5-Gtgypqneq-ylmmjc does ALL the effort. Patient does none of the effort to complete the activity. Or, the assistance of 2 or more helpers is required for the patient to complete the activity. If activity was not attempted, code reason: 7-Patient Refused. 9-Not Applicable-not attempted and the patient did not perform the activity before the current illness, exacerbation or injury. 10-Not Attempted due to Environmental Limitations-(lack of equipment, weather restraints, etc.). 88-Not Attempted due to Medical Conditions or Safety Concerns. Eating (QC): 6 Oral Hygiene (QC): 6 (Pt was Ind. Pt was seated in w/c sink-side for task.) Shower/Bathe Self (QC): 6 (Pt was seated on shower chair. ) Upper Body Dressing (QC): 6 (Pt was Ind.) Lower Body Dressing (QC): 6 (Pt was Ind.) On/Off Footwear: 6 (Pt was able to amada/doff gripper socks. Therapist donned Tedhose. ) Toileting Hygiene (QC): 6 (Pt was Ind.) Toilet Transfer (QC): 6 (Pt was Ind w/ FWW.) Other Treatment Pt was seated in chair upon OT arrival. Pt performed functional mobility utilizing FWW to retrieve clothes from closet, Ind, then went to bathroom. Pt performed toileting, showering, UBD, LBD, footwear, and grooming tasks, see QC listed above. Pt made progress by completing tasks Independently. Pt required a seated rest break in w/c after completing ADLs. Pt then worked on w/c mobility to Therapy gym, w/c chosen in order to conserve pt's energy for PT tx this morning. Pt participated in an arm bike exercise to support strength and endurance for ADL function and skill, 6 min, 20 watt resistance, requiring x3 rest breaks. . Pt then worked on w/c mobility to her room. Post tx session, pt was seated in chair, call light withing reach, ice water filled, and all needs met. Education OT Patient Education: Correct positioning, Energy conservation, Modified ADL techniques, Progress toward Goal/Update tx plan, Purpose of tx/functional activities, Rehab process Teaching Recipient: Patient Teaching Methods: Discussion Response to Teaching: Verbalize Understanding OT Short Term Goals Short Term Goals Time Frame: Jan 26, 2021 Shower/bathe self: 5 Upper body dressin Lower body dressin Putting on/taking off footwear: 5 OT Chemistry Technologist Goals Correction Goals Time Frame: Feb 09, 2021 Eating (QC): 6 (met) Oral Hygiene (QC): 6 (met) Toileting Hygiene (QC): 6 (met) Shower/Bathe Self (QC): 6 (met) Upper Body Dressing (QC): 6 (met) Lower Body Dressing (QC): 6 (met) On/Off Footwear (QC): 6 (met) 1=Demonstrate adherence to instructed precautions during ADL tasks. 2=Patient will verbalize/demonstrate understanding of assistive devices/modifications for ADL. 3=Patient will improve strength/tolerance for activity to enable patient to perform ADL's. OT Education/Plan Problem List/Assessment Assessment: Decreased Activ Tolerance, Decreased UE Strength, Impaired Coordination, Impaired I ADL's, Impaired Self-Care Skills Discharge Recommendations Plan/Recommendations: Continue POC Treatment Plan/Plan of Care Patient would benefit from OT for education, treatment and training to promote independence in ADL's, mobility, safety and/or upper extremity function for ADL's. Plan of Care: ADL Retraining, Functional Mobility, Group Exercise/Act as Ind, UE Funct Exercise/Act Treatment Duration: Feb 09, 2021 Frequency: Modified Program (IRF) Estimated Hrs Per Day: 1 hour per day Rehab Potential: Fair Time/GCodes Start Time: 08:00 Stop Time: 09:15 Total Time Billed (hr/min): 75 Billed Treatment Time 1 Visit, ADL 4 (60'), EX (15') KRYS PERALTA OT Jan 25, 2021 09:16
[2021-01-25] MEDS: polyethylene glycoL POWDER 17 GM (MIRALAX) PACK PO SCH ×2 (09:32→21:00)
--- NOTE | 2021-01-25 10:35 | PM&R Progress Note ---
Subjective HPI/CC On Admission Date Seen by Provider: Jan 25, 2021 Time Seen by Provider: 10:45 Subjective/Events-last exam 01/25/2021: Patient doing really well Discharge planned tomorrow UTI treated with Omnicef Bowels moving well 01/24/2021: Patient doing really well Bowels have not moved for a couple of days Low-grade fever continues and has a history of UTI will do in/out cath for urine specimen Discharge plan for Friday01/23/2021: Patient remains on room air Doing very well We will set discharge date during team conference tomorrow Subarachnoid hemorrhage noted on noncontrast CT and I feel since she has an IVC filter risk of starting anticoagulation outweighs the benefits at this current time 01/22/2021: Patient dramatically improved Monitor closely Bowels moved today Now on room air Hemoglobin 9.3 CT scan reviewed and will discuss details tomorrow 01/21/2021: Patient much improved Still on 2 L of oxygen Still gets dyspneic with exertion Bowels moving 01/20/2021: Patient doing much better On 2 L of oxygen Walking around Much improved status 01/19/2021: Patient settling in well Maintain on 3 L 94% Bowels moved today Feels more energized Appears dramatically improved Review of Systems General: Fatigue, Malaise Objective Exam Vital Signs Vital Signs Date Time Temp Pulse Resp B/P (MAP) Pulse Ox O2 Delivery O2 Flow Rate FiO2 01/25/21 20:00 92 Room Air 01/25/21 20:00 37.8 104 18 105/59 (74) 01/22/21 08:46 2.00 01/20/21 22:44 28 Capillary Refill : General Appearance: No Apparent Distress, Chronically ill HEENT: PERRL/EOMI, Normal ENT Inspection, Pharynx Normal Neck: Full Range of Motion, Normal Inspection, Non Tender, Supple, Carotid Bruit Respiratory: Chest Non Tender, Lungs Clear, Normal Breath Sounds, No Accessory Muscle Use, No Respiratory Distress Cardiovascular: Regular Rate, Rhythm, No Edema, No Gallop, No JVD, No Murmur, Normal Peripheral Pulses Gastrointestinal: Normal Bowel Sounds, No Organomegaly, No Pulsatile Mass, Non Tender, Soft Back: Normal Inspection, No CVA Tenderness, No Vertebral Tenderness Extremity: Normal Capillary Refill, Normal Inspection, Normal Range of Motion, Non Tender, No Calf Tenderness, No Pedal Edema Neurologic/Psychiatric: Alert, Oriented x3, No Motor/Sensory Deficits, hot car charger II- XII Norm as Tested, Depressed Affect, Motor Weakness (generalized all extremities 4/5) Skin: Normal Color, Warm/Dry Lymphatic: No Adenopathy Results/Procedures Lab Patient resulted labs reviewed. FIM Transfers Therapy Code Descriptions/Definitions Functional [place] Measure: 0=Not Assessed/NA 4=Minimal Assistance 1=Total Assistance 5=Supervision or Setup 2=Maximal Assistance 6=Modified [place] 3=Moderate Assistance 7=Complete IndependenceSCALE: Activities may be completed with or without assistive devices. 6-Mslfpgpcfs-nyezwed completes the activity by him/herself with no assistance from a helper. 5-Set-up or Clean-up Assistance-helper sets up or cleans up; patient completes activity. [place] assists only prior to or following the activity. 4-Supervision or Touching Assistance-helper provides verbal cues and/or touc gin/steadying and/or contact guard assistance as patient completes activity. Assistance may be provided throughout the activity or intermittently. 3-Partial/Moderate Assistance-helper does LESS THAN HALF the effort. [place] lifts, holds or supports trunk or limbs, but provides less than half the effort. 2-Substantial/Maximal Assistance-helper does MORE THAN HALF the effort. [place] lifts or holds trunk or limbs and provides more than half the effort. 0-Ruliazahg-cvfozr does ALL the effort. Patient does none of the effort to complete the activity. Or, the assistance of 2 or more helpers is required for the patient to complete the activity. If activity was not attempted, code reason: 7-Patient Refused. 9-Not Applicable-not attempted and the patient did not perform the activity before the current illness, exacerbation or injury. 10-Not Attempted due to Environmental Limitations-(lack of equipment, weather restraints, etc.). 88-Not Attempted due to Medical Conditions or Safety Concerns. Roll Left to Right (QC): 6 Sit to Lying (QC): 4 Sit to Stand (QC): 4 Chair/Gfx-pq-Mimem Xfer(QC): 4 Car Transfer (QC): 4 Gait Training Does the Patient Walk?: Yes Distance: 100'x3 Walk 10 feet (QC): 4 Walk 50 ft with 2 Turns(QC): 4 Walk 150 ft (QC): 88 Walking 10ft/uneven surface-QC: 4 Gait Persons Needed: 1 Gait Assistive Device: FWW Wheelchair Training Does the Pt Use a Wheelchair?: Yes Distance: 120'x2 Wheel 50 ft with 2 turns (QC): 5 Wheel 150 ft (QC): 1 Type of Wheelchair: Manual Stair Training Stair Training: Handrails/: 2 handrails #of Steps: 4 1 Step (curb) (QC): 4 4 Steps (QC): 4 12 Steps (QC): 88 Stairs: Pattern: Step to Balance Picking up an Object (QC): 88 ADL-Treatment Eating (QC): 6 Oral Hygiene (QC): 6 (Pt was Ind. Pt was seated in w/c sink-side for task.) Shower/Bathe Self (QC): 6 (Pt was seated on shower chair. ) Upper Body Dressing (QC): 6 (Pt was Ind.) Lower Body Dressing (QC): 6 (Pt was Ind.) On/Off Footwear (QC): 6 (Pt was able to amada/doff gripper socks. Therapist donned Tedhose. ) Toileting Hygiene (QC): 6 (Pt was Ind.) Toilet Transfer (QC): 6 (Pt was Ind w/ FWW.) Assessment/Plan Assessment and Plan Assess & Plan/Chief Complaint Assessment: COVID-19 pneumonia Acute hypoxic respiratory failure Pulmonary embolism requiring filter placement by Dr. POTTER Subarachnoid bleed due to fall no anticoagulation or antiplatelets can be used until 01/21/2021 Hypertension Orthostatic syncope UTI with low-grade fever started Omnicef 01/25/21 Plan: Supportive care Intensive rehab IVC filter management 01/19/2021: Discussed anticoagulation with patient Continue aggressive therapy 01/20/2021: Aggressive therapy Maintain oxygen 01/21/2021: Patient doing very well Dramatic improvement 01/22/2021: Supportive care CT scan reviewed 01/23/2021: No anticoagulation due to subarachnoid hemorrhage on repeat CT 01/24/2021: Antibiotic for UTI 01/25/2021: Discharge tomorrow (1) Post-COVID syndrome (2) Pulmonary embolism (3) DVT (deep venous thrombosis) (4) S/P IVC filter (5) Hypoxemia (6) Hypercapnia (7) Hypercholesterolemia (8) Hypertension (9) Orthostasis (10) Subarachnoid hemorrhage Critical Care Critical Care: Critically Ill Patient SARITHA APODACA DO Jan 25, 2021 10:35
[2021-01-25] MEDS ORDERED: ATOR40TA70 PO (10:46)
[2021-01-25] MEDS ORDERED: ESTR1TAB27 PO (10:46)
[2021-01-25] MEDS ORDERED: METO50TA15 PO (10:46)
[2021-01-25] MEDS ORDERED: LORA10TA7 PO (10:46)
[2021-01-25] MEDS ORDERED: HYDR-3924 PO (10:46)
[2021-01-25] MEDS ORDERED: LOSA100T57 PO (10:46)
[2021-01-25] MEDS ORDERED: ASPI-999 PO (10:46)
--- NOTE | 2021-01-25 11:01 | Physical Therapy Daily Note ---
PT Daily Note-Current Subjective Pt sitting in recliner upon arrival. Pt agrees to PT for QC scoring for d/c tomorrow. Pain Location: No Pain Reported Mental Status Patient Orientation: Person, Place, Time, Situation Transfers SCALE: Activities may be completed with or without assistive devices. 4-Fgebalqtzo-kxtpmwk completes the activity by him/herself with no assistance from a helper. 5-Set-up or Clean-up Assistance-helper sets up or cleans up; patient completes activity. [place] assists only prior to or following the activity. 4-Supervision or Touching Assistance-helper provides verbal cues and/or touc gin/steadying and/or contact guard assistance as patient completes activity. Assistance may be provided throughout the activity or intermittently. 3-Partial/Moderate Assistance-helper does LESS THAN HALF the effort. [place] lifts, holds or supports trunk or limbs, but provides less than half the effort. 2-Substantial/Maximal Assistance-helper does MORE THAN HALF the effort. [place] lifts or holds trunk or limbs and provides more than half the effort. 6-Balmyflxs-xaylko does ALL the effort. Patient does none of the effort to complete the activity. Or, the assistance of 2 or more helpers is required for the patient to complete the activity. If activity was not attempted, code reason: 7-Patient Refused. 9-Not Applicable-not attempted and the patient did not perform the activity before the current illness, exacerbation or injury. 10-Not Attempted due to Environmental Limitations-(lack of equipment, weather restraints, etc.). 88-Not Attempted due to Medical Conditions or Safety Concerns. Roll Left & Right (QC): 6 Sit to Lying (QC): 6 Lying to Sitting/Side of Bed(Q: 6 Sit to Stand (QC): 6 Chair/Kuc-gc-Tilxi Xfer(QC): 6 Toilet Transfer (QC): 6 Car Transfer (QC): 6 Weight Bearing Full Weight Bearing Full Weight Bearing Gait Training Does the Patient Walk?: Yes Distance: 150' Walk 10 feet (QC): 6 Walk 50 ft with 2 Turns(QC): 6 Walk 150 ft (QC): 6 Walking 10ft/uneven surface-QC: 6 Gait Persons Needed: 0 Gait Assistive Device: FWW RB as needed for fatigue/SOA. Wheelchair Training Does the Pt Use a Wheelchair?: No Stair Training Stair Training: Handrails/: 2 handrails #of Steps: 4 1 Step (curb) (QC): 6 4 Steps (QC): 6 12 Steps (QC): 7 Stairs: Pattern: Step to 2 sets of 4 steps with RB in between each. Balance Picking up an Object (QC): 6 Treatments [id number]: Pt completes QC scoring items listed above before returning to room to rest in recliner. Pt declines need for BR. All needs met, call light in hand. [id number]: PLASTER PATTERN CASTER observes and discusses Ad jose eduardo in room and what that entails. Pt is made Ad jose eduardo in room. This is communicated to Nurse and put on Gait section of board in pt's room. Pt rests in recliner with all needs met, call light in hand. Pt declined need for BR. Assessment Current Status: Good Progress Pt needs occasional RB for fatigue/SOA. PT Short Term Goals Short Term Goals Time Frame: Jan 25, 2021 Roll Left & Right: 6 Sit to lyin Lying to sitting on side of be: 5 Sit to stand: 4 Chair/ich-ne-ppqns transfer: 4 Walk 10 feet: 4 PT Rn Documentation Goals Rn Documentation Goals PT Rn Documentation Goals Time Frame: Feb 08, 2021 Roll Left & Right (QC): 6 Sit to Lying (QC): 6 Lying-Sitting on Side/Bed(QC): 6 Sit to Stand (QC): 5 Chair/Pgy-he-Ocpoy Xfer(QC): 5 Toilet Transfer (QC): 5 Car Transfer (QC): 4 Does the Patient Walk: Yes Walk 10 feet (QC): 4 Walk 50ft with 2 Turns (QC): 4 Walk 150 ft (QC): 88 Walking 10ft on Uneven Surface: 4 1 Step (curb) (QC): 4 4 Steps (QC): 88 12 Steps (QC): 88 Picking up an Object (QC): 88 Wheel 50 feet with 2 turns (QC: 9 Wheel 150 feet: 9 PT Plan Problem List Problem List: Activity Tolerance Treatment/Plan Treatment Plan: Continue Plan of Care Treatment Plan: Bed Mobility, Education, Functional Activity Jo Ann, Functional Strength, Group Therapy, Gait, Safety, Therapeutic Exercise, Transfers Treatment Duration: Feb 08, 2021 Frequency: At least 5 of 7 days/Wk (IRF) Estimated Hrs Per Day: 1.5 hours per day Patient and/or Family Agrees t: Yes Safety Risks/Education Patient Education: Steps, Issued Written HEP Teaching Recipient: Patient Teaching Methods: Demonstration, Discussion Response to Teaching: Verbalize Understanding, Return Demonstration Time/GCodes Time In: 1000 Time Out: 1100 Total Billed Treatment Time: 60 Total Billed Treatment [id number]: 1, GT (20m) & FA x3 (40m) [id number]: 1, FA (15m) MEG WAITE PLASTER PATTERN CASTER Jan 25, 2021 11:01
[2021-01-25 20:00] VITALS: BP 105/59
[2021-01-25] MEDS ORDERED: CEFD300C3 PO (20:33)
--- NOTE | 2021-01-25 20:34 | D/C HH Face to Face Order ---
D/C Face to Face Orders Reconcile Patient Problems Problems Reviewed?: Yes Instructions for Patient Via [facility], Patient Instructions/FollowUp: Dr Abreu in 2 weeks as scheduled Physician to follow Patient: Lois Discharge Diet for Home: No Restrictions Patient Problems: post COVID Patient Data-Allergies,Ht & Wt Patient Allergies: Coded Allergies: No Known Drug Allergies (Unverified , 01/10/21) Home Health Need/Face to Face Date of Face to Face: Jan 25, 2021 Clinical Findings: Generalized weakness and fatigue, Instability, Muscle weakness, Unsteady gait I have seen Pt kkxd-ce-jhpa: Yes Discharged To: Home Diagnosis/Conditions: Post COVID Patient is Homebound due to: [place] fall risk due to instabilty, Muscle weakness, Shortness of breath/distress Homebound Status Due to the above stated illness, injury or surgical procedure (medical condition or diagnosis) and associated clinical findings, the patient is homebound because of his/her inability to leave home except with aid of a supportive device and/or person AND leaving the home requires a considerable and taxing effort or is medically contraindicated. Pt req the following assistanc: Walker Home Health Nursing Orders Home Health Services Order: Nursing Services, Pottery Machine Operator-Evaluate & Treat, Physical Therapy-Evaluate & Treat Certify Stmt I certify that this patient is under my care and that I, a nurse practitioner or a physician; a assistant professor of communication working with me, had a face to face encounter that - meets the physician face to face encounter requirements with this patient as SARITHA Baer DO Jan 25, 2021 20:33
--- NOTE | 2021-01-26 05:51 | Discharge Summary ---
Diagnosis/Chief Complaint Date of Admission Jan 18, 2021 at 10:20 Date of Discharge Discharge Date: Jan 26, 2021 Discharge Time: 1000 Discharge Diagnosis Assessment: COVID-19 pneumonia Acute hypoxic respiratory failure Pulmonary embolism requiring filter placement by Dr. POTTER Subarachnoid bleed due to fall no anticoagulation or antiplatelets can be used until 01/21/[address] head showed continued hemorrhage presents and in my opinion risk outweigh the benefits of starting anticoagulation Hypertension Orthostatic syncope UTI with low-grade fever started Omnicef 01/25/21 Plan: Supportive care Intensive rehab IVC filter management 01/19/2021: Discussed anticoagulation with patient Continue aggressive therapy 01/20/2021: Aggressive therapy Maintain oxygen 01/21/2021: Patient doing very well Dramatic improvement 01/22/2021: Supportive care CT scan reviewed 01/23/2021: No anticoagulation due to subarachnoid hemorrhage on repeat CT 01/24/2021: Antibiotic for UTI 01/25/2021: Discharge tomorrow (1) Post-COVID syndrome (2) Pulmonary embolism (3) DVT (deep venous thrombosis) (4) S/P IVC filter (5) Hypoxemia (6) Hypercapnia (7) Hypercholesterolemia (8) Hypertension (9) Orthostasis (10) Subarachnoid hemorrhage Discharge Summary Discharge Physical Examination Allergies: Coded Allergies: No Known Drug Allergies (Unverified , 01/10/21) Vitals & I&Os Vital Signs Date Time Temp Pulse Resp B/P (MAP) Pulse Ox O2 Delivery O2 Flow Rate FiO2 01/26/21 15:13 37.2 105 16 115/71 93 Room Air 2.00 General Appearance: Alert, Oriented X3, Cooperative Respiratory: Clear to Auscultation Cardiovascular: Regular Rate Neuro: Normal Gait, Normal Speech, Strength at 5/5 X4 Ext Psych/Mental Status: Mental Status NL Hospital Course Was the Problem List Reviewed?: Yes Hospital course: Patient had an uneventful hospital course for 9 days in inpatient rehab. She had originally admitted to rehab then moved to ICU the following day due to continued hypoxia and unable to tolerate structured therapy. Patient was found to have a pulmonary emboli requiring IVC filter due to subarachnoid hemorrhage preventing anticoagulation. Dr. POTTER placed that without complication. She required a long course of Vapotherm and ultimately was able to wean down she was admitted to inpatient rehab progressed nicely and was able to wean off oxygen was able to ambulate and perform ADLs and was able to be discharged. Repeat CT scan showed subarachnoid hemorrhage still present and I was not comfortable initiating anticoagulation after 01/21/2021 per neurosurgery recommendation and considering IVC filter in place decision was made to not start anticoagulation since risk outweigh the benefits of additional bleeding. Labs (last 24 hrs) Laboratory Tests 01/19/21 05:51: White Blood Count 9.3, Red Blood Count 3.45L, Hemoglobin 10.3L, Hematocrit 31L, Mean Corpuscular Volume 90, Mean Corpuscular Hemoglobin 30, Mean Corpuscular Hemoglobin Concent 33, Red Cell Distribution Width 14.9H, Platelet Count 123L, Mean Platelet Volume 10.2, Immature Granulocyte % (Auto) 3, Neutrophils (%) (Auto) 77H, Lymphocytes (%) (Auto) 13, Monocytes (%) (Auto) 7, Eosinophils (%) (Auto) 1, Basophils (%) (Auto) 0, Neutrophils # (Auto) 7.1, Lymphocytes # (Auto) 1.2, Monocytes # (Auto) 0.6, Eosinophils # (Auto) 0.1, Basophils # (Auto) 0.0, Immature Granulocyte # (Auto) 0.3H, Percent Immature Platelet Fraction 4.6, Sodium Level 138, Potassium Level 3.8, Chloride Level 105, Carbon Dioxide Level 23, Anion Gap 10, Blood Urea Nitrogen 15, Creatinine 0.77, Estimat Glomerular Filtration Rate 74, BUN/Creatinine Ratio 19, Glucose Level 105, Calcium Level 8.4L, Corrected Calcium 9.1, Total Bilirubin 0.7, Aspartate Amino Transf (AST/SGOT) 32, Alanine Aminotransferase (ALT/SGPT) 48, Alkaline Phosphatase 63, Total Protein 5.6L, Albumin 3.1L 01/22/21 05:47: White Blood Count 9.2, Red Blood Count 3.16L, Hemoglobin 9.3L, Hematocrit 29L, Mean Corpuscular Volume 91, Mean Corpuscular Hemoglobin 29, Mean Corpuscular Hemoglobin Concent 32, Red Cell Distribution Width 14.6H, Platelet Count 116L, Mean Platelet Volume 10.1, Immature Granulocyte % (Auto) 1, Neutrophils (%) (Auto) 79H, Lymphocytes (%) (Auto) 11L, Monocytes (%) (Auto) 8, Eosinophils (%) (Auto) 1, Basophils (%) (Auto) 0, Neutrophils # (Auto) 7.3, Lymphocytes # (Auto) 1.0, Monocytes # (Auto) 0.8, Eosinophils # (Auto) 0.1, Basophils # (Auto) 0.0, Immature Granulocyte # (Auto) 0.1, Percent Immature Platelet Fraction 3.4, Sodium Level 136, Potassium Level 4.0, Chloride Level 104, Carbon Dioxide Level 22, Anion Gap 10, Blood Urea Nitrogen 9, Creatinine 0.74, Estimat Glomerular Filtration Rate 77, BUN/Creatinine Ratio 12, Glucose Level 118H, Calcium Level 8.5, Corrected Calcium 9.4, Total Bilirubin 1.0, Aspartate Amino Transf (AST/SGOT) 35H, Alanine Aminotransferase (ALT/SGPT) 54, Alkaline Phosphatase 71, Total Protein 5.6L, Albumin 2.9L 01/24/21 16:20: Urine Color YELLOW, Urine Clarity SL CLOUDY, Urine pH 6.0, Urine Specific [place] <=1.005, Urine Protein NEGATIVE, Urine Glucose (UA) NEGATIVE, Urine Ketones NEGATIVE, Urine Nitrite POSITIVEH, Urine Bilirubin NEGATIVE, Urine Urobilinogen 0.2, Urine Leukocyte Esterase 3+H, Urine RBC (Auto) TRACE-I, Urine RBC 0-2, Urine WBC 25-50H, Urine Squamous Epithelial Cells NONE, Urine Crystals NONE, Urine Bacteria LARGEH, Urine Casts NONE, Urine Mucus NEGATIVE, Urine Cu lture Indicated YES Microbiology 01/24/21 Urine Culture - Preliminary, Resulted Klebsiella/Enterobacter spec Pending Labs Microbiology Date/Time Source Procedure Growth Status 01/24/21 16:20 Urine Clean Catch Urine Culture - Preliminary Klebsiella/Enterobacter spec Resulted Laboratory Tests 01/19/21 05:51: White Blood Count 9.3, Red Blood Count 3.45, Hemoglobin 10.3, Hematocrit 31, Mean Corpuscular Volume 90, Mean Corpuscular Hemoglobin 30, Mean Corpuscular Hemoglobin Concent 33, Red Cell Distribution Width 14.9, Platelet Count 123, Mean Platelet Volume 10.2, Immature Granulocyte % (Auto) 3, Neutrophils (%) (Auto) 77, Lymphocytes (%) (Auto) 13, Monocytes (%) (Auto) 7, Eosinophils (%) (Auto) 1, Basophils (%) (Auto) 0, Neutrophils # (Auto) 7.1, Lymphocytes # (Auto) 1.2, Monocytes # (Auto) 0.6, Eosinophils # (Auto) 0.1, Basophils # (Auto) 0.0, Immature Granulocyte # (Auto) 0.3, Percent Immature Platelet Fraction 4.6, Sodium Level 138, Potassium Level 3.8, Chloride Level 105, Carbon Dioxide Level 23, Anion Gap 10, Blood Urea Nitrogen 15, Creatinine 0.77, Estimat Glomerular Filtration Rate 74, BUN/Creatinine Ratio 19, Glucose Level 105, Calcium Level 8.4, Corrected Calcium 9.1, Total Bilirubin 0.7, Aspartate Amino Transf (AST/SGOT) 32, Alanine Aminotransferase (ALT/SGPT) 48, Alkaline Phosphatase 63, Total Protein 5.6, Albumin 3.1 01/22/21 05:47: White Blood Count 9.2, Red Blood Count 3.16, Hemoglobin 9.3, Hematocrit 29, Mean Corpuscular Volume 91, Mean Corpuscular Hemoglobin 29, Mean Corpuscular Hemoglobin Concent 32, Red Cell Distribution Width 14.6, Platelet Count 116, Mean Platelet Volume 10.1, Immature Granulocyte % (Auto) 1, Neutrophils (%) (Auto) 79, Lymphocytes (%) (Auto) 11, Monocytes (%) (Auto) 8, Eosinophils (%) (Auto) 1, Basophils (%) (Auto) 0, Neutrophils # (Auto) 7.3, Lymphocytes # (Auto) 1.0, Monocytes # (Auto) 0.8, Eosinophils # (Auto) 0.1, Basophils # (Auto) 0.0, Immature Granulocyte # (Auto) 0.1, Percent Immature Platelet Fraction 3.4, Sodium Level 136, Potassium Level 4.0, Chloride Level 104, Carbon Dioxide Level 22, Anion Gap 10, Blood Urea Nitrogen 9, Creatinine 0.74, Estimat Glomerular Filtration Rate 77, BUN/Creatinine Ratio 12, Glucose Level 118, Calcium Level 8.5, Corrected Calcium 9.4, Total Bilirubin 1.0, Aspartate Amino Transf (AST/SGOT) 35, Alanine Aminotransferase (ALT/SGPT) 54, Alkaline Phosphatase 71, Total Protein 5.6, Albumin 2.9 01/24/21 16:20: Urine Color YELLOW, Urine Clarity SL CLOUDY, Urine pH 6.0, Urine Specific [place] <=1.005, Urine Protein NEGATIVE, Urine Glucose (UA) NEGATIVE, Urine Ketones NEGATIVE, Urine Nitrite POSITIVE, Urine Bilirubin NEGATIVE, Urine Urobilinogen 0.2, Urine Leukocyte Esterase 3+, Urine RBC (Auto) TRACE-I, Urine RBC 0-2, Urine WBC 25-50, Urine Squamous Epithelial Cells NONE, Urine Crystals N ONE, Urine Bacteria LARGE, Urine Casts NONE, Urine Mucus NEGATIVE, Urine Culture Indicated YES Discharge Home Medications: Active Scripts Active Cefdinir 300 Mg Capsule 300 Mg PO BID Reported Loratadine 10 Mg Tablet 10 Mg PO DAILY Instructions to patient/family Please see electronic discharge instructions given to patient. Diagnosis/Problems Diagnosis/Problems (1) Post-COVID syndrome (2) Pulmonary embolism (3) DVT (deep venous thrombosis) (4) S/P IVC filter (5) Hypoxemia (6) Hypercapnia (7) Hypercholesterolemia (8) Hypertension (9) Orthostasis (10) Subarachnoid hemorrhage SARITHA APODACA DO Jan 26, 2021 05:51
[2021-01-26] MEDS: KCL 10 MEQ TAB (MICRO K) PO SCH (06:38)
[2021-01-26 08:00] VITALS: BP 115/71
--- NOTE | 2021-01-26 08:29 | Cardiology Progress Note ---
Subjective Date Seen by Provider: Jan 26, 2021 Time Seen by Provider: 08:29 Subjective/Events-last exam Patient was seen at bedside, sitting comfortably, feeling better. No new co mplaints Review of Systems General: No Chills, No Night Sweats, No Fatigue, No Malaise, No Appetite, No Other HEENT: No Head Aches, No Visual Changes, No Eye Pain, No Ear Pain, No Dysphasia, No Sinus Congestion, No Post Nasal Drip, No Sore Throat, No Other Pulmonary: No Dyspnea, No Cough, No Pleuritic Chest Pain, No Other Cardiovascular: No: Chest Pain, Palpitations, Orthopnea, Paroxysmal Noc. Dyspnea, Edema, Lt Headedness, Other Objective-Cardiology Exam Last Set of Vital Signs Vital Signs 01/20/21 01/22/21 01/26/21 22:44 08:46 08:00 Temp 37.2 Pulse 105 Resp 16 B/P (MAP) 115/71 (86) Pulse Ox 95 O2 Delivery Room Air O2 Flow Rate 2.00 FiO2 28 General: Alert, Oriented X3, Cooperative HEENT: Atraumatic, EOMI Neck: Supple, No JVD Lungs: Clear to Auscultation, Normal Air Movement Heart: Regular Rate, Normal S1, Normal S2, No Murmurs Abdomen: Soft, No Tenderness Extremities: No Clubbing, No Cyanosis, Normal Pulses, No Tenderness/Swelling Skin: No Rashes, No Breakdown, No Significant Lesion Neuro: Normal Speech Psych/Mental Status: Mental Status NL, Mood NL A/P-Cardiology Admission Diagnosis Acute respiratory failure Pulmonary embolism Subarachnoid hemorrhage Hypertension Assessment/Plan Status post acute respiratory failure, was on Vapotherm, no longer needing oxygen supplementation, currently doing well, feeling better. No new complaint. CXR done yesterday, according to radiology showed stable bilateral infiltrate, right greater than left Sinus tachycardia and hypotension probably secondary to pulmonary embolism and severe hypoxemia. Unable to tolerate aggressive anticoagulation due to subarachnoid hemorrhage, Recommend discussing with the neurologist to evaluate the timing that we can start anticoagulation. Head CT done 12/2720. According to radiology showed small amount of subarachnoid hemorrhage overlying the anterior right frontal lobe. No associated mass effect. No large acute territorial ischemia. Generalized parenchymal volume loss with chronic microvascular disease. UTI, UA done yesterday that came back abnormal. Started on Omnicef. Managed by Dr. Regalado. COVID-19 pneumonia, patient recovered no longer requiring oxygen. DVT, pulmonary embolism, had subarachnoid hemorrhage, cannot tolerate aggressive anticoagulation, underwent IVC filter placement. Orthostatic hypotension, multiple near syncopal episode, had to reported syncope, subarachnoid hemorrhage secondary to head trauma from syncope. Monitor blood pressure Subarachnoid hemorrhage, unable to tolerate any type of anticoagulation at this point. Continue with conservative management. CT head done 01/22/21. History of hyperlipidemia, maintained on statin as an outpatient Okay for discharge from cardiology standpoint and follow-up as an outpatient CHARISSE LOWRY MD Jan 26, 2021 08:29
[2021-01-26] MEDS: SENNA W/DOCUSATE (SENOKOT S) TABLET PO SCH (09:15)
[2021-01-26] MEDS: CEFDINIR 300 MG (OMNICEF) CAP PO SCH (09:15)
[2021-01-26] MEDS: DOCUSATE SODIUM 100 MG (COLACE) CAP PO SCH (09:15)
[2021-01-26] MEDS: polyethylene glycoL POWDER 17 GM (MIRALAX) PACK PO SCH (09:15)
--- NOTE | 2021-01-26 13:49 | Therapy Team Discharge Summary ---
Therapy Discharge Summary Discharge Recommendations Date of Discharge Physical Therapy Patient came to rehab with Post COVID PNA. Upon evaluation patient performed bed mobility with independence, supine <-> sit SBA, sit <-> stand and transfers CGA, car transfer CGA, ambulated 5' with a rolling walker with CGA, she tried ambulating 10' over an uneven surface but was not able to complete it, dependent with WC mobility, and can go up and down 1 step using a rolling walker with min assist. Patient has been performing bed mobility and transfer training, balance and endurance training, functional strengthening, stair training, gait training, and education. 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 Patient is discharging from this facility today and will be discharged from PT at this time. Occupational Therapy Decreased Activ Tolerance, Decreased UE Strength, Impaired Coordination, Impaired I ADL's, Impaired Self-Care Skills PT Chemistry Lab Instructor Goals Chemistry Lab Instructor Goals PT Chemistry Lab Instructor Goals Time Frame: Feb 08, 2021 Roll Left to Right (QC): 6 Sit to Lying (QC): 6 Lying-Sitting on Side/Bed(QC): 6 Sit to Stand (QC): 5 Chair/Dme-kg-Lrwke Xfer(QC): 5 Car Transfer (QC): 4 Does the Patient Walk: Yes Walk 10 feet (QC): 4 Walk 10ft-Uneven Surface(QC): 4 Walk 50ft with 2 Turns (QC): 4 Walk 150 ft (QC): 88 Wheel 50 feet with 2 turns (QC: 9 1 Step (curb) (QC): 4 4 Steps (QC): 88 12 Steps (QC): 88 Picking up an Object (QC): 88 OT Skilled Nursing Goals Chemistry Lab Instructor Goals Time Frame: Feb 09, 2021 Eating (QC): 6 (met) Oral Hygiene (QC): 6 (met) Shower/Bathe Self (QC): 6 (met) Upper Body Dressing (QC): 6 (met) Lower Body Dressing (QC): 6 (met) On/Off Footwear (QC): 6 (met) Toileting Hygiene (QC): 6 (met) Toilet/Commode Transfer (QC): 5 1=Demonstrate adherence to instructed precautions during ADL tasks. 2=Patient will verbalize/demonstrate understanding of assistive devices/modifications for ADL. 3=Patient will improve strength/tolerance for activity to enable patient to perform ADL's. NARAYAN ORDOÑEZ PT Jan 26, 2021 13:49
[2021-01-26 15:13] VITALS: BP 115/71
--- NOTE | 2021-01-29 10:55 | Therapy Team Discharge Summary ---
Therapy Discharge Summary Discharge Recommendations Date of Discharge Jan 26, 2021 at 13:45 Occupational Therapy Pt admitted to ARU with post COVID PNA. At PLOF, pt was independent with ADLs and functional mobility, no AD/AE. Upon initial evaluation, pt was independent with eating and oral care, required min A showering, set up assistance UE dressing, min A LE dressing, max A footwear and CGA toileting. OT tx focused on increasing BUE strength and activity tolerance, and increasing safety and independence with ADLs and functional mobility. At discharge, pt was independent with all ADLs, meeting all LTGs. Pt discharged from facility, d/c from OT. Decreased Activ Tolerance, Decreased UE Strength, Impaired Coordination, Impaired I ADL's, Impaired Self-Care Skills PT Clerk Travel Reservations Goals Fpc Goals PT Fpc Goals Time Frame: Feb 08, 2021 Roll Left to Right (QC): 6 Sit to Lying (QC): 6 Lying-Sitting on Side/Bed(QC): 6 Sit to Stand (QC): 5 Chair/Osk-vz-Pdote Xfer(QC): 5 Car Transfer (QC): 4 Does the Patient Walk: Yes Walk 10 feet (QC): 4 Walk 10ft-Uneven Surface(QC): 4 Walk 50ft with 2 Turns (QC): 4 Walk 150 ft (QC): 88 Wheel 50 feet with 2 turns (QC: 9 1 Step (curb) (QC): 4 4 Steps (QC): 88 12 Steps (QC): 88 Picking up an Object (QC): 88 OT Fpc Goals Fpc Goals Time Frame: Feb 09, 2021 Eating (QC): 6 (met) Oral Hygiene (QC): 6 (met) Shower/Bathe Self (QC): 6 (met) Upper Body Dressing (QC): 6 (met) Lower Body Dressing (QC): 6 (met) On/Off Footwear (QC): 6 (met) Toileting Hygiene (QC): 6 (met) Toilet/Commode Transfer (QC): 5 1=Demonstrate adherence to instructed precautions during ADL tasks. 2=Patient will verbalize/demonstrate understanding of assistive devices/modifications for ADL. 3=Patient will improve strength/tolerance for activity to enable patient to perform ADL's. KRYS PERALTA OT Jan 29, 2021 10:55
== END 2021-01-26 13:45 | disposition home health service (06) | DRG 947 ==
PROVIDERS: ADMIT Internal Medicine; ATTEND Internal Medicine
DX: R53.81 Other malaise (principal); I60.9 Nontraumatic subarachnoid hemorrhage, unspecified; N39.0 Urinary tract infection, site not specified; U09.9 Post COVID-19 condition, unspecified; I95.1 Orthostatic hypotension; R09.02 Hypoxemia; R06.89 Other abnormalities of breathing; R00.0 Tachycardia, unspecified; Z86.711 Personal history of pulmonary embolism; Z86.718 Personal history of other venous thrombosis and embolism; E78.00 Pure hypercholesterolemia, unspecified; E78.5 Hyperlipidemia, unspecified; I10 Essential (primary) hypertension; F41.9 Anxiety disorder, unspecified; F32.A Depression, unspecified; Z87.01 Personal history of pneumonia (recurrent)
CPT/HCPCS: 36415; 70450; 71046; 80053; 81000; 85025; 87077; 87088; 87186; 93005; 94760

== ENCOUNTER → 2021-07-03 | Outpatient (CLI) | payer MEDICARE, OTHER ==
[~2021-07-03] MED LIST changes: +ASPI-999 PO; +CEFD300C3 PO; +ESTR1TAB27 PO; +HYDR-3924 PO; +LORA10TA7 PO; +LOSA100T57 PO; +METO50TA15 PO; +POTA-160 PO; -POTA10TA6 PO
[2021-07-03 09:54] LABS: ALBUMIN 4.2 GM/DL (3.2-4.5); BILIRUBIN,TOTAL 0.7 MG/DL (0.1-1.0); CALCIUM 9.4 MG/DL (8.5-10.1); CREATININE SERUM 0.91 MG/DL (0.60-1.30); POTASSIUM 4.3 MMOL/L (3.6-5.0); TOTAL PROTEIN 7.6 GM/DL (6.4-8.2)
== END ==
LOC: LAB 09:09
PROVIDERS: ATTEND Physician Assistant
DX: I82.409 Acute embolism and thrombosis of unspecified deep veins of unspecified lower extremity (principal); I26.99 Other pulmonary embolism without acute cor pulmonale; I10 Essential (primary) hypertension; I65.23 Occlusion and stenosis of bilateral carotid arteries; E78.2 Mixed hyperlipidemia
CPT/HCPCS: 36415; 80053; 80061

== ENCOUNTER → 2021-07-20 | Outpatient (CLI) | payer MEDICARE, OTHER | LOC: RAD 08:44 | PROVIDERS: ATTEND Internal Medicine | DX: Z12.31 Encounter for screening mammogram for malignant neoplasm of breast (principal) | CPT/HCPCS: 77063; 77067 ==

== ENCOUNTER → 2022-08-21 | Outpatient (CLI) | payer MEDICARE, OTHER ==
[2022-08-21 10:05] VITALS: BP 187/111
--- NOTE | 2022-08-21 11:15 | Cardiology Stress Test Report ---
Stress Test Report Date of Procedure/Referring: Date of Procedure: Aug 21, 2022 PCP No,Local Physician Admitting Physician Admitting Physician: Attending Physician: Deborah Chand Baseline Heart Rate: 3 Baseline Blood Pressure: Blood Pressure Systolic: 187 Blood Pressure Diastolic: 111 Baseline EKG: Baseline EKG: NSR Summary/Conclusion: Summary: In summary, the patient started exercising with a baseline heart rate, blood pressure and EKG mentioned above Patient was able to exercise for a total of 3 minutes on Home protocol, METs 4.6 Maximum heart rate 142 Maximum blood pressure 213/93 Stress EKG, Minimal nondiagnostic changes Recovery EKG , Return to baseline Conclusion: Poor exercise tolerance for 3 minutes on standard Home protocol, 4.6 METS achieving 96% of maximal expected heart rate Baseline hypertension with hypertensive response to exercise with peak blood pressure 213/93 return to baseline during recovery Nondiagnostic EKG changes with exercise return to baseline during recovery Copy Copies To 1: SARITHA APODACA BASHAR J MD Aug 21, 2022 11:15
== END ==
LOC: CARD 09:44
PROVIDERS: ATTEND Physician Assistant
DX: I10 Essential (primary) hypertension (principal)
CPT/HCPCS: 93017

== ENCOUNTER → 2022-09-26 | Outpatient (CLI) | payer MEDICARE ==
--- NOTE | 2022-09-26 11:30 | Diagnostic Imaging Report ---
INDICATION: Routine screening. Comparison is made with prior mammogram from 07/20/2021 and 04/02/2019. 2-D and 3-D bilateral screening mammography was performed with CAD. CAD is utilized. The current study was also evaluated with a Computer Aided Detection (CAD) system. Scattered fibroglandular densities are identified bilaterally. Benign-appearing nodules and benign-appearing calcifications appear to be stable. No spiculated mass or malignant-appearing microcalcifications are identified. Axillae are unremarkable. IMPRESSION: BI-RADS Category 2 No mammographic features suspicious for malignancy are identified. ACR BI-RADS Category 2: Benign findings. Result letter will be mailed to the patient. Note: At least 10% of breast cancer is not imaged by mammography. Dictated by: Dictated on workstation # [id number]
== END ==
LOC: RAD 08:01
PROVIDERS: ATTEND Internal Medicine
DX: Z12.31 Encounter for screening mammogram for malignant neoplasm of breast (principal)
CPT/HCPCS: 77063; 77067

== ENCOUNTER → 2023-02-12 | Outpatient (CLI) | payer MEDICARE ==
[~2023-02-12] MED LIST changes: -LOSA100T57 PO; +LOSA100T58 PO
--- NOTE | 2023-02-12 16:56 | Diagnostic Imaging Report ---
INDICATION: Knee pain below patella on medial side. TECHNIQUE: 3 views of the left knee CORRELATION STUDY: None FINDINGS: Asymmetric moderate joint space narrowing medial compartment and minimal early marginal spurring. Lateral compartment appears better preserved. Articular surfaces are smooth and maintained. There is no acute bony abnormality. There does appear to be narrowing and spur like formation at the patellofemoral compartment. Small suprapatellar joint effusion. IMPRESSION: 1. Negative for acute bony abnormality of the knee. Advanced multi compartment degenerative changes most severe at the medial and patellofemoral compartment. Dictated by: Dictated on workstation # [id number]
== END ==
LOC: RAD 10:16
PROVIDERS: ATTEND Internal Medicine
DX: M17.12 Unilateral primary osteoarthritis, left knee (principal)
CPT/HCPCS: 73562